=== PATIENT | male | born 1930 | race Caucasian/White ===

== ENCOUNTER 2016-04-17 17:13 | Inpatient (IN) | payer MEDICARE, OTHER ==
[2016-04-17] MEDS ORDERED: NS 0.9% 1000 ML* 1,000 ML IV ONE ×2 (18:22→18:44)
--- NOTE | 2016-04-17 19:32 | RAD ---
Indication: Confusion. Single frontal view of the chest performed at 1839 hours was reviewed. Comparison is made with previous exam dated May 31, 2015. Cardiomegaly is noted. Right pleural effusion is noted. Pacemaker leads are in place. IMPRESSION: PERSISTENT RIGHT PLEURAL EFFUSION WITHOUT SIGNIFICANT CHANGE SINCE PREVIOUS EXAM OF MAY 31, 2015.
[2016-04-17 19:53] LABS: Hematocrit 34 % (42-52); Hemoglobin 11.1 g/dl (14.0-18.0); Mean Corpuscular HGB Conc 32 g/dl (31-36); Mean Corpuscular Hemoglobin 30 pg (27-31); Mean Corpuscular Volume 92 fL (80-94); Mean Platelet Volume 9 um3 (7.4-10.4); Red Blood Count 3.75 10^6/ul (4.0-5.4); Red Cell Distribution Width 14 % (10.5-15); White Blood Count 11.2 10^3/ul (3.5-10.8)
[2016-04-17 20:12] LABS: Albumin 3.5 g/dL (3.2-5.2); BUN/Creatinine Ratio 16.8 (8-20); Calcium 9.6 mg/dL (8.6-10.3); EGFR African American 52.6 (>60); EGFR Non-African American 40.9 (>60); Globulin 3.8 g/dL (2-4); Potassium 4.4 mmol/L (3.5-5.0); Total Bilirubin 0.5 mg/dL (0.2-1.0); Total Protein 7.3 g/dL (6.4-8.9)
[2016-04-17 20:20] LABS: Troponin I 0.06 ng/mL (<0.04)
[2016-04-17 20:36] LABS: Digoxin 0.2 ng/ml (0.8-2.0)
[2016-04-17] MEDS ORDERED: Azithromycin TAB* 250 MG PO ONE (21:27)
[2016-04-17 22:48] LABS: Urine Bacteria Absent (Absent); Urine Bilirubin Negative (Negative); Urine Glucose 3+(>=500 mg/dL) (Negative); Urine Nitrite Negative (Negative)
[2016-04-18 00:05] LABS: TSH (Thyroid Stimulating Horm) 1.42 mcIU/mL (0.34-5.60)
--- NOTE | 2016-04-18 01:13 | ED ---
chet Harrison Timothy, scribed for Fahad Lai on 04/17/16 at 2257 . Progress - Progress Note Progress Note: Gabe De La Torre is an 85 yo male presenting to [facility] with cough and elevated glucose. Course/Dx - Course Course Of Treatment: Gabe De La Torre is an 85 yo male with cough and elevated glucose. After elevated repeated troponin and discussion with Dr. White, he will be admitted. - Diagnoses Provider Diagnoses: Bronchitis - Provider Notifications Discussed Care Of Patient With: 0055 - Dr. White (hospitalist) - discussed Pt condition and elevated toponin, he agrees to admit Pt. The documentation as recorded by the chet gutierres Timothy accurately reflects the service I personally performed and the decisions made by , Fahad Lai.
[2016-04-18] MEDS ORDERED: Dextrose 50% Syringe 50 ML* 25 GM/50 ML SYRINGE IV PUSH PRN ×2 (01:31→15:57)
[2016-04-18] MEDS ORDERED: Benzonatate CAP* 100 MG PO PRN (01:31)
[2016-04-18] MEDS ORDERED: Ondansetron INJ* 2 MG/ML VIAL IV PRN (01:31)
[2016-04-18] MEDS ORDERED: Insulin GLARGINE(*) 1 UNITS UNIT SUBCUT SCH ×3 (02:00→21:00)
[2016-04-18 02:23] LABS: Magnesium 2.2 mg/dL (1.9-2.7)
[2016-04-18] MEDS: Acetaminophen TAB* 325 MG PO PRN (02:41)
[2016-04-18] MEDS ORDERED: traMADol TAB* 50 MG PO PRN (05:11)
[2016-04-18] MEDS ORDERED: Polyethylene Glycol 3350* 17 GM PACKET PO PRN (05:11)
[2016-04-18] MEDS: Insulin LISPRO* 1 UNITS UNIT SUBCUT SCH ×4 (05:39→22:52)
[2016-04-18 06:56] LABS: HDL Cholesterol 29.4 mg/dL
[2016-04-18 07:17] LABS: Troponin I 0.11 ng/mL (<0.04)
[2016-04-18] MEDS ORDERED: amLODIPine TAB* 5 MG PO SCH (09:00)
[2016-04-18] MEDS ORDERED: Thiamine TAB* 100 MG TAB PO SCH (09:00)
[2016-04-18] MEDS ORDERED: Digoxin TAB* 0.125 MG PO SCH (09:00)
[2016-04-18] MEDS ORDERED: Docusate CAP* 100 MG PO SCH (09:00)
[2016-04-18] MEDS ORDERED: Ferrous Sulfate TAB* 325 MG PO SCH (09:00)
[2016-04-18] MEDS ORDERED: Atorvastatin* 40 MG TAB PO SCH (09:00)
[2016-04-18] MEDS ORDERED: Apixaban* 2.5 MG TAB PO SCH (09:00)
[2016-04-18] MEDS ORDERED: Atenolol TAB* 50 MG PO SCH (09:00)
--- NOTE | 2016-04-18 09:29 | HP ---
HISTORY AND PHYSICAL: DATE OF ADMISSION: 04/18/16 CHIEF COMPLAINT: Cough. HISTORY OF PRESENT ILLNESS: The patient is an 85-year-old gentleman who says for one week he has been having a cough that he cannot get rid of, and he coughs all day long. It's mostly nonproductive; once in a while he brings up a little sputum. He gets short of breath with it, but that's not necessarily new. He has a couple of times this week developed chest pain on the left side; it' s a sharp pain, and 5/10 in severity. It lasts only a few minutes and goes away on its own. He has no associated symptoms with it such as shortness of breath, palpitations, diaphoresis, nausea, or vomiting. He says he notes his sugars have been up to 400 to 500 lately, but he takes his medications and it goes down rapidly. In the ED, because his sugars were elevated, the ED doctor thought it was prudent to get a troponin; and it, indeed, was elevated at 0.06. A subsequent troponin came back at 0.36. The patient is being admitted for elevated troponin to make sure he did not have an acute coronary event. PAST MEDICAL HISTORY: Significant for coronary artery disease, type 2 diabetes , hypertension, obstructive sleep apnea, syncope, status post permanent pacemaker placement in June 2012, porcine aortic valve replacement in 2006, atrial fibrillation on Eliquis. ALLERGIES: REGLAN, METOPROLOL, ASPIRIN, LACTOSE, AND TROGLITAZONE, AND HAS A PROBLEM WITH FULL-DOSE ASPIRIN. FAMILY HISTORY: Father from a gangrenous foot. Mother had breast cancer. SOCIAL HISTORY: Quit tobacco over 50 years ago. No alcohol or recreational drug use. His son, William De La Torre, is his healthcare proxy. CURRENT MEDICATIONS: 1. Oxycodone 2.5 mg every 4 hours as needed. 2. Amlodipine 10 mg daily. 3. Vitamin B12 500 mg daily. 4. Tramadol 50 mg as instructed. 5. Thiamine [500?] mg daily. 6. Januvia 25 mg daily. 7. Zocor 40 mg daily. 8. Senna two tablets at bedtime. 9. Polyethylene glycol 17 grams daily. 10. Nitroglycerin 0.4 mg as needed for chest pain. 11. Multivitamin one tablet daily. 12. Irbesartan 75 mg daily. 13. Lispro insulin sliding scale. 14. Glargine insulin 20 units in the morning, 30 units in the evening. 15. Glucosamine chondroitin one capsule twice daily. 16. Gabapentin 600 mg daily. 17. Furosemide 40 mg daily. 18. Ferrous sulfate 325 mg daily. 19. Famotidine 40 mg daily. 20. Docusate 100 mg twice daily. 21. Digoxin 0.125 mg as directed. 22. Citracal calcium two tablets daily. 23. Cholecalciferol 1000 units twice daily. 24. Z-Tadeo 250 mg daily. 25. Atenolol 50 mg daily. 26. Aspirin 81 mg daily. 27. Eliquis 2.5 mg twice daily. 28. Acetaminophen 650 mg every 4 hours as needed. REVIEW OF SYSTEMS: A 14-point review of systems is completed with the patient. All pertinent positives and negatives are in the history of present illness, otherwise is negative. PHYSICAL EXAMINATION GENERAL: Pleasant gentleman sitting up in bed, in no acute distress. VITAL SIGNS: Temperature 98.2 degrees, heart rate 84 beats per minute, respiratory rate 24 breaths per minute, pulse ox 95%, and blood pressure 130/65. HEENT: Normocephalic, atraumatic. Pupils are equal, round, and reactive to light. Moist mucous membranes. NECK: Supple. No JVD, bruits, palpable thyroid, or lymphadenopathy. CHEST: Bilateral rhonchi. CARDIOVASCULAR: S1, S2 appreciated. A 3/6 systolic murmur at the right sternal border. ABDOMEN: Positive bowel sounds in all 4 quadrants. Soft, nontender, nondistended. EXTREMITIES: No cyanosis, clubbing. He's got some bilateral edema. NEUROLOGIC: He is alert and oriented x3. Moves all extremities. SKIN: No rashes or abnormalities. LABORATORY DATA: Sodium 135, potassium 4.4, chloride 98, CO2 32, BUN 27, creatinine 1.61, glucose 285. Troponin 0.06; repeat troponin 0.36. White count 11.2, hemoglobin 11.1, hematocrit 34, platelets 262. Digoxin level is only 0.2. Chest x-ray was interpreted by Radiology as persistent right pleural effusions without significant change since exam May 31, 2015. EKG shows normal sinus rhythm at 82 beats per minute, left axis deviation, right bundle-branch block, left anterior hemiblock, flipped T's V2 through V6, I in AVL. ASSESSMENT AND PLAN: 1. Elevated troponin. The patient had no complaints of this, but it was gotten because of concern of his elevated sugar. His 0.36, I doubt he is having acute coronary event. I'll admit the patient. I'll get a transthoracic echocardiogram. I will cycle his troponins. If there are no wall motion abnormalities. I think he will be safely discharged later today with cough medicine given to the patient. 2. Cough. I will give him Tessalon Perles and monitor. 3. Diabetes mellitus. Continue current regimen. Hold oral hypoglycemics and place on a single sliding scale with his Lantus. 4. Hyperlipidemia. Continue statin. Check lipid profile. 5. Atrial fibrillation. Continue Eliquis. Heart rate is adequately controlled. 6. Hypertension. Borderline controlled. Continue current regimen and adjust medications accordingly. 7. Fluids, electrolytes, and nutrition. Consistent carb diet. 8. Deep venous thrombosis prophylaxis. He is on Eliquis. 9. The patient is a FULL CODE. TIME SPENT: Over 85 minutes were spent on this H and P, more than 45 minutes of which were spent in direct [id number] contact with the patient, evaluation , physical exam, counseling, and coordination of care. CC: Dr. Ramsey* [id number]/[facility] #: [id number] ROBIN
[2016-04-18] MEDS: Gabapentin CAP(*) 300 MG PO SCH (09:36)
[2016-04-18] MEDS: Cholecalciferol TAB* 1000 UNITS PO SCH ×2 (09:38→22:11)
[2016-04-18] MEDS: Aspirin EC Low Dose* 81 MG TAB.EC PO SCH (09:38)
[2016-04-18] MEDS: Famotidine TAB* 20 MG PO SCH (09:39)
[2016-04-18] MEDS: Cyanocobalamin TAB* 500 MCG PO SCH (09:39)
[2016-04-18] MEDS: Multivitamins/Minerals TAB PO SCH (09:39)
[2016-04-18] MEDS: Losartan TAB* 25 MG PO SCH (09:40)
[2016-04-18] MEDS: Furosemide TAB* 40 MG PO SCH (09:40)
[2016-04-18] MEDS: [UNRECOGNIZED DRUG - OTHER] PO SCH (10:03)
[2016-04-18] MEDS ORDERED: Albuterol HFA INHALER* 8 gm MDI INH PRN (12:08)
[2016-04-18] MEDS ORDERED: Albuterol 2.5 MG/3 ML NEB.SOL* (0.083%) INH PRN (12:08)
--- NOTE | 2016-04-18 12:43 | ECHO ---
Patient: KATIA TERRY [facility] Rec#: [id number] : 1930 Date: 04/18/2016 Age: 85y Height: 180.34 cm / 71.0 in Weight: 106.59 kg / 234.9 lbs Sex: M BSA: 2.26 Room#: 440 Admit Date#: 04/18/2016 Type: Inpatient Referring: Yassine White MD Reading: Nishi Mccullough MD Bottom Brusher: Jill Molina JAMESON CC: Triston Ramsey MD Transthoracic Echocardiogram Indication: Chest Pain/ACS BP: 128/54 HR: 90 Rhythm: NSR Findings History: S/P porcine AVR #25 Medtronic Mosaic 2007,CAD,DM,HTN,a-fib,s/p pacer,PACO,former smoker. Technical Comments: The study is technically limited due to the patient's smoking history. Completed at 1000. Left Ventricle: The left ventricular chamber size is normal. Moderate concentric left ventricular hypertrophy is observed. There is a focal wall motion abnormality present.Base of the posterior/inferior wall severely hypokinetic to akinetic. Left ventricular systolic function is at the lower limits of normal. The estimated ejection fraction is 45-50%. Ventricular septal wall motion has a post-operative appearance. Abnormal left ventricular diastolic function is observed. Left Atrium: The left atrium is slightly dilated. Right Ventricle: The right ventricular cavity size is normal. The right ventricular global systolic function is low normal. A pacemaker wire is visualized in the right ventricle. Right Atrium: The right atrium is slightly dilated. A pacemaker wire is visualized in the right atrium. Aortic Valve: There is no evidence of aortic regurgitation. The highest aortic valve velocity was obtained with the standard probe from the A5C view. A porcine bio-prosthetic aortic valve is present. The prosthetic aortic valve leaflets are normal. The bio-prosthetic aortic valve appears to be functioning normally. Mean gradient at the highest level of normal and valve area calculates at the lower range of normal, possible early prosthetic stenosis. DI 0.64. Mitral Valve: The mitral valve leaflets are mildly thickened. There is no evidence of mitral regurgitation. There is no evidence of mitral stenosis. Tricuspid Valve: The tricuspid valve leaflets are normal. There is trace to mild tricuspid regurgitation. There is evidence that pulmonary hypertension may be underestimated. There is no tricuspid stenosis. Pulmonic Valve: The pulmonic valve appears normal. There is no evidence of pulmonic regurgitation. Pericardium: A pericardial fat pad is visualized. Aorta: There is no dilatation of the ascending aorta. There is no dilatation of the aortic arch. There is no dilation of the aortic root. Pulmonary Artery: The main pulmonary artery appears normal. Venous: The venous system is not well visualized. Conclusions Moderate concentric left ventricular hypertrophy is observed. The estimated ejection fraction is 45-50%. Ventricular septal wall motion has a post-operative appearance. Base of the posterior/inferior wall severely hypokinetic to akinetic. The right ventricular global systolic function is low normal. A porcine bio-prosthetic aortic valve is present with good function. Mean gradient at the highest level of normal and valve area calculates at the lower range of normal, possible early prosthetic stenosis. The mitral valve leaflets are mildly thickened with good function. There is trace to mild tricuspid regurgitation. Compared with LON (transesophogeal echo) of 05/25/15, septal dyskinesis and posterior wall hypokinesis newly described, ER previously 55-60%, no gradients across the prosthetic aortic valve to compare, at that time leaflets thin with normal function, trace/mild MR no longer noted. Measurements Name Value Normal Range RVIDd (AP) 2D 2.9 cm (0.9 - 2.6) RVDdMajor (2D) 3.2 cm (2.2 - 4.4) RAd ISD 4CH 5 cm (3.4 - 4.9) RA (A4C)W 3 cm (2.9 - 4.6) IVSd (2D) 1.6 cm (0.6 - 1) LVPWd (2D) 1.6 cm (0.6 - 1) LVIDd (2D) 4.7 cm (3.6 - 5.4) LVIDs (2D) 3.3 cm - LV FS (2D) 29 % (25 - 45) Aortic Annulus 2 cm (1.4 - 2.6) Ao root diameter (2D) 2.6 cm (2.1 - 3.5) Ascending Ao 2.4 cm (2.1 - 3.4) Aortic arch 2.3 cm (1.8 - 3.4) Descending Ao 0.5 cm - LA dimension (AP) 2D 3.9 cm (2.3 - 3.8) LAd ISD 4CH 5.3 cm (2.9 - 5.3) LA ISD 4CH W 4.3 cm (2.5 - 4.5) Name Value Normal Range LA ESV SP 4CH (A/L) 31 ml - LA ESV SP 2CH (A/L) 38 ml - LA ESV BP (A/L) 34 ml - LA ESV BP (A/L) index 15.24 ml/m2 - LA ESV SP 4CH (MOD) 29 ml - LA ESV SP 2CH (MOD) 35 ml - Name Value Normal Range MV E-wave Vmax 0.8 m/sec - MV deceleration time 242 msec - MV A-wave Vmax 1.2 m/sec - MV E:A ratio 0.7 ratio - LV septal e' Vmax 0.05 m/sec - LV lateral e' Vmax 0.09 m/sec - LV E:e' septal ratio 15 ratio - LV E:e' lateral ratio 8.89 ratio - Name Value Normal Range AV Vmax 2.8 m/sec - AV VTI 55.3 cm - AV peak gradient 31.87 mmHg - AV mean gradient 15.77 mmHg - LVOT diameter 1.8 cm - LVOT Vmax 1.8 m/sec - LVOT VTI 36.9 cm - LVOT peak gradient 16.64 mmHg - LVOT mean gradient 7.63 mmHg - GERBER (continuity Vmax) 1.6 cm2 - GERBER (continuity VTI) 1.6 cm2 - Name Value Normal Range TR Vmax 2.2 m/sec - TR peak gradient 20 mmHg - RAP 8 mmHg - RVSP 28 mmHg - Name Value Normal Range PV Vmax 1.1 m/sec - PV peak gradient 4.38 mmHg -
--- NOTE | 2016-04-18 14:02 | RAD ---
Indication: Dyspnea. Chest pain. Cough. Recent travel. Assess for pulmonary embolism. Comparison: April 17, 2016 chest radiograph. Technique: Following administration of 9.950 mCi xenon-133 by inhalation anterior and posterior ventilation images were obtained. Following the administration of 6.600 mCi of Tc-99m macroaggregated albumin, perfusion images were obtained in multiple projections. Report: The ventilation pattern is uniform with no evidence of air trapping. Photopenia defect at the anterior LEFT upper lobe reflecting attenuation from overlying cardiac pacemaker. The bilateral lung perfusion pattern is otherwise within normal limits. IMPRESSION: No evidence for pulmonary embolism.
--- NOTE | 2016-04-18 14:49 | RAD ---
HISTORY: Recent extended period of immobility. TECHNIQUE: Multiple transverse and longitudinal ultrasound images were obtained of the veins of the bilateral lower extremities using grayscale, color Doppler, and spectral Doppler imaging with and without compression and with augmentation. FINDINGS: VEINS: The common femoral vein, deep femoral vein, femoral vein and popliteal vein are compressible throughout their course, with normal flow on color Doppler imaging and normal response to augmentation on spectral Doppler imaging. SOFT TISSUES: Grossly normal. No large popliteal fossa cyst was identified. IMPRESSION: No sonographic evidence of deep vein thrombosis.
[2016-04-18] MEDS ORDERED: Heparin VIAL(*) 5000 UNITS/ML VIAL (FIVE THOUSAND) IV SCH (16:00)
[2016-04-18 16:48] LABS: Hematocrit 33 % (42-52); Hemoglobin 10.8 g/dl (14.0-18.0); Mean Corpuscular HGB Conc 33 g/dl (31-36); Mean Corpuscular Hemoglobin 30 pg (27-31); Mean Corpuscular Volume 91 fL (80-94); Mean Platelet Volume 9 um3 (7.4-10.4); Red Blood Count 3.57 10^6/ul (4.0-5.4); Red Cell Distribution Width 14 % (10.5-15); White Blood Count 11.6 10^3/ul (3.5-10.8)
[2016-04-18] MEDS ORDERED: Rivaroxaban TAB(*) 15 MG PO SCH (17:00)
[2016-04-18] MEDS: Heparin DRIP 25,000 UNITS(*) 25,000 UNITS/500 ML BAG IV SCH (17:06)
--- NOTE | 2016-04-18 17:07 | PN ---
Hospitalist Progress Note HOSPITALIST ADDENDUM Patient seen and examined at bedside. He feels a little better today, but major complaint is still cough. Denies dyspnea or chest pain, but has audible wheezing from a distance. CVS: normal S1 and S2, RRR. Chest: BS+ bilaterally with bilateral wheezes and rhonchi. Recent trip to [place] - drove to [place] and [place] last week, flew back this weekend. Labs and imaging reviewed. W/u for PE/DVT negative. D/w Cardiology - echo shows new wall motion abnormalities on his inferior wall, corresponding to the area of his prior stent. Due to concern for ACS will d/c Eliquis and start Heparin drip (without bolus as we need to start it EMMA), and Dr. Mccullough will discuss case with Dr. Chapa. For his bronchitis, will start doxycyline, steroids and bronchodilators. Continue to monitor on Telemetry.
[2016-04-18] MEDS: methylPREDNISolone SOD 40 MG* 1 ML VIAL IV SCH (17:11)
[2016-04-18] MEDS: DOXYcycline IV* 100 MG in NS 0.9% 250 ML* 250 ML IVPB SCH (17:12)
[2016-04-18 17:41] LABS: Hematocrit 32 % (42-52); Hemoglobin 10.4 g/dl (14.0-18.0); Mean Corpuscular HGB Conc 32 g/dl (31-36); Mean Corpuscular Hemoglobin 30 pg (27-31); Mean Corpuscular Volume 91 fL (80-94); Mean Platelet Volume 9 um3 (7.4-10.4); Red Blood Count 3.53 10^6/ul (4.0-5.4); Red Cell Distribution Width 14 % (10.5-15); White Blood Count 11.3 10^3/ul (3.5-10.8)
--- NOTE | 2016-04-18 20:20 | CONS ---
CONSULTATION REPORT: DATE OF CONSULT: 04/18/16 REASON FOR CONSULT: Abnormal ECG and elevated troponin. HISTORY OF PRESENT ILLNESS: Mr. De La Torre is an 85-year-old gentleman well known to me with a history of coronary artery disease, bioprosthetic aortic valve replacement, paroxysmal atrial fibrillation, as well as diabetes, hypertension, and dyslipidemia. The patient was in stable health and decided to go visit a family member in [place]. He and a friend drove to [place] and then to [place]. En route, he developed a dry cough that just would not quit. He had some vomiting with this. In [place], he went to a hospital and was admitted for a couple of days. He says he was totally dehydrated, but he is uncertain of the details of any workup done. He was discharged, flew home, but the cough persisted, more vomiting with coughing and he presented to our hospital. Workup included a chest x-ray showing a chronic pleural effusion, but no acute changes. EKG showed some new precordial changes. His troponins were mildly elevated and his white count was elevated. The patient has been treated with antibiotics and inhalers for presumed lower respiratory tract illness without significant improvement. He continues to have a persistent cough. He denies chest pain, pressure, heaviness, orthopnea, or PND. He says his legs were a little bit swollen with the trip, but not painful and they were swollen equally. He denies medication changes prior to the trip. PAST MEDICAL HISTORY: The patient has a past medical history of coronary artery disease, cardiac catheterization in 2010 showed moderate disease in the LAD and the ostium of the first diagonal. The right coronary artery had a 50% in-stent restenosis proximally and an 80% to 85% occlusion in the distal right coronary artery, status post VeriFLEX bare-metal stent. He has aortic stenosis , status post aortic valve replacement, 2006 (#25 Medtronic Mosaic porcine valve ). He has paroxysmal atrial fibrillation, on chronic Eliquis; diabetes; hypertension; dyslipidemia; peripheral vascular disease; reflux; peripheral neuropathy; rhinitis; right bundle branch block and left anterior fascicular block; chronic prostate cancer; colonic polyps; Crane's esophagus; obstructive sleep apnea; degenerative arthritis including spinal stenosis; sick sinus syndrome with pacemaker; chronic pleural effusion; intermittent chronic headaches; sepsis, April of 2015, strep, related to steroid injection, negative for bacterial endocarditis. PAST SURGICAL HISTORY: Includes aortic valve replacement, 2006; pacemaker implantation, 2013; cholecystectomy; prostatectomy; shoulder surgery; cataract surgery. OUTPATIENT MEDICATIONS: Included: 1. Atorvastatin 40 mg a day. 2. Zetia 10 mg a day. 3. Potassium 8 mEq a day. 4. Atenolol 25 mg a day. 5. Lasix 20 mg 3 days a week. 6. Aspirin 81 mg a day. 7. Lantus insulin. 8. Glucosamine. 9. Humalog insulin. 10. MultiVites. 11. Nitroglycerin p.r.n. 12. Glipizide 5 mg t.i.d. 13. Xarelto. 14. Famotidine. 15. Prevacid. 16. Januvia 100 mg a day. 17. Tylenol p.r.n. 18. Carafate 1 g a.c. and q.h.s. 19. Oxycodone p.r.n. 20. Neurontin 900 mg t.i.d. ALLERGIES: Include lactose intolerance, metoprolol intolerance, and Reglan intolerance. FAMILY HISTORY: Significant in that his father at age 77 with gangrene. His mother of breast cancer with a history of lung cancer as well. SOCIAL HISTORY: The patient is recently , active working michele. Distant smoker, quit over 60 years ago. No history of alcohol use or abuse. 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 REVIEW OF SYSTEMS: See history of present illness. The cough is nonproductive. He denies awareness of fevers, chills, or sweats. He admits to intermittent vomiting, but always associated with heavy intractable coughing. He denies recent diarrhea or constipation. Mild swelling of the lower extremities while traveling, but symmetrical. PHYSICAL EXAM: The patient is 5 feet 11 inches, weighs 225 pounds with a BMI of 31.4. Blood pressure 131/53, pulse is 82 and regular, oxygen saturation on room air is 96%, temperature 98.3 and no fever since admission here. General Appearance: Tall, broad-shouldered, elderly gentleman lying flat and was comfortable at rest, but as soon as I had him talking to me, he had significant coughing. Psychologically, awake, alert, and oriented to person, place, and time. Neurologically, he is hard of hearing. The cranial nerves are otherwise intact. Speech is articulate. Comprehension is good. He follows commands well. I did not watch him ambulate, but no gross sensory or motor deficits in the bed. Skin: His usual ana cristina complexion. No evidence of cyanosis. Pacemaker site and midline sternotomy scar unremarkable, old and well healed. HEENT: Pupils are equal and round. Mucous membranes somewhat dry. Neck without appreciable increase in JVP. Breath sounds had diffuse inspiratory and expiratory wheezing anteriorly and posteriorly. Coronary: S1, S2. Regular. Soft systolic murmur heard in the right upper sternal border, suboptimal exam due to wheezing and coughing. Abdomen: Nondistended. No epigastric discomfort. No hepatosplenomegaly or masses. Lower extremities were warm and free of edema. DIAGNOSTIC STUDIES/LAB DATA: White count 11.6, hemoglobin 10.8, hematocrit 33, platelets 282, increased monos. PTT 30.9. Troponin #1 0.06, troponin #2 0.36, troponin #3 0.05, troponin #4 0.11, troponin #5 0.05. Sodium 135, potassium 4.4 , chloride 98, bicarb 32, BUN 27, creatinine 1.61, glucose 235. ALT of 14. TSH 1.42. Total cholesterol 122, triglycerides 84, LDL cholesterol 76, HDL cholesterol 29. Urinalysis: 2+ protein, casts and glucose noted. No evidence of acute ischemia. Digoxin level 0.2. Studies: Chest x-ray shows chronic pleural effusion, no acute changes. Echocardiogram from today shows hypokinesis at the base of the posterior and inferior wall with an ejection fraction of 45% to 50% and some paradoxical septal wall motion consistent with his prior surgery. His bioprosthetic valve showed borderline stenosis with mean gradient and aortic valve area at the limits of normal (mean gradient 16 mmHg, peak velocity 2.8 m/sec, and calculated aortic valve area by VTI 1.6 sq. cm). PA pressure estimated at 28 mmHg. Compared with transesophageal echo, his wall motion abnormalities were new, but when compared with his transthoracic echo, 06/26/13, the septal and inferior wall hypokinesis was noted. His ejection fraction at that time was 50 % to 55%. His mean gradient across the aortic valve was 18.2 mmHg with a calculated valve area of 1 sq. cm. He had V/Q scan that was interpreted as low probability and venous Doppler to the lower extremities negative for DVT. EKG, 04/17/16 #1: ED, sinus rhythm, 92 beats a minute, right bundle branch block, left anterior fascicular block, inverted T-waves V1 through V6. ECG #2 shows sinus rhythm, 93 beats a minute with a right bundle branch block, left anterior fascicular block, and inverted T-waves V1 through V4, and when this is compared with an EKG of 05/16/15, sinus rhythm replaces A pacing. The bundle and fascicular blocks are old, but the inverted T-waves in the precordial leads are new and the rate is fast, has increased. SUMMARY: Mr. De La Torre is an 85-year-old gentleman with approximately 1-week history of low respiratory symptoms with dry cough that is persistent leading to vomiting and now with his second admission for this. His exam is consistent with some form of bronchitis with diffuse inspiratory and expiratory wheezing and persistent coughing. The patient presents with new EKG changes across the precordial leads and echo showing wall motion abnormalities in the distribution of the right coronary artery where he has had his most recent stents and are in fact probably old changes. He is not having typical anginal symptoms; however, he is a diabetic. He could have silent ischemia. His presenting problem is his respiratory and aggressive management of this should continue. He is a high-risk cath candidate with his elevated creatinine, age, and diabetes , discussion with Dr. Wilson and Dr. Chapa, interventional cardiologists, revealed that his last intervention in 2010 on the right side was technically difficult. We will therefore recommend on proceeding with a stress test with imaging, either Lexiscan Myoview or exercise Myoview, when the patient's respiratory status has improved and he can tolerate this as opposed to going straight to cath. This can be modified if his clinical situation changes. In the interim, we will try to optimize his medical management for coronary disease. I would resume a statin and Zetia. It is noted that his atenolol was held as an inpatient which I think is appropriate with the wheezing, but you could consider resuming this. His outpatient amlodipine was held as an inpatient and this can also confer antianginal effect. So, amlodipine could be resumed as his blood pressure tolerates, perhaps start at lower doses and titrate back up. We can continue his ARB for his ischemic cardiomyopathy and diabetic renal protection as long his creatinine stays stable. I encouraged holding Eliquis and converting to unfractionated heparin for now until we establish if we are going to continue on an invasive or medical strategy. Additional recommendations will be made pending the results of his stress test and clinical course. CC: Hospitalist Service; Dr. Triston Ramsey * [id number]/[facility] #: [id number] [facility]ENTER[facility]etal
[2016-04-18] MEDS ORDERED: Senna TAB PO SCH (21:00)
[2016-04-18] MEDS ORDERED: Insulin LISPRO* 1 UNITS UNIT SUBCUT ONE (22:35)
[2016-04-19] MEDS ORDERED: Insulin LISPRO* 1 UNITS UNIT SUBCUT ONE ×2 (02:00→18:46)
[2016-04-19] MEDS: DOXYcycline IV* 100 MG in NS 0.9% 250 ML* 250 ML IVPB SCH ×2 (05:33→16:33)
[2016-04-19 05:36] LABS: BUN/Creatinine Ratio 17.7 (8-20); Calcium 9.3 mg/dL (8.6-10.3); EGFR African American 61.3 (>60); EGFR Non-African American 47.7 (>60); Potassium 4.3 mmol/L (3.5-5.0)
[2016-04-19 05:45] LABS: Troponin I 0.05 ng/mL (<0.04)
[2016-04-19] MEDS: Insulin LISPRO* 1 UNITS UNIT SUBCUT SCH ×6 (09:29→23:35)
[2016-04-19] MEDS: Aspirin EC Low Dose* 81 MG TAB.EC PO SCH (09:31)
[2016-04-19] MEDS: Cholecalciferol TAB* 1000 UNITS PO SCH ×2 (09:31→23:46)
[2016-04-19] MEDS: Gabapentin CAP(*) 300 MG PO SCH (09:32)
[2016-04-19] MEDS: Famotidine TAB* 20 MG PO SCH (09:33)
[2016-04-19] MEDS: methylPREDNISolone SOD 40 MG* 1 ML VIAL IV SCH (09:34)
[2016-04-19] MEDS: Multivitamins/Minerals TAB PO SCH (09:34)
[2016-04-19] MEDS: Furosemide TAB* 40 MG PO SCH (09:34)
[2016-04-19] MEDS: Cyanocobalamin TAB* 500 MCG PO SCH (09:34)
[2016-04-19] MEDS: Losartan TAB* 25 MG PO SCH (09:34)
[2016-04-19] MEDS: [UNRECOGNIZED DRUG - OTHER] PO SCH (09:41)
[2016-04-19] MEDS: Acetaminophen TAB* 325 MG PO PRN (11:45)
[2016-04-19] MEDS: Heparin DRIP 25,000 UNITS(*) 25,000 UNITS/500 ML BAG IV SCH (11:46)
[2016-04-19] MEDS ORDERED: NS 0.9% 250 ML* 250 ML ONE (16:05)
--- NOTE | 2016-04-19 16:06 | PN ---
Subjective Date of Service: 04/19/16 Interval History: HOSPITALIST PROGRESS NOTE Patient seen and examined at bedside. He feels better today. Dyspnea and cough are less intense, he was able to sleep last night. Denies chest pain. Family History: Unchanged from Admission Social History: Unchanged from Admission Past Medical History: Unchanged from Admission Objective Active Medications: Acetaminophen (Tylenol Tab*) 650 mg PO Q4H PRN PRN Reason: FEVER/PAIN Last Admin: 04/19/16 11:45 Dose: 650 mg Albuterol (Ventolin 2.5 Mg/3 Ml Neb.Anjali*) 2.5 mg INH Q6H PRN PRN Reason: SOB/WHEEZING Albuterol (Ventolin Hfa Inhaler*) 2 puff INH Q6H PRN PRN Reason: SOB/WHEEZING Aspirin (Aspirin Ec Low Dose*) 81 mg PO DAILY [facility] Last Admin: 04/19/16 09:31 Dose: 81 mg Benzonatate (Tessalon Cap*) 200 mg PO TID PRN PRN Reason: COUGH Last Admin: 04/18/16 03:12 Dose: 200 mg Cholecalciferol (Vitamin D Tab*) 1,000 units PO BID [facility] Last Admin: 04/19/16 09:31 Dose: 1,000 units Cyanocobalamin (Vitamin B12 Tab*) 500 mcg PO DAILY [facility] Last Admin: 04/19/16 09:34 Dose: 500 mcg Dextrose (D50w Syringe 50 Ml*) 12.5 gm IV PUSH .FOR FS < 60 - SS PRN PRN Reason: FS < 60 Famotidine (Pepcid Tab*) 20 mg PO DAILY [facility] Last Admin: 04/19/16 09:33 Dose: 20 mg Furosemide (Lasix Tab*) 40 mg PO DAILY [facility] Last Admin: 04/19/16 09:34 Dose: 40 mg Gabapentin (Neurontin Cap(*)) 600 mg PO DAILY [facility] Last Admin: 04/19/16 09:32 Dose: 600 mg Heparin Sodium (Porcine) (Heparin Vial(*)) 0 units IV .PER PROTOCOL [facility] PRN Reason: Protocol Doxycycline Hyclate 100 mg/ (Sodium Chloride) 250 mls @ 250 mls/hr IVPB Q12H [facility] Last Admin: 04/19/16 05:33 Dose: 250 mls/hr Heparin Sodium/Dextrose (Heparin Drip 25,000 Units(*)) 25,000 units in 500 mls @ 0 mls/hr IV .NO INITIAL BOLUS [facility]; As Directed PRN Reason: Protocol Last Admin: 04/19/16 11:46 Dose: 27 mls/hr Insulin Glargine (Lantus(*)) 40 units SUBCUT 2100 [facility] Insulin Human Lispro (Humalog*) 0 units SUBCUT AC [facility] PRN Reason: Protocol Last Admin: 04/19/16 13:43 Dose: 6 units Insulin Human Lispro (Humalog*) 0 units SUBCUT ACHS [facility] PRN Reason: Protocol Last Admin: 04/19/16 13:44 Dose: 15 unit Losartan Potassium (Cozaar Tab*) 25 mg PO DAILY [facility] Last Admin: 04/19/16 09:34 Dose: 25 mg Multivitamins/Minerals (Theragran/Minerals Tab*) 1 tab PO DAILY [facility] Last Admin: 04/19/16 09:34 Dose: 1 tab (Citracal Calcium Gu ... 250-115-250 Mg- Mg-Unit 2 Tab) 2 tab PO DAILY [facility] Last Admin: 04/19/16 09:41 Dose: Not Given Ondansetron HCl (Zofran Inj*) 4 mg IV Q4H PRN PRN Reason: NAUSEA Prednisone (Deltasone Tab*) 40 mg PO DAILY [facility] Tramadol HCl (Ultram*) 50 mg PO BID PRN PRN Reason: PAIN Vital Signs 04/19/16 04/19/16 04/19/16 11:29 11:32 15:28 Temperature 98.5 F 97.6 F Pulse Rate 89 95 Respiratory 18 18 18 Rate Blood Pressure 148/73 140/62 (mmHg) O2 Sat by Pulse 94 94 Oximetry Oxygen Devices in Use Now: None Appearance: Pleasant elderly male lying in bed in [facility]. Eyes: No Scleral Icterus Ears/Nose/Mouth/Throat: Mucous Membranes Moist Neck: Trachea Midline Respiratory: Symmetrical Chest Expansion and Respiratory Effort, - - BS+ bilaterally with scattered bilateral wheezes. Cardiovascular: RRR - Normal S1 and S2 Abdominal: NL Sounds; No Tenderness; No Distention Neurological: Alert and Oriented x 3, NL Muscle Strength and Tone Lines/Tubes/Other Access: Clean, Dry and Intact Peripheral IV Nutrition: Taking PO's Result Diagrams: 04/18/16 17:31 04/19/16 04:57 Assess/Plan/Problems-Billing Assessment: Mr. De La Torre is an 85yo M with PMH of CAD, type 2 DM, HTN, PACO, s/p pacer, s/p AVR (biological), Afib, who presented to ED with c/o cough, found to have elevated troponins and bronchitis. - Patient Problems (1) Bronchitis Comment: - Patient likely developed a viral infection while in [place], that has now progressed to bronchitis. - Continue doxycycline, bronchodilators and steroids. - Improving. (2) Elevated troponin Comment: - Although the patient has no chest pain, he does havea h/o CAD, troponin elevation and EKG changes. - Patient had a recent trip to [place] and [place] and w/u for PE/DVT were negative. - Echocardiogram showed wall motion abnormalities in the RCA area (where he had his most recent stent). - Cardiology input appreciated - will continue heparin drip (and hold Eliquis) and plan for stress test tomorrow. - Continue Aspirin. (3) Type II diabetes mellitus Comment: - Uncontrolled now due to steroids. - Increase Lantus and continue Lispro SS. (4) Hypertension Comment: - Continue Losartan. (5) DVT prophylaxis Comment: - Heparin drip. (6) Full code status Status and Disposition: Inpatient.
[2016-04-19 16:21] LABS: Hematocrit 32 % (42-52); Hemoglobin 10.8 g/dl (14.0-18.0); Mean Corpuscular HGB Conc 34 g/dl (31-36); Mean Corpuscular Hemoglobin 31 pg (27-31); Mean Corpuscular Volume 91 fL (80-94); Mean Platelet Volume 9 um3 (7.4-10.4); Red Blood Count 3.51 10^6/ul (4.0-5.4); Red Cell Distribution Width 13 % (10.5-15); White Blood Count 12.3 10^3/ul (3.5-10.8)
[2016-04-19] MEDS ORDERED: Dextrose 50% Syringe 50 ML* 25 GM/50 ML SYRINGE IV PUSH PRN (18:46)
[2016-04-19] MEDS ORDERED: Insulin GLARGINE(*) 1 UNITS UNIT SUBCUT SCH (21:00)
[2016-04-20] MEDS: DOXYcycline IV* 100 MG in NS 0.9% 250 ML* 250 ML IVPB SCH ×2 (05:28→17:53)
[2016-04-20] MEDS: Insulin LISPRO* 1 UNITS UNIT SUBCUT SCH ×8 (08:00→20:55)
[2016-04-20] MEDS: Cholecalciferol TAB* 1000 UNITS PO SCH ×2 (08:55→20:52)
[2016-04-20] MEDS: Famotidine TAB* 20 MG PO SCH (08:55)
[2016-04-20] MEDS: Aspirin EC Low Dose* 81 MG TAB.EC PO SCH (08:55)
[2016-04-20] MEDS: Cyanocobalamin TAB* 500 MCG PO SCH (08:56)
[2016-04-20] MEDS: [UNRECOGNIZED DRUG - OTHER] PO SCH (08:56)
[2016-04-20] MEDS: Losartan TAB* 25 MG PO SCH (08:56)
[2016-04-20] MEDS: Gabapentin CAP(*) 300 MG PO SCH (08:56)
[2016-04-20] MEDS: Multivitamins/Minerals TAB PO SCH (08:57)
[2016-04-20] MEDS: Furosemide TAB* 40 MG PO SCH (08:57)
[2016-04-20] MEDS ORDERED: predniSONE TAB* 20 MG PO SCH (09:00)
[2016-04-20] MEDS ORDERED: Regadenoson* 0.4 MG/5 ML SYRINGE ONE (09:27)
[2016-04-20] MEDS ORDERED: Aminophylline IV* 25 MG/ML 10 ML VIAL ONE (09:27)
--- NOTE | 2016-04-20 11:57 | RAD ---
HISTORY: Chest pain, shortness of breath, history of CABG and angioplasty COMPARISONS: August 08, 2012 TECHNIQUE: A 1 day stress/rest myocardial perfusion study was performed, with pharmacologic stress. The stress portion was monitored by Dr. Cadet. Gated SPECT imaging was performed, without CT-based attenuation correction, secondary to patient physical limitation DOSE: Stress: Technetium 99m tetrofosmin, 26.38 millicuries, injected at 10:07 AM on April 20, 2016 Rest: Technetium 99m tetrofosmin, 10.57 millicuries, injected at 7:45 AM on April 20, 2016 Pharmacologic agent: Lexiscan FINDINGS: CARDIAC MONITORING: No EKG changes with stress EF: 47 % TID: 1.02 MOTION: There is septal hypokinesia PERFUSION: There is a defect of the lateral wall that is moderate in size with marginal reversibility suggestive of previous infarct with marginal ischemia. This has progressed from the previous examination OTHER: None IMPRESSION: 1. DECREASED EJECTION FRACTION WITH SEPTAL HYPOKINESIA. 2. 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 Based on imaging criteria from ACC/AHA 2002. Guideline Update for the Management of Patient's with Chronic Stable Angina, table 23. Noninvasive Risk Stratification.
[2016-04-20] MEDS: Heparin DRIP 25,000 UNITS(*) 25,000 UNITS/500 ML BAG IV SCH (13:16)
--- NOTE | 2016-04-20 14:44 | PN ---
Subjective Date of Service: 04/20/16 Interval History: f/u [place] no cp breathing imrpoving still with cough but improving Medications Active Medications: Acetaminophen (Tylenol Tab*) 650 mg PO Q4H PRN PRN Reason: FEVER/PAIN Last Admin: 04/19/16 11:45 Dose: 650 mg Albuterol (Ventolin 2.5 Mg/3 Ml Neb.Anjali*) 2.5 mg INH Q6H PRN PRN Reason: SOB/WHEEZING Albuterol (Ventolin Hfa Inhaler*) 2 puff INH Q6H PRN PRN Reason: SOB/WHEEZING Aspirin (Aspirin Ec Low Dose*) 81 mg PO DAILY [facility] Last Admin: 04/20/16 08:55 Dose: 81 mg Benzonatate (Tessalon Cap*) 200 mg PO TID PRN PRN Reason: COUGH Last Admin: 04/18/16 03:12 Dose: 200 mg Cholecalciferol (Vitamin D Tab*) 1,000 units PO BID [facility] Last Admin: 04/20/16 08:55 Dose: 1,000 units Cyanocobalamin (Vitamin B12 Tab*) 500 mcg PO DAILY [facility] Last Admin: 04/20/16 08:56 Dose: 500 mcg Dextrose (D50w Syringe 50 Ml*) 12.5 gm IV PUSH .FOR FS < 60 - SS PRN PRN Reason: FS < 60 Famotidine (Pepcid Tab*) 20 mg PO DAILY [facility] Last Admin: 04/20/16 08:55 Dose: 20 mg Furosemide (Lasix Tab*) 40 mg PO DAILY [facility] Last Admin: 04/20/16 08:57 Dose: 40 mg Gabapentin (Neurontin Cap(*)) 600 mg PO DAILY [facility] Last Admin: 04/20/16 08:56 Dose: 600 mg Heparin Sodium (Porcine) (Heparin Vial(*)) 0 units IV .PER PROTOCOL [facility] PRN Reason: Protocol Doxycycline Hyclate 100 mg/ (Sodium Chloride) 250 mls @ 250 mls/hr IVPB Q12H [facility] Last Admin: 04/20/16 05:28 Dose: 250 mls/hr Heparin Sodium/Dextrose (Heparin Drip 25,000 Units(*)) 25,000 units in 500 mls @ 0 mls/hr IV .NO INITIAL BOLUS GLENDA; As Directed PRN Reason: Protocol Last Admin: 04/20/16 13:16 Dose: 23 mls/hr Insulin Glargine (Lantus(*)) 40 units SUBCUT 2100 [facility] Last Admin: 04/19/16 23:37 Dose: 40 units Insulin Human Lispro (Humalog*) 0 units SUBCUT AC [facility] PRN Reason: Protocol Last Admin: 04/20/16 12:59 Dose: Not Given Insulin Human Lispro (Humalog*) 0 units SUBCUT ACHS [facility] PRN Reason: Protocol Last Admin: 04/20/16 13:11 Dose: 6 unit Losartan Potassium (Cozaar Tab*) 25 mg PO DAILY [facility] Last Admin: 04/20/16 08:56 Dose: 25 mg Multivitamins/Minerals (Theragran/Minerals Tab*) 1 tab PO DAILY [facility] Last Admin: 04/20/16 08:57 Dose: 1 tab (Citracal Calcium Gu ... 250-115-250 Mg- Mg-Unit 2 Tab) 2 tab PO DAILY [facility] Last Admin: 04/20/16 08:56 Dose: Not Given Ondansetron HCl (Zofran Inj*) 4 mg IV Q4H PRN PRN Reason: NAUSEA Prednisone (Deltasone Tab*) 40 mg PO DAILY [facility] Last Admin: 04/20/16 08:56 Dose: 40 mg Tramadol HCl (Ultram*) 50 mg PO BID PRN PRN Reason: PAIN Objective Vital Signs: Temp Pulse Resp BP Pulse Ox 97.7 F 74 18 131/60 96 04/20/16 03:53 04/20/16 11:38 04/20/16 11:38 04/20/16 11:38 04/20/16 11:38 Oxygen Devices in Use Now: None Appearance: nad, pleasant Ears/Nose/Mouth/Throat: Clear Oropharnyx Neck: NL Appearance and Movements; NL JVP Respiratory: Symmetrical Chest Expansion and Respiratory Effort, - - no wheezing Cardiovascular: NL Sounds; No Murmurs; No JVD, RRR Abdominal: NL Sounds; No Tenderness; No Distention Extremities: No Clubbing, Cyanosis Skin: No Rash or Ulcers Neurological: Alert and Oriented x 3 Laboratory Results: 04/19/16 16:03 04/19/16 04:57 APTT 53.6 seconds (26.0-36.3) H 04/20/16 11:45 Total Bilirubin 0.50 mg/dL (0.2-1.0) 04/17/16 19:43 AST 24 U/L (13-39) 04/17/16 19:43 ALT 14 U/L (7-52) 04/17/16 19:43 Alkaline Phosphatase 74 U/L (34-104) 04/17/16 19:43 B-Natriuretic Peptide 210 pg/mL (-100) H 04/18/16 16:31 Total Protein 7.3 g/dL (6.4-8.9) 04/17/16 19:43 Albumin 3.5 g/dL (3.2-5.2) 04/17/16 19:43 Globulin 3.8 g/dL (2-4) 04/17/16 19:43 Albumin/Globulin Ratio 0.9 (1-3) L 04/17/16 19:43 Triglycerides 84 mg/dL 04/18/16 06:28 Cholesterol 122 mg/dL 04/18/16 06:28 LDL Cholesterol 76 mg/dL 04/18/16 06:28 HDL Cholesterol 29.4 mg/dL 04/18/16 06:28 TSH 1.42 mcIU/mL (0.34-5.60) 04/17/16 19:43 04/18/16 04/18/16 04/18/16 02:55 06:28 11:03 Troponin I 0.05 H* 0.11 H* 0.05 H* 04/19/16 04:57 Troponin I 0.05 H* Assessment/Plan 85 year old man hx of bioprosthetic AVR, CAD s/p PCI, PAF, DM, HTN, CKD dyslipidemia, chronic R pleural effusion a/w respiratory tract infection and WI suspect type 2 with mild inferior/inferolateral ischemic defect on stress test and LVEF 45-50% on TTE. - D/w Dr. Chapa due to technical consideration of prior angiogram no plans for invasive management at this time - Would stop heparin gtt and restart home low dose eliquis - Would restart home statin - Would restart home beta-isra - Continue ARB - Continue diuretic Thank you for allowing me to participate in the cardiovascular care of this patient. Please do not hesitate to contact me if there are no questions or concern.
--- NOTE | 2016-04-20 15:02 | PN ---
Subjective Date of Service: 04/20/16 Interval History: HOSPITALIST PROGRESS NOTE Patient seen and examined at bedside. He feels better today with less dyspnea and cough. Denies chest pain. Family History: Unchanged from Admission Social History: Unchanged from Admission Past Medical History: Unchanged from Admission Objective Active Medications: Acetaminophen (Tylenol Tab*) 650 mg PO Q4H PRN PRN Reason: FEVER/PAIN Last Admin: 04/19/16 11:45 Dose: 650 mg Albuterol (Ventolin 2.5 Mg/3 Ml Neb.Anjali*) 2.5 mg INH Q6H PRN PRN Reason: SOB/WHEEZING Albuterol (Ventolin Hfa Inhaler*) 2 puff INH Q6H PRN PRN Reason: SOB/WHEEZING Aspirin (Aspirin Ec Low Dose*) 81 mg PO DAILY [facility] Last Admin: 04/20/16 08:55 Dose: 81 mg Benzonatate (Tessalon Cap*) 200 mg PO TID PRN PRN Reason: COUGH Last Admin: 04/18/16 03:12 Dose: 200 mg Cholecalciferol (Vitamin D Tab*) 1,000 units PO BID [facility] Last Admin: 04/20/16 08:55 Dose: 1,000 units Cyanocobalamin (Vitamin B12 Tab*) 500 mcg PO DAILY [facility] Last Admin: 04/20/16 08:56 Dose: 500 mcg Dextrose (D50w Syringe 50 Ml*) 12.5 gm IV PUSH .FOR FS < 60 - SS PRN PRN Reason: FS < 60 Famotidine (Pepcid Tab*) 20 mg PO DAILY [facility] Last Admin: 04/20/16 08:55 Dose: 20 mg Furosemide (Lasix Tab*) 40 mg PO DAILY [facility] Last Admin: 04/20/16 08:57 Dose: 40 mg Gabapentin (Neurontin Cap(*)) 600 mg PO DAILY [facility] Last Admin: 04/20/16 08:56 Dose: 600 mg Heparin Sodium (Porcine) (Heparin Vial(*)) 0 units IV .PER PROTOCOL [facility] PRN Reason: Protocol Doxycycline Hyclate 100 mg/ (Sodium Chloride) 250 mls @ 250 mls/hr IVPB Q12H [facility] Last Admin: 04/20/16 05:28 Dose: 250 mls/hr Heparin Sodium/Dextrose (Heparin Drip 25,000 Units(*)) 25,000 units in 500 mls @ 0 mls/hr IV .NO INITIAL BOLUS GL[facility]; As Directed PRN Reason: Protocol Last Admin: 04/20/16 13:16 Dose: 23 mls/hr Insulin Glargine (Lantus(*)) 40 units SUBCUT 2100 [facility] Last Admin: 04/19/16 23:37 Dose: 40 units Insulin Human Lispro (Humalog*) 0 units SUBCUT AC [facility] PRN Reason: Protocol Last Admin: 04/20/16 12:59 Dose: Not Given Insulin Human Lispro (Humalog*) 0 units SUBCUT ACHS [facility] PRN Reason: Protocol Last Admin: 04/20/16 13:11 Dose: 6 unit Losartan Potassium (Cozaar Tab*) 25 mg PO DAILY [facility] Last Admin: 04/20/16 08:56 Dose: 25 mg Multivitamins/Minerals (Theragran/Minerals Tab*) 1 tab PO DAILY [facility] Last Admin: 04/20/16 08:57 Dose: 1 tab (Citracal Calcium Gu ... 250-115-250 Mg- Mg-Unit 2 Tab) 2 tab PO DAILY [facility] Last Admin: 04/20/16 08:56 Dose: Not Given Ondansetron HCl (Zofran Inj*) 4 mg IV Q4H PRN PRN Reason: NAUSEA Prednisone (Deltasone Tab*) 40 mg PO DAILY [facility] Last Admin: 04/20/16 08:56 Dose: 40 mg Tramadol HCl (Ultram*) 50 mg PO BID PRN PRN Reason: PAIN Vital Signs 04/20/16 11:38 Temperature Pulse Rate 74 Respiratory 18 Rate Blood Pressure 131/60 (mmHg) O2 Sat by Pulse 96 Oximetry Oxygen Devices in Use Now: None Appearance: Pleasant elderly male sitting up in bed in [facility]. Eyes: No Scleral Icterus Ears/Nose/Mouth/Throat: Mucous Membranes Moist Neck: Trachea Midline Respiratory: Symmetrical Chest Expansion and Respiratory Effort, - - BS+ bilaterally with scattered rhonchi. Cardiovascular: RRR - Normal S1 and S2 Abdominal: NL Sounds; No Tenderness; No Distention Neurological: Alert and Oriented x 3, NL Muscle Strength and Tone Lines/Tubes/Other Access: Clean, Dry and Intact Peripheral IV Nutrition: Taking PO's Result Diagrams: 04/19/16 16:03 04/19/16 04:57 Assess/Plan/Problems-Billing Assessment: Mr. De La Torre is an 85yo M with PMH of CAD, type 2 DM, HTN, PACO, s/p pacer, s/p AVR (biological), Afib, who presented to ED with c/o cough, found to have elevated troponins and bronchitis. - Patient Problems (1) Bronchitis Comment: - Patient likely developed a viral infection while in [place], that has now progressed to bronchitis. - Continue doxycycline, bronchodilators and steroids. - Improving. (2) Elevated troponin Comment: - Although the patient has no chest pain, he does havea h/o CAD, troponin elevation and EKG changes. - Patient had a recent trip to [place] and [place] and w/u for PE/DVT were negative. - Echocardiogram showed wall motion abnormalities in the RCA area (where he had his most recent stent). - Continue Aspirin. - Stress test showed lateral wall marginal ischemia. - Cardiology input appreciated - no plans for invasive management at this time. Continue Aspirin, simvastatin, losartan. He had diarrhea with Metoprolol, so he' s not taking it as outpatient. - D/c heparin drip and resume Eliquis. (3) Type II diabetes mellitus Comment: - Uncontrolled now due to steroids. - Increase Lantus and continue Lispro SS. (4) Hypertension Comment: - Continue Losartan. (5) DVT prophylaxis Comment: - Eliquis. (6) Full code status Status and Disposition: Inpatient. Anticipate d/c in AM.
[2016-04-20] MEDS: Apixaban* 2.5 MG TAB PO SCH ×2 (16:21→20:52)
[2016-04-20] MEDS ORDERED: Insulin GLARGINE(*) 1 UNITS UNIT SUBCUT SCH (21:00)
[2016-04-21] MEDS: DOXYcycline IV* 100 MG in NS 0.9% 250 ML* 250 ML IVPB SCH (05:38)
[2016-04-21] MEDS ORDERED: predniSONE TAB* 10 MG PO SCH (09:00)
[2016-04-21] MEDS ORDERED: Atorvastatin* 20 MG TAB PO SCH (09:00)
[2016-04-21] MEDS: Insulin LISPRO* 1 UNITS UNIT SUBCUT SCH ×2 (09:19→09:20)
[2016-04-21] MEDS: Aspirin EC Low Dose* 81 MG TAB.EC PO SCH (09:20)
[2016-04-21] MEDS: Losartan TAB* 25 MG PO SCH (09:20)
[2016-04-21 09:21] VITALS: BP 118/67
[2016-04-21] MEDS: Gabapentin CAP(*) 300 MG PO SCH (09:21)
[2016-04-21] MEDS: Apixaban* 2.5 MG TAB PO SCH (09:21)
[2016-04-21] MEDS: Cyanocobalamin TAB* 500 MCG PO SCH (09:22)
[2016-04-21] MEDS: Famotidine TAB* 20 MG PO SCH (09:22)
[2016-04-21] MEDS: Furosemide TAB* 40 MG PO SCH (09:22)
[2016-04-21] MEDS: Multivitamins/Minerals TAB PO SCH (09:22)
[2016-04-21] MEDS: Cholecalciferol TAB* 1000 UNITS PO SCH (09:22)
[2016-04-21] MEDS: [UNRECOGNIZED DRUG - OTHER] PO SCH (09:24)
[2016-04-21] MEDS ORDERED: Calcium/Vitamin D TAB 250/125* TAB PO SCH (09:35)
--- NOTE | 2016-04-22 02:46 | DS ---
CC: Dr. Ramsey; Dr. Mccullough DISCHARGE SUMMARY: DATE OF ADMISSION: 04/18/16 DATE OF DISCHARGE: 04/21/16 PRIMARY CARE PROVIDER: Dr. Ramsey. PAINT POURER: Dr. Mccullough. DISCHARGE DIAGNOSES: 1. Bronchitis. 2. Non-ST elevation myocardial infarction. 3. Mild leukocytosis. SECONDARY DIAGNOSES: 1. Coronary artery disease. 2. Type 2 diabetes. 3. Hypertension. 4. Obstructive sleep apnea. 5. Status post permanent pacemaker in June 2012. 6. Status post biological aortic valve replacement in 2006. 7. Atrial fibrillation, on Eliquis. 8. Chronic kidney disease, stage 3. MEDICATION LIST: 1. Tramadol 50 mg p.o. b.i.d. 2. Citracal 2 tablets p.o. daily. 3. Simvastatin 40 mg p.o. daily. 4. Vitamin B12 500 mg p.o. daily. 5. Januvia 25 mg p.o. daily. 6. Irbesartan 75 mg p.o. daily. 7. Famotidine 40 mg p.o. daily. 8. Gabapentin 600 mg p.o. daily. 9. Furosemide 40 mg p.o. daily. 10. Cholecalciferol 1000 units p.o. b.i.d. 11. Multivitamin 1 tablet p.o. daily. 12. Nitroglycerin 0.4 mg sublingual q.5 minutes p.r.n. chest pain, maximum 3 doses. 13. Eliquis 2.5 mg p.o. b.i.d. Medication change: Lantus was increased from 30 to 35 units subcutaneously daily. New medications: 1. Prednisone taper as follows 30 mg p.o. daily for 2 days, 20 mg for 2 days, 10 mg for 2 days, 5 m g for 2 days, then stop. 2. Omeprazole 20 mg p.o. daily. 3. Doxycycline 100 mg p.o. b.i.d. for 4 more days. 4. Benzonatate 200 mg p.o. t.i.d. as needed for cough. 5. Aspirin 81 mg p.o. daily. 6. Albuterol HFA 2 puffs inhaled q.6 hours p.r.n. shortness of breath. HOSPITAL COURSE: Mr. De La Torre is an 85-year-old male that presented to the emergency room on with complaints of cough. The patient had a recent trip to [place] when he drove down to [facility] and [place] to [place] and there, he developed upper respiratory infection. He states that he was admitted in [place] for less than 24 hours, discharged home but his cough persisted. He flew back from [place] to [place] over the weekend, but as his symptoms persisted, he came to the emergen cy room for further evaluation. For more details about his presentation, I refer you to his history and physical. In the emergency room, his EKG showed new changes with T-wave inversion in the anterolateral leads a nd a troponin of 0.36. He was admitted for further evaluation. With his history of recent trip, there was concern for possible DVT or PE. Lower extremity Doppler was negative for DVT and a v/Q scan showed no evidence of pulmonary embolism. A transthoracic echocardiogram showed ejection fraction of 45% to 50% with a ventricular septal wall motion that has a postoperative appearance. Base of the posterior/inferior wall is severely hypoki netic to akinetic. On his prior echo from April 2015, his ejection fraction was 55% to 60% and post erior wall hypokinesis was newly described. The patient was seen in consultation by Cardiology (Dr. Mccullough). Her impression was that the patie nt is an 85-year-old gentleman with approximately 1 week's history of low respiratory symptoms with dry cough that is persistent leading to vomiting and now this is his second admission for this. His exam is consistent with some form of bronchitis with diffuse inspiratory and expiratory wheezing an d persistent coughing. He presented with new EKG changes across the precordial leads and echo showi ng wall motion abnormalities in the distribution of the right coronary artery where he has had his m ost recent stents. He did not have typical anginal symptoms; however, he is a diabetic and could freedman ve silent ischemia. He is a high-risk cath candidate with his elevated creatinine, age, diabetes, a nd discussion with Interventional Cardiology reviewed that his last intervention in 2010 on the righ t side was technically difficult. The recommendation was for a Lexiscan Myoview stress test when hi s respiratory status was improved. His beta isra had been held as inpatient due to his significa nt wheezing and rhonchi, but I believe as outpatient, this could be resumed. The patient had diarrh ea with metoprolol, but maybe atenolol could be tried, again when he follows up with his primary car e provider. Initially, she recommended holding the Eliquis and started on heparin drip. Stress test was performed and he was at intermediate-risk stress test with decreased ejection fracti on with septal hypokinesia, fixed defect with marginal reversibility of the lateral wall suggestive of previous infarct with marginal ischemia. The patient was seen in followup by Cardiology (Dr. Cadet) and after discussing with Interventional Cardiology due to technical consideration of prior angiogram, there are no plans for invasive manag ement at this time. He recommended resuming low-dose Eliquis, statins, continue ARB, continue diure tic, and restart beta isra. As described above, this was held due to his wheezing and rhonchi a nd I believe, it can probably be resumed next week when he sees Dr. Ramsey. His amlodipine had also been held, but his blood pressure has been on the lower side. So, at this point, he was continued o n his irbesartan and furosemide. As his respiratory status continues to improve, atenolol will be r esumed but it is not clear if he will have enough blood pressure room to resume amlodipine. The patient had improvement of his symptoms and he was felt to be stable for discharge. PHYSICAL EXAMINATION: Vital Signs: Temperature 97.5, heart rate is 89, respiratory rate is 16, oxy gen saturation 97% on room air, blood pressure is 118/67. General: The patient is a pleasant elder ly male, sitting up in bed, in no acute distress. CVS: Normal S1 and S2. Regular rate and rhythm. Chest: Breath sounds present bilaterally with scattered rhonchi. Abdomen is soft, nontender, non distended. Bowel sounds are present. Extremities: No edema. Neuro: He is alert, awake, and orie nted x3. Able to move all 4 extremities. DIET: Heart healthy, consistent carb diet. ACTIVITY: As tolerated. DISPOSITION: To home. STATUS WHILE IN THE HOSPITAL: Inpatient. Please keep in mind this is a summarized version of this patient's hospital stay. If you need any mo re information, please feel free to call me at [phone] or please obtain the full medical record s. TIME SPENT: Approximately 50 minutes was spent to complete this discharge. [id number]/CPS #: [id number]
--- NOTE | 2016-05-14 11:02 | ED ---
Flaquito Harrison Adam, scribed for Lexi Hein MD on 04/17/16 at 1930 . HPI Diabetic - HPI Summary HPI Summary: Pt is an 85 year old diabetic male presenting with hyperglycemia. His sugar was over 500 earlier today and then 431 after taking insulin. The pt feels lightheaded/dizzy and his son states that he has seemed disoriented. He denies having any problems emptying his bladder and he was able to walk into the ED. The pt has been sick over the past week, starting with a stomach bug that set on after a road trip to [place] 5 days ago. He then traveled to [place] where he was admitted to a hospital overnight for dehydration. No abx were given. The pt flew home 2 days ago still feeling ill but he began to feel normal again yesterday. However today the dizziness and disorientation set on. He has also had a cough for the past week which is still present. He denies any vomiting or diarrhea in the last 4-5 days. The pt lives alone but someone checks on him every day. PMHx also includes HTN, aortic valve replacement, 3 stents, and A Fib (on Xarelto). Negative Hx of CA and CVA. - History Of Current Complaint Chief Complaint: EDDiabeticProb Time Seen by Provider: 04/17/16 18:18 Hx Obtained From: Patient Onset/Duration: Gradual Onset, Lasting Days, Still Present Timing: Constant Severity Initially: Moderate Severity Currently: Moderate Character: Confused - Disoriented (per pt's son) Aggravating: Recent Illness Alleviating: Nothing Associated Signs & Symptoms: Cough Related History: Other - Diabetes - Allergies/Home Medications Allergies/Adverse Reactions: Allergies Allergy/AdvReac Type Severity Reaction Status Date / Time Metoclopramide Allergy Unknown Unknown Verified 04/17/16 17:18 Reaction Details Troglitazone [From Rezulin] Allergy Unknown Verified 04/17/16 17:18 Reaction Details Lactose Intolerance AdvReac Intermediate Unknown Verified 04/17/16 17:18 Reaction Details Metoprolol AdvReac Intermediate Diarrhea Verified 04/17/16 17:18 PMH/Surg Hx/FS Hx/Imm Hx Endocrine/Hematology History: Reports: Hx Diabetes Denies: Hx Anticoagulant Therapy, Hx Thyroid Disease Cardiovascular History: Reports: Hx Angina, 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, Hx Coronary Artery Disease, Hx Hypercholesterolemia, Hx Hypertension, Hx Pacemaker/ICD, Hx Syncope, Hx Valvular Heart Disease - Aoritc Valve replacement, Other Cardiovascular Problems/Disorders Respiratory History: Reports: Hx Pleural Effusion - Right Lobe Denies: Hx Asthma, Hx Chronic Obstructive Pulmonary Disease (COPD) GI History: Reports: Hx Gastroesophageal Reflux Disease, Hx Hiatal Hernia, Hx Ulcer History: Denies: Hx Renal Disease Musculoskeletal History: Reports: Hx Arthritis, Hx Back Problems - spinal stenosis Sensory History: Reports: Hx Cataracts, Hx Contacts or Glasses - Reading glasses , Hx Vision Problem - cataract Opthamlomology History: Reports: Hx Cataracts, Hx Contacts or Glasses - Reading glasses, Hx Vision Problem - cataract Neurological History: Reports: Other Neuro Impairments/Disorders - numb/ tingling bilat feet(chronic), Denies: Hx Dementia, Hx Seizures Psychiatric History: Denies: Hx Substance Abuse - Cancer History Cancer Type, Location and Year: colon CA 1996, Prostate 2001 Hx Chemotherapy: No Hx Radiation Therapy: No - Surgical History Surgery Procedure, Year, and Place: L shoulder. gallbladder removed. L wrist. Aortic valve replacement. pacemaker. 3 stents. cataracts Hx Anesthesia Reactions: No - Immunization History Date of Tetanus Vaccine: Unk Date of Influenza Vaccine: Fall 2014 Infectious Disease History: No Infectious Disease History: Denies: Hx Hepatitis, Hx Human Immunodeficiency Virus (HIV), Traveled Outside the [place] in Last 30 Days - Family History Known Family History: Positive: Other - Negative: CAD - Social History Occupation: Retired Lives: Alone Alcohol Use: None Hx Substance Use: No Substance Use Type: Reports: None Hx Tobacco Use: Yes Smoking Status (MU): Former Smoker Have You Smoked in the Last Year: No Review of Systems Positive: Cough Neurological: Other - Dizziness/lightheadedness, disoriented All Other Systems Reviewed And Are Negative: Yes Physical Exam Triage Information Reviewed: Yes Vital Signs On Initial Exam: Initial Vitals Temp Pulse Resp BP Pulse Ox 98.8 F 80 20 118/51 98 04/17/16 17:18 04/17/16 17:18 04/17/16 17:18 04/17/16 17:18 04/17/16 17:18 Vital Signs Reviewed: Yes Appearance: Positive: Well-Appearing, No Pain Distress Skin: Positive: Warm, Skin Color Reflects Adequate Perfusion, Dry Eyes: Positive: EOMI, LIV ENT: Positive: Pharynx normal, TMs normal Neck: Positive: Supple, Nontender Respiratory/Lung Sounds: Positive: Clear to Auscultation, Breath Sounds Present. Negative: Rales, Rhonchi, Wheezes Cardiovascular: Positive: RRR. Negative: Murmur, Rub Abdomen Description: Positive: Nontender, Soft. Negative: Distended, Guarding Bowel Sounds: Positive: Present Musculoskeletal: Positive: Strength/ROM Intact. Negative: Edema Left, Edema Right Neurological: Positive: Sensory/Motor Intact, Alert, Oriented to Person Place, Time, CN Intact II-III Psychiatric: Positive: Affect/Mood Appropriate Diagnostics - Vital Signs Vital Signs Temp Pulse Resp BP Pulse Ox 04/17/16 17:18 98.8 F 80 20 118/51 98 - Laboratory Lab Results: Lab Results 04/17/16 04/17/16 04/17/16 Range/Units 19:43 19:43 19:43 WBC 11.2 H (3.5-10.8) 10^3/ul RBC 3.75 L (4.0-5.4) 10^6/ul Hgb 11.1 L (14.0-18.0) g/dl Hct 34 L (42-52) % MCV 92 (80-94) fL MCH 30 (27-31) pg MCHC 32 (31-36) g/dl RDW 14 (10.5-15) % Plt Count 262 (150-450) 10^3/ul MPV 9 (7.4-10.4) um3 Neut % (Auto) 75.5 (38-83) % Lymph % (Auto) 11.4 L (25-47) % [place] % (Auto) 11.2 H (1-9) % Eos % (Auto) 1.4 (0-6) % Baso % (Auto) 0.5 (0-2) % Absolute Neuts (auto) 8.5 H (1.5-7.7) 10^3/ul Absolute Lymphs (auto) 1.3 (1.0-4.8) 10^3/ul Absolute Monos (auto) 1.3 H (0-0.8) 10^3/ul Absolute Eos (auto) 0.2 (0-0.6) 10^3/ul Absolute Basos (auto) 0.1 (0-0.2) 10^3/ul Absolute Nucleated RBC 0 10^3/ul Nucleated RBC % 0 Sodium 135 (133-145) mmol/L Potassium 4.4 (3.5-5.0) mmol/L Chloride 98 L (101-111) mmol/L Carbon Dioxide 32 (22-32) mmol/L Anion Gap 5 (2-11) mmol/L BUN 27 H (6-24) mg/dL Creatinine 1.61 H (0.67-1.17) mg/dL Est GFR ( Amer) 52.6 (>60) Est GFR (Non-Af Amer) 40.9 (>60) BUN/Creatinine Ratio 16.8 (8-20) Glucose 235 H (70-100) mg/dL Lactic Acid 1.7 (0.5-2.0) mmol/L Calcium 9.6 (8.6-10.3) mg/dL Magnesium 2.2 (1.9-2.7) mg/dL Total Bilirubin 0.50 (0.2-1.0) mg/dL AST 24 (13-39) U/L ALT 14 (7-52) U/L Alkaline Phosphatase 74 (34-104) U/L Troponin I 0.06 H* (<0.04) ng/mL Total Protein 7.3 (6.4-8.9) g/dL Albumin 3.5 (3.2-5.2) g/dL Globulin 3.8 (2-4) g/dL Albumin/Globulin Ratio 0.9 L (1-3) TSH 1.42 (0.34-5.60) mcIU/mL Urine Color Urine Appearance Urine pH (5-9) Ur Specific [place] (1.010-1.030) Urine Protein (Negative) Urine Ketones (Negative) Urine Blood (Negative) Urine Nitrate (Negative) Urine Bilirubin (Negative) Urine Urobilinogen (Negative) Ur Leukocyte Esterase (Negative) Urine WBC (Auto) (Absent) Urine RBC (Auto) (Absent) Ur Squamous Epith Cells (Absent) Urine Bacteria (Absent) Hyaline Casts (Absent) Urine Glucose (Negative) Urine Ascorbic Acid (Negative) Digoxin 0.2 L (0.8-2.0) ng/ml 04/17/16 04/17/16 Range/Units 22:11 23:48 WBC (3.5-10.8) 10^3/ul RBC (4.0-5.4) 10^6/ul Hgb (14.0-18.0) g/dl Hct (42-52) % MCV (80-94) fL MCH (27-31) pg MCHC (31-36) g/dl RDW (10.5-15) % Plt Count (150-450) 10^3/ul MPV (7.4-10.4) um3 Neut % (Auto) (38-83) % Lymph % (Auto) (25-47) % [place] % (Auto) (1-9) % Eos % (Auto) (0-6) % Baso % (Auto) (0-2) % Absolute Neuts (auto) (1.5-7.7) 10^3/ul Absolute Lymphs (auto) (1.0-4.8) 10^3/ul Absolute Monos (auto) (0-0.8) 10^3/ul Absolute Eos (auto) (0-0.6) 10^3/ul Absolute Basos (auto) (0-0.2) 10^3/ul Absolute Nucleated RBC 10^3/ul Nucleated RBC % Sodium (133-145) mmol/L Potassium (3.5-5.0) mmol/L Chloride (101-111) mmol/L Carbon Dioxide (22-32) mmol/L Anion Gap (2-11) mmol/L BUN (6-24) mg/dL Creatinine (0.67-1.17) mg/dL Est GFR ( Amer) (>60) Est GFR (Non-Af Amer) (>60) BUN/Creatinine Ratio (8-20) Glucose (70-100) mg/dL Lactic Acid (0.5-2.0) mmol/L Calcium (8.6-10.3) mg/dL Magnesium (1.9-2.7) mg/dL Total Bilirubin (0.2-1.0) mg/dL AST (13-39) U/L ALT (7-52) U/L Alkaline Phosphatase (34-104) U/L Troponin I 0.36 H* (<0.04) ng/mL Total Protein (6.4-8.9) g/dL Albumin (3.2-5.2) g/dL Globulin (2-4) g/dL Albumin/Globulin Ratio (1-3) TSH (0.34-5.60) mcIU/mL Urine Color Yellow Urine Appearance Clear Urine pH 6.0 (5-9) Ur Specific [place] 1.018 (1.010-1.030) Urine Protein 2+(100 mg/dl) H (Negative) Urine Ketones Negative (Negative) Urine Blood Negative (Negative) Urine Nitrate Negative (Negative) Urine Bilirubin Negative (Negative) Urine Urobilinogen Negative (Negative) Ur Leukocyte Esterase Negative (Negative) Urine WBC (Auto) Trace(0-5/hpf) (Absent) Urine RBC (Auto) 1+(3-5/hpf) H (Absent) Ur Squamous Epith Cells Present H (Absent) Urine Bacteria Absent (Absent) Hyaline Casts Present H (Absent) Urine Glucose 3+(>=500 mg/dl) H (Negative) Urine Ascorbic Acid * H (Negative) Digoxin (0.8-2.0) ng/ml Result Diagrams: 04/19/16 16:03 04/19/16 04:57 Lab Statement: Any lab studies that have been ordered have been reviewed, and results considered in the medical decision making process. - Radiology CXR Radiology Interpretation Completed By: Radiologist - IMPRESSION: PERSISTENT RIGHT PLEURAL EFFUSION WITHOUT SIGNIFICANT CHANGE SINCE PREVIOUS EXAM OF MAY 31, 2015. - EKG 21:25 Cardiac Rate: NL - 82 BPM EKG Rhythm: Sinus Rhythm EKG Interpretation: RBBB EKG Comparison: No Significant Change - From EKG on 05/28/2015. - Additional Comments Diagnostic Additional Comments: Troponin I - 0.06 Digoxin - 0.2 Glucose - 235 (@ 19:43) Diabetic Course/Dx - Course Course Of Treatment: Repeat troponin will be obtained at 22:45. If negative, the patient will be discharged home. The patient agrees with the plan. - Diagnoses Provider Diagnoses: Bronchitis Discharge - Discharge Plan Condition: Stable Disposition: HOME The documentation as recorded by the Flaquito gutierres Adam accurately reflects the service I personally performed and the decisions made by me, Lexi Hein MD.
== END 2016-04-21 12:00 | disposition home or self-care (01) | DRG 202 ==
LOC: ED 17:13 → MEDTELE 04-18 02:02
PROVIDERS: ADMIT Internal Medicine; ATTEND Internal Medicine
DX: J40 Bronchitis, not specified as acute or chronic (principal); I21.4 Non-ST elevation (NSTEMI) myocardial infarction; E11.22 Type 2 diabetes mellitus with diabetic chronic kidney disease; I49.5 Sick sinus syndrome; G62.9 Polyneuropathy, unspecified; J90 Pleural effusion, not elsewhere classified; I13.10 Hypertensive heart and chronic kidney disease without heart failure, with stage 1 through stage 4 chronic kidney disease, or unspecified chronic kidney disease; I48.0 Paroxysmal atrial fibrillation; I45.2 Bifascicular block; I25.10 Atherosclerotic heart disease of native coronary artery without angina pectoris; N18.3 Chronic kidney disease, stage 3 (moderate); G47.33 Obstructive sleep apnea (adult) (pediatric); E78.5 Hyperlipidemia, unspecified; Z79.01 Long term (current) use of anticoagulants; Z95.0 Presence of cardiac pacemaker; Z95.3 Presence of xenogenic heart valve; Z88.6 Allergy status to analgesic agent; Z88.8 Allergy status to other drugs, medicaments and biological substances; Z80.3 Family history of malignant neoplasm of breast; Z87.891 Personal history of nicotine dependence; Z79.1 Long term (current) use of non-steroidal anti-inflammatories (NSAID); Z79.82 Long term (current) use of aspirin; Z79.4 Long term (current) use of insulin; Z79.891 Long term (current) use of opiate analgesic; Z79.899 Other long term (current) drug therapy; I73.9 Peripheral vascular disease, unspecified; K21.9 Gastro-esophageal reflux disease without esophagitis; C61 Malignant neoplasm of prostate; K22.70 Barrett's esophagus without dysplasia; M48.00 Spinal stenosis, site unspecified; Z80.1 Family history of malignant neoplasm of trachea, bronchus and lung
CPT/HCPCS: 36415; 71010; 78452; 78582; 80048; 80053; 80061; 80162; 81003; 81015; 82947; 83605; 83735; 83880; 84443; 84484; 84520; 85025; 85730; 93005; 93017; 93306; 93970; 94760; A9270-GY; A9502; A9540; A9558; J0280; J2785; J2920; J7512

== ENCOUNTER 2016-09-17 07:44 | Observation (INO) | payer MEDICARE, OTHER ==
[2016-09-17] MEDS ORDERED: Aspirin Low Dose CHEW TAB* 81 MG PO ONE (08:05)
[2016-09-17] MEDS ORDERED: Nitroglycerin TAB 0.4 MG* 0.4 MG TAB SL PRN (08:05)
[2016-09-17] MEDS ORDERED: Nitroglycerin TAB 0.4 MG* 0.4 MG TAB ONE (08:11)
--- NOTE | 2016-09-17 08:37 | RAD ---
INDICATION: Chest pain COMPARISON: Chest x-ray dated April 17, 2016 TECHNIQUE: Single AP portable view of the chest was obtained. FINDINGS: Image quality is compromised due to the relative inferiority of a portable chest x-ray. Stable iatrogenic findings include a left upper chest cardiac pacemaker with 2 leads overlying the heart and sternotomy wires. The superiormost in my wire is fractured. The heart is mildly enlarged similar to the previous chest x-ray. There is linear density at the mid-level lateral aspect of the right lung. Overall the right lung is hypoplastic, stable compared to the previous chest x-ray. There is blunting of the right costophrenic angle. The left lung is well aerated. Visualized bones are normal for the patient's age. IMPRESSION: Hypoplastic right lung volume with evidence of at least a small pleural effusion unchanged from the previous chest x-ray.
[2016-09-17 08:38] LABS: Hematocrit 37 % (42-52); Mean Corpuscular HGB Conc 32 g/dl (31-36); Mean Corpuscular Hemoglobin 30 pg (27-31); Mean Corpuscular Volume 92 fL (80-94); Mean Platelet Volume 9 um3 (7.4-10.4); Red Blood Count 4.03 10^6/ul (4.0-5.4); Red Cell Distribution Width 15 % (10.5-15); White Blood Count 7.5 10^3/ul (3.5-10.8)
[2016-09-17] MEDS ORDERED: Nitroglycerin 0.4 MG/HR PATCH* (10 MG) TRANSDERM ONE (08:52)
[2016-09-17 08:58] LABS: Albumin 3.7 g/dL (3.2-5.2); BUN/Creatinine Ratio 23.5 (8-20); Calcium 9.4 mg/dL (8.6-10.3); EGFR African American 57.4 (>60); EGFR Non-African American 44.6 (>60); Globulin 3.1 g/dL (2-4); Potassium 4.4 mmol/L (3.5-5.0); Total Bilirubin 0.4 mg/dL (0.2-1.0); Total Protein 6.8 g/dL (6.4-8.9)
[2016-09-17 09:37] LABS: Troponin I 0.04 ng/mL (<0.04)
[2016-09-17] MEDS ORDERED: Acetaminophen TAB* 325 MG PO ONE (10:52)
[2016-09-17] MEDS ORDERED: Dextrose 50% Syringe 50 ML* 25 GM/50 ML SYRINGE IV PUSH PRN (11:39)
[2016-09-17] MEDS ORDERED: Insulin GLARGINE(*) 1 UNITS UNIT SUBCUT ONE (11:39)
[2016-09-17] MEDS ORDERED: Famotidine TAB* 20 MG PO SCH ×2 (12:00)
[2016-09-17] MEDS ORDERED: Omeprazole CAP* 20 MG PO SCH (12:00)
[2016-09-17] MEDS ORDERED: Atenolol TAB* 25 MG PO SCH (12:00)
[2016-09-17] MEDS ORDERED: Ondansetron INJ* 2 MG/ML VIAL IV PRN (12:00)
[2016-09-17] MEDS ORDERED: Acetaminophen TAB* 325 MG PO PRN (12:00)
[2016-09-17] MEDS ORDERED: Atorvastatin* 40 MG TAB PO SCH (12:00)
[2016-09-17] MEDS ORDERED: Apixaban* 2.5 MG TAB PO SCH (12:00)
[2016-09-17] MEDS ORDERED: Furosemide TAB* 40 MG PO SCH (14:00)
[2016-09-17] MEDS ORDERED: Gabapentin CAP(*) 300 MG PO SCH (14:00)
[2016-09-17] MEDS ORDERED: glipiZIDE TAB* 5 MG PO SCH (14:00)
--- NOTE | 2016-09-17 16:23 | HP ---
CC: Dr. Ramsey; Dr. Nishi Mccullough. * ADMISSION HISTORY AND PHYSICAL: DATE OF ADMISSION: 09/17/16 PRIMARY CARE PROVIDER: Dr. Ramsey. PRIMARY REFINING ENGINEER: Nishi Mccullough MD ADMITTING PROVIDER: NEYDA Sher SUPERVISING PHYSICIAN: Helder Pabon MD * (DICTATED BY NEYDA SHER) CHIEF COMPLAINT: Chest and shoulder pain. HISTORY OF PRESENT ILLNESS: This is a very pleasant 86-year-old gentleman with known history of coronary artery disease as well as type 2 diabetes; hypertension; obstructive sleep apnea; pacemaker in place; aortic stenosis, status post aortic valve; atrial fibrillation and stage 3 chronic kidney disease who presented to the emergency department with complaints of chest and shoulder pain. Shoulder pain started about 2 days ago. He does have an old left rotator cuff injury that he states was repaired, but there was some complications with surgery. He denies any acute injuries that would explain a new strain or sprain. He has been having some difficulty sleeping because of the pain, which is also in his left shoulder blade. This morning, he awoke with chest pain; however, he had some difficulty describing the qualities associated with that chest pain, but does note improvement since reaching the hospital, but he is unable to state whether there was a specific medication that provided him relief. He has some chronic shortness of breath associated with activity, but states that there has been nothing new since his onset of chest pain or shoulder pain. He denies any nausea or vomiting. No recent cough or abdominal pain. No other acute illness. The patient last was admitted March of this year with complaints of chest pain and a cough. He had a moderately elevated troponin at that time and new EKG changes. Dr. Mccullough consulted with Interventional Cardiology, who reported that his last catheterization was a technically difficult one and proceeded with nuclear stress test imaging rather than straight to cardiac catheterization. His nuclear stress test demonstrated a fixed defect with a small amount of marginal reversibility and medical management was chosen at that time. He also had an echocardiogram completed with an EF of 45% to 50% and showed posterior and inferior wall hypokinesis, which was unchanged from prior. The patient last had cardiac catheterization resulting in bare-metal stent placement in 2010. HOME MEDICATIONS: 1. Eliquis 2.5 mg p.o. b.i.d. 2. Aspirin 81 mg p.o. daily. 3. Atenolol 25 mg p.o. daily. 4. Lipitor 40 mg p.o. daily. 5. Pepcid 40 mg p.o. daily. 6. Topical fluorouracil 5% cream, apply twice daily. 7. Furosemide 20 mg p.o. t.i.d. 8. Gabapentin 600 mg p.o. t.i.d. 9. Lantus with 40 units in the morning, 52 units at night. 10. Humalog on a sliding scale, takes 12 to 25 units at mealtime. 11. Prevacid 30 mg p.o. daily. 12. Glipizide 5 mg p.o. t.i.d. PAST MEDICAL HISTORY: 1. Coronary artery disease with bare-metal stent placement in 2010. 2. Type 2 diabetes - insulin dependent. 3. Hypertension. 4. Obstructive sleep apnea, noncompliant with CPAP. 5. Pacemaker in place. 6. Aortic stenosis, status post aortic valve replacement in 2006. 7. Atrial fibrillation, anticoagulated on Eliquis. 8. Stage 3 chronic kidney disease. PAST SURGICAL HISTORY: 1. Aortic valve replacement in 2006. 2. Rotator cuff repair. 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 He has a remote history of smoking, but nothing since and no regular alcohol consumption. REVIEW OF SYSTEMS: As noted above in HPI. All other systems reviewed and considered negative. DIAGNOSTIC STUDIES/LAB DATA: CBC shows a white blood cell count 7500, hemoglobin of 12 g/dL and a platelet count of 203,000. Comprehensive metabolic panel shows a sodium of 137 mmol/L, potassium 4.4, BUN of 35 which is near his baseline and a creatinine of 1.49, again near baseline. Random glucose of 258 mg /dL. Transaminases and total bilirubin within normal limits. Lactic acid normal at 1.9. Troponin slightly elevated at 0.04. IMAGIN. EKG is an atrial paced rhythm and compared to prior EKG, which was sinus and it represented ST depressions in V2 through V5, those have since resolved. 2. Chest x-ray shows some hypoinflation of the right lung with perhaps some mild effusion which is unchanged from prior, no acute process. 3. Review of nuclear stress test from March 2016, shows a fixed defect with marginal reversibility of the lateral wall and septal hypokinesia with an EF of 47%. 4. Review of echocardiogram from March of 2016 shows an ejection fraction of 45 to 50% with hypokinesis of the inferior and posterior wall, unchanged from prior with a bioprosthetic aortic valve in place that appears to be functioning well and moderate LVH. PHYSICAL EXAMINATION GENERAL: This is a very pleasant elderly gentleman, accompanied by a family member, who is in on acute distress sitting up on a hospital stretcher. VITAL SIGNS: Initial vitals, temperature 96.6 degrees Fahrenheit, pulse 78 beats per minute, respiratory rate 18 per minute, oxygen saturation 99% on room air, blood pressure 162/79 mmHg. HEENT: Head is normocephalic, atraumatic. Mucous membranes are pink and moist. CARDIOVASCULAR: Heart has a regular rate and rhythm. There is a distinctive murmur present, approximately 3/6 in intensity. RESPIRATORY: Equal breath sounds bilaterally, a few crackles appreciated at right lung base. ABDOMEN: Abdomen is soft and nontender to palpation. EXTREMITIES: Trace lower extremity edema at the level of ankles bilaterally. SKIN: Limited exam shows no concerning rashes or lesions. PSYCH: The patient is alert and appropriately oriented with an appropriate affect for the situation. ASSESSMENT AND PLAN: This is a very pleasant 86-year-old gentleman with history of coronary artery disease, status post bare-metal stent in 2010 as well as insulin- dependent diabetes; hypertension; obstructive sleep apnea; pacer in place; aortic stenosis, status post aortic valve replacement; atrial fibrillation, on Eliquis as well as stage 3 chronic kidney disease who presents with complaints of left shoulder and chest pain. 1. Chest pain - patient has clear cardiac history with mild elevation in troponin. No changes to EKG. He is chest pain free at the time of evaluation. He received aspirin and nitroglycerin in the emergency department. Based on prior cardiac consultation which favored medical approach, we will plan to obtain serial troponins and continuous telemetry monitoring. If troponins remain stable or return to normal levels, we will not plan to repeat stress testing at this time. 2. Left shoulder pain - this seems to be musculoskeletal in origin and he does have some tenderness to palpation in his left scapular area and some mildly decreased range of motion of the left shoulder which is chronic for him. Passive range of motion is intact and without associated pain. 3. Insulin-dependent diabetes - unsure how well controlled this is. We will plan to continue his home regimen of oral medications as well as insulin. 4. Hypertension - patient is moderately hypertensive in the emergency department. He did not take any of his morning antihypertensive medications, which will be provided now. 5. Obstructive sleep apnea - he is not compliant with CPAP. 6. Pacemaker in place - this appears to be a dual chamber. 7. Aortic stenosis - status post aortic valve replacement, which appeared to be functioning well based on echo from 6 months ago. 8. Atrial fibrillation - patient is appropriately rate controlled and anticoagulated on Eliquis. 9. Stage 3 chronic kidney disease - no acute exacerbation and avoid nephrotoxic agents. 10. Code status - patient is full code. 11. Healthcare proxy is patient's son, William De La Torre. 12. DVT prophylaxis - he is chronically anticoagulated with Eliquis. 13. Disposition: The patient is being admitted to observation status with anticipated discharge either later today or tomorrow morning. NEYDA SHER [id number]/CPS #: [id number] ROBIN
[2016-09-17] MEDS ORDERED: Insulin LISPRO* 1 UNITS UNIT SUBCUT SCH (16:30)
[2016-09-17 20:38] VITALS: BP 133/69
[2016-09-18] MEDS ORDERED: Aspirin EC Low Dose* 81 MG TAB.EC PO SCH (09:00)
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
--- NOTE | 2016-09-18 14:44 | DS ---
CC: Triston Ramsey MD; Nishi Mccullough MD * DISCHARGE SUMMARY: DATE OF ADMISSION: 09/17/16 DATE OF DISCHARGE: 09/17/16 PRIMARY CARE PROVIDER: Triston Ramsey MD PRIMARY BUCKET CHUCKER: Nishi Mccullough MD DISCHARGING PROVIDER: NEYDA Sher SUPERVISING PHYSICIAN: Helder Pabon MD * (DICTATED BY NEYDA SHER) PRIMARY DISCHARGE DIAGNOSIS: Chest pain - without evidence of acute coronary syndrome. SECONDARY DISCHARGE DIAGNOSES: 1. History of coronary artery disease, status post PCI with bare metal stent placement in 2010. 2. Insulin-dependent diabetes. 3. Hypertension. 4. Obstructive sleep apnea. 5. Pacemaker in place. 6. Aortic stenosis, status post aortic valve replacement. 7. Atrial fibrillation, anticoagulated on Eliquis. 8. Stage 3 chronic kidney disease. DISCHARGE MEDICATIONS: 1. Eliquis 2.5 mg p.o. b.i.d. 2. Aspirin 81 mg p.o. daily. 3. Atenolol 25 mg p.o. daily. 4. Atorvastatin 40 mg p.o. daily. 5. Famotidine 40 mg p.o. daily. 6. Fluorouracil 5% cream, applied twice daily. 7. Lasix 20 mg p.o. 3 times daily. 8. Neurontin 600 mg p.o. t.i.d. 9. Lantus 40 units in the morning and 52 units at night. 10. Humalog on sliding scale with meals of 12 to 24 units. 11. Lansoprazole 30 mg p.o. daily. 12. Glipizide 5 mg p.o. t.i.d. Medication changes: None. HOSPITAL IMAGIN. Chest x-ray shows somewhat under inflated right lung field with small right effusion. 2. Initial EKG shows atrial paced rhythm with prior ST depressions, resolved. 3. Repeat EKG demonstrates sinus rhythm with no acute ischemic changes. HOSPITAL COURSE: This is a pleasant 86-year-old gentleman with known coronary artery disease, status post PCI and bare-metal stent placement in 2010 as well as insulin-dependent diabetes; hypertension; obstructive sleep apnea; aortic stenosis, status post aortic valve replacement; atrial fibrillation; chronic kidney disease, and a pacemaker in place, who presented to the emergency department with complaints of chest and left shoulder pain. The patient's shoulder pain had started approximately 2 days prior and then he experienced chest pain this morning. The patient was unable to give great description into the quality of his chest pain. His initial EKG was unremarkable, but his initial troponin was 0.04. Hospitalist group was subsequently asked to admit and the patient was placed under observation status for serial troponins and continued telemetry monitoring. The patient had presented with a cough and chest pain in March of this year and had more significantly elevated troponins at that time, peaking at 0.36. The patient underwent cardiac consultation with his primary plasterer foreman, Dr. Mccullough who conferred with clock and watch hands dipper, who reported his last cardiac catheterization was quite technically difficult and a nuclear stress test was performed at that time, which showed a known prior fixed defect with marginal amount of reversibility and medical management was pursued at that time. The patient remained chest pain free during his period of observation. Serial troponins were obtained. His second troponin climbed to 0.17, but then on 3rd and 4th evaluations, returned to 0.04. EKG was repeated. Changes included that he returned to sinus rhythm rather than atrial paced, but no ST segment changes to suggest ischemia and again he remains chest pain free. The patient is on maximal medical therapy and otherwise asymptomatic. Given his recent nuclear imaging and flat troponins, there is no indication to repeat cardiac imaging at this time, but suggested followup with his plasterer foreman and primary care provider. DISPOSITION AND FOLLOWUP PLAN: The patient is being discharged home where he will resume all home medications without change. Recommend followup with his primary care provider as well as Dr. Nishi Mccullough, primary plasterer foreman. NEYDA SHER [id number]/[facility] #: [id number] ROBIN
== END 2016-09-17 20:35 | disposition home or self-care (01) ==
LOC: ED 07:44 → MEDTELE 11:19
PROVIDERS: ADMIT Hospitalist; ATTEND Hospitalist
DX: R07.9 Chest pain, unspecified (principal); I25.10 Atherosclerotic heart disease of native coronary artery without angina pectoris; I10 Essential (primary) hypertension; E11.9 Type 2 diabetes mellitus without complications; I48.91 Unspecified atrial fibrillation; Z79.01 Long term (current) use of anticoagulants; I12.9 Hypertensive chronic kidney disease with stage 1 through stage 4 chronic kidney disease, or unspecified chronic kidney disease; N18.3 Chronic kidney disease, stage 3 (moderate); G47.33 Obstructive sleep apnea (adult) (pediatric); M25.512 Pain in left shoulder; Z95.0 Presence of cardiac pacemaker; Z79.4 Long term (current) use of insulin; Z79.84 Long term (current) use of oral hypoglycemic drugs; Z79.899 Other long term (current) drug therapy; Z88.8 Allergy status to other drugs, medicaments and biological substances; Z88.5 Allergy status to narcotic agent
CPT/HCPCS: 36415; 71010; 80053; 83605; 84484; 85025; 93005; 99283; A9270-GY; G0378

== ENCOUNTER 2016-10-10 13:08 | Observation (INO) | payer MEDICARE, OTHER ==
[2016-10-10] MEDS ORDERED: NS 0.9% 1000 ML* 2,000 ML IV ONE (13:37)
[2016-10-10 13:58] LABS: Hematocrit 32 % (42-52); Hemoglobin 10.6 g/dl (14.0-18.0); Mean Corpuscular HGB Conc 33 g/dl (31-36); Mean Corpuscular Hemoglobin 30 pg (27-31); Mean Corpuscular Volume 91 fL (80-94); Mean Platelet Volume 9 um3 (7.4-10.4); Red Blood Count 3.51 10^6/ul (4.0-5.4); Red Cell Distribution Width 15 % (10.5-15); White Blood Count 7.8 10^3/ul (3.5-10.8)
--- NOTE | 2016-10-10 14:11 | RAD ---
HISTORY: Syncope, CHF COMPARISONS: September 17, 2016 VIEWS: 2: Frontal and lateral views of the chest. FINDINGS: CARDIOMEDIASTINAL SILHOUETTE: The aorta is tortuous. The cardiomediastinal silhouette is otherwise unremarkable. RIVERA: The rivera are normal. PLEURA: There is a small right pleural effusion versus chronic pleural thickening LUNG PARENCHYMA: There is prominence of the central pulmonary vasculature ABDOMEN: The upper abdomen is clear. There is no subphrenic gas. BONES AND SOFT TISSUES: The patient is status post median sternotomy. OTHER: A left-sided pacemaker is noted IMPRESSION: PULMONARY VASCULAR CONGESTION. SMALL RIGHT PLEURAL EFFUSION VERSUS CHRONIC PLEURAL THICKENING
[2016-10-10 14:17] LABS: Albumin 3.5 g/dL (3.2-5.2); BUN/Creatinine Ratio 21.3 (8-20); EGFR Non-African American 37.3 (>60); Potassium 4.1 mmol/L (3.5-5.0); Total Bilirubin 0.3 mg/dL (0.2-1.0); Total Protein 6.5 g/dL (6.4-8.9)
[2016-10-10 14:24] LABS: Troponin I 0.05 ng/mL (<0.04)
--- NOTE | 2016-10-10 14:31 | RAD ---
Indication: Syncope, blood thinner. CT of the brain was performed without IV contrast. Ventricular structures are midline. No midline shift is noted. Central and cortical atrophy is noted. There is no evidence of intracranial mass or hemorrhage. No other high or low density lesions are identified. Mastoid air cells and paranasal sinuses are otherwise clear. IMPRESSION: Age-appropriate atrophy. No intracranial mass or hemorrhage is noted.
[2016-10-10 14:45] LABS: TSH (Thyroid Stimulating Horm) 1.94 mcIU/mL (0.34-5.60)
--- NOTE | 2016-10-10 15:59 | ED ---
Sharon Harrison SooYoung, scribed for Noe Villar MD on 10/10/16 at 1326 . Syncope/Near Syncope - HPI Summary HPI Summary: An 86 y/o M [place] presents to ED after witnessed syncopal episode onset LINING CASER. Pt states he was walking across the lawn, and simply passed out. LOC lasted approx 3-4 minutes. Associated sx: weakness, mild ASHTON, mild pedal edema, mild malaise. Denies melena, incontinence. Denies any trauma from fall. States feeling OK throughout the day and prior to episode. PMHx: pacemaker, DM. Bovine valve replacement. Denies ME. Takes a blood thinner. - History Of Current Complaint Chief Complaint: EDSyncope Hx Obtained From: Patient, Family/Head Athletic Trainer, EMS Onset/Duration: Sudden Onset, Lasting Minutes, Resolved Timing: Frequency Of Episodes - 1x Context: Witnessed Activity At Onset: At Rest - walking Associated Head Trauma: No Alleviating Factor(s): Spontaneous Resolution Associated Signs And Symptoms: Headache - mild, Weakness - mild - Allergies/Home Medications Allergies/Adverse Reactions: Allergies Allergy/AdvReac Type Severity Reaction Status Date / Time Metoclopramide Allergy Unknown Unknown Verified 09/17/16 08:13 Reaction Details Troglitazone [From Rezulin] Allergy Unknown Verified 09/17/16 08:13 Reaction Details Lactose Intolerance AdvReac Intermediate Unknown Verified 09/17/16 08:13 Reaction Details Metoprolol AdvReac Intermediate Diarrhea Verified 09/17/16 08:13 Morphine AdvReac Hallucinati Verified 09/17/16 12:37 ons Home Medications: Home Medications Albuterol HFA INHALER* [Ventolin HFA Inhaler*] 1 puff INH Q6H PRN 10/10/16 [ History Confirmed 10/10/16] Yveczsauzxw-Ekrrrozgnif-Whr C- [Glucosamine Chondroitin C] 1 tab PO DAILY [History Confirmed 10/10/16] Hydrocortisone (Rectal) [Proctocort] 1 % [place] DAILY PRN 10/10/16 [History Confirmed 10/10/16] Lansoprazole CAP (NF) [Prevacid CAP (NF)] 30 mg PO QAM 10/10/16 [History Confirmed 10/10/16] Multivitamins/Minerals TAB* [Theragran/minerals TAB*] 1 tab PO DAILY 10/10/16 [ History Confirmed 10/10/16] Nitroglycerin TAB 0.4 MG* 0.4 mg SL Q5M PRN 10/10/16 [History Confirmed 10/10/16 ] Triamcinolone 0.1% CREAM(NF) [Kenalog Cream 0.1%(NF)] 1 applic TOPICAL DAILY PRN 10/10/16 [History Confirmed 10/10/16] PMH/Surg Hx/FS Hx/Imm Hx Previously Healthy: No Endocrine/Hematology History: Reports: Hx Diabetes Denies: Hx Anticoagulant Therapy, Hx Thyroid Disease Cardiovascular History: Reports: Hx Angina, 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, Hx Coronary Artery Disease, Hx Hypercholesterolemia, Hx Hypertension, Hx Pacemaker/ICD, Hx Syncope, Hx Valvular Heart Disease - Aoritc Valve replacement, Other Cardiovascular Problems/Disorders Respiratory History: Reports: Hx Pleural Effusion - Right Lobe Denies: Hx Asthma, Hx Chronic Obstructive Pulmonary Disease (COPD) GI History: Reports: Hx Gastroesophageal Reflux Disease, Hx Hiatal Hernia, Hx Ulcer History: Denies: Hx Renal Disease Musculoskeletal History: Reports: Hx Arthritis, Hx Back Problems - spinal stenosis, Other Musculoskeletal History - discitis Sensory History: Reports: Hx Cataracts, Hx Contacts or Glasses - Reading glasses , Hx Vision Problem - cataract Denies: Hx Hearing Aid Opthamlomology History: Reports: Hx Cataracts, Hx Contacts or Glasses - Reading glasses, Hx Vision Problem - cataract Neurological History: Reports: Other Neuro Impairments/Disorders - numb/ tingling bilat feet(chronic), Denies: Hx Dementia, Hx Seizures Psychiatric History: Denies: Hx Substance Abuse - Cancer History Cancer Type, Location and Year: colon CA 1996, Prostate 2001 Hx Chemotherapy: No Hx Radiation Therapy: No - Surgical History Surgery Procedure, Year, and Place: L shoulder. gallbladder removed. L wrist. Aortic valve replacement. pacemaker. 3 stents. cataracts Hx Anesthesia Reactions: No - Immunization History Date of Tetanus Vaccine: Unk Date of Influenza Vaccine: Fall 2014 Infectious Disease History: Denies: Hx Hepatitis, Hx Human Immunodeficiency Virus (HIV) - Family History Known Family History: Positive: Other - Negative: CAD Negative: Cardiac Disease - Social History Occupation: Employed Full-time Lives: With Family Alcohol Use: None Hx Substance Use: No Substance Use Type: Reports: None Hx Tobacco Use: Yes Smoking Status (MU): Former Smoker Have You Smoked in the Last Year: No Review of Systems Positive: Fatigue - mild malaise Negative: Other - neg: melena Negative: incontinence Positive: Headache - mild, Weakness - mild All Other Systems Reviewed And Are Negative: Yes Physical Exam - Summary Physical Exam Summary: The patient is well-nourished in no acute distress and in no acute pain. The skin is warm and dry and skin color reflects adequate perfusion. HEENT: The head is normocephalic and atraumatic. The pupils are equal and reactive. The conjunctivae are clear and without drainage. Nares are patent and without drainage. Mouth reveals moist mucous membranes and the throat is without erythema and exudate. The external ears are intact. The ear canals are patent and without drainage. The tympanic membranes are intact. Neck is supple with full range of motion and non-tender. There are no carotid bruits. There is no neck vein distension. Respiratory: Chest is non-tender. Lungs are clear to auscultation and breath sounds are symmetrical and equal. Cardiovascular: Hear is regular rate and rhythm. There is no murmur or rub auscultated. There is no peripheral edema and pulses are symmetrical and equal. Abdomen: The abdomen is soft and non-tender. There are normal bowel sounds heard in all four quadrants and there is no organomegaly palpated. No CVA tenderness. Musculoskeletal: There is no back pain noted. Extremities are non-tender with full range of motion. There is good capillary refill, 2 seconds. There is mild peripheral edema, RLE worse than LLE, mild calf tenderness elicited. Neurological: Patient is alert and oriented to person, place and time. The patient has symmetrical motor strength in all four extremities. Cranial nerves are grossly intact. Deep tendon reflexes are symmetrical and equal in all four extremities. Psychiatric: The patient has an appropriate affect and does not exhibit any anxiety or depression. Triage Information Reviewed: Yes Vital Signs On Initial Exam: Initial Vitals BP 119/54 10/10/16 13:16 Vital Signs Reviewed: Yes Diagnostics - Vital Signs Vital Signs Temp Pulse Resp BP Pulse Ox 10/10/16 15:37 74 116/55 10/10/16 15:33 68 116/55 99 10/10/16 15:32 64 149/122 100 10/10/16 15:30 67 142/67 100 10/10/16 15:00 62 121/62 96 10/10/16 14:30 63 128/64 98 10/10/16 14:06 68 94 10/10/16 14:04 112/41 10/10/16 13:50 64 97 10/10/16 13:44 97 10/10/16 13:30 62 131/58 98 10/10/16 13:20 98.1 F 60 16 119/54 97 10/10/16 13:17 65 97 10/10/16 13:16 119/54 - Laboratory Lab Results: Lab Results 10/10/16 10/10/16 10/10/16 Range/Units 13:50 13:50 13:50 WBC 7.8 (3.5-10.8) 10^3/ul RBC 3.51 L (4.0-5.4) 10^6/ul Hgb 10.6 L (14.0-18.0) g/dl Hct 32 L (42-52) % MCV 91 (80-94) fL MCH 30 (27-31) pg MCHC 33 (31-36) g/dl RDW 15 (10.5-15) % Plt Count 198 (150-450) 10^3/ul MPV 9 (7.4-10.4) um3 Neut % (Auto) 70.7 (38-83) % Lymph % (Auto) 13.8 L (25-47) % [place] % (Auto) 9.8 H (1-9) % Eos % (Auto) 5.1 (0-6) % Baso % (Auto) 0.6 (0-2) % Absolute Neuts (auto) 5.5 (1.5-7.7) 10^3/ul Absolute Lymphs (auto) 1.1 (1.0-4.8) 10^3/ul Absolute Monos (auto) 0.8 (0-0.8) 10^3/ul Absolute Eos (auto) 0.4 (0-0.6) 10^3/ul Absolute Basos (auto) 0 (0-0.2) 10^3/ul Absolute Nucleated RBC 0 10^3/ul Nucleated RBC % 0 INR (Anticoag Therapy) 0.98 (0.89-1.11) Sodium 137 (133-145) mmol/L Potassium 4.1 (3.5-5.0) mmol/L Chloride 103 (101-111) mmol/L Carbon Dioxide 29 (22-32) mmol/L Anion Gap 5 (2-11) mmol/L BUN 37 H (6-24) mg/dL Creatinine 1.74 H (0.67-1.17) mg/dL Est GFR ( Amer) 48.0 (>60) Est GFR (Non-Af Amer) 37.3 (>60) BUN/Creatinine Ratio 21.3 H (8-20) Glucose 207 H (70-100) mg/dL Lactic Acid (0.5-2.0) mmol/L Calcium 9.0 (8.6-10.3) mg/dL Magnesium 2.0 (1.9-2.7) mg/dL Total Bilirubin 0.30 (0.2-1.0) mg/dL AST 18 (13-39) U/L ALT 13 (7-52) U/L Alkaline Phosphatase 80 (34-104) U/L Troponin I 0.05 H* (<0.04) ng/mL B-Natriuretic Peptide ( - 100) pg/mL Total Protein 6.5 (6.4-8.9) g/dL Albumin 3.5 (3.2-5.2) g/dL Globulin 3.0 (2-4) g/dL Albumin/Globulin Ratio 1.2 (1-3) TSH 1.94 (0.34-5.60) mcIU/mL 10/10/16 10/10/16 Range/Units 13:50 13:50 WBC (3.5-10.8) 10^3/ul RBC (4.0-5.4) 10^6/ul Hgb (14.0-18.0) g/dl Hct (42-52) % MCV (80-94) fL MCH (27-31) pg MCHC (31-36) g/dl RDW (10.5-15) % Plt Count (150-450) 10^3/ul MPV (7.4-10.4) um3 Neut % (Auto) (38-83) % Lymph % (Auto) (25-47) % [place] % (Auto) (1-9) % Eos % (Auto) (0-6) % Baso % (Auto) (0-2) % Absolute Neuts (auto) (1.5-7.7) 10^3/ul Absolute Lymphs (auto) (1.0-4.8) 10^3/ul Absolute Monos (auto) (0-0.8) 10^3/ul Absolute Eos (auto) (0-0.6) 10^3/ul Absolute Basos (auto) (0-0.2) 10^3/ul Absolute Nucleated RBC 10^3/ul Nucleated RBC % INR (Anticoag Therapy) (0.89-1.11) Sodium (133-145) mmol/L Potassium (3.5-5.0) mmol/L Chloride (101-111) mmol/L Carbon Dioxide (22-32) mmol/L Anion Gap (2-11) mmol/L BUN (6-24) mg/dL Creatinine (0.67-1.17) mg/dL Est GFR ( Amer) (>60) Est GFR (Non-Af Amer) (>60) BUN/Creatinine Ratio (8-20) Glucose (70-100) mg/dL Lactic Acid 1.5 (0.5-2.0) mmol/L Calcium (8.6-10.3) mg/dL Magnesium (1.9-2.7) mg/dL Total Bilirubin (0.2-1.0) mg/dL AST (13-39) U/L ALT (7-52) U/L Alkaline Phosphatase (34-104) U/L Troponin I (<0.04) ng/mL B-Natriuretic Peptide 222 H ( - 100) pg/mL Total Protein (6.4-8.9) g/dL Albumin (3.2-5.2) g/dL Globulin (2-4) g/dL Albumin/Globulin Ratio (1-3) TSH (0.34-5.60) mcIU/mL Result Diagrams: 10/10/16 13:50 10/10/16 13:50 Lab Statement: Any lab studies that have been ordered have been reviewed, and results considered in the medical decision making process. - Radiology CXR Xray Interpretation: Positive (See Comments) - IMPRESSION: PULMONARY VASCULAR CONGESTION. SMALL RIGHT PLEURAL EFFUSION VERSUS CHRONIC PLEURAL THICKENING Radiology Interpretation Completed By: Radiologist - CT BRAIN CT CT Interpretation: No Acute Changes - IMPRESSION: Age-appropriate atrophy. No intracranial mass or hemorrhage is noted. [address] Interpretation Completed By: Radiologist - EKG 1343 Cardiac Rate: Other Rate - Paced Re-Evaluation - Re-Evaluation 1 Re-Evaluation Time: 15:05 Change: Improved Comment: Discussing results with pt. Pt voiced understanding. Course/Dx Course Of Treatment: Pt is a 86 y/o M [place] presenting after witnessed syncopal episode onset LINING CASER. Pt states he was walking across the lawn, and simply passed out. LOC lasted approx 3-4 minutes. Associated sx: weakness, mild ASHTON, mild pedal edema, mild malaise. Denies melena, incontinence. Denies any trauma from fall. States feeling OK throughout the day and prior to episode. PMHx/PSHx includes pacemaker, DM, bovine valve replacement. Denies ME. Takes a blood thinner. Pt given fluids in ED. Blood work and lab results are without significant abnormality, except trop is 0.05, BNP is 222. CXR shows "PULMONARY VASCULAR CONGESTION. SMALL RIGHT PLEURAL EFFUSION VERSUS CHRONIC PLEURAL THICKENING." Brain CT shows no acute findings. Dr. Swenson, hospitalist, accepts pt for admission, requests pacemaker interrogation. At 1549, spoke to [employer] who will interrogate pacemaker. - Diagnoses Differential Diagnosis/HQI/PQRI: Positive: Coronary Artery Disease, Dysrhythmia , GI Bleed, Hypovolemia, Metabolic Reaction, Other - dehydration Provider Diagnoses: Syncope and collapse - Physician Notifications Discussed Care of Patient With: Nishi Mccullough - cardio Time Discussed With Above Provider: 14:48 Instructed by Provider To: Other - Recommends admission Discharge - Discharge Plan Condition: Stable Disposition: ADMITTED TO [facility] Referrals: Triston Ramsey MD [Primary Care Provider] - Consult Consult: 2163: Consult with Dr. Swenson, hospitalist Will admit, but get pacemaker interrogated. The documentation as recorded by the Sharon gutierres SooYoung accurately reflects the service I personally performed and the decisions made by me, Noe Villar MD.
[2016-10-10] MEDS ORDERED: Acetaminophen TAB* 325 MG PO PRN (16:16)
[2016-10-10] MEDS ORDERED: Ondansetron INJ* 2 MG/ML VIAL IV PRN (16:16)
[2016-10-10] MEDS ORDERED: Dextrose 50% Syringe 50 ML* 25 GM/50 ML SYRINGE IV PUSH PRN (16:18)
[2016-10-10] MEDS ORDERED: Albuterol HFA INHALER* 8 gm MDI INH PRN (16:18)
[2016-10-10] MEDS ORDERED: Furosemide TAB* 40 MG PO SCH (17:00)
[2016-10-10] MEDS: Insulin GLARGINE(*) 1 UNITS UNIT SUBCUT SCH (18:57)
[2016-10-10] MEDS: Insulin LISPRO* 1 UNITS UNIT SUBCUT SCH (19:27)
[2016-10-10] MEDS: Apixaban* 2.5 MG TAB PO SCH (21:29)
[2016-10-10] MEDS: Gabapentin CAP(*) 300 MG PO SCH (21:29)
--- NOTE | 2016-10-11 00:13 | HP ---
CC: Dr. Ramsey * HISTORY AND PHYSICAL: DATE OF ADMISSION: 10/10/16 PRIMARY CARE PROVIDER: Dr. Ramsey. ATTENDING PHYSICIAN WHILE IN THE HOSPITAL: Dr. Audra Swenson * (report being dictated by Khanh Hogan NP). CHIEF COMPLAINT: Syncope. HISTORY OF PRESENT ILLNESS: Mr. De La Torre is an 86-year-old male patient, with history of CAD, diabetes, CKD, hypertension, PACO, aortic stenosis, AFib, hyperlipidemia, and history of prostate cancer. He comes in to the ER today stating that he was walking across the lawn after getting out of his truck and the next thing he knew, he was in the back of an ambulance. He denied having any chest pain prior to or after the event. No recent change in medication. He says he had no palpitations, he denied feeling lightheaded, and denied having a headache. He says the last thing he remembers was he went down. He has had an episode of syncope 2 to 3 years ago. He denied having any recent fevers, chills, nausea, vomiting. Again, no changes in the medication. He thinks he was down for maybe 5 to 10 minutes; he is not really sure. His coworker that was with him called the EMS. He was brought into the hospital. He was evaluated in the ED because of the syncopal episode and the hospitalist service was asked to evaluate for admission. PAST MEDICAL HISTORY: Significant for: 1. CAD. 2. Diabetes. 3. CKD. 4. Hypertension. 5. PACO, noncompliant with CPAP. 6. Aortic stenosis. 7. AFib. 8. Hyperlipidemia. 9. Prostate cancer. PAST SURGICAL HISTORY: He has had: 1. Heart catheterization with bare-metal stent. 2. Pacemaker placement. 3. 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 4. Rotator cuff repair. 5. Laparoscopic cholecystectomy. MEDICATIONS: His home medications according to the list that we were able to obtain include: 1. Insulin sliding scale subcu b.i.d. 2. Lantus 52 units in the afternoon and 44 units in the morning. 3. Triamcinolone cream 1 application topically daily as needed. 4. Multivitamin 1 tablet daily. 5. Albuterol 1 puff inhaled every 6 hours as needed. 6. Nitro 0.4 mg sublingual q.5 minutes x3 p.r.n. chest pain. 7. Prevacid 30 mg p.o. daily. 8. Proctocort 1% AR daily as needed. 9. Glucosamine and chondroitin 1 tablet p.o. daily. 10. Glipizide 5 mg p.o. t.i.d. with meals. 11. Neurontin 600 mg p.o. t.i.d. 12. Lasix 20 mg Saturday, Saturday, Saturday. 13. Fluorouracil 5% topically b.i.d. 14. Famotidine 40 mg p.o. daily. 15. Atorvastatin 40 mg daily. 16. Atenolol 25 mg daily. 17. Aspirin 81 mg daily. 18. Apixaban 2.5 mg p.o. b.i.d. ALLERGIES TO MEDICATIONS: Include REGLAN, LOPRESSOR, MORPHINE, and TROGLITAZONE. FAMILY HISTORY: Mother had a history of lung cancer. The father's history was reviewed, but it was noncontributory. SOCIAL HISTORY: He is a former smoker. His surrogate decision maker is his son. He does not drink alcohol. REVIEW OF SYSTEMS: There is no documented fever. He denied having any significant weight change. No double vision. No ear discharge. He denied having any rhinorrhea. No sore throat. No thyroid enlargement. Denied having any chest pain. No orthopnea, no nocturnal dyspnea. There was no abdominal pain. No nausea, no vomiting. No dysuria, no frequency. There was no seizure , there was definitely syncope. Review of 14 systems completed, all others negative. PHYSICAL EXAMINATION GENERAL: At this time, Mr. De La Torre is a 86-year-old male patient, who appears to be well nourished, well developed. He does not appear to be in any acute distress. VITAL SIGNS: Blood pressure 131/54 with a pulse of 67, respirations 18, O2 sat 97%, temperature 98.1. HEENT: Head: Atraumatic, normocephalic. Eyes: EOMs are intact. Sclerae anicteric and not pale. Throat: Oral mucosa appears to be moist. No oropharyngeal erythema. NECK: Supple. LUNGS: Clear to auscultation. No wheezes, rales, or rhonchi. HEART: Sounds S1, S2. Regular rate and rhythm. No murmurs, rubs, or gallops. ABDOMEN: Soft, flat, nontender. Bowel sounds present. EXTREMITIES: Pulses 2+ throughout. Able to move all 4 extremities with 5/5 strength. NEUROLOGIC: The patient is awake, alert, and oriented x3. Tongue midline. [place] equal. No gross focal deficits. SKIN: Intact. DIAGNOSTIC STUDIES/LAB DATA: Today revealed WBC 7.8, RBC of 3.51, hemoglobin 10.6, hematocrit 32, platelet count 198. INR 0.98. Sodium 137, potassium 4.1, chloride of 103, bicarb of 29, BUN 37, creatinine 1.74, glucose 207, lactate 1.5 , calcium 9.2. Total bili was 0.3. Mag 2.0. AST 18, ALT 13, alk phos 80. Troponin 0.05. BNP at 222. TSH 1.94. He did have a chest x-rays obtained today which revealed pulmonary vascular congestions, right pleural effusion versus chronic pleural thickening. Brain CT obtained today showed age-appropriate atrophy. No intracranial mass or hemorrhage is noted. He had an EKG obtained today, which showed an atrial paced rhythm, rate at 60. Old medical records reviewed. ASSESSMENT AND PLAN: Mr. De La Torre is a 86-year-old male patient, coming into the ER today with complaints of syncopal episode. He will be admitted under observation status for: 1. Syncope. Etiology is unclear, but at this point, I will go ahead and get an echo, serial troponins, telemetry, orthostatic blood pressures, and we will also interrogate his pacemaker. If we find any abnormal findings in the pacemaker, we will get Cardiology input. 2. Coronary artery disease. Continue his meds. He is not having any chest pain. We will cycle his trops. His trop was 0.05 that is right near his baseline. 3. Diabetes. Continue with sliding scale. 4. Chronic kidney disease. His creatinine is at baseline. 5. Hypertension. Continue meds as prescribed. 6. Obstructive sleep apnea. He is not compliant with CPAP. He will follow with his primary. 7. Aortic stenosis. Again, follow with his primary holistic pulser. 8. Atrial fibrillation. He appears to be in sinus rhythm. Currently, continue with apixaban and meds as prescribed, his atenolol. 9. Hyperlipidemia. Continue statin therapy. 10. History of prostate cancer. He can follow outpatient with Urology. 11. DVT prophylaxis. He is on Apixaban. 12. Code status. Full code. 13. Fluids, electrolytes, and nutrition. He can have a consistent carb diet. TIME SPENT: On the admission was approximately 60 minutes, greater than half the time was spent [id number] with the patient, obtaining my history and physical, the other half time was spent going over the plan of care with the patient and implementing the plan of care. I did discuss the plan of care with my attending, Dr. Swenson; she is in agreement. KHANH HOGAN, JONI [id number]/CPS #: [id number] ROBIN
[2016-10-11 04:50] LABS: Urine Bacteria Absent (Absent); Urine Bilirubin Negative (Negative); Urine Glucose 2+(150 mg/dL) (Negative); Urine Nitrite Negative (Negative)
[2016-10-11 05:21] LABS: Hematocrit 33 % (42-52); Hemoglobin 10.9 g/dl (14.0-18.0); Mean Corpuscular HGB Conc 33 g/dl (31-36); Mean Corpuscular Hemoglobin 29 pg (27-31); Mean Corpuscular Volume 90 fL (80-94); Mean Platelet Volume 9 um3 (7.4-10.4); Red Cell Distribution Width 15 % (10.5-15)
[2016-10-11 05:37] LABS: BUN/Creatinine Ratio 23.1 (8-20); Calcium 9.2 mg/dL (8.6-10.3); EGFR African American 52.8 (>60); EGFR Non-African American 41.1 (>60); Potassium 4.1 mmol/L (3.5-5.0)
[2016-10-11] MEDS: Insulin LISPRO* 1 UNITS UNIT SUBCUT SCH ×3 (08:18→16:55)
[2016-10-11] MEDS: Gabapentin CAP(*) 300 MG PO SCH ×2 (08:18→12:57)
[2016-10-11] MEDS ORDERED: NS 0.9% 1000 ML* 1,000 ML IV SCH (08:45)
[2016-10-11] MEDS ORDERED: Insulin GLARGINE(*) 1 UNITS UNIT SUBCUT SCH (09:00)
[2016-10-11] MEDS ORDERED: Omeprazole CAP* 20 MG PO SCH (09:00)
[2016-10-11] MEDS ORDERED: Aspirin EC Low Dose* 81 MG TAB.EC PO SCH (09:00)
[2016-10-11] MEDS ORDERED: Atorvastatin* 40 MG TAB PO SCH (09:00)
[2016-10-11] MEDS ORDERED: Famotidine TAB* 20 MG PO SCH (09:00)
[2016-10-11] MEDS ORDERED: Atenolol TAB* 25 MG PO SCH (09:00)
[2016-10-11] MEDS: Apixaban* 2.5 MG TAB PO SCH (09:52)
--- NOTE | 2016-10-11 16:42 | ECHO ---
Patient: KATIA TERRY [facility] Rec#: [id number] : 1930 Date: 10/11/2016 Age: 86y Height: 180.34 cm / 71.0 in Weight: 109.32 kg / 240.9 lbs Sex: M BSA: 2.28 Room#: [facility] Admit Date#: 10/10/2016 Type: Inpatient Referring: Khanh Hogan NP Reading: Dominic Monk MD Paint Dipper: Louise Mantilla RDCS Transthoracic Echocardiogram Indication: Syncope BP: 130/59 HR: 64 Rhythm: Paced Findings History: AVR #25 [employer]onic Mosaic bovine aortic valve, pacer/ICD, CAD, HLD, HTN, and DM. Technical Comments: The study quality is fair. The study is technically limited due to patient body habitus. Completed at 1010. Left Ventricle: The left ventricular chamber size is normal. Mild concentric left ventricular hypertrophy is observed. Global left ventricular wall motion and contractility are within normal limits. Left ventricular systolic function is at the lower limits of normal. The estimated ejection fraction is 50-55%. There is no consistent Doppler evidence of clinically significant diastolic dysfunction. Left Atrium: The left atrium is mildly dilated. Right Ventricle: The right ventricle is mildly dilated. The right ventricular global systolic function is low normal. A pacemaker wire is visualized in the right ventricle. Right Atrium: The right atrium is moderately dilated. A pacemaker wire is visualized in the right atrium. Aortic Valve: There is a trace of aortic regurgitation. A bovine bio-prosthetic aortic valve is present. Appears functioning normally with possible early borderline prosthetic stenosis. Mitral Valve: There is mitral annular calcification. The mitral valve leaflets are moderately thickened. There is mild mitral regurgitation. There is no evidence of mitral stenosis. Tricuspid Valve: The tricuspid valve leaflets are normal. There is mild tricuspid regurgitation. The right ventricular systolic pressure is estimated at 35 mmHg. There is evidence of borderline pulmonary hypertension. There is no tricuspid stenosis. Pulmonic Valve: The pulmonic valve appears normal. There is a trace pulmonic regurgitation. There is no pulmonic stenosis. Pericardium: There is no significant pericardial effusion. A pericardial fat pad is visualized. Aorta: There is no dilatation of the ascending aorta. There is no dilatation of the aortic arch. There is no dilation of the aortic root. Pulmonary Artery: The main pulmonary artery appears normal. Venous: The inferior vena cava is dilated. There is a greater than 50% respiratory change in the inferior vena cava dimension. Summary: There are changes noted when compared to the previous study done on 04/18/2016, MR is new. LV EF is better now from 45-50% then. Conclusions The left ventricular chamber size is normal. Mild concentric left ventricular hypertrophy is observed. The estimated ejection fraction is 50-55%. The left atrium is mildly dilated. The right ventricle is mildly dilated. A pacemaker wire is visualized in the right ventricle. There is a trace of aortic regurgitation. A bovine bio-prosthetic aortic valve is present. Appears functioning normally with possible early borderline prosthetic stenosis. There is mild mitral regurgitation. There is mild tricuspid regurgitation. There is a trace pulmonic regurgitation. There are changes noted when compared to the previous study done on 04/18/2016, MR is new. LV EF is better now from 45-50% then. Measurements Name Value Normal Range RVIDd (AP) 2D 2.6 cm (0.9 - 2.6) RVDdMajor (2D) 4.9 cm (2.2 - 4.4) RAd ISD 4CH 4.6 cm (3.4 - 4.9) RA (A4C)W 5.6 cm (2.9 - 4.6) IVSd (2D) 1.1 cm (0.6 - 1) LVPWd (2D) 1.1 cm (0.6 - 1) LVIDd (2D) 4.3 cm (3.6 - 5.4) LVIDs (2D) 3.3 cm - LV FS (2D) 23 % (25 - 45) Aortic Annulus 2 cm (1.4 - 2.6) Ao root diameter (2D) 2.6 cm (2.1 - 3.5) Ascending Ao 2.4 cm (2.1 - 3.4) Aortic arch 3.1 cm (1.8 - 3.4) LA dimension (AP) 2D 4.7 cm (2.3 - 3.8) LAd ISD 4CH 5.9 cm (2.9 - 5.3) LA ISD 4CH W 4.3 cm (2.5 - 4.5) Name Value Normal Range LA ESV SP 4CH (A/L) 70 ml - LA ESV SP 2CH (A/L) 82 ml - LA ESV BP (A/L) 77 ml - LA ESV BP (A/L) index 30.84 ml/m2 - LA ESV SP 4CH (MOD) 66 ml - LA ESV SP 2CH (MOD) 78 ml - Name Value Normal Range MV E-wave Vmax 0.8 m/sec - MV deceleration time 260.4 msec - MV A-wave Vmax 0.98 m/sec - MV E:A ratio 0.82 ratio - LV septal e' Vmax 0.04 m/sec - LV lateral e' Vmax 0.1 m/sec - LV E:e' septal ratio 20 ratio - LV E:e' lateral ratio 8 ratio - Name Value Normal Range AV Vmax 2.75 m/sec - AV VTI 48.6 cm - AV peak gradient 30.21 mmHg - AV mean gradient 16.35 mmHg - LVOT diameter 2 cm - LVOT Vmax 0.81 m/sec - LVOT VTI 17.78 cm - LVOT peak gradient 2.68 mmHg - LVOT mean gradient 1.4 mmHg - DOI (VTI) 0.37 ratio - GERBER (continuity Vmax) 0.92 cm2 - GERBER (continuity VTI) 1.15 cm2 - MIRIAM Vmax 0.57 m/sec - Name Value Normal Range TR Vmax 2.25 m/sec - TR peak gradient 20 mmHg - RAP 15 mmHg - RVSP 35 mmHg - IVC diameter 2.11 cm - Name Value Normal Range PV Vmax 0.89 m/sec - PV peak gradient 3.18 mmHg -
[2016-10-11] MEDS: Insulin GLARGINE(*) 1 UNITS UNIT SUBCUT SCH (16:55)
[2016-10-11 16:57] VITALS: BP 137/60
--- NOTE | 2016-10-12 03:18 | DS ---
CC: Dr. Ramsey; Dr. Mccullough * DISCHARGE SUMMARY: DATE OF ADMISSION: 10/10/16 DATE OF DISCHARGE: 10/11/16 PRIMARY CARE PROVIDER: Dr. Ramsey. DISCHARGE DIAGNOSIS: Syncope due to most likely orthostatic hypotension. SECONDARY DIAGNOSES: 1. Coronary artery disease. 2. Diabetes. 3. 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 4. Hypertension. 5. History of obstructive sleep apnea. 6. History of status post aortic valve replacement with bioprosthetic valve. 7. Atrial fibrillation. 8. Hyperlipidemia. 9. Prostate cancer. 10. History of pacemaker placement. MEDICATIONS: At discharge are unchanged from admission and include: 1. Albuterol inhaler on a p.r.n. basis. 2. Eliquis 2.5 mg b.i.d. 3. Aspirin 81 mg daily. 4. Atenolol 25 mg daily. 5. Lipitor 40 mg daily. 6. Pepcid 40 mg daily. 7. Fluorouracil topical 5% b.i.d. to affected skin. 8. Lasix 20 mg Mondays, Wednesdays, and Fridays. 9. Gabapentin 600 mg 3 times a day. 10. Glucosamine 1 tablet daily. 11. Hydrocortisone rectal cream on a p.r.n. basis. 12. Insulin Lantus 44 units daily and 52 units at night. 13. Insulin aspart sliding scale. 14. Prevacid 30 mg daily. 15. Multivitamin 1 tablet daily. 16. Nitroglycerin sublingually on a p.r.n. basis. 17. Glipizide 5 mg 3 times a day. LABORATORY DATA AND STUDIES PERFORMED DURING HOSPITAL STAY: Included: On 10/11, white blood cell count 6.0, hemoglobin of 10.9, hematocrit of 33, and platelets of 200,000. Sodium 139, potassium 4.1, chloride 103, carbon dioxide 29, BUN 37, creatinine 1.6. Troponin at 0.04 throughout patient's hospital stay. At admission, it was 0.05. Urinalysis was grossly unremarkable, +[address] glucose. Brain CT obtained on admission, impression: "age appropriate atrophy, no intracranial mass or hemorrhage noted." Transthoracic echocardiogram obtained on 10/11/16 showed left ventricular chamber size normal, mild concentric LVH, EF of 60% to 65%. Pacemaker wire visualized in the right ventricle. Trace aortic regurgitation. A bovine bioprosthetic aortic valve was present, appears functioning normally with possible early borderline prosthetic stenosis. Mild mitral valve regurgitation and mild tricuspid regurgitation. The mitral valve regurgitation is new comparing from March 2016 study. The EF improved from prior. The patient's pacemaker was interrogated and showed no atrial fibrillation and no ventricular tachycardia. The patient's systolic pressures when obtained at admission showed blood pressure of 149/79 sitting and 116/55 standing. That was at admission. At discharge, the patient was no longer orthostatic. HOSPITALIZATION COURSE: Gabe De La Torre is an 86-year-old male with a history of multiple chronic medical conditions as mentioned above who presented to the hospital after an episode of syncope. For further details of patient's presentation, please see history and physical dictated on admission by Khanh Hogan. Shortly, the patient was admitted on telemetry monitored bed and he had 1 episode of 3 beats of V-tach. He was asymptomatic. Further evaluation on telemetry monitored bed noted no other arrhythmias. The patient also had orthostatic hypotension at admission and he was noticed to be working the other day outdoors and not drinking enough water. He received intravenous hydration overnight and his blood pressures did not show any orthostatic hypotension by discharge. His pacemaker was interrogated and showed no abnormalities and no arrhythmias. Also, his transthoracic echocardiogram was basically unremarkable and consistent with prior. His EF in fact was better than before. The patient is going to be discharged home with recommendation to follow up with his primary care provider in approximately 4 to 7 days. PHYSICAL EXAMINATION: At the time of discharge, is unchanged from admission. [id number]/[facility] #: [id number] MTDHetal
== END 2016-10-11 18:30 | disposition home or self-care (01) ==
LOC: ED 13:08 → MEDTELE 15:27
PROVIDERS: ADMIT Hospitalist; ATTEND Internal Medicine
DX: R55 Syncope and collapse (principal); I25.10 Atherosclerotic heart disease of native coronary artery without angina pectoris; I12.9 Hypertensive chronic kidney disease with stage 1 through stage 4 chronic kidney disease, or unspecified chronic kidney disease; N18.3 Chronic kidney disease, stage 3 (moderate); E11.22 Type 2 diabetes mellitus with diabetic chronic kidney disease; G47.33 Obstructive sleep apnea (adult) (pediatric); Z95.2 Presence of prosthetic heart valve; Z79.01 Long term (current) use of anticoagulants; E78.5 Hyperlipidemia, unspecified; Z85.46 Personal history of malignant neoplasm of prostate; Z95.0 Presence of cardiac pacemaker; Z79.82 Long term (current) use of aspirin; Z79.4 Long term (current) use of insulin
CPT/HCPCS: 36415; 70450; 71020; 80048; 80053; 81003; 81015; 83605; 83735; 83880; 84443; 84484; 85025; 85610; 93005; 93306; 99284; A9270-GY; G0378

== ENCOUNTER 2016-12-18 08:22 | Emergency (ER) | payer MEDICARE, OTHER ==
[2016-12-18] MEDS ORDERED: NS 0.9% 1000 ML* 1,000 ML IV ONE (08:56)
[2016-12-18] MEDS ORDERED: Ondansetron INJ* 2 MG/ML VIAL IV ONE (08:56)
[2016-12-18 09:18] LABS: Hematocrit 34 % (42-52); Hemoglobin 11.5 g/dl (14.0-18.0); Mean Corpuscular HGB Conc 34 g/dl (31-36); Mean Corpuscular Hemoglobin 31 pg (27-31); Mean Corpuscular Volume 91 fL (80-94); Mean Platelet Volume 9 um3 (7.4-10.4); Red Blood Count 3.78 10^6/ul (4.0-5.4); Red Cell Distribution Width 15 % (10.5-15); White Blood Count 7.5 10^3/ul (3.5-10.8)
[2016-12-18 09:33] LABS: ALT 13 U/L (7-52); AST 20 U/L (13-39); Albumin 3.9 g/dL (3.2-5.2); Alkaline Phosphatase 72 U/L (34-104); Amylase 29 U/L (29-103); Anion Gap 8 mmol/L (2-11); Blood Urea Nitrogen 23 mg/dL (6-24); C Reactive Protein 4.03 mg/L (< 5.00); CO2 Carbon Dioxide 29 mmol/L (22-32); Calcium 9.6 mg/dL (8.6-10.3); Chloride 98 mmol/L (101-111); EGFR African American 59.7 (>60); EGFR Non-African American 46.4 (>60); Globulin 3.3 g/dL (2-4); Glucose 292 mg/dL (70-100); Lipase < 10 U/L (11.0-82.0); Sodium 135 mmol/L (133-145); Total Protein 7.2 g/dL (6.4-8.9)
--- NOTE | 2016-12-18 09:46 | RAD ---
Indication: Nausea and vomiting. Flat plate of the abdomen demonstrates no free air. No dilated loops of bowel are noted. The psoas margins are intact. IMPRESSION: No free air or obstruction is noted.
[2016-12-18 11:42] VITALS: BP 180/93
[2016-12-18 12:03] LABS: Urine Bacteria Absent (Absent); Urine Bilirubin Negative (Negative); Urine Glucose 3+(>=500 mg/dL) (Negative); Urine Nitrite Negative (Negative)
--- NOTE | 2016-12-18 12:05 | ED ---
Calvin Harrison Benjamin, scribed for Toñito Vasquez MD on 12/18/16 at 0910 . Abdominal Pain/Male - HPI Summary HPI Summary: 86yo male c/o N/V/D since Saturday night. Pt also has some diffuse abdominal discomfort from N/V/D. Pt says he has been having dry heaves all throughout the day. Yesterday night and this morning, pt also had brown loose stool diarrhea. Pt denies any sick contact, recent travel, or recent abx use. Per , there was also some blood in his vomit once a few days ago. Denies fever or chills. - History of Current Complaint Chief Complaint: EDAbdPain Stated Complaint: VOMITING/DIARRHEA Time Seen by Provider: 12/18/16 08:29 Hx Obtained From: Patient, Family/Creative Producer - Onset/Duration: Gradual Onset, Lasting Days, Still Present Timing: Intermittent Severity Initially: Mild Severity Currently: Mild Pain Intensity: 2 Pain Scale Used: 0-10 Numeric Location: Diffuse - diffuse discomfort Radiates: No Aggravating Factor(s): Nothing Alleviating Factor(s): Nothing Associated Signs And Symptoms: Positive: Nausea, Vomiting, Diarrhea - Allergies/Home Medications Allergies/Adverse Reactions: Allergies Allergy/AdvReac Type Severity Reaction Status Date / Time Metoclopramide Allergy Unknown Unknown Verified 12/18/16 08:33 Reaction Details Troglitazone [From Rezulin] Allergy Unknown Verified 12/18/16 08:33 Reaction Details Lactose Intolerance AdvReac Intermediate Unknown Verified 12/18/16 08:33 Reaction Details Metoprolol AdvReac Intermediate Diarrhea Verified 12/18/16 08:33 Morphine AdvReac Hallucinati Verified 12/18/16 08:33 ons PMH/Surg Hx/FS Hx/Imm Hx Endocrine/Hematology History: Reports: Hx Diabetes Denies: Hx Anticoagulant Therapy, Hx Thyroid Disease Cardiovascular History: Reports: Hx Angina, 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, Hx Coronary Artery Disease, Hx Hypercholesterolemia, Hx Hypertension, Hx Pacemaker/ICD, Hx Syncope, Hx Valvular Heart Disease - Aoritc Valve replacement, Other Cardiovascular Problems/Disorders Respiratory History: Reports: Hx Pleural Effusion - Right Lobe Denies: Hx Asthma, Hx Chronic Obstructive Pulmonary Disease (COPD) GI History: Reports: Hx Gastroesophageal Reflux Disease, Hx Hiatal Hernia, Hx Ulcer History: Denies: Hx Renal Disease Musculoskeletal History: Reports: Hx Arthritis, Hx Back Problems - spinal stenosis, Other Musculoskeletal History - discitis Sensory History: Reports: Hx Cataracts, Hx Contacts or Glasses, Hx Vision Problem - cataract, Hx Hearing Problem Denies: Hx Hearing Aid Opthamlomology History: Reports: Hx Cataracts, Hx Contacts or Glasses, Hx Vision Problem - cataract Neurological History: Reports: Other Neuro Impairments/Disorders - numb/ tingling bilat feet(chronic), Denies: Hx Dementia, Hx Seizures Psychiatric History: Denies: Hx Substance Abuse - Cancer History Cancer Type, Location and Year: colon CA 1996, Prostate 2001 Hx Chemotherapy: No Hx Radiation Therapy: No - Surgical History Surgery Procedure, Year, and Place: L shoulder. gallbladder removed. L wrist. Aortic valve replacement. pacemaker. 3 stents. cataracts Hx Anesthesia Reactions: No - Immunization History Date of Tetanus Vaccine: Unk Date of Influenza Vaccine: Fall 2014 Infectious Disease History: No Infectious Disease History: Denies: Hx Hepatitis, Hx Human Immunodeficiency Virus (HIV), Traveled Outside the in Last 30 Days - Family History Known Family History: Positive: Other - Negative: CAD Negative: Cardiac Disease - Social History Lives: Alone Alcohol Use: None Hx Substance Use: No Substance Use Type: Reports: None Hx Tobacco Use: Yes Smoking Status (MU): Former Smoker Have You Smoked in the Last Year: No Review of Systems Constitutional: Negative Negative: Fever, Chills Eyes: Negative ENT: Negative Cardiovascular: Negative Respiratory: Negative Positive: Vomiting, Diarrhea, Nausea. Negative: Abdominal Pain - discomfort Genitourinary: Negative Positive: no symptoms reported Musculoskeletal: Negative Skin: Negative Neurological: Negative Psychological: Normal All Other Systems Reviewed And Are Negative: Yes Physical Exam - Summary Physical Exam Summary: VITAL SIGNS: Reviewed. GENERAL: Patient is a well-developed and nourished male who is lying comfortable in the stretcher. Patient is not in any acute respiratory distress. HEAD AND FACE: No signs of trauma. No ecchymosis, hematomas or skull depressions. No sinus tenderness. EYES: PERRLA, EOMI x 2, No injected conjunctiva, no nystagmus. EARS: Hearing grossly intact. Ear canals and tympanic membranes are within normal limits. MOUTH: Oropharynx within normal limits. NECK: Supple, trachea is midline, no adenopathy, no JVD, no carotid bruit, no c- spine tenderness, neck with full ROM. CHEST: Symmetric, no tenderness at palpation LUNGS: Clear to auscultation bilaterally. No wheezing or crackles. CVS: Regular rate and rhythm, S1 and S2 present, no murmurs or gallops appreciated. ABDOMEN: Soft, non-tender. No signs of distention. No rebound no guarding, and no masses palpated. decreased bowel sounds. EXTREMITIES: FROM in all major joints, no edema, no cyanosis or clubbing. NEURO: Alert and oriented x 3. No acute neurological deficits. Speech is normal and follows commands. SKIN: Dry and warm Triage Information Reviewed: Yes Vital Signs On Initial Exam: Initial Vitals Temp Pulse Resp BP Pulse Ox 97.5 F 90 20 122/62 93 12/18/16 08:25 12/18/16 08:25 12/18/16 08:25 12/18/16 08:25 12/18/16 08:25 Vital Signs Reviewed: Yes Diagnostics - Vital Signs Vital Signs Temp Pulse Resp BP Pulse Ox 12/18/16 08:25 97.5 F 90 20 122/62 93 - Laboratory Lab Results: Lab Results 12/18/16 12/18/16 Range/Units 08:42 08:42 WBC 7.5 (3.5-10.8) 10^3/ul RBC 3.78 L (4.0-5.4) 10^6/ul Hgb 11.5 L (14.0-18.0) g/dl Hct 34 L (42-52) % MCV 91 (80-94) fL MCH 31 (27-31) pg MCHC 34 (31-36) g/dl RDW 15 (10.5-15) % Plt Count 199 (150-450) 10^3/ul MPV 9 (7.4-10.4) um3 Neut % (Auto) 80.2 (38-83) % Lymph % (Auto) 9.7 L (25-47) % [place] % (Auto) 8.6 (1-9) % Eos % (Auto) 1.0 (0-6) % Baso % (Auto) 0.5 (0-2) % Absolute Neuts (auto) 6.0 (1.5-7.7) 10^3/ul Absolute Lymphs (auto) 0.7 L (1.0-4.8) 10^3/ul Absolute Monos (auto) 0.6 (0-0.8) 10^3/ul Absolute Eos (auto) 0.1 (0-0.6) 10^3/ul Absolute Basos (auto) 0 (0-0.2) 10^3/ul Absolute Nucleated RBC 0 10^3/ul Nucleated RBC % 0 Sodium 135 (133-145) mmol/L Potassium 4.0 (3.5-5.0) mmol/L Chloride 98 L (101-111) mmol/L Carbon Dioxide 29 (22-32) mmol/L Anion Gap 8 (2-11) mmol/L BUN 23 (6-24) mg/dL Creatinine 1.44 H (0.67-1.17) mg/dL Est GFR ( Amer) 59.7 (>60) Est GFR (Non-Af Amer) 46.4 (>60) BUN/Creatinine Ratio 16.0 (8-20) Glucose 292 H (70-100) mg/dL Calcium 9.6 (8.6-10.3) mg/dL Total Bilirubin 0.90 (0.2-1.0) mg/dL AST 20 (13-39) U/L ALT 13 (7-52) U/L Alkaline Phosphatase 72 (34-104) U/L C-Reactive Protein 4.03 (< 5.00) mg/L Total Protein 7.2 (6.4-8.9) g/dL Albumin 3.9 (3.2-5.2) g/dL Globulin 3.3 (2-4) g/dL Albumin/Globulin Ratio 1.2 (1-3) Amylase 29 (29-103) U/L Lipase < 10 L (11.0-82.0) U/L Result Diagrams: 12/18/16 08:42 12/18/16 08:42 Lab Statement: Any lab studies that have been ordered have been reviewed, and results considered in the medical decision making process. - Radiology Abdominal XR Xray Interpretation: No Acute Changes - IMPRESSION: No free air or obstruction is noted. Radiology Interpretation Completed By: Radiologist - ED physician has reviewed this radiology report and agrees. - EKG 0916. Cardiac Rate: NL - 83bpm EKG Rhythm: Sinus Rhythm EKG Interpretation: RBBB EKG Comparison: No Significant Change - similar EKG compared to 10/10/16 Re-Evaluation - Re-Evaluation First Eval Re-Evaluation Time: 11:53 Comment: Reviewed pt's labs and imaging results. Pt will be discharged with zofran. Abdominal Pain Fem Course/Dx - Course Assessment/Plan: In the ED course an IV access was obtained. 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 Patient was started with IV fluids. Labs without any significant abnormality except for for slight chronic anemia, CRF, Glucose 292. UA is contaminated. Will send for AA culture. EKG shows a NSR at w/o ST elevations. Abdominal X-ray impression: No free air or obstruction is noted. PMH: CAD, DM, HTN, CKD, HTN, PACO on CPAP, , A fib, Hyperlipidemia and Prostate CA. After hydration patient feels better, No nausea or vomiting,. At this time patient is asymptomatic. I do not think he will benefit of a A+P CT since he is better and not produced any diarrhea sample. I discussed all the findings and test results with the patient. Patient was instructed to return to the emergency room immediately if any of the symptoms return or worsens. Plan of care was discussed with the patient and understands and agrees. All questions were answered at patient satisfaction. There were no further complaints or concerns. Lung exam before discharge: CTA B/L. Good air exchange. No wheezing or crackles heard. CVS: S1 and S2 present. No murmurs appreciated. Patient is alert and oriented x 3. Patient is hemodynamically stable. Patient will be discharged home with follow up PCP in the next 2-3 days - Diagnoses Differential Diagnosis/HQI/PQRI: Bowel Obstruction, Constipation, Pancreatitis, Urinary Tract Infection Provider Diagnoses: Nausea and vomiting, Diarrhea Discharge - Discharge Plan Condition: Stable Disposition: HOME Prescriptions: Ondansetron ODT TAB* [Zofran 4 MG Odt TAB*] 4 mg PO Q6H PRN #10 tab.odt PRN Reason: Vomiting Patient Education Materials: Acute Nausea and Vomiting (ED), Acute Diarrhea (ED ) Referrals: Triston Ramsey MD [Primary Care Provider] - The documentation as recorded by the Calvin gutierres Benjamin accurately reflects the service I personally performed and the decisions made by me, Toñito Vasquez MD.
== END 2016-12-18 12:50 | disposition home or self-care (01) ==
LOC: ED 08:22
DX: R11.2 Nausea with vomiting, unspecified (principal); R19.7 Diarrhea, unspecified; I25.10 Atherosclerotic heart disease of native coronary artery without angina pectoris; E11.22 Type 2 diabetes mellitus with diabetic chronic kidney disease; I12.9 Hypertensive chronic kidney disease with stage 1 through stage 4 chronic kidney disease, or unspecified chronic kidney disease; N18.9 Chronic kidney disease, unspecified; G47.33 Obstructive sleep apnea (adult) (pediatric); I48.91 Unspecified atrial fibrillation; E78.5 Hyperlipidemia, unspecified; Z85.46 Personal history of malignant neoplasm of prostate
CPT/HCPCS: 36415; 74020; 80053; 81003; 81015; 82150; 83690; 85025; 86140; 93005; 96360; 96374; 99282; J2405

== ENCOUNTER 2017-01-31 07:46 | Inpatient (IN) | payer MEDICARE, OTHER ==
[2017-01-31 08:30] LABS: Hematocrit 32 % (42-52); Hemoglobin 10.7 g/dl (14.0-18.0); Mean Corpuscular HGB Conc 33 g/dl (31-36); Mean Corpuscular Hemoglobin 30 pg (27-31); Mean Corpuscular Volume 91 fL (80-94); Mean Platelet Volume 9 um3 (7.4-10.4); Red Blood Count 3.56 10^6/ul (4.0-5.4); Red Cell Distribution Width 15 % (10.5-15); White Blood Count 6.6 10^3/ul (3.5-10.8)
[2017-01-31 08:36] LABS: PCO2 Arterial 43 mmHg (35-45)
[2017-01-31 08:42] LABS: Albumin 3.9 g/dL (3.2-5.2); BUN/Creatinine Ratio 21.1 (8-20); C Reactive Protein 6.91 mg/L (< 5.00); Calcium 9.4 mg/dL (8.6-10.3); EGFR African American 52.5 (>60); EGFR Non-African American 40.8 (>60); Globulin 3.2 g/dL (2-4); Potassium 4.5 mmol/L (3.5-5.0); Total Bilirubin 0.4 mg/dL (0.2-1.0); Total Protein 7.1 g/dL (6.4-8.9)
[2017-01-31 08:47] LABS: Troponin I 0.22 ng/mL (<0.04)
--- NOTE | 2017-01-31 09:03 | RAD ---
INDICATION: Dyspnea. History of tobacco use. CHF. Cardiac valve replacement. COMPARISON: October 10, 2016 chest radiograph and May 23, 2015 CT abdomen. April 07, 2013 CT chest. TECHNIQUE: Dual energy PA and routine lateral views of the chest were obtained. REPORT: Elevated LEFT lung volume. Small RIGHT pleural effusion and potential chronic pleural pleural thickening similar to the prior exam. Relative RIGHT hemithorax volume loss and linear atelectasis at the RIGHT mid to lower lung zone without gross change. Diffuse mild prominence of interstitial markings and mild upper lung zone rarefaction. Clear LEFT pleural space. Negative for pneumothorax. Median sternotomy wires. RIGHT atrial and RIGHT ventricular level pacemaker leads. Mild cardiomegaly. Unremarkable central pulmonary vasculature. IMPRESSION: 1. Stigmata of chronic obstructive pulmonary disease. 2. Small RIGHT pleural effusion and potential chronic pleural pleural thickening similar to the prior exam. Relative RIGHT hemithorax volume loss and linear atelectasis at the RIGHT mid to lower lung zone without gross change. No new pulmonary consolidation evident to suggest pneumonia. 3. No compelling evidence for CHF.
[2017-01-31] MEDS ORDERED: Furosemide IV* 10 MG/ML VIAL (40 MG) IV SLOW PU ONE (11:27)
[2017-01-31] MEDS ORDERED: Ondansetron INJ* 2 MG/ML VIAL IV PRN (11:27)
[2017-01-31] MEDS ORDERED: Dextrose 50% Syringe 50 ML* 25 GM/50 ML SYRINGE IV PUSH PRN (11:27)
[2017-01-31] MEDS ORDERED: Acetaminophen TAB* 325 MG PO PRN (11:27)
[2017-01-31] MEDS ORDERED: Albuterol HFA INHALER* 8 gm MDI INH PRN (11:33)
[2017-01-31 12:37] LABS: Urine Bacteria Absent (Absent); Urine Bilirubin Negative (Negative); Urine Glucose 1+(50 mg/dL) (Negative); Urine Nitrite Negative (Negative)
--- NOTE | 2017-01-31 12:52 | HP ---
HISTORY AND PHYSICAL:* ADDENDUM: Mr. De La Torre is an 86-year-old male with a history of coronary artery disease, who presents complaining of shortness of breath and was noted to be mildly hypoxemic. He has troponin of 0.2 and brain natriuretic peptide of over 700. He likely is in CHF. He is going to be placed on overnight observation. For further details of the patient's presentation and plan, please history and physical dictated by Khanh Hogan, with which I agree. [id number]/[facility] #: [id number] MTDD
[2017-01-31] MEDS: Insulin LISPRO* 1 UNITS UNIT SUBCUT SCH ×2 (13:42→17:10)
[2017-01-31] MEDS: Gabapentin CAP(*) 300 MG PO SCH ×2 (13:43→20:35)
--- NOTE | 2017-01-31 13:43 | HP ---
ATTENDING PHYSICIAN ADDENDUM NOW INCLUDED ON THIS REPOR CC: Dr. Ramsey; Dr. Mccullough * HISTORY AND PHYSICAL: DATE OF ADMISSION: 01/31/17 PRIMARY CARE PROVIDER: Dr. Ramsey. ATTENDING PHYSICIAN WHILE IN THE HOSPITAL: Dr. Katlyn Morrow * (report dictated by Khanh Hogan NP). CONSULTING ROUNDER HAND: Dr. Mccullough. CHIEF COMPLAINT: Shortness of breath. HISTORY OF PRESENT ILLNESS: Mr. De La Torre is an 86-year-old male patient. He has a history of CAD, diabetes, history of CKD, hypertension, PACO, aortic stenosis, AFib, hyperlipidemia, and history of prostate cancer. He comes in to the ED today stating that yesterday he developed some shortness of breath. He was not feeling well all day. He woke up this morning about 4:30 in the morning and started having more shortness of breath. He was concerned because he was not getting any better. He says that he has noticed that last month he has had a 15-pound weight gain. His legs have been more swollen. He says in the last few weeks, he has been taking Lasix once a week and according to the patient, it was recently increased. It is unclear if he has been actually following the increased dosage instruction. He at one time was on it 3 times a week. He says that he is really short of breath if he does anything. He says again he has addition to this the diet. In the morning, he does typically likes to eat breakfast sausage every morning. He admitted having some nocturnal dyspnea. He denies having any chest pain yesterday or chest tightness. He says that his chest hurt this morning when he was trying to get a deep breath. He denied having any abdominal pain, nausea, or vomiting. There was no recent URI symptoms. No fevers or chills. No vomiting. He had no diarrhea. He came into the ED today. There was concern because he had elevated troponin of 0.22. His BNP was up. There was concern because of the shortness of breath and we were asked to evaluate for admission. PAST MEDICAL HISTORY: Significant for: 1. CAD. 2. Diabetes. 3. CKD. 4. Hypertension. 5. PACO. 6. Aortic stenosis. 7. AFib. 8. Hyperlipidemia. 9. Prostate cancer. PAST SURGICAL HISTORY: The patient has had a: 1. Heart catheterization. 2. Pacemaker placement. 3. 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 4. Rotator cuff repair. 5. Laparoscopic cholecystectomy. MEDICATIONS: Home meds: 1. Neurontin 600 mg p.o. t.i.d. 2. Lasix 20 mg. In the computer, it says 3 times weekly. He says he has been taking it once a week. 3. Bactroban 1 application topically daily as needed. 4. Lisinopril 12 to 25 units subcu b.i.d. sliding scale. 5. Lantus 50 units at bedtime, 40 units in the morning. 6. He is on Prevacid 30 mg daily. 7. Glipizide 5 mg p.o. t.i.d. with meals. 8. Multivitamin 1 tablet daily. 9. Glucosamine chondroitin 1 capsule p.o. b.i.d. 10. Lipitor 40 mg p.o. daily. 11. Atenolol 25 mg daily. 12. Aspirin 81 mg daily. 13. Apixaban 2.5 mg p.o. b.i.d. 14. Ventolin 1 puff inhaled every 6 hours. ALLERGIES TO MEDICATIONS: Include REGLAN, TROGLITAZONE, LACTOSE INTOLERANCE, METOPROLOL, and MORPHINE. FAMILY HISTORY: Mother had a history of lung cancer. Father's history was reviewed and noncontributory. SOCIAL HISTORY: The patient is a former smoker. He is a michele. His surrogate decision maker is his son. He denies alcohol use. REVIEW OF SYSTEMS: There was a weight change of about 15 pounds. Denies having any double vision. No ear discharge. No rhinorrhea. No sore throat. No thyroid enlargement. There was chest pain earlier this morning, as a pressure that is now resolved. He denies having any orthopnea, but did admit to having nocturnal dyspnea. No abdominal pain. No nausea. No vomiting. No dysuria. No frequency. There was no loss of consciousness. No pruritus and no skin ulcerations. Review of 14 systems completed, all others are negative. PHYSICAL EXAMINATION GENERAL: At this time, Mr. De La Torre is an 86-year-old male patient. He is sitting in the ED stretcher. He does not appear to be in any acute distress. VITAL SIGNS: Blood pressure 150/73, pulse 60, respirations 16, O2 sat 100%, temperature 97.4. HEENT: Head atraumatic. Eyes: EOMs are intact. Sclerae are anicteric and not pale. Throat: Oral mucosa appears to be moist. No oropharyngeal erythema. NECK: Supple. LUNGS: Diminished at the bases. No wheezes, rales, or rhonchi. HEART: Sounds S1, S2. Regular rate and rhythm. No murmurs, rubs, or gallops. ABDOMEN: Soft, flat, nontender. Bowel sounds present. EXTREMITIES: Pulses 2+ throughout. He has +3 pitting edema bilaterally to the lower extremities. He has 5/5 strength. NEUROLOGIC: He is awake, alert, oriented x3. No gross focal deficits. SKIN: Intact. He does have a skin abrasion noted to the left anterior lower extremity, just above the ankle. In addition to this, he has a diabetic ulcer noted to the left heel. Otherwise, skin intact. DIAGNOSTIC STUDIES/LAB DATA: WBC of 6.6, RBC of 2.56, hemoglobin 10.7, hematocrit 32, platelet count 240. His PTT was 35.0. Blood gas: pH 7.4, pCO2 of 43, bicarb of 26. His sodium was 137, potassium 4.5, chloride of 102, bicarb 29, BUN 34, creatinine 1.61, glucose of 206, lactic 1.6, calcium 9.4. Total bili 0.4, AST 21, ALT 15, alk phos 83. CK 129. Troponin 0.22. CRP is 6.91 and his BNP was 719. Albumin was 3.9. Serology was negative for flu. He did have chest x-ray obtained today, impression: Stigmata of COPD, small right pleural effusion and potential chronic pleural thickening similar to prior exam, relative right hemithorax, volume loss, pulmonary atelectasis at the right mid to lower lung zone without gross change. No new pulmonary consolidation evidence to suggest pneumonia. No compelling evidence for CHF. The patient did have an EKG today as well, which revealed an atrial paced rhythm with a rate of 60 and a right bundle-branch block. EKG appears to be similar. There are now paced beats with today's EKG. Old medical records were reviewed. ASSESSMENT AND PLAN: Mr. De La Torre is an 86-year-old male patient, coming into the ED today with complaints of shortness of breath, weight gain. On evaluation today it was noted that his troponin was elevated. His BNP was elevated. We were asked to evaluate for admission. He will be admitted under observation status for: 1. Congestive heart failure exacerbation. Again, I suspect the patient has congestive heart failure here, most likely is diastolic. I do have an echo from September of this year which shows an EF at 50% to 55%. My plan would be to repeat the echo given the fact that his troponins have bumped, that could just be demand ischemia from the heart failure. He is not having any worsening chest pain. I am going to give him 40 of IV Lasix at this point. I will go ahead and check daily weights, repeat the echo, cycle the troponins. I ordered a Cardiology consult and will continue to follow him closely. We will place him on telemetry. 2. Coronary artery disease. When he had an episode of chest pain, so I think it is warranted to cycle his trops and get the repeat echo. I think this is probably all being driven by the heart failure. We will continue the aspirin, beta-isra, statin therapy for now and we will cycle the troponins. 3. Diabetes with lispro sliding scale and Lantus. 4. Chronic kidney disease. We will follow his creatinine carefully particularly in the setting of diuresing him. Appears to be at baseline. 5. Hypertension. We will continue meds as prescribed. 6. Obstructive sleep apnea. He does not wear CPAP at night. He does wear O2 at night. I did order oxygen. 7. Aortic stenosis. He can follow up with his primary and his aboriginal liaison officer. We also are getting an echo. 8. History of atrial fibrillation. Appears to be in sinus rhythm. Continue with his Eliquis. 9. Hyperlipidemia. Continue statin therapy. 10. Prostate cancer. Follow up with primary. 11. DVT prophylaxis. We will continue the Eliquis. 12. Code status. He is a full code. 13. Fluids, electrolytes, and nutrition: He can have heart-healthy diet. TIME SPENT: Time spent on the admission was 60 minutes, greater than half the time was spent face to face with the patient obtaining my history and physical, the other half time spent going over the plan of care with the patient, implementing plan of care. I did discuss the plan of care with my attending, Dr. Morrow, she is in agreement. KHANH HOGAN NP ADDENDUM: Mr. De La Torre is an 86-year-old male with a history of coronary artery disease, who presents complaining of shortness of breath and was noted to be mildly hypoxemic. He has troponin of 0.2 and brain natriuretic peptide of over 700. He likely is in CHF. He is going to be placed on overnight observation. For further details of the patient's presentation and plan, please history and physical dictated by Khanh Hogan, with which I agree. KATLYN MORROW MD [id number]/CPS #: [id number] #: [id number] ROBIN
--- NOTE | 2017-01-31 16:34 | ECHO ---
Patient: KATIA TERRY [facility] Rec#: [id number] : 1930 Date: 01/31/2017 Age: 86y Height: 180.3 cm / 71.0 in Weight: 113.4 kg / 249.9 lbs Sex: M BSA: 2.32 Room#: [facility] Admit Date#: 01/31/2017 Type: Inpatient Referring: Khanh Hogan NP Reading: Hiram Wilson MD Grease Monkey: Sera Thompson RN RDCS CC: Triston Ramsey MD CC: Nishi Mccullough MD Transthoracic Echocardiogram Indication: CHF BP: 150/73 HR: 68 Rhythm: Paced Findings History: CAD, HTN, HLD, DM, pacer/ICD, AVR #25 Medtronic Mosaic bovine aortic valve. Technical Comments: The study quality is fair. The study is technically limited due to patient body habitus. Completed at 1600. Left Ventricle: The left ventricular chamber size is normal. Mild to moderate concentric left ventricular hypertrophy is observed. Global left ventricular wall motion and contractility are within normal limits. Left ventricular systolic function is at the lower limits of normal. The estimated ejection fraction is 50-55%. The assessment of diastolic function is non-diagnostic. Left Atrium: The left atrium is mildly dilated. Right Ventricle: The right ventricular cavity size is normal. The right ventricular global systolic function is low normal. A pacemaker wire is visualized in the right ventricle. Right Atrium: The right atrial cavity size is normal. A pacemaker wire is visualized in the right atrium. Aortic Valve: There is aortic annular calcification. There is no evidence of aortic regurgitation. A bovine bio-prosthetic aortic valve is present. The reported mean gradient for a #25 Medtronic Mosiac bovine aortic valve is 10.08 =/- 5.1. suggesting there may be mild stenosis. Mitral Valve: There is mitral annular calcification. The mitral valve leaflets are mildly thickened. There is mild mitral regurgitation. There is no evidence of mitral stenosis. Tricuspid Valve: The tricuspid valve leaflets are normal. There is trace to mild tricuspid regurgitation. The right ventricular systolic pressure is estimated at 37 mmHg. There is evidence of mild pulmonary hypertension. There is no tricuspid stenosis. Pulmonic Valve: The pulmonic valve structure is not well visualized. There is no evidence of pulmonic regurgitation. There is no pulmonic stenosis. Pericardium: There is no significant pericardial effusion. A pericardial fat pad is visualized. Aorta: There is no dilatation of the ascending aorta. There is no dilatation of the aortic arch. There is no dilation of the aortic root. Pulmonary Artery: The main pulmonary artery is not well visualized. Venous: The inferior vena cava appears normal in size. There is a greater than 50% respiratory change in the inferior vena cava dimension. Conclusions Mild to moderate concentric left ventricular hypertrophy is observed. Left ventricular systolic function is at the lower limits of normal. The estimated ejection fraction is 50-55%. The left atrium is mildly dilated. A pacemaker wire is visualized in the right ventricle. A pacemaker wire is visualized in the right atrium. There is mitral annular calcification. There is mild mitral regurgitation. A bovine bio-prosthetic aortic valve is present. The reported mean gradient for a #25 Medtronic Mosiac bovine aortic valve is 10.08 =/- 5.1. suggesting there may be mild stenosis. There is trace to mild tricuspid regurgitation. There is evidence of mild pulmonary hypertension. Compared to report of study from 10/11/2016 there are no significant changes. Measurements Name Value Normal Range RVDdMajor (2D) 3.4 cm (2.2 - 4.4) RAd ISD 4CH 4.5 cm (3.4 - 4.9) RA (A4C)W 4.2 cm (2.9 - 4.6) IVSd (2D) 1.4 cm (0.6 - 1) LVPWd (2D) 1.2 cm (0.6 - 1) LVIDd (2D) 4.9 cm (3.6 - 5.4) LVIDs (2D) 3.5 cm - LV FS (2D) 28 % (25 - 45) Aortic Annulus 2 cm (1.4 - 2.6) Ao root diameter (2D) 2.6 cm (2.1 - 3.5) Ascending Ao 2.2 cm (2.1 - 3.4) Aortic arch 2.5 cm (1.8 - 3.4) LA dimension (AP) 2D 4.2 cm (2.3 - 3.8) LAd ISD 4CH 5.9 cm (2.9 - 5.3) LA ISD 4CH W 4.5 cm (2.5 - 4.5) Name Value Normal Range LA ESV SP 4CH (A/L) 59 ml - LA ESV SP 2CH (A/L) 78 ml - LA ESV BP (A/L) 68 ml - LA ESV BP (A/L) index 29.3 ml/m2 - LA ESV SP 4CH (MOD) 55 ml - LA ESV SP 2CH (MOD) 74 ml - Name Value Normal Range MV E-wave Vmax 1.1 m/sec - MV deceleration time 323 msec - MV A-wave Vmax 0.67 m/sec - MV E:A ratio 1.6 ratio - LV septal e' Vmax 0.04 m/sec - LV lateral e' Vmax 0.08 m/sec - LV E:e' septal ratio 27.5 ratio - LV E:e' lateral ratio 13.8 ratio - Name Value Normal Range AV Vmax 2.9 m/sec - AV VTI 60.7 cm - AV peak gradient 32.5 mmHg - AV mean gradient 17.2 mmHg - LVOT diameter 2.1 cm - LVOT Vmax 0.77 m/sec - LVOT VTI 17.9 cm - LVOT peak gradient 2.4 mmHg - LVOT mean gradient 1.5 mmHg - DOI (VTI) 0.29 ratio - DOI (Vmax) 0.27 ratio - SV LVOT 62 ml - CO LVOT 4.2 l/min - Cardiac index 1.8 l/min/m2 - GERBER (continuity Vmax) 0.9 cm2 - GERBER (continuity VTI) 1 cm2 - MIRIAM Vmax 0.59 m/sec - Name Value Normal Range TR Vmax 2.9 m/sec - TR peak gradient 34 mmHg - RAP 3 mmHg - RVSP 37 mmHg - IVC diameter 1.7 cm - Name Value Normal Range PV Vmax 0.79 m/sec -
[2017-01-31] MEDS ORDERED: Insulin GLARGINE(*) 1 UNITS UNIT SUBCUT SCH (18:00)
[2017-01-31] MEDS: Apixaban* 2.5 MG TAB PO SCH (20:35)
--- NOTE | 2017-02-01 02:45 | CONS ---
CC: Hospitalist Service; Dr. Triston Ramsey * CONSULTATION REPORT: DATE OF CONSULT: 01/31/17 REASON FOR CONSULTATION: Congestive heart failure. CHIEF COMPLAINT: Shortness of breath and leg swelling. HISTORY OF PRESENT ILLNESS: Mr. De La Torre is an 86-year-old gentleman whom I follow for his cardiology history of coronary artery disease, aortic valve replacement, and he has a pacemaker. The patient states that he had been doing pretty well until about a month ago when he started to note that his legs are becoming swollen. I had reviewed a note from Dr. Ramsey in late December that stated he had advised him to increase his diuretics, but the patient does not think he had plan to increase those, but he also thinks that he was taking his pills as he was directed. I saw also in reviewing Dr. Ramsey' note of January 15, the patient had been started on an antibiotic, Keflex, for foot ulcer with some skin breakdown at the same time. The patient states his legs have just been getting more swollen and when he was admitted, he literally could not catch his breath. He denied actual chest pain and states he was given Lasix in the emergency department. He is feeling much, much better. He says his leg swelling has improved and his breathing is much improved. It should be noted that the patient's diuretic dose was decreased last September because of a syncopal episode, but he did well in terms of leg swelling until just a month ago. He does not have a scale at home and weights were stable until relatively recently. He also had no recurrent syncopal events. PAST MEDICAL HISTORY: The patient has a past medical history of: 1. Coronary artery disease, status post stent for the right coronary artery in 2004. Most recent catheterization in 2010: Moderate LAD disease and the ostium of the first diagonal, 50% in-stent restenosis of the proximal RCA stent , 80% to 85% occlusion in the distal right coronary artery for which he underwent a second bare- metal stent to the distal right coronary artery. 2. Aortic valve stenosis, status post aortic valve replacement, Tissue #25 Medtronic Mosaic Ultra Porcine in 2006. 3. Insulin-dependent diabetes, type 2. 4. Hypertension. 5. Dyslipidemia. 6. Peripheral vascular disease. 7. Peripheral neuropathy. 8. Reflux. 9. Right bundle-branch block. 10. Rhinitis. 11. Sick sinus syndrome with pacer. 12. History of prostate cancer. 13. Malignant polyps. 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 15. Sleep apnea. 16. Spinal stenosis. 17. Pleural effusions. 18. Headaches. 19. Sepsis in 2016, post steroid injection. PAST SURGICAL HISTORY: Includes: 1. Aortic valve replacement. 2. Pacemaker implantation. 3. Cholecystectomy. 4. Prostatectomy. 5. Shoulder surgery. 6. Cataract surgery. 7. Gallbladder surgery. MEDICATIONS: Based on Dr. Ramsey' note of late December, his outpatient medications at that time included: 1. Eliquis 2.5 mg b.i.d. 2. Aspirin 81 mg a day. 3. Atenolol 25 mg a day. 4. Lipitor 40 mg a day. 5. Keflex 500 mg 4 times a day for his course. 6. Lasix 20 mg 3 days a week. 7. Neurontin 600 mg t.i.d. 6. Glargine (Lantus insulin) as directed. 7. Glipizide 5 mg 3 times a day with meals. 8. Glucosamine/chondroitin b.i.d. 9. Hydrocortisone rectal cream. 10. Lispro insulin b.i.d. as directed. 11. MultiVites daily. 12. Bactroban ointment. 13. Sublingual nitroglycerin p.r.n. 14. Prevacid 30 mg a day. 15. Kenalog cream p.r.n. 16. Ventolin inhaler p.r.n. Current inpatient medications include: 1. Tylenol p.r.n. 2. Ventolin 1 puff q.6 hours p.r.n. 3. Eliquis 2.5 mg b.i.d. 4. Aspirin 81 mg a day. 5. Tenormin 25 mg a day. 6. Lipitor 40 mg a day. 7. Neurontin 600 mg t.i.d. 8. Lantus, glargine insulin. 9. Lispro insulin. 10. MultiVites with mineral. 11. Omeprazole 20 mg a day. 12. Zofran p.r.n. He received 40 mg of Lasix IV in the ED. ALLERGIES: Include ASPIRIN, GI CONTRAST DYE, REGLAN, TROGLITAZONE, LACTOSE INTOLERANCE, METOPROLOL, MORPHINE. FAMILY HISTORY: Significant in his mother had a history of lung cancer. SOCIAL HISTORY: The patient is . He is a michele. He smoked in the distant past. No alcohol intake. No recreational drug use. REVIEW OF SYSTEMS: A 15-point review of systems included progressive increase of leg swelling for several weeks. More recent shortness of breath with pressure in the chest this morning and orthopnea. He denies increased salt intake that he is aware of even when the swelling started. He does not think that those are related to Thanksgiving meals for instance. He denies awareness of racing or palpitations of the heart. In the past, he has had gastrointestinal problems, but denies recent abdominal pain, constipation, or diarrhea. No hematuria or dysuria. All other 15- point review of systems was unremarkable. PHYSICAL EXAM: The patient is 5 feet 11 inches, weighs 141 pounds with a BMI of 23. On arrival to the emergency department, the patient's blood pressure was 137/58, pulse was 67, sinus rhythm, oxygen saturation 94% on room air, and temperature 97.4. At the time I saw him post-diuresis at approximately 1:40 in the afternoon, the patient's blood pressure was 133/63, pulse was 65, respiratory rate was 18, oxygen saturation 99% on room air, and temperature 97.7. He is a stocky, tall, elderly michele, , lying in bed, getting an echo at the time I saw him, and appeared comfortable, lying at about 20 degrees. Psychologically, pleasant and cooperative. Neurologically, awake, alert, oriented to person, place, and time. He is very hard of hearing. Cranial nerves are otherwise intact. I did not watch him ambulate, but he follows commands well with no gross sensory and motor deficits, examined in bed. Skin: Alistair complexion, warm, dry. No appreciable cyanosis. HEENT: Pupils are equal and round. Mucous membranes moist. Neck: Without appreciable increased JVP. Pacer site unremarkable. Breath sounds unremarkably clear post- diuresis. No wheezing, rales, or rhonchi heard and good effort. Coronary: S1 , S2, regular with 2-3/6 systolic murmur heard in the right upper sternal border with a high-pitch quality, does radiate across the precordium. Abdomen: Active bowel sounds. Nontender. Somewhat firm as usual and no appreciable hepatomegaly. Lower Extremity: Shows mild edema bilaterally and according to the patient, this is much improved post diuresis. DIAGNOSTIC STUDIES/LAB DATA: The patient's chest x-ray on arrival to the emergency department this morning showed a right pleural effusion and pleural thickening, stable and a right hemithorax. Negative for pneumonia. Evidence of chronic obstructive pulmonary disease. Negative for congestive heart failure. A 12-lead ECG in the emergency department shows atrial pacing at a rate of 60 beats a minute, first-degree AV block, [place] QRS with a right bundle -branch blocks and some inverted T waves in leads V3 to V6 with a left axis deviation of -45. When this EKG is compared with the most recent EKG in our office of 10/12/16, the inverted T waves V3 to V6 are new and when compared with the most recent ECG in [facility] of 12/18/16, the ST changes were not significant, the T waves were biphasic in the leads at that time. Echocardiogram performed today while I was there but interpreted later by Dr. Wilson showed an ejection fraction of 50% to 55%, unable to confirm diastolic function, a low normal RV systolic function, bioprosthetic aortic valve with mild stenosis (mean gradient is 17.3 mmHg, greater than expected for the type and size of the valve). Calculated aortic valve area by VTI 1 cm squared. There was mild tricuspid insufficiency, mild mitral insufficiency, and mild elevation in PA pressure. It was not felt to be significantly changed compared with his echo of 10/11/16. Most recent pacemaker interrogation at the office was 11/02/16 confirming it was a Medtronic Adapta dual-chamber pacer programmed in dual chamber mode with a low rate of 60 beats per minute. Atrially paced at 11% of the time and ventricularly paced at less than 0.1% of the time and at that time, he had had no recent AFib or high ventricular rate. LABS: White count 6.6, hemoglobin 10.7, hematocrit 32 (chronic anemia in 2016, 2017) with PTT of 35. ABG: pH 7.40, pCO2 43, pO2 68, and oxygen saturation 95.4. Sodium 137, potassium 4.5, chloride 102, bicarb 29, BUN 34, creatinine 1.6 , glucose 206. ALT of 15, AST 20. CPK 129. Troponin #1 0.22. C-reactive protein 6.91. Troponin #2 0.17. Urinalysis: 1+ protein, 1+ blood, 1+ glucose, negative for white blood cells, negative for nitrites. Influenza A and B were negative. ASSESSMENT AND PLAN: In summary, Mr. De La Torre is an 86-year-old gentleman with a history of coronary artery disease and stenting to the right coronary artery twice with disease in the LAD and small diagonal branches as well. He also has a prosthetic aortic valve, which shows some signs of aging and he has diabetes, hypertension, dyslipidemia, renal insufficiency, admitted with several weeks of increasing lower extremity edema, evidence of a recent infection requiring antibiotic and more acute shortness of breath and evidence of low pO2 on his ABG. It does like there is some degree of congestive heart failure as he responded well to the diuretics clinically. There could be another pulmonary process as well. Additional factors that could contribute to diastolic failure would include renal insufficiency and his stenotic valve. Ischemia could certainly be playing a predominant role here. His most recent stress test was at [facility] in March 2016 at that time showing an ejection fraction of 47% with a fixed and reversible ischemia in the base or in the lateral wall. Mr. De La Torre is at risk for atrial fibrillation, which could certainly contribute to lower extremity edema or congestive heart failure and we could look at his pacer for this again. I think it is highly unlikely that if he went into atrial fibrillation that he would go out spontaneously. There was a pulmonary consultation as an outpatient by Dr. Gandhi in July 2014, pleural effusion seen on CT scan. He had a thoracentesis in 2007, negative for malignancy. He was scheduled for a 6-minute walk and pulmonary function study, but I do not believe were done, but I may have incomplete records. Dr. Weiss consulted on the patient for a possible VATS and it is my understanding that the patient has elected not to undergo this. From a cardiac standpoint, options would include going directly to cath if an vice president of software development is comfortable that this could be demand ischemia of small vessels, but I think more appropriately would be once the patient is stabilized to undergo an ambulatory and/or chemical stress test or combination to see if there is any change in areas of infarct and/or ischemia. I do feel that the patient would benefit from determining what his ideal weight is at home, he does not have a scale at home today, and I think he is going to continue to be fragile overall and once we determine his goal weight, we could adjust his diuretics as needed for weight gain or do aggressive diuresis and I did discuss this with him personally. For the aortic valve, although it may be getting stenotic at this point, I do not appreciate that it is severe enough to warrant intervention based on the echo findings, but we can follow this clinically and carefully. Thank you for allowing me to assist in this very pleasant, but complex gentleman. [id number]/[facility] #: [id number] ROBIN
[2017-02-01 07:15] LABS: Hematocrit 35 % (42-52); Mean Corpuscular HGB Conc 32 g/dl (31-36); Mean Corpuscular Hemoglobin 30 pg (27-31); Mean Corpuscular Volume 95 fL (80-94); Mean Platelet Volume 9 um3 (7.4-10.4); Red Blood Count 3.64 10^6/ul (4.0-5.4); Red Cell Distribution Width 15 % (10.5-15)
[2017-02-01 07:38] LABS: BUN/Creatinine Ratio 20.5 (8-20); Calcium 9.2 mg/dL (8.6-10.3); EGFR African American 54.4 (>60); EGFR Non-African American 42.3 (>60); Potassium 4.2 mmol/L (3.5-5.0)
[2017-02-01] MEDS ORDERED: Insulin GLARGINE(*) 1 UNITS UNIT SUBCUT SCH (09:00)
--- NOTE | 2017-02-01 09:19 | ED ---
Naveen Harrison Angela, scribed for Toñito Vasquez MD on 01/31/17 at 0802 . Shortness of Breath - HPI Summary HPI Summary: This pt is an 86 y/o male presenting to [facility] c/o SOB that began yesterday. Pt reports having a hard time breathing, which is worse with exertion. He states having dizzy spells recently and swelling of the feet and legs. He denies cough , fever, chest pain. PMHx includes CHF, DM, CAD, HTN, right lobe pleural effusion. - History of Current Complaint Chief Complaint: EDShortnessOfBreath Time Seen by Provider: 01/31/17 07:54 Hx Obtained From: Patient Onset/Duration: Lasting Days - 1, Still Present Timing: Constant Dyspnea At: Exertion - worse with exertion Associated Signs & Symptoms: Edema - in bilateral feet and legs - Allergy/Home Medications Allergies/Adverse Reactions: Allergies Allergy/AdvReac Type Severity Reaction Status Date / Time Metoclopramide Allergy Unknown Unknown Verified 01/31/17 08:31 Reaction Details Troglitazone [From Rezulin] Allergy Unknown Verified 01/31/17 08:31 Reaction Details Lactose Intolerance AdvReac Intermediate Unknown Verified 01/31/17 08:31 Reaction Details Metoprolol AdvReac Intermediate Diarrhea Verified 01/31/17 08:31 Morphine AdvReac Hallucinati Verified 01/31/17 08:31 ons Home Medications: Home Medications Cephalexin CAP* [Keflex CAP*] 500 mg PO QID 01/31/17 [History Confirmed 01/31/17 ] Gabapentin CAP(*) [Neurontin 300 CAP(*)] 600 mg PO TID 01/31/17 [History Confirmed 01/31/17] Mupirocin 2% OINT* [Bactroban 2 % Oint*] 1 applic TOPICAL DAILY PRN 01/31/17 [ History Confirmed 01/31/17] PMH/Surg Hx/FS Hx/Imm Hx Endocrine/Hematology History: Reports: Hx Diabetes Denies: Hx Anticoagulant Therapy, Hx Thyroid Disease Cardiovascular History: Reports: Hx Angina, 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, Hx Congestive Heart Failure, Hx Coronary Artery Disease, Hx Hypercholesterolemia, Hx Hypertension, Hx Pacemaker/ICD, Hx Syncope, Hx Valvular Heart Disease - Aoritc Valve replacement, Other Cardiovascular Problems /Disorders Respiratory History: Reports: Hx Pleural Effusion - Right Lobe Denies: Hx Asthma, Hx Chronic Obstructive Pulmonary Disease (COPD) GI History: Reports: Hx Gastroesophageal Reflux Disease, Hx Hiatal Hernia, Hx Ulcer History: Denies: Hx Renal Disease Musculoskeletal History: Reports: Hx Arthritis, Hx Back Problems - spinal stenosis, Other Musculoskeletal History - discitis Sensory History: Reports: Hx Cataracts, Hx Contacts or Glasses, Hx Vision Problem - cataract, Hx Hearing Problem Denies: Hx Hearing Aid Opthamlomology History: Reports: Hx Cataracts, Hx Contacts or Glasses, Hx Vision Problem - cataract Neurological History: Reports: Other Neuro Impairments/Disorders - numb/ tingling bilat feet(chronic), Denies: Hx Dementia, Hx Seizures Psychiatric History: Denies: Hx Substance Abuse - Cancer History Cancer Type, Location and Year: colon CA 1996, Prostate 2001 Hx Chemotherapy: No Hx Radiation Therapy: No - Surgical History Surgery Procedure, Year, and Place: L shoulder. gallbladder removed. L wrist. Aortic valve replacement. pacemaker. 3 stents. cataracts Hx Anesthesia Reactions: No - Immunization History Date of Tetanus Vaccine: Unk Date of Influenza Vaccine: Fall 2014 Infectious Disease History: No Infectious Disease History: Denies: Hx Hepatitis, Hx Human Immunodeficiency Virus (HIV), Traveled Outside the [place] in Last 30 Days - Family History Known Family History: Positive: Other - Negative: CAD Negative: Cardiac Disease - Social History Alcohol Use: None Hx Substance Use: No Substance Use Type: Reports: None Hx Tobacco Use: Yes Smoking Status (MU): Former Smoker Have You Smoked in the Last Year: No Review of Systems Negative: Fever, Chills Negative: Chest Pain Positive: Shortness Of Breath. Negative: Cough Positive: Edema - in bilateral LE Neurological: Other - dizziness All Other Systems Reviewed And Are Negative: Yes Physical Exam - Summary Physical Exam Summary: VITAL SIGNS: Reviewed. GENERAL: Patient is an elderly male who is lying comfortable in the stretcher. Patient is not in any acute respiratory distress and is able to speak in full sentences. HEAD AND FACE: No signs of trauma. No ecchymosis, hematomas or skull depressions. No sinus tenderness. EYES: PERRLA, EOMI x 2, No injected conjunctiva, no nystagmus. EARS: Hearing grossly intact. Ear canals and tympanic membranes are within normal limits. MOUTH: Oropharynx within normal limits. NECK: Supple, trachea is midline, no adenopathy, no JVD, no carotid bruit, no c- spine tenderness, neck with full ROM. CHEST: Symmetric, no tenderness at palpation LUNGS: Crackles in both lungs, especially on the right. CVS: Regular rate and rhythm, S1 and S2 present, no murmurs or gallops appreciated. ABDOMEN: Soft, non-tender. No signs of distention. No rebound no guarding, and no masses palpated. Bowel sounds are normal. EXTREMITIES: FROM in all major joints, no cyanosis or clubbing. Bilaterally lower extremity edema 2+. NEURO: Alert and oriented x 3. No acute neurological deficits. Speech is normal and follows commands. SKIN: Dry and warm Triage Information Reviewed: Yes Vital Signs On Initial Exam: Initial Vitals Temp Pulse Resp BP Pulse Ox 97.4 F 67 22 137/58 94 01/31/17 07:47 01/31/17 07:47 01/31/17 07:47 01/31/17 07:47 01/31/17 07:47 Vital Signs Reviewed: Yes Diagnostics - Vital Signs Vital Signs Temp Pulse Resp BP Pulse Ox 01/31/17 07:47 97.4 F 67 22 137/58 94 - Laboratory Lab Results: Lab Results 01/31/17 01/31/17 01/31/17 Range/Units 08:15 08:15 08:15 WBC (3.5-10.8) 10^3/ul RBC (4.0-5.4) 10^6/ul Hgb (14.0-18.0) g/dl Hct (42-52) % MCV (80-94) fL MCH (27-31) pg MCHC (31-36) g/dl RDW (10.5-15) % Plt Count (150-450) 10^3/ul MPV (7.4-10.4) um3 Neut % (Auto) (38-83) % Lymph % (Auto) (25-47) % [place] % (Auto) (1-9) % Eos % (Auto) (0-6) % Baso % (Auto) (0-2) % Absolute Neuts (auto) (1.5-7.7) 10^3/ul Absolute Lymphs (auto) (1.0-4.8) 10^3/ul Absolute Monos (auto) (0-0.8) 10^3/ul Absolute Eos (auto) (0-0.6) 10^3/ul Absolute Basos (auto) (0-0.2) 10^3/ul Absolute Nucleated RBC 10^3/ul Nucleated RBC % APTT 35.0 (26.0-36.3) seconds ABG pH (7.35-7.45) ABG pCO2 (35-45) mmHg ABG pO2 (80-100) mmHg ABG HCO3 (19-31) mmol/L ABG O2 Saturation (95-98) % ABG Base Excess (-2.0-2.0) Sodium 137 (133-145) mmol/L Potassium 4.5 (3.5-5.0) mmol/L Chloride 102 (101-111) mmol/L Carbon Dioxide 29 (22-32) mmol/L Anion Gap 6 (2-11) mmol/L BUN 34 H (6-24) mg/dL Creatinine 1.61 H (0.67-1.17) mg/dL Est GFR ( Amer) 52.5 (>60) Est GFR (Non-Af Amer) 40.8 (>60) BUN/Creatinine Ratio 21.1 H (8-20) Glucose 206 H (70-100) mg/dL Lactic Acid (0.5-2.0) mmol/L Calcium 9.4 (8.6-10.3) mg/dL Total Bilirubin 0.40 (0.2-1.0) mg/dL AST 20 (13-39) U/L ALT 15 (7-52) U/L Alkaline Phosphatase 83 (34-104) U/L Total Creatine Kinase 129 (10-223) U/L Troponin I 0.22 H* (<0.04) ng/mL C-Reactive Protein 6.91 H (< 5.00) mg/L B-Natriuretic Peptide 719 H ( - 100) pg/mL Total Protein 7.1 (6.4-8.9) g/dL Albumin 3.9 (3.2-5.2) g/dL Globulin 3.2 (2-4) g/dL Albumin/Globulin Ratio 1.2 (1-3) Influenza A (Rapid) (Negative) Influenza B (Rapid) (Negative) 01/31/17 01/31/17 01/31/17 Range/Units 08:15 08:15 08:25 WBC 6.6 (3.5-10.8) 10^3/ul RBC 3.56 L (4.0-5.4) 10^6/ul Hgb 10.7 L (14.0-18.0) g/dl Hct 32 L (42-52) % MCV 91 (80-94) fL MCH 30 (27-31) pg MCHC 33 (31-36) g/dl RDW 15 (10.5-15) % Plt Count 240 (150-450) 10^3/ul MPV 9 (7.4-10.4) um3 Neut % (Auto) 70.2 (38-83) % Lymph % (Auto) 13.6 L (25-47) % [place] % (Auto) 10.3 H (1-9) % Eos % (Auto) 5.2 (0-6) % Baso % (Auto) 0.7 (0-2) % Absolute Neuts (auto) 4.6 (1.5-7.7) 10^3/ul Absolute Lymphs (auto) 0.9 L (1.0-4.8) 10^3/ul Absolute Monos (auto) 0.7 (0-0.8) 10^3/ul Absolute Eos (auto) 0.3 (0-0.6) 10^3/ul Absolute Basos (auto) 0 (0-0.2) 10^3/ul Absolute Nucleated RBC 0 10^3/ul Nucleated RBC % 0 APTT (26.0-36.3) seconds ABG pH 7.40 (7.35-7.45) ABG pCO2 43 (35-45) mmHg ABG pO2 68 L (80-100) mmHg ABG HCO3 26.0 (19-31) mmol/L ABG O2 Saturation 95.4 (95-98) % ABG Base Excess 1.5 (-2.0-2.0) Sodium (133-145) mmol/L Potassium (3.5-5.0) mmol/L Chloride (101-111) mmol/L Carbon Dioxide (22-32) mmol/L Anion Gap (2-11) mmol/L BUN (6-24) mg/dL Creatinine (0.67-1.17) mg/dL Est GFR ( Amer) (>60) Est GFR (Non-Af Amer) (>60) BUN/Creatinine Ratio (8-20) Glucose (70-100) mg/dL Lactic Acid 1.6 (0.5-2.0) mmol/L Calcium (8.6-10.3) mg/dL Total Bilirubin (0.2-1.0) mg/dL AST (13-39) U/L ALT (7-52) U/L Alkaline Phosphatase (34-104) U/L Total Creatine Kinase (10-223) U/L Troponin I (<0.04) ng/mL C-Reactive Protein (< 5.00) mg/L B-Natriuretic Peptide ( - 100) pg/mL Total Protein (6.4-8.9) g/dL Albumin (3.2-5.2) g/dL Globulin (2-4) g/dL Albumin/Globulin Ratio (1-3) Influenza A (Rapid) (Negative) Influenza B (Rapid) (Negative) 01/31/17 Range/Units 08:35 WBC (3.5-10.8) 10^3/ul RBC (4.0-5.4) 10^6/ul Hgb (14.0-18.0) g/dl Hct (42-52) % MCV (80-94) fL MCH (27-31) pg MCHC (31-36) g/dl RDW (10.5-15) % Plt Count (150-450) 10^3/ul MPV (7.4-10.4) um3 Neut % (Auto) (38-83) % Lymph % (Auto) (25-47) % [place] % (Auto) (1-9) % Eos % (Auto) (0-6) % Baso % (Auto) (0-2) % Absolute Neuts (auto) (1.5-7.7) 10^3/ul Absolute Lymphs (auto) (1.0-4.8) 10^3/ul Absolute Monos (auto) (0-0.8) 10^3/ul Absolute Eos (auto) (0-0.6) 10^3/ul Absolute Basos (auto) (0-0.2) 10^3/ul Absolute Nucleated RBC 10^3/ul Nucleated RBC % APTT (26.0-36.3) seconds ABG pH (7.35-7.45) ABG pCO2 (35-45) mmHg ABG pO2 (80-100) mmHg ABG HCO3 (19-31) mmol/L ABG O2 Saturation (95-98) % ABG Base Excess (-2.0-2.0) Sodium (133-145) mmol/L Potassium (3.5-5.0) mmol/L Chloride (101-111) mmol/L Carbon Dioxide (22-32) mmol/L Anion Gap (2-11) mmol/L BUN (6-24) mg/dL Creatinine (0.67-1.17) mg/dL Est GFR ( Amer) (>60) Est GFR (Non-Af Amer) (>60) BUN/Creatinine Ratio (8-20) Glucose (70-100) mg/dL Lactic Acid (0.5-2.0) mmol/L Calcium (8.6-10.3) mg/dL Total Bilirubin (0.2-1.0) mg/dL AST (13-39) U/L ALT (7-52) U/L Alkaline Phosphatase (34-104) U/L Total Creatine Kinase (10-223) U/L Troponin I (<0.04) ng/mL C-Reactive Protein (< 5.00) mg/L B-Natriuretic Peptide ( - 100) pg/mL Total Protein (6.4-8.9) g/dL Albumin (3.2-5.2) g/dL Globulin (2-4) g/dL Albumin/Globulin Ratio (1-3) Influenza A (Rapid) Negative (Negative) Influenza B (Rapid) Negative (Negative) Result Diagrams: 01/31/17 08:15 01/31/17 08:15 Lab Statement: Any lab studies that have been ordered have been reviewed, and results considered in the medical decision making process. - Radiology Chest XR Xray Interpretation: Positive (See Comments) - IMPRESSION: 1. Stigmata of chronic obstructive pulmonary disease. 2. Small RIGHT pleural effusion and potential chronic pleural thickening similar to the prior exam. Relative RIGHT hemithorax volume loss and linear atelectasisat the RIGHT mid to lower lung zone without gross change. No new pulmonary consolidation evident to suggest pneumonia. 3. No compelling evidence for CHF. ED physician has reviewed this radiology report and agrees. Radiology Interpretation Completed By: Radiologist - EKG 0819 Cardiac Rate: NL EKG Interpretation: Atrial-paced rhythm. LVH. Inverted T-wave in V5 and V6. EKG Comparison: Other - Changed from 12/18/16. Course/Dx - Course Assessment/Plan: This pt is an 86 y/o male presenting to [facility] c/o SOB that began yesterday. Pt reports having a hard time breathing, which is worse with exertion. He states having dizzy spells recently and swelling of the feet and legs. He denies cough, fever, chest pain. PMHx includes CHF, DM, CAD, HTN, right lobe pleural effusion. Test results shows slight chronic slight anemia, ABG shows slight hypoxia of pO2 of 68, slight renal insufficiency, glucose of 206, troponin of 0.22, BNP of 719. Urinalysis is negative for a UTI. Influenza A and B are negative. Chest XR shows 1. Stigmata of chronic obstructive pulmonary disease. 2. Small RIGHT pleural effusion and potential chronic pleural thickening similar to the prior exam. Relative RIGHT hemithorax volume loss and linear atelectasis at the RIGHT mid to lower lung zone without gross change. No new pulmonary consolidation evident to suggest pneumonia. 3. No compelling evidence for CHF. In the ED course the pt was given Lasix for CHF exacerbation. Because of an increased troponin, the pt should be admitted to rule out acute coronary syndrome. Therefore, I discussed the case with Dr. Morrow who accepted the pt for admission. Pt is hemodynamically stable, alert and oriented x3. - Diagnoses Differential Diagnosis/HQI/PQRI: Positive: Asthma, Bronchitis, CHF, Chest Wall Pain, Pneumonia, Pulmonary Edema Provider Diagnoses: CHF exacerbation, increased troponin, r/o ACS - Physician Notifications Discussed Care of Patient With: Katlyn Morrow Time Discussed With Above Provider: 10:31 Instructed by Provider To: Other - I discussed the pt's case with Dr. Morrow, who has agreed to admit the pt. Discharge - Discharge Plan Condition: Stable Disposition: ADMITTED TO [facility] The documentation as recorded by the Naveen gutierres Angela accurately reflects the service I personally performed and the decisions made by me, Toñito Vasquez MD.
[2017-02-01] MEDS: Insulin LISPRO* 1 UNITS UNIT SUBCUT SCH ×3 (09:28→17:04)
[2017-02-01] MEDS: Atorvastatin* 40 MG TAB PO SCH (09:33)
[2017-02-01] MEDS: Atenolol TAB* 25 MG PO SCH (09:33)
[2017-02-01] MEDS: Apixaban* 2.5 MG TAB PO SCH ×2 (09:33→20:19)
[2017-02-01] MEDS: Multivitamins/Minerals TAB PO SCH (09:34)
[2017-02-01] MEDS: Aspirin EC Low Dose* 81 MG TAB.EC PO SCH (09:34)
[2017-02-01] MEDS: Gabapentin CAP(*) 300 MG PO SCH ×3 (09:34→20:20)
[2017-02-01] MEDS: Omeprazole CAP* 20 MG PO SCH (09:34)
[2017-02-01] MEDS ORDERED: Furosemide IV* 10 MG/ML VIAL (40 MG) IV SLOW PU ONE (10:32)
--- NOTE | 2017-02-01 13:31 | PN ---
Subjective Date of Service: 02/01/17 Interval History: HOSPITALIST PROGRESS NOTE Patient seen and examined at bedside. He feels better today. Dyspnea is less intense, but still present. Denies chest pain. Family History: Unchanged from Admission Social History: Unchanged from Admission Past Medical History: Unchanged from Admission Objective Active Medications: Acetaminophen (Tylenol Tab*) 650 mg PO Q4H PRN PRN Reason: FEVER/PAIN Albuterol (Ventolin Hfa Inhaler*) 1 puff INH Q6H PRN PRN Reason: SHORTNESS OF BREATH Apixaban (Eliquis) 2.5 mg PO BID [facility] Last Admin: 02/01/17 09:33 Dose: 2.5 mg Aspirin (Aspirin Ec Low Dose*) 81 mg PO DAILY [facility] Last Admin: 02/01/17 09:34 Dose: 81 mg Atenolol (Tenormin Tab*) 25 mg PO DAILY [facility] Last Admin: 02/01/17 09:33 Dose: 25 mg Atorvastatin Calcium (Lipitor*) 40 mg PO DAILY [facility] Last Admin: 02/01/17 09:33 Dose: 40 mg Dextrose (D50w Syringe 50 Ml*) 12.5 gm IV PUSH .FOR FS < 60 - SS PRN PRN Reason: FS < 60 Gabapentin (Neurontin Cap(*)) 600 mg PO TID [facility] Last Admin: 02/01/17 13:25 Dose: 600 mg Insulin Glargine (Lantus(*)) 30 units SUBCUT BID [facility] Insulin Human Lispro (Humalog*) 0 units SUBCUT AC [facility] PRN Reason: Protocol Last Admin: 02/01/17 12:37 Dose: 3 unit Multivitamins/Minerals (Theragran/Minerals Tab*) 1 tab PO DAILY [facility] Last Admin: 02/01/17 09:34 Dose: 1 tab Omeprazole (Prilosec Cap*) 20 mg PO 0730 [facility] PRN Reason: Protocol Last Admin: 02/01/17 09:34 Dose: 20 mg Ondansetron HCl (Zofran Inj*) 4 mg IV Q6H PRN PRN Reason: NAUSEA Vital Signs - 8 hr 02/01/17 02/01/17 11:09 13:25 Temperature 97.9 F Pulse Rate 63 Respiratory 19 16 Rate Blood Pressure 142/61 (mmHg) O2 Sat by Pulse 98 Oximetry Oxygen Devices in Use Now: Nasal Cannula - 2 liters Appearance: Pleasant elderly male sitting up in bed in NAD. Eyes: No Scleral Icterus Ears/Nose/Mouth/Throat: Mucous Membranes Moist Neck: Trachea Midline Respiratory: Symmetrical Chest Expansion and Respiratory Effort, - - BS+ bilaterally with bibasilar crackles Cardiovascular: RRR - Normal S1 and S2, +SM Abdominal: NL Sounds; No Tenderness; No Distention Extremities: - - Bilateral LE moderate pitting edema Neurological: Alert and Oriented x 3, NL Muscle Strength and Tone Result Diagrams: 02/01/17 06:35 02/01/17 06:35 Assess/Plan/Problems-Billing Assessment: Mr. De La Torre is an 86yo M with PMH of CAD, type 2 DM, CKD stage 3, HTN, PACO, , Afib, HLD, who presented to ED with c/o dyspnea, found to have CHF exacerbation. - Patient Problems (1) Acute hypoxemic respiratory failure Comment: - Secondary to CHF exacerbation. - Continue supplemental O2 as needed. (2) Diastolic CHF Comment: - This exacerbation is likely secondary to dietary indiscretion as patient is having sausage for breakfast almost daily. - Not aware of his dry weight. - Continue diuresis with Furosemide, monitor I/Os and DW. - Echo showed EF 50-55%, bovine AV with mild stenosis. - Dietary education. - Troponin elevation likely secondary to CHF. - Cardiology input appreciated. (3) Type II diabetes mellitus Comment: - Continue Lantus and Lispro SS. (4) Atrial fibrillation Comment: - Continue Atenolol and Apixaban. (5) DVT prophylaxis Comment: - Apixaban. (6) Full code status Status and Disposition: Change to inpatient.
[2017-02-01] MEDS: Insulin GLARGINE(*) 1 UNITS UNIT SUBCUT SCH (20:20)
[2017-02-02 06:59] LABS: BUN/Creatinine Ratio 19.6 (8-20); Calcium 9.3 mg/dL (8.6-10.3); EGFR African American 53.6 (>60); EGFR Non-African American 41.7 (>60)
[2017-02-02] MEDS: Insulin GLARGINE(*) 1 UNITS UNIT SUBCUT SCH (08:44)
[2017-02-02] MEDS: Insulin LISPRO* 1 UNITS UNIT SUBCUT SCH ×2 (08:44→12:16)
[2017-02-02] MEDS: Omeprazole CAP* 20 MG PO SCH (08:45)
[2017-02-02] MEDS: Aspirin EC Low Dose* 81 MG TAB.EC PO SCH (08:45)
[2017-02-02] MEDS: Gabapentin CAP(*) 300 MG PO SCH (08:45)
[2017-02-02] MEDS: Multivitamins/Minerals TAB PO SCH (08:45)
[2017-02-02] MEDS: Atenolol TAB* 25 MG PO SCH (08:45)
[2017-02-02] MEDS: Apixaban* 2.5 MG TAB PO SCH (08:45)
[2017-02-02] MEDS: Atorvastatin* 40 MG TAB PO SCH (08:45)
[2017-02-02] MEDS ORDERED: Furosemide IV* 10 MG/ML VIAL (40 MG) IV ONE (09:43)
[2017-02-02] MEDS ORDERED: Furosemide IV* 10 MG/ML 2 ML VIAL (20 MG) IV ONE (10:01)
[2017-02-02] MEDS ORDERED: Collagenase 250 MG/GM OINT* 30 GM TOPICAL SCH (10:30)
[2017-02-02] MEDS ORDERED: Furosemide IV* 10 MG/ML 2 ML VIAL (20 MG) ONE (10:40)
[2017-02-02 12:29] VITALS: BP 123/57
--- NOTE | 2017-02-03 00:53 | DS ---
CC: Dr. Ramsey; Dr. Mccullough * DISCHARGE SUMMARY: DATE OF ADMISSION: 01/31/17 DATE OF DISCHARGE: PRIMARY CARE PROVIDER: Dr. Ramsey. DISCHARGE DIAGNOSIS: Acute diastolic congestive heart failure, likely due to dietary indiscretion. SECONDARY DIAGNOSES: 1. History of coronary artery disease. 2. History of diabetes, insulin dependent. 3. History of chronic kidney disease stage 3 due to diabetes. 4. Hypertension. 5. Obstructive sleep apnea. 6. Status post aortic valve replacement with bovine valve. 7. History of atrial fibrillation. 8. Hyperlipidemia. 9. Prostate cancer. 10. Status post pacemaker placement. MEDICATIONS AT DISCHARGE: Are basically unchanged from the admission medication list: 1. Please note the patient had cut down his Lasix to 20 mg weekly instead of 3 times a week due to feeling "dehydrated." 2. Also includes albuterol inhaler 1 puff every 6 hours p.r.n. 3. Eliquis 2.5 mg b.i.d. 4. Aspirin 81 mg daily. 5. Atenolol 25 mg daily. 6. Lipitor 40 mg daily. 7. Furosemide 20 mg Mondays, Wednesdays and Fridays. 8. Neurontin 600 mg 3 times a day. 9. Glipizide 5 mg 3 times a day. 10. Glucosamine with chondroitin 1 tablet b.i.d. 11. Insulin glargine 40 units daily in the morning and 50 at night. 12. Insulin lispro sliding scale. 13. Prevacid 30 mg daily. 14. Multivitamin 1 tablet daily. 15. Bactroban 2% apply to affected skin areas on a p.r.n. basis. LABORATORY DATA AND STUDIES PERFORMED DURING THE HOSPITAL STAY: Included: On , white blood cell count of 6.0, hemoglobin was 11.0, hematocrit of 35, and platelets of 202. Sodium was 139, potassium of 4.0, chloride 100, carbon dioxide 33, BUN 31, creatinine 1.58. The patient's troponins during his hospital peaked at 0.22 at admission. Flu test was negative at admission. Transthoracic echocardiogram obtained on 01/31/17 showed EF of 50% to 55% with moderate concentric LVH, with mitral annular calcification, bioprosthetic aortic was in place suggestive of mild stenosis. There was trace mild tricuspid regurgitation and evidence of mild pulmonary hypertension. Comparing with the study from September of 2016, there were no significant changes. HOSPITALIZATION COURSE: Gabe De La Torre is an 86-year-old male, who presented to the hospital complaining of shortness of breath and weight gain. The patient states that he has had been knowing his dose of Lasix from 20 mg 3 times a week down to 1 time 20 mg weekly due to feeling "dehydrated." He also admitted to dietary indiscretion. He eats a sausage everyday. The patient was admitted to the hospital and diuresed with intravenous Lasix. It was a gentle diuresis. Due to that, the patient has chronic kidney disease. His creatinine remained stable throughout his hospital stay and at his baseline. His weight improved from 250 to 242 pounds by the time of discharge. He complains of chronic dyspnea on exertion, but the symptoms that he presented with resolved by the time of discharge. He is going to be discharged home with increased dose of Lasix to 3 times a week as previously taken. The patient was asked to check his weight on a daily basis and if his weight is higher to than 3 pounds from his baseline weight, which is today 242 pounds, the patient is to call his physician for further recommendations and likely increase of Lasix. We had also discussion with the patient, patient's in regards to dietary compliance with low-salt diet and no added salt diet. PHYSICAL EXAM AT THE TIME OF DISCHARGE: Vital Signs: Blood pressure of 126/61 , heart rate of 68 and regular, respiratory rate 20, oxygen saturation 94% on room air, and temperature of 98.5. General: The patient is a very pleasant 86- year-old male, who is in no acute distress. Alert, awake, and oriented x3. HEENT: Head atraumatic, normocephalic. Eyes: Pupils are equal, reactive to light and accommodation. Oropharynx clear. Mucosa moist. Neck: Supple. No JVD. No bruits bilaterally. Cardiovascular: Regular rate and rhythm with 2/6 systolic ejection murmur on auscultation of the left upper sternal border. Respiratory: Clear to auscultation bilaterally. Abdomen: Soft, nontender. Bowel sounds are present in all 4 quadrants. Extremities: There is trace bilateral ankle edema. Pulses are poorly palpable bilaterally, but the patient has good capillary refill. There is no clubbing or cyanosis. On evaluation of skin, the patient has a shallow ulcer of the left medial heel of 4 x 3 cm with the base covered with slough. On neuro evaluation, cranial nerves II through XII grossly intact. Motor strength is 5/5 bilaterally. At discharge, the patient is recommended to follow up with Wound Care nurse's recommendation who saw the patient in the hospital to cover his left heel wound with Santyl and change gauze dressings daily. The patient is also to follow up with his policy and planning manager. The patient is also recommended to follow up with his primary care provider in approximately 4 to 7 days. The patient is recommended to weigh himself daily as above mentioned. Please note that this is a short summary of the patient's hospital stay. Please refer to further medical records for details. TIME SPENT: Approximately 40 minutes were spent on the patient's discharge. [id number]/ELDER #: [id number] ROBIN
== END 2017-02-02 13:08 | disposition home or self-care (01) | DRG 291 ==
LOC: ED 07:46 → MEDTELE 11:05 → OBSVTOIN 02-01 10:35
PROVIDERS: ADMIT Internal Medicine; ATTEND Internal Medicine
DX: I13.0 Hypertensive heart and chronic kidney disease with heart failure and stage 1 through stage 4 chronic kidney disease, or unspecified chronic kidney disease (principal); I50.33 Acute on chronic diastolic (congestive) heart failure; J96.01 Acute respiratory failure with hypoxia; E11.22 Type 2 diabetes mellitus with diabetic chronic kidney disease; E11.42 Type 2 diabetes mellitus with diabetic polyneuropathy; E11.51 Type 2 diabetes mellitus with diabetic peripheral angiopathy without gangrene; I27.20 Pulmonary hypertension, unspecified; I48.91 Unspecified atrial fibrillation; I25.10 Atherosclerotic heart disease of native coronary artery without angina pectoris; E78.5 Hyperlipidemia, unspecified; N18.3 Chronic kidney disease, stage 3 (moderate); K21.0 Gastro-esophageal reflux disease with esophagitis; K22.70 Barrett's esophagus without dysplasia; I45.10 Unspecified right bundle-branch block; J44.9 Chronic obstructive pulmonary disease, unspecified; I08.1 Rheumatic disorders of both mitral and tricuspid valves; M19.90 Unspecified osteoarthritis, unspecified site; M48.00 Spinal stenosis, site unspecified; H91.90 Unspecified hearing loss, unspecified ear; G47.33 Obstructive sleep apnea (adult) (pediatric); R20.2 Paresthesia of skin; Z85.038 Personal history of other malignant neoplasm of large intestine; Z85.46 Personal history of malignant neoplasm of prostate; Z90.49 Acquired absence of other specified parts of digestive tract; Z98.42 Cataract extraction status, left eye; Z98.41 Cataract extraction status, right eye; Z82.49 Family history of ischemic heart disease and other diseases of the circulatory system; Z87.891 Personal history of nicotine dependence; Z80.1 Family history of malignant neoplasm of trachea, bronchus and lung; Z95.2 Presence of prosthetic heart valve; Z88.5 Allergy status to narcotic agent; Z88.8 Allergy status to other drugs, medicaments and biological substances; Z95.0 Presence of cardiac pacemaker; Z79.01 Long term (current) use of anticoagulants; Z79.02 Long term (current) use of antithrombotics/antiplatelets; Z79.4 Long term (current) use of insulin; Z95.5 Presence of coronary angioplasty implant and graft
CPT/HCPCS: 36415; 36600; 71020; 80048; 80053; 81003; 81015; 82550; 82803; 83605; 83880; 84484; 85025; 85610; 85730; 86140; 87502; 93005; 93306; A9270-GY; G0378; J1940

== ENCOUNTER 2017-03-30 02:16 | Emergency (ER) | payer MEDICARE, OTHER ==
[2017-03-30 03:32] LABS: ABS Basophils 0 10^3/ul (0-0.2); ABS Eosinophils 0.5 10^3/ul (0-0.6); ABS Lymphocytes 0.8 10^3/ul (1.0-4.8); ABS Monocytes 0.7 10^3/ul (0-0.8); ABS Neutrophils 5.1 10^3/ul (1.5-7.7); ABS Nucleated RBC 0 10^3/ul; Eosinophil % 7.4 % (0-6); Hematocrit 39 % (42-52); Hemoglobin 12.8 g/dl (14.0-18.0); Lymphocyte % 11.2 % (25-47); Mean Corpuscular HGB Conc 33 g/dl (31-36); Mean Corpuscular Hemoglobin 30 pg (27-31); Mean Corpuscular Volume 91 fL (80-94); Mean Platelet Volume 10 um3 (7.4-10.4); Nucleated Red Blood Cells % 0.1; Platelet Count 216 10^3/ul (150-450); Red Blood Count 4.24 10^6/ul (4.0-5.4); Red Cell Distribution Width 15 % (10.5-15); White Blood Count 7.1 10^3/ul (3.5-10.8)
[2017-03-30 03:42] LABS: EGFR Non-African American 48.3 (>60)
[2017-03-30 03:44] LABS: INR 0.98 (0.77-1.02)
[2017-03-30] MEDS ORDERED: NS 0.9% 1000 ML* 1,000 ML IV ONE (04:52)
[2017-03-30] MEDS ORDERED: Ondansetron INJ* 2 MG/ML VIAL IV ONE (07:27)
[2017-03-30] MEDS ORDERED: Iodixanol* (CONTRAST) 320 MG/ML 100 ML SDV IV ONE (08:33)
--- NOTE | 2017-03-30 09:05 | RAD ---
INDICATION: Hypoxia and weakness COMPARISON: Similar examination May 15, 2007 TECHNIQUE: Axial source images were acquired following the administration of 91 mL Visipaque [address] angiographic technique. Coronal and sagittal reconstructed images were constructed and reviewed. FINDINGS: There there are no filling defects in the pulmonary arteries to indicate acute pulmonary embolic disease. There is a small right base pleural effusion. There is pleural-based linear density in the deep ended portion of the right lung involving the right lower lobe and right middle lobe. The left lung is adequately aerated. There is no large pericardial effusion. Defibrillator leads are seen overlying the heart. There is calcification and/or endovascular stents at the coronary arteries as well as coarse atherosclerotic calcification at the arch of the aorta and aortic ring. There is no mediastinal, hilar, or axillary lymphadenopathy. Multilevel degenerative changes of the thoracic spine includes loss of intervertebral disc height. Sternotomy wires are noted. There is gas in the common bile duct and in the left lobe biliary radicals. There is no gas seen in the visualized portal venous system. The patient is status post cholecystectomy. IMPRESSION: 1. No CT of evidence of pulmonary embolism. 2. There is a small right-sided pleural effusion with deep tendon linear density that could represent atelectasis or potentially pneumonia. 3. There is intrabiliary gas in the common bile duct and left lobe biliary radicals. Please correlate to recent instrumentation. 4. Additional chronic, degenerative and postsurgical changes described in the body the report.
[2017-03-30 10:16] VITALS: BP 117/61
--- NOTE | 2017-03-30 13:54 | RAD ---
INDICATION: Shortness of breath and cough COMPARISON: Chest x-ray dated January 31, 2017 TECHNIQUE: PA and lateral views of the chest were obtained. FINDINGS: Stable postoperative findings include sternotomy wires and a 2-lead left upper chest cardiac pacemaker. The heart and mediastinum are normal in size and contour. Similar the prior chest x-ray, the right lung is hypoplastic. There are stable pleural-based linear densities overlying the right lung. There is the appearance of thickening of the lateral right pleura. Density slightly obscures the right lung base as well as the right hemidiaphragm. The left lung is well aerated. Visualized bones are normal for the patient's age. There is no radiographic evidence of free air beneath the diaphragm IMPRESSION: CHRONIC FINDINGS DESCRIBED ABOVE UNCHANGED SINCE THE JANUARY 31, 2017 CHEST X-RAY.
--- NOTE | 2017-03-30 14:55 | RAD ---
CLINICAL HISTORY: Nausea and weakness COMPARISON: Same day CTA chest that was negative for pulmonary embolism but demonstrated pleural effusion with right lower lobe air space opacity. TECHNIQUE: Noncontrast CT examination of the abdomen from the lung bases through the pelvic inlet. FINDINGS: VISUALIZED LUNG BASES: As was depicted on the same day CTA of the chest, there is a small right pleural effusion with right lower lobe airspace opacity. ABDOMEN: Evaluation of the solid organs and vasculature is limited without intravenous contrast. There is gas in the biliary radicles in the left lobe of the liver and common bile duct. Surgical clips are seen in the gallbladder fossa. The gallbladder is surgically absent. Calcified granulomas are noted in the spleen. The pancreas and adrenal glands are grossly normal in appearance. The kidneys are normal in appearance without focal mass, calcification or signs of hydronephrosis. Evaluation of the gastrointestinal tract is limited in the absence of oral contrast. The visualized portions of the small and large bowel are not distended. There is no gross retroperitoneal or mesenteric lymphadenopathy in the visualized portions of the upper abdomen. The the coarsely calcified. aorta and visualized portions of the iliac arteries are normal in course and diameter. Multilevel degenerative changes of the lower thoracic and lumbar spine include loss of intervertebral disc height, vacuum disc phenomenon and marginal osteophyte formation. IMPRESSION: 1. Again seen is a small right-sided pleural effusion with air space opacity in the right lower lobe. Atelectasis versus pneumonia are considered. 2. There is gas in the common bile duct and the biliary radicals the left lobe of the liver. Please correspond to prior instrumentation of the biliary system. 3. Additional chronic, degenerative and iatrogenic findings as described in the body of the report.
--- NOTE | 2017-04-03 20:12 | ED ---
Ovidio Harrison Tecjoon, scribed for John Massey MD on 03/30/17 at 0316 . Complex/Multi-Sys Presentation - HPI Summary HPI Summary: This patient is a 86 year old male BIBA to [facility] with a chief complaint of nausea and weakness since a couple days ago. The pain is rated 0/10 in severity currently. Symptoms aggravated by nothing. Symptoms alleviated by nothing. Patient additionally reports SOB, abd pain, productive cough, swelling in legs. Patient denies chest pain. - History Of Current Complaint Chief Complaint: EDGeneral Hx Obtained From: Patient Onset/Duration: Lasting Days, Still Present Timing: Constant Severity Currently: None Location: Pain At: - abd Aggravating Factor(s): nothing Alleviating Factor(s): nothing Associated Signs And Symptoms: Positive: Other - SOB, abd pain, productive cough , swelling in legs. Negative: Chest Pain - Allergies/Home Medications Allergies/Adverse Reactions: Allergies Allergy/AdvReac Type Severity Reaction Status Date / Time metoclopramide Allergy Unknown Verified 04/02/17 18:16 Reaction Details troglitazone Allergy Unknown Verified 04/02/17 18:20 Reaction Details metoprolol AdvReac Intermediate Diarrhea Verified 04/02/17 18:19 lactose AdvReac Unknown Verified 04/02/17 18:18 Reaction Details morphine AdvReac Hallucinati Verified 04/02/17 18:18 ons PMH/Surg Hx/FS Hx/Imm Hx Previously Healthy: No Endocrine/Hematology History: Reports: Hx Diabetes Denies: Hx Anticoagulant Therapy, Hx Thyroid Disease Cardiovascular History: Reports: Hx Angina, 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, Hx Congestive Heart Failure, Hx Coronary Artery Disease, Hx Hypercholesterolemia, Hx Hypertension, Hx Pacemaker/ICD, Hx Syncope, Hx Valvular Heart Disease - Aoritc Valve replacement, Other Cardiovascular Problems /Disorders Respiratory History: Reports: Hx Pleural Effusion - Right Lobe Denies: Hx Asthma, Hx Chronic Obstructive Pulmonary Disease (COPD) GI History: Reports: Hx Gastroesophageal Reflux Disease, Hx Hiatal Hernia, Hx Ulcer History: Denies: Hx Renal Disease Musculoskeletal History: Reports: Hx Arthritis, Hx Back Problems - spinal stenosis, Other Musculoskeletal History - discitis Sensory History: Reports: Hx Cataracts, Hx Contacts or Glasses, Hx Vision Problem - cataract, Hx Hearing Problem Denies: Hx Hearing Aid Opthamlomology History: Reports: Hx Cataracts, Hx Contacts or Glasses, Hx Vision Problem - cataract Neurological History: Reports: Other Neuro Impairments/Disorders - numb/ tingling bilat feet(chronic), Denies: Hx Dementia, Hx Seizures Psychiatric History: Denies: Hx Substance Abuse - Cancer History Cancer Type, Location and Year: colon CA 1996, Prostate 2001 Hx Chemotherapy: No Hx Radiation Therapy: No - Surgical History Surgery Procedure, Year, and Place: L shoulder. gallbladder removed. L wrist. Aortic valve replacement. pacemaker. 3 stents. cataracts Hx Anesthesia Reactions: No - Immunization History Date of Tetanus Vaccine: Unk Date of Influenza Vaccine: Fall 2014 Infectious Disease History: No Infectious Disease History: Denies: Hx Hepatitis, Hx Human Immunodeficiency Virus (HIV), Traveled Outside the [place] in Last 30 Days - Family History Known Family History: Positive: Other - Negative: CAD Negative: Cardiac Disease - Social History Lives: Alone Alcohol Use: None Hx Substance Use: No Substance Use Type: Reports: None Hx Tobacco Use: Yes Smoking Status (MU): Former Smoker Have You Smoked in the Last Year: No Review of Systems Negative: Chest Pain Positive: Shortness Of Breath, Cough Positive: Abdominal Pain, Nausea Positive: Edema - in legs Positive: Weakness All Other Systems Reviewed And Are Negative: Yes Physical Exam - Summary Physical Exam Summary: Appearance: Well-appearing, Well-nourished Skin: Warm Eyes: Normal ENT: Normal, Moist mucous membranes Neck: Supple, nontender Respiratory: Diminished lung sounds bilaterally. Rhonchi bilaterally Cardiovascular: Normal S1, S2. No murmurs. Normal distal pulses in tibial and radial bilaterally. Abdomen: Mild epigastric tenderness, no rebounding or guarding. Normal bowel sounds Musculoskeletal: Normal, Strength/ROM Intact Neurological: Normal, A&Ox3 Psychiatric: Normal Triage Information Reviewed: Yes Vital Signs On Initial Exam: Initial Vitals Temp Pulse Resp BP Pulse Ox 97.8 F 94 16 103/62 98 03/30/17 02:37 03/30/17 02:37 03/30/17 02:37 03/30/17 02:37 03/30/17 02:37 Vital Signs Reviewed: Yes Diagnostics - Vital Signs Vital Signs Temp Pulse Resp BP Pulse Ox 03/30/17 02:37 97.8 F 94 16 103/62 98 - Laboratory Lab Results: Lab Results 03/30/17 03/30/17 03/30/17 Range/Units 02:30 02:30 02:30 WBC 7.1 (3.5-10.8) 10^3/ul RBC 4.24 (4.0-5.4) 10^6/ul Hgb 12.8 L (14.0-18.0) g/dl Hct 39 L (42-52) % MCV 91 (80-94) fL MCH 30 (27-31) pg MCHC 33 (31-36) g/dl RDW 15 (10.5-15) % Plt Count 216 (150-450) 10^3/ul MPV 10 (7.4-10.4) um3 Neut % (Auto) 71.9 (38-83) % Lymph % (Auto) 11.2 L (25-47) % [place] % (Auto) 9.2 H (1-9) % Eos % (Auto) 7.4 H (0-6) % Baso % (Auto) 0.3 (0-2) % Absolute Neuts (auto) 5.1 (1.5-7.7) 10^3/ul Absolute Lymphs (auto) 0.8 L (1.0-4.8) 10^3/ul Absolute Monos (auto) 0.7 (0-0.8) 10^3/ul Absolute Eos (auto) 0.5 (0-0.6) 10^3/ul Absolute Basos (auto) 0 (0-0.2) 10^3/ul Absolute Nucleated RBC 0 10^3/ul Nucleated RBC % 0.1 INR (Anticoag Therapy) 0.98 (0.77-1.02) APTT 32.5 (26.0-36.3) seconds Sodium (133-145) mmol/L Potassium (3.5-5.0) mmol/L Chloride (101-111) mmol/L Carbon Dioxide (22-32) mmol/L Anion Gap (2-11) mmol/L BUN (6-24) mg/dL Creatinine (0.67-1.17) mg/dL Est GFR ( Amer) (>60) Est GFR (Non-Af Amer) (>60) BUN/Creatinine Ratio (8-20) Glucose (70-100) mg/dL Lactic Acid (0.5-2.0) mmol/L Calcium (8.6-10.3) mg/dL Total Bilirubin (0.2-1.0) mg/dL AST (13-39) U/L ALT (7-52) U/L Alkaline Phosphatase (34-104) U/L Troponin I (<0.04) ng/mL B-Natriuretic Peptide 240 H ( - 100) pg/mL Total Protein (6.4-8.9) g/dL Albumin (3.2-5.2) g/dL Globulin (2-4) g/dL Albumin/Globulin Ratio (1-3) Lipase (11.0-82.0) U/L Influenza A (Rapid) (Negative) Influenza B (Rapid) (Negative) 03/30/17 03/30/17 03/30/17 Range/Units 02:30 02:30 03:36 WBC (3.5-10.8) 10^3/ul RBC (4.0-5.4) 10^6/ul Hgb (14.0-18.0) g/dl Hct (42-52) % MCV (80-94) fL MCH (27-31) pg MCHC (31-36) g/dl RDW (10.5-15) % Plt Count (150-450) 10^3/ul MPV (7.4-10.4) um3 Neut % (Auto) (38-83) % Lymph % (Auto) (25-47) % [place] % (Auto) (1-9) % Eos % (Auto) (0-6) % Baso % (Auto) (0-2) % Absolute Neuts (auto) (1.5-7.7) 10^3/ul Absolute Lymphs (auto) (1.0-4.8) 10^3/ul Absolute Monos (auto) (0-0.8) 10^3/ul Absolute Eos (auto) (0-0.6) 10^3/ul Absolute Basos (auto) (0-0.2) 10^3/ul Absolute Nucleated RBC 10^3/ul Nucleated RBC % INR (Anticoag Therapy) (0.77-1.02) APTT (26.0-36.3) seconds Sodium 135 (133-145) mmol/L Potassium 4.0 (3.5-5.0) mmol/L Chloride 98 L (101-111) mmol/L Carbon Dioxide 27 (22-32) mmol/L Anion Gap 10 (2-11) mmol/L BUN 22 (6-24) mg/dL Creatinine 1.39 H (0.67-1.17) mg/dL Est GFR ( Amer) 62.2 (>60) Est GFR (Non-Af Amer) 48.3 (>60) BUN/Creatinine Ratio 15.8 (8-20) Glucose 245 H (70-100) mg/dL Lactic Acid 2.7 H* (0.5-2.0) mmol/L Calcium 9.5 (8.6-10.3) mg/dL Total Bilirubin 0.70 (0.2-1.0) mg/dL AST 19 (13-39) U/L ALT 11 (7-52) U/L Alkaline Phosphatase 84 (34-104) U/L Troponin I 0.06 H* (<0.04) ng/mL B-Natriuretic Peptide ( - 100) pg/mL Total Protein 7.5 (6.4-8.9) g/dL Albumin 3.7 (3.2-5.2) g/dL Globulin 3.8 (2-4) g/dL Albumin/Globulin Ratio 1.0 (1-3) Lipase < 10 L (11.0-82.0) U/L Influenza A (Rapid) Negative (Negative) Influenza B (Rapid) Negative (Negative) 03/30/17 03/30/17 03/30/17 Range/Units 06:24 06:24 09:10 WBC (3.5-10.8) 10^3/ul RBC (4.0-5.4) 10^6/ul Hgb (14.0-18.0) g/dl Hct (42-52) % MCV (80-94) fL MCH (27-31) pg MCHC (31-36) g/dl RDW (10.5-15) % Plt Count (150-450) 10^3/ul MPV (7.4-10.4) um3 Neut % (Auto) (38-83) % Lymph % (Auto) (25-47) % [place] % (Auto) (1-9) % Eos % (Auto) (0-6) % Baso % (Auto) (0-2) % Absolute Neuts (auto) (1.5-7.7) 10^3/ul Absolute Lymphs (auto) (1.0-4.8) 10^3/ul Absolute Monos (auto) (0-0.8) 10^3/ul Absolute Eos (auto) (0-0.6) 10^3/ul Absolute Basos (auto) (0-0.2) 10^3/ul Absolute Nucleated RBC 10^3/ul Nucleated RBC % INR (Anticoag Therapy) (0.77-1.02) APTT (26.0-36.3) seconds Sodium (133-145) mmol/L Potassium (3.5-5.0) mmol/L Chloride (101-111) mmol/L Carbon Dioxide (22-32) mmol/L Anion Gap (2-11) mmol/L BUN (6-24) mg/dL Creatinine (0.67-1.17) mg/dL Est GFR ( Amer) (>60) Est GFR (Non-Af Amer) (>60) BUN/Creatinine Ratio (8-20) Glucose (70-100) mg/dL Lactic Acid 1.6 (0.5-2.0) mmol/L Calcium (8.6-10.3) mg/dL Total Bilirubin (0.2-1.0) mg/dL AST (13-39) U/L ALT (7-52) U/L Alkaline Phosphatase (34-104) U/L Troponin I 0.06 H* 0.06 H* (<0.04) ng/mL B-Natriuretic Peptide ( - 100) pg/mL Total Protein (6.4-8.9) g/dL Albumin (3.2-5.2) g/dL Globulin (2-4) g/dL Albumin/Globulin Ratio (1-3) Lipase (11.0-82.0) U/L Influenza A (Rapid) (Negative) Influenza B (Rapid) (Negative) Result Diagrams: 03/30/17 02:30 03/30/17 02:30 Lab Statement: Any lab studies that have been ordered have been reviewed, and results considered in the medical decision making process. - CT CT Abd CT Interpretation: Positive (See Comments) - CT Abd reveals, per radiologist, IMPRESSION: Right lower lobe airspace opacity and right pleural fluid likely related to aspiration, or pneumonia with a component of atelectasis. Cholecystectomy with pneumobilia. ED physician has reviewed this radiology report. CT Interpretation Completed By: Radiologist - EKG 0313 Cardiac Rate: NL EKG Rhythm: Sinus Rhythm - 90 BPM EKG Interpretation: NSR (90 BPM), RBBB and LAFB, Abnormal T-waves in lateral leads. Re-Evaluation - Re-Evaluation First Eval Re-Evaluation Time: 04:49 Change: Improved Comment: Discussed imaging results with patient. Patient is currently in no respiratory distress. Complex Multi-Symp Course/Dx Assessment/Plan: Although patient had initial complaint of nausea and vomiting , no acute findings on imaging. Pt tolerating po normally here in ed after period of observation, I discussed patient care with Dr. Sadler prior to discharge. Pt instreuctedt o fu closely with PMD, agrees to and understands dc instructinos. - Diagnoses Provider Diagnoses: Nausea & vomiting - Physician Notifications Discussed Care Of Patient With: David Sadler Time Discussed With Above Provider: 08:45 Discharge - Discharge Plan Condition: Improved Disposition: HOME Prescriptions: Ondansetron ODT TAB* [Zofran 4 MG Odt TAB*] 4 mg PO Q6H PRN #10 tab.odt PRN Reason: Nausea Patient Education Materials: Acute Nausea and Vomiting (ED) Referrals: Triston Ramsey MD [Primary Care Provider] - Additional Instructions: PLEASE RETURN IMMEDIATELY TO THE ER IF YOU HAVE ANY WORSENING OR CONCERNING SYMPTOMS OR IF YOU ARE NOT FEELING BETTER PLEASE MAKE AN APPOINTMENT TO BE SEEN BY YOUR PRIMARY CARE DOCTOR WITHIN 1 WEEK The documentation as recorded by the Ovidio gutierres Tecjoon accurately reflects the service I personally performed and the decisions made by me, John Massey MD.
== END 2017-03-30 10:15 | disposition home or self-care (01) ==
LOC: ED 02:16
DX: R11.2 Nausea with vomiting, unspecified (principal); R06.02 Shortness of breath; R10.9 Unspecified abdominal pain; R05 Cough; Z87.891 Personal history of nicotine dependence; Z95.0 Presence of cardiac pacemaker; Z87.19 Personal history of other diseases of the digestive system
CPT/HCPCS: 36415; 71046; 71275; 74150; 80053; 83605; 83690; 83880; 84484; 85025; 85610; 85730; 87502; 93005; 96361; 96374; 99283; J2405; Q9967

== ENCOUNTER 2017-04-02 14:07 | Inpatient (IN) | payer MEDICARE, OTHER ==
[2017-04-02 16:02] LABS: ABS Basophils 0 10^3/ul (0-0.2); ABS Eosinophils 0 10^3/ul (0-0.6); ABS Lymphocytes 0.5 10^3/ul (1.0-4.8); ABS Monocytes 0.7 10^3/ul (0-0.8); ABS Neutrophils 10.8 10^3/ul (1.5-7.7); ABS Nucleated RBC 0 10^3/ul; Eosinophil % 0.1 % (0-6); Hematocrit 33 % (42-52); Hemoglobin 10.9 g/dl (14.0-18.0); Lymphocyte % 4.2 % (25-47); Mean Corpuscular HGB Conc 33 g/dl (31-36); Mean Corpuscular Hemoglobin 30 pg (27-31); Mean Corpuscular Volume 92 fL (80-94); Mean Platelet Volume 9 um3 (7.4-10.4); Nucleated Red Blood Cells % 0; Platelet Count 192 10^3/ul (150-450); Red Blood Count 3.64 10^6/ul (4.0-5.4); Red Cell Distribution Width 15 % (10.5-15)
[2017-04-02 16:19] LABS: EGFR Non-African American 26.8 (>60)
--- NOTE | 2017-04-02 16:20 | RAD ---
HISTORY: Shortness of breath COMPARISONS: March 30, 2017 VIEWS: 2: Frontal and lateral views of the chest. FINDINGS: CARDIOMEDIASTINAL SILHOUETTE: The cardiomediastinal silhouette is stable. RIVERA: The rivera are normal. PLEURA: There is stable small right pleural effusion versus chronic pleural thickening. LUNG PARENCHYMA: There is stable linear pleural parenchymal scarring of the right lung. ABDOMEN: The upper abdomen is clear. There is no subphrenic gas. BONES AND SOFT TISSUES: The patient is status post median sternotomy. OTHER: A left-sided pacemaker is noted IMPRESSION: 1. STABLE PLEUROPARENCHYMAL SCARRING OF THE RIGHT LUNG. 2. STABLE RIGHT PLEURAL EFFUSION VERSUS CHRONIC PLEURAL THICKENING.
[2017-04-02] MEDS ORDERED: NS 0.9% 1000 ML* 1,000 ML IV ONE (16:43)
[2017-04-02] MEDS ORDERED: Insulin REGULAR(*) 1 UNITS UNIT IV PUSH ONE (16:44)
[2017-04-02] MEDS ORDERED: Levofloxacin 750 MG IVPREMIX(* 750 MG/150 ML BAG IVPB ONE (17:43)
[2017-04-02] MEDS ORDERED: Mupirocin 2% OINT* TUBE TOPICAL PRN (18:11)
[2017-04-02] MEDS ORDERED: Vancomycin(*) 1,000 MG in NS 0.9% 250 ML* 250 ML IVPB ONE (18:14)
[2017-04-02] MEDS ORDERED: Vancomycin per Pharmacy* NOTE FOLLOW UP PRN (18:24)
[2017-04-02] MEDS ORDERED: Vancomycin(*) 0 MG in NS 0.9% 250 ML* 250 ML IVPB SCH (19:00)
[2017-04-02] MEDS ORDERED: Piperacillin/Tazobac ADVAN(*) 3.375 GM in NS 0.9% 100 ML* 100 ML IVPB ONE (19:00)
--- NOTE | 2017-04-02 19:46 | HP ---
CC: Dr. Ramsey; Dr. Mccullough * HISTORY AND PHYSICAL: DATE OF ADMISSION: 04/02/17 TIME OF ADMISSION: 5:45 p.m. CHIEF COMPLAINT: Shortness of breath and cough. HISTORY OF PRESENT ILLNESS: This is an 86-year-old male with history of coronary artery disease, CKD and diabetes who presents with 1 week of shortness of breath and productive cough. He denies fevers or sick contacts. He came to the emergency room several days ago and they did a flu swab, which was negative and a chest x-ray was negative for pneumonia, so he was discharged to home. Since that time he has continued to have shortness of breath. While he can walk through his house normally without dyspnea, over the past several days he has been able to just walk less steps and becomes dyspneic. He denies orthopnea or weight gain. His weight yesterday was 232 pounds, his discharge weight in January 2017 was 242 pounds. He denies any chest pain. PAST MEDICAL HISTORY: Diastolic heart failure, coronary artery disease, status post CABG, insulin-dependent diabetes, CKD 3, hypertension, PACO, prosthetic aortic valve, atrial fibrillation and hyperlipidemia. MEDICATIONS: Home medications as per his January 2017 discharge summary: 1. Lasix 20 mg once a week. 2. Albuterol inhaler q.6 p.r.n. 3. Eliquis 2.5 b.i.d. 4. Aspirin 81 mg daily. 5. Atenolol 25 mg daily. 6. Lipitor 40 mg daily. 7. Neurontin 600 mg t.i.d. 8. Glipizide 5 mg t.i.d. 9. Glucosamine and chondroitin b.i.d. 10. Lantus 40 units in the morning and 50 units at night. 11. Lispro sliding scale. 12. Prevacid. 13. Multivitamin. SOCIAL HISTORY: He lives alone. He is here with his friend, Kerrie. His power of city attorney is his son. He is a former smoker. He does not drink or use illicit drugs. REVIEW OF SYSTEMS: Negative for fevers, chills, chest pain and positive for nausea, vomiting last weekend which has since resolved, shortness of breath and cough. PHYSICAL EXAMINATION GENERAL: Alert elderly man in no distress. He becomes dyspneic on speaking, but is able to speak in full sentences. VITAL SIGNS: Temperature 98.9, heart rate 88, pulse ox 87% on 3 L, respiratory rate 20, blood pressure 137/56. HEENT: Pupils equal round and reactive to light. Conjunctival injection is noted. Moist mucosa. No pharyngeal exudates or erythema. NECK: No JVP. No cervical adenopathy. LUNGS: Diffusely rhonchorous with pronounced expiratory wheezing diffusely. CHEST: Regular rate and rhythm. PMI nondisplaced. No murmurs. ABDOMEN: Soft, nontender and nondistended. EXTREMITIES: Trace lower extremity bilaterally. Seborrheic keratoses noted on all extremities. DIAGNOSTIC STUDIES/LAB DATA: Sodium 135, potassium 5.0, chloride 100, bicarb 27, BUN 52, creatinine 2.32, glucose 501, troponin 0.07, lactate 2.4. White blood cell 12 with 90% neutrophils, hemoglobin 10.9, platelets 192,000. Chest x-ray shows stable pleural parenchymal scarring of the right lung and stable right pleural effusion versus chronic pleural thickening. EKG shows normal sinus rhythm with left axis deviation. QRS is prolonged at 140, normal TX and QTc. He has T-wave inversions anteriorly across the precordium with ST depressions in V3 and V4. ASSESSMENT AND PLAN: This is an 86-year-old man with history of coronary artery disease, diabetes, and obstructive sleep apnea who presents today with ongoing shortness of breath for the past week. 1. Sepsis. He meets sepsis criteria and his most likely source is his lungs. While he does not have a clear infiltrate on his chest x-ray, clinically he very clearly has pneumonia. He has been admitted to the hospital in the past 90 days when starting him on healthcare associated pneumonia antibiotics and we will check blood cultures and sputum cultures. He is receiving IV fluid in the emergency department, I believe this is appropriate given his sepsis and he does appear volume deplete, so I will continue IV fluid resuscitation. 2. Elevated troponin. He does have a troponin of 0.07 with some ischemic changes on his EKG. While he has always had these anterior T-wave inversions across the precordium, he does have some ST depressions anteriorly. He has had no chest pain throughout these infectious symptoms over the past few days, so I suspect this is most likely type 2 demand ischemia; however, I will trend his troponins and repeat an EKG in the morning. 3. Acute renal failure. His creatinine today is 2.32 from a baseline of approximately 1.5. His creatinine was 1.39 just 3 days ago. I suspect this is most likely to be volume depletion. His friend is here with him and agrees that he has not been eating or drinking at all over the past couple of days. He should have volume resuscitation and close I's and O's monitored along with daily weights. If his renal function does not improve tomorrow, we will get a renal ultrasound and a PVR. 4. Chronic diastolic heart failure. As mentioned above, I suspect he is actually volume deplete. Hold his diuresis and start IV fluids now. 5. Coronary artery disease, status post CABG. Continue aspirin, statin and beta isra. 6. Atrial fibrillation. Continue Eliquis. 7. DVT prophylaxis. Therapeutic anticoagulation for atrial fibrillation. 8. Diet: Unrestricted. 9. Activity ad don. [id number]/[facility] #: [id number] MTDD
[2017-04-02] MEDS ORDERED: Vancomycin(*) 1,500 MG in NS 0.9% 250 ML* 250 ML IVPB ONE (20:00)
[2017-04-02] MEDS ORDERED: Insulin LISPRO* 1 UNITS UNIT SUBCUT SCH (21:00)
[2017-04-02] MEDS ORDERED: Insulin LISPRO* 1 UNITS UNIT SUBCUT ONE (21:51)
[2017-04-02] MEDS ORDERED: Dextrose 50% Syringe 50 ML* 25 GM/50 ML SYRINGE IV PUSH PRN (21:51)
[2017-04-02] MEDS: Apixaban* 2.5 MG TAB PO SCH (22:09)
[2017-04-02] MEDS: NS 0.9% 1000 ML* 1,000 ML IV SCH (22:09)
[2017-04-02] MEDS: Gabapentin CAP(*) 300 MG PO SCH (22:09)
[2017-04-02 23:15] LABS: Urine Appearance Clear; Urine Blood 1+ (Negative); Urine Color Yellow; Urine Ketones Negative (Negative); Urine Protein 2+(100 mg/dL) (Negative); Urine Specific Gravity 1.022 (1.010-1.030); Urine Urobilinogen Negative (Negative)
[2017-04-02] MEDS: Albuterol/Ipratropium NEB.SOL* Albuterol 2.5 MG/Ipratropium 0.5 MG 3 ML INH SCH ×3 (23:30→23:32)
[2017-04-03] MEDS ORDERED: Dextrose 50% Syringe 50 ML* 25 GM/50 ML SYRINGE IV PUSH PRN (00:39)
[2017-04-03] MEDS ORDERED: Insulin LISPRO* 1 UNITS UNIT SUBCUT ONE (00:39)
[2017-04-03] MEDS: Piperacillin/Tazobactam 13.5 GM IV 24 hour continuous infusion IVPB SCH ×2 (03:27)
[2017-04-03] MEDS: Albuterol/Ipratropium NEB.SOL* Albuterol 2.5 MG/Ipratropium 0.5 MG 3 ML INH SCH ×2 (03:35→08:13)
[2017-04-03 06:22] LABS: ABS Basophils 0 10^3/ul (0-0.2); ABS Eosinophils 0 10^3/ul (0-0.6); ABS Lymphocytes 0.4 10^3/ul (1.0-4.8); ABS Monocytes 0.8 10^3/ul (0-0.8); ABS Neutrophils 9.2 10^3/ul (1.5-7.7); ABS Nucleated RBC 0 10^3/ul; Eosinophil % 0 % (0-6); Hematocrit 29 % (42-52); Lymphocyte % 4.2 % (25-47); Mean Corpuscular HGB Conc 35 g/dl (31-36); Mean Corpuscular Hemoglobin 31 pg (27-31); Mean Corpuscular Volume 91 fL (80-94); Mean Platelet Volume 9 um3 (7.4-10.4); Nucleated Red Blood Cells % 0; Platelet Count 171 10^3/ul (150-450); Red Blood Count 3.19 10^6/ul (4.0-5.4); Red Cell Distribution Width 15 % (10.5-15); White Blood Count 10.4 10^3/ul (3.5-10.8)
[2017-04-03 06:38] LABS: EGFR Non-African American 31.9 (>60)
[2017-04-03] MEDS: NS 0.9% 1000 ML* 1,000 ML IV SCH (08:01)
[2017-04-03] MEDS: Aspirin EC Low Dose* 81 MG TAB.EC PO SCH (08:03)
[2017-04-03] MEDS: Atenolol TAB* 25 MG PO SCH (08:03)
[2017-04-03] MEDS: Collagenase 250 MG/GM OINT* 30 GM SCH (08:03)
[2017-04-03] MEDS: Apixaban* 2.5 MG TAB PO SCH ×2 (08:03→20:36)
[2017-04-03] MEDS: Insulin GLARGINE(*) 1 UNITS UNIT SUBCUT SCH ×2 (08:03→17:42)
[2017-04-03] MEDS: Multivitamins/Minerals TAB PO SCH (08:03)
[2017-04-03] MEDS: Gabapentin CAP(*) 300 MG PO SCH ×3 (08:03→20:36)
[2017-04-03] MEDS: Atorvastatin* 40 MG TAB PO SCH (08:03)
[2017-04-03] MEDS: Insulin LISPRO* 1 UNITS UNIT SUBCUT SCH ×4 (08:56→20:53)
[2017-04-03] MEDS ORDERED: Albuterol/Ipratropium NEB.SOL* Albuterol 2.5 MG/Ipratropium 0.5 MG 3 ML INH PRN (09:03)
[2017-04-03] MEDS: Vancomycin(*) 1,000 MG in NS 0.9% 250 ML* 250 ML IVPB SCH ×2 (10:10→22:37)
--- NOTE | 2017-04-03 12:48 | PN ---
Subjective Date of Service: 04/03/17 Interval History: Patient seen and examined. No acute overnight events. Patient is complaining of loose cough and wheeze. States ankle edema improved. Still not able to lay flat without getting SOB, raising HOB and using additional pillow. Denies fever or chills, no n/v, tolerating PO. Objective Active Medications: Acetaminophen (Tylenol Tab*) 650 mg PO Q4H PRN PRN Reason: FEVER/PAIN Albuterol/Ipratropium (Duoneb (Albuterol 2.5 Mg/Ipratropium 0.5 Mg)) 1 neb INH [id number] AWAKE PRN PRN Reason: WHEEZING Apixaban (Eliquis) 2.5 mg PO BID [facility] Last Admin: 04/03/17 08:03 Dose: 2.5 mg Aspirin (Aspirin Ec Low Dose*) 81 mg PO DAILY [facility] Last Admin: 04/03/17 08:03 Dose: 81 mg Atenolol (Tenormin Tab*) 25 mg PO DAILY [facility] Last Admin: 04/03/17 08:03 Dose: 25 mg Atorvastatin Calcium (Lipitor*) 40 mg PO DAILY [facility] Last Admin: 04/03/17 08:03 Dose: 40 mg Collagenase (Santyl 250 Mg/Gm Oint*) 1 applic .SEE ORDER DAILY [facility] Last Admin: 04/03/17 08:03 Dose: 1 applic Dextrose (D50w Syringe 50 Ml*) 12.5 gm IV PUSH .FOR FS < 60 - SS PRN PRN Reason: FS < 60 Gabapentin (Neurontin Cap(*)) 300 mg PO TID [facility] Last Admin: 04/03/17 08:03 Dose: 300 mg Sodium Chloride (Ns 0.9% 1000 Ml*) 1,000 mls @ 125 mls/hr IV PER RATE [facility] Last Admin: 04/03/17 08:01 Dose: 125 mls/hr Piperacillin Sod/Tazobactam (Sod 13.5 gm/ Sodium Chloride) 500 mls @ 20.833 mls /hr IVPB Q24H [facility] Last Admin: 04/03/17 03:27 Dose: 20.833 mls/hr Vancomycin HCl 1,000 mg/ (Sodium Chloride) 250 mls @ 166.667 mls/hr IVPB Q12H [facility] Last Admin: 04/03/17 10:10 Dose: 166.667 mls/hr Insulin Glargine (Lantus(*)) 40 units SUBCUT QAM [facility] Last Admin: 04/03/17 08:03 Dose: 40 units Insulin Glargine (Lantus(*)) 50 units SUBCUT QPM [facility] Insulin Human Lispro (Humalog*) 0 units SUBCUT ACHS [facility] PRN Reason: Protocol Last Admin: 04/03/17 12:11 Dose: 12 units Multivitamins/Minerals (Theragran/Minerals Tab*) 1 tab PO DAILY [facility] Last Admin: 04/03/17 08:03 Dose: 1 tab Mupirocin (Bactroban 2 % Oint*) 1 applic TOPICAL DAILY PRN PRN Reason: WOUND CARE Pharmacy Consult (Vancomycin Per Pharmacy*) 1 note FOLLOW UP . PRN PRN Reason: PER PROTOCOL Pharmacy Profile Note (Vancomycin Trough Check) 1 note FOLLOW UP 1000 ONE Stop: 04/04/17 10:01 Vital Signs - 8 hr 04/03/17 04/03/17 04/03/17 07:44 07:48 08:03 Temperature 98.5 F Pulse Rate 71 Respiratory 22 20 22 Rate Blood Pressure 138/69 (mmHg) O2 Sat by Pulse 100 Oximetry 04/03/17 10:05 Temperature Pulse Rate Respiratory 20 Rate Blood Pressure (mmHg) O2 Sat by Pulse Oximetry Oxygen Devices in Use Now: None Appearance: Alert, NAD Eyes: No Scleral Icterus, PERRLA Ears/Nose/Mouth/Throat: NL Teeth, Lips, Gums, Clear Oropharnyx Neck: Trachea Midline Respiratory: Symmetrical Chest Expansion and Respiratory Effort, - - diminished bases, bilateral exp wheeze, crackles Right base Cardiovascular: NL Sounds; No Murmurs; No JVD, RRR, - - trace bipedal edema Abdominal: NL Sounds; No Tenderness; No Distention Extremities: - - discolored lower extremities, mild mottling, +2 distal pulses Neurological: Alert and Oriented x 3, NL Muscle Strength and Tone Nutrition: Taking PO's Result Diagrams: 04/03/17 05:55 04/03/17 05:55 Assess/Plan/Problems-Billing Assessment: This is an 86 year old many with frequent hospitalizations and hx of diastolic HF, CKD, IDDM and atrial fibrillation that presents with SOB, cough and PNA. - Patient Problems (1) Hospital-acquired pneumonia Code(s): J18.9 - PNEUMONIA, UNSPECIFIED ORGANISM SNOMED Code(s): 272338788 Comment: - Recent hospitalizations since January - Continue vanco and zosyn per [facility] protocol - Pulmonary toilet - Monitor WBCs and trend temps, currently afebrile - Recommend DC fluids now, patient getting overloaded (2) Acute hypoxemic respiratory failure Code(s): J96.01 - ACUTE RESPIRATORY FAILURE WITH HYPOXIA SNOMED Code(s): 557940521 Comment: - Secondary chronic HF and PNA - Continue supplemental O2 as needed, sats stable (3) Acute kidney failure Comment: - Likely acute on chronic 2/2 infection/dehydration - Creatinine trending down - Continue to monitor daily labs - OK for lasix today (4) Atrial fibrillation Code(s): I48.91 - UNSPECIFIED ATRIAL FIBRILLATION SNOMED Code(s): 79107675 Comment: - Stable, continue Atenolol and Apixaban. (5) Diastolic CHF Code(s): I50.30 - UNSPECIFIED DIASTOLIC (CONGESTIVE) HEART FAILURE SNOMED Code (s): 754724474 Comment: - Does not appear to be in acute exacerbation, however, he is likely to get volume overloaded in the setting of PNA, DC fluids - Will give one dose lasix IV now (patient takes three times per week at home) and re-evaluate fluid status in AM - Daily weights, low sodium diet (6) Elevated troponin Code(s): R74.8 - ABNORMAL LEVELS OF OTHER SERUM ENZYMES SNOMED Code(s): 794519679 Comment: - Likely demand ischemia 2/2 PNA - No chest pain - Continue Aspirin (7) Hypertension Code(s): I10 - ESSENTIAL (PRIMARY) HYPERTENSION SNOMED Code(s): 10479760 Comment: - Continue atenolol (8) Type II diabetes mellitus Comment: - Sugars high, likely 2/2 infection - Continue Lantus and Lispro SS - Continue gabapentin for neuropathy (9) DVT prophylaxis Code(s): FDN6544 - SNOMED Code(s): 054323995 Comment: - On Apixaban Status and Disposition: Remain inpatient for continued antibiotic treatment. Counseling and/or Coordination of Care Minutes: Coordinated with patient and staff.
[2017-04-03] MEDS ORDERED: Furosemide IV* 10 MG/ML 2 ML VIAL (20 MG) IV ONE (12:50)
--- NOTE | 2017-04-03 18:14 | ED ---
Naveen Harrison Angela, scribed for Toñito Vasquez MD on 04/02/17 at 1516 . Shortness of Breath - HPI Summary HPI Summary: This pt is a 86 y/o male presenting to [facility] via EMS c/o SOB and generalized weakness. Girlfriend reports a neighbor checked on him and pt was still sleeping. Girlfriend states the pt was disoriented when she went to his house to check on him. Pt also c/o productive cough. He states that over the past several days pt has not been able to ambulate around his house without getting SOB. EMS reports pt's blood sugar was high. - History of Current Complaint Chief Complaint: EDShortnessOfBreath Hx Obtained From: Patient Onset/Duration: Lasting Hours, Still Present Timing: Constant Current Severity: Moderate Dyspnea At: Exertion - minimal Aggrevating Factors: Nothing Alleviating Factors: Nothing Associated Signs & Symptoms: Cough (Productive) - Allergy/Home Medications Allergies/Adverse Reactions: Allergies Allergy/AdvReac Type Severity Reaction Status Date / Time metoclopramide Allergy Unknown Verified 04/02/17 18:16 Reaction Details troglitazone Allergy Unknown Verified 04/02/17 18:20 Reaction Details metoprolol AdvReac Intermediate Diarrhea Verified 04/02/17 18:19 lactose AdvReac Unknown Verified 04/02/17 18:18 Reaction Details morphine AdvReac Hallucinati Verified 04/02/17 18:18 ons Home Medications: Home Medications Glucosam/David-Col.cplx/D3/C/Mn [Uscmpxxkzxx-Mpnfazkgtyb-J0 Cap] 1 cap PO BID 08/12 [History Confirmed 04/02/17] PMH/Surg Hx/FS Hx/Imm Hx Endocrine/Hematology History: Reports: Hx Diabetes Denies: Hx Anticoagulant Therapy, Hx Thyroid Disease Cardiovascular History: Reports: Hx Angina, 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, Hx Congestive Heart Failure, Hx Coronary Artery Disease, Hx Hypercholesterolemia, Hx Hypertension, Hx Pacemaker/ICD, Hx Syncope, Hx Valvular Heart Disease - Aoritc Valve replacement, Other Cardiovascular Problems /Disorders Respiratory History: Reports: Hx Pleural Effusion - Right Lobe Denies: Hx Asthma, Hx Chronic Obstructive Pulmonary Disease (COPD) GI History: Reports: Hx Gastroesophageal Reflux Disease, Hx Hiatal Hernia, Hx Ulcer History: Denies: Hx Renal Disease Musculoskeletal History: Reports: Hx Arthritis, Hx Back Problems - spinal stenosis, Other Musculoskeletal History - discitis Sensory History: Reports: Hx Cataracts, Hx Contacts or Glasses, Hx Vision Problem - cataract, Hx Hearing Problem Denies: Hx Hearing Aid Opthamlomology History: Reports: Hx Cataracts, Hx Contacts or Glasses, Hx Vision Problem - cataract Neurological History: Reports: Other Neuro Impairments/Disorders - numb/ tingling bilat feet(chronic), Denies: Hx Dementia, Hx Seizures Psychiatric History: Denies: Hx Substance Abuse - Cancer History Cancer Type, Location and Year: colon CA 1996, Prostate 2001 Hx Chemotherapy: No Hx Radiation Therapy: No - Surgical History Surgery Procedure, Year, and Place: L shoulder. gallbladder removed. L wrist. Aortic valve replacement. pacemaker. 3 stents. cataracts Hx Anesthesia Reactions: No - Immunization History Date of Tetanus Vaccine: Unk Date of Influenza Vaccine: Fall 2014 Infectious Disease History: No Infectious Disease History: Denies: Hx Hepatitis, Hx Human Immunodeficiency Virus (HIV), Traveled Outside the [place] in Last 30 Days - Family History Known Family History: Positive: Other - Negative: CAD Negative: Cardiac Disease - Social History Alcohol Use: None Hx Substance Use: No Substance Use Type: Reports: None Hx Tobacco Use: Yes Smoking Status (MU): Former Smoker Have You Smoked in the Last Year: No Review of Systems Negative: Fever, Chills Positive: Shortness Of Breath, Cough Positive: Weakness - generalized All Other Systems Reviewed And Are Negative: Yes Physical Exam - Summary Physical Exam Summary: VITAL SIGNS: Reviewed. GENERAL: Patient is a fragile and very somnolent male who is lying comfortable in the stretcher. Patient is not in any acute respiratory distress. HEAD AND FACE: No signs of trauma. No ecchymosis, hematomas or skull depressions. No sinus tenderness. EYES: PERRLA, EOMI x 2, No injected conjunctiva, no nystagmus. EARS: Hearing grossly intact. Ear canals and tympanic membranes are within normal limits. MOUTH: Oropharynx within normal limits. NECK: Supple, trachea is midline, no adenopathy, no JVD, no carotid bruit, no c- spine tenderness, neck with full ROM. CHEST: Symmetric, no tenderness at palpation LUNGS: Crackles in both bases of the lungs. CVS: Regular rate and rhythm, S1 and S2 present, no murmurs or gallops appreciated. ABDOMEN: Soft, non-tender. No signs of distention. No rebound no guarding, and no masses palpated. Bowel sounds are normal. EXTREMITIES: FROM in all major joints, no edema, no cyanosis or clubbing. NEURO: Alert and oriented x 3. No acute neurological deficits. Speech is normal and follows commands. SKIN: Dry and warm Triage Information Reviewed: Yes Vital Signs On Initial Exam: Initial Vitals Temp Pulse Resp BP Pulse Ox 98.9 F 88 20 137/56 87 04/02/17 14:14 04/02/17 14:14 04/02/17 14:14 04/02/17 14:14 04/02/17 14:14 Vital Signs Reviewed: Yes Diagnostics - Vital Signs Vital Signs Temp Pulse Resp BP Pulse Ox 04/02/17 14:14 98.9 F 88 20 137/56 87 - Laboratory Result Diagrams: 04/03/17 05:55 04/03/17 05:55 Lab Statement: Any lab studies that have been ordered have been reviewed, and results considered in the medical decision making process. - Radiology Chest XR Xray Interpretation: Positive (See Comments) - IMPRESSION: 1. Stable pleuroparenchymal scarring of the right lung. 2 Stable right pleural effusion versus chronic pleural thickening. Dr. Vasquez has reviewed this radiology report. Radiology Interpretation Completed By: Radiologist - EKG 15:24 Cardiac Rate: NL EKG Rhythm: Sinus Rhythm - at 75 bpm EKG Interpretation: Right bundle branch block. EKG Comparison: No Significant Change - unchanged from prior EKG on 03/30/17. Course/Dx - Course Assessment/Plan: This pt is a 86 y/o male presenting to [facility] via EMS c/o SOB and generalized weakness. Girlfriend reports a neighbored checked on him and pt was still sleeping. Girlfriend states the pt was disoriented. Pt also c/o productive cough. He states that over the past several days pt has not been able to ambulate around his house without getting SOB. EMS reports pt's blood sugar was high. Test results show a WBC of 12, slight anemia, acute renal failure, hyperglycemia with glucose of 501, troponin is 0.07, BNP of 699. Chest XR: 1. Stable pleuroparenchymal scarring of the right lung. 2 Stable right pleural effusion versus chronic pleural thickening. The pt has a lot of crackles in the clinical exam, therefore I will also treat the pt as clinical pneumonia. The pt was given IV fluids and insulin for the hyperglycemia. At this point I discussed the case with Dr. West, hospitalist, who has agreed to admit the pt. Pt is hemodynamically stable. - Diagnoses Provider Diagnoses: Hyperglycemia, Elevated troponin, rule out ACS, Chronic anemia, Acute renal failure, CHF (congestive heart failure) - Physician Notifications Discussed Care of Patient With: Althea West Time Discussed With Above Provider: 17:04 Instructed by Provider To: Other - I discussed pt care with Dr. West, hospitalist, who has agreed to admit the pt. Discharge - Discharge Plan Condition: Stable Disposition: ADMITTED TO [facility] The documentation as recorded by the Naveen gutierres Angela accurately reflects the service I personally performed and the decisions made by me, Toñito Vasquez MD.
[2017-04-04] MEDS: Piperacillin/Tazobactam 13.5 GM IV 24 hour continuous infusion IVPB SCH ×2 (03:36)
[2017-04-04] MEDS: Insulin LISPRO* 1 UNITS UNIT SUBCUT SCH ×4 (07:51→22:07)
[2017-04-04] MEDS: Atenolol TAB* 25 MG PO SCH (09:01)
[2017-04-04] MEDS: Atorvastatin* 40 MG TAB PO SCH (09:01)
[2017-04-04] MEDS: Aspirin EC Low Dose* 81 MG TAB.EC PO SCH (09:01)
[2017-04-04] MEDS: Multivitamins/Minerals TAB PO SCH (09:01)
[2017-04-04] MEDS: Gabapentin CAP(*) 300 MG PO SCH ×3 (09:01→22:05)
[2017-04-04] MEDS: Collagenase 250 MG/GM OINT* 30 GM SCH ×2 (09:02→17:10)
[2017-04-04] MEDS: Insulin GLARGINE(*) 1 UNITS UNIT SUBCUT SCH ×2 (09:02→17:49)
[2017-04-04] MEDS: Apixaban* 2.5 MG TAB PO SCH ×2 (09:22→22:06)
[2017-04-04 09:55] LABS: ABS Basophils 0 10^3/ul (0-0.2); ABS Eosinophils 0.1 10^3/ul (0-0.6); ABS Lymphocytes 0.9 10^3/ul (1.0-4.8); ABS Monocytes 1.1 10^3/ul (0-0.8); ABS Neutrophils 12.3 10^3/ul (1.5-7.7); ABS Nucleated RBC 0 10^3/ul; Hematocrit 33 % (42-52); Hemoglobin 10.7 g/dl (14.0-18.0); Lymphocyte % 6.2 % (25-47); Mean Corpuscular HGB Conc 33 g/dl (31-36); Mean Corpuscular Hemoglobin 30 pg (27-31); Mean Corpuscular Volume 91 fL (80-94); Mean Platelet Volume 9 um3 (7.4-10.4); Nucleated Red Blood Cells % 0.1; Platelet Count 224 10^3/ul (150-450); Red Blood Count 3.62 10^6/ul (4.0-5.4); Red Cell Distribution Width 15 % (10.5-15); White Blood Count 14.5 10^3/ul (3.5-10.8)
[2017-04-04] MEDS ORDERED: Vancomycin Trough Check NOTE FOLLOW UP ONE (10:00)
[2017-04-04 10:13] LABS: Vancomycin Trough 15.4 mcg/mL
[2017-04-04 10:30] LABS: EGFR Non-African American 39.1 (>60)
[2017-04-04] MEDS: Vancomycin(*) 1,000 MG in NS 0.9% 250 ML* 250 ML IVPB SCH ×2 (11:16→22:58)
[2017-04-04] MEDS ORDERED: Docusate CAP* 100 MG PO PRN (14:34)
--- NOTE | 2017-04-04 16:47 | PN ---
Subjective Date of Service: 04/04/17 Interval History: pt tested negtive for pna. 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 last significant contact Saturday 03/25? has had [place], muscle aches. wheezing, coughing does not feel improved. 6/10 chest tightness. achy 3/10 below ppm. white count up to 14 Objective Active Medications: Acetaminophen (Tylenol Tab*) 650 mg PO Q4H PRN PRN Reason: FEVER/PAIN Albuterol/Ipratropium (Duoneb (Albuterol 2.5 Mg/Ipratropium 0.5 Mg)) 1 neb INH [id number] AWAKE PRN PRN Reason: WHEEZING Apixaban (Eliquis) 2.5 mg PO BID [facility] Last Admin: 04/04/17 09:22 Dose: 2.5 mg Aspirin (Aspirin Ec Low Dose*) 81 mg PO DAILY [facility] Last Admin: 04/04/17 09:01 Dose: 81 mg Atenolol (Tenormin Tab*) 25 mg PO DAILY [facility] Last Admin: 04/04/17 09:01 Dose: 25 mg Atorvastatin Calcium (Lipitor*) 40 mg PO DAILY [facility] Last Admin: 04/04/17 09:01 Dose: 40 mg Collagenase (Santyl 250 Mg/Gm Oint*) 1 applic .SEE ORDER DAILY [facility] Last Admin: 04/04/17 09:02 Dose: 1 applic Dextrose (D50w Syringe 50 Ml*) 12.5 gm IV PUSH .FOR FS < 60 - SS PRN PRN Reason: FS < 60 Docusate Sodium (Colace Cap*) 100 mg PO DAILY PRN PRN Reason: CONSTIPATION Gabapentin (Neurontin Cap(*)) 300 mg PO TID [facility] Last Admin: 04/04/17 12:55 Dose: 300 mg Piperacillin Sod/Tazobactam (Sod 13.5 gm/ Sodium Chloride) 500 mls @ 20.833 mls /hr IVPB Q24H [facility] Stop: 04/05/17 02:29 Last Admin: 04/04/17 03:36 Dose: 20.833 mls/hr Vancomycin HCl 1,000 mg/ (Sodium Chloride) 250 mls @ 166.667 mls/hr IVPB Q12H [facility] Last Admin: 04/04/17 11:16 Dose: 166.667 mls/hr Piperacillin Sod/Tazobactam (Sod 3.375 gm/ Sodium Chloride) 100 mls @ 25 mls/ hr IVPB Q8H [facility] Insulin Glargine (Lantus(*)) 40 units SUBCUT QAM [facility] Last Admin: 04/04/17 09:02 Dose: 40 units Insulin Glargine (Lantus(*)) 50 units SUBCUT QPM [facility] Last Admin: 04/03/17 17:42 Dose: 50 units Insulin Human Lispro (Humalog*) 0 units SUBCUT ACHS [facility] PRN Reason: Protocol Last Admin: 04/04/17 12:56 Dose: 6 units Multivitamins/Minerals (Theragran/Minerals Tab*) 1 tab PO DAILY [facility] Last Admin: 04/04/17 09:01 Dose: 1 tab Mupirocin (Bactroban 2 % Oint*) 1 applic TOPICAL DAILY PRN PRN Reason: WOUND CARE Pharmacy Consult (Vancomycin Per Pharmacy*) 1 note FOLLOW UP . PRN PRN Reason: PER PROTOCOL Vital Signs - 8 hr 04/04/17 04/04/17 04/04/17 09:01 11:00 11:17 Temperature 97.5 F Pulse Rate 73 Respiratory 28 25 22 Rate Blood Pressure 133/60 (mmHg) O2 Sat by Pulse 98 Oximetry 04/04/17 04/04/17 04/04/17 12:55 14:00 14:57 Temperature 98.8 F 98.8 F Pulse Rate 73 59 Respiratory 22 22 Rate Blood Pressure 148/76 (mmHg) O2 Sat by Pulse 95 95 Oximetry 04/04/17 04/04/17 15:36 16:34 Temperature 97.3 F Pulse Rate 66 Respiratory 16 20 Rate Blood Pressure 155/72 (mmHg) O2 Sat by Pulse 98 Oximetry Oxygen Devices in Use Now: None Appearance: NAD Eyes: No Scleral Icterus, PERRLA Ears/Nose/Mouth/Throat: NL Teeth, Lips, Gums Neck: NL Appearance and Movements; NL JVP Respiratory: Symmetrical Chest Expansion and Respiratory Effort, - - very distant lung sounds. no rales. coughing Abdominal: NL Sounds; No Tenderness; No Distention, No Hepatosplenomegaly Extremities: No Edema Skin: No Rash or Ulcers Neurological: Alert and Oriented x 3, NL Muscle Strength and Tone Nutrition: Taking PO's Result Diagrams: 04/04/17 09:27 02/08/18 09:27 Additional Lab and Data: Laboratory Results - last 24 hr 04/04/17 04/04/17 04/04/17 07:48 09:27 09:27 WBC 14.5 H RBC 3.62 L Hgb 10.7 L Hct 33 L MCV 91 MCH 30 MCHC 33 RDW 15 Plt Count 224 MPV 9 Neut % (Auto) 85.3 H Lymph % (Auto) 6.2 L [place] % (Auto) 7.4 Eos % (Auto) 1.0 Baso % (Auto) 0.1 Absolute Neuts (auto) 12.3 H Absolute Lymphs (auto) 0.9 L Absolute Monos (auto) 1.1 H Absolute Eos (auto) 0.1 Absolute Basos (auto) 0 Absolute Nucleated RBC 0 Nucleated RBC % 0.1 Sodium 139 Potassium 3.7 Chloride 102 Carbon Dioxide 30 Anion Gap 7 BUN 39 H Creatinine 1.67 H Est GFR ( Amer) 50.3 Est GFR (Non-Af Amer) 39.1 BUN/Creatinine Ratio 23.4 H Glucose 156 H POC Glucose (mg/dL) 100 Calcium 9.2 Vancomycin Trough 15.4 04/04/17 04/04/17 04/04/17 11:22 16:12 21:25 WBC RBC Hgb Hct MCV MCH MCHC RDW Plt Count MPV Neut % (Auto) Lymph % (Auto) [place] % (Auto) Eos % (Auto) Baso % (Auto) Absolute Neuts (auto) Absolute Lymphs (auto) Absolute Monos (auto) Absolute Eos (auto) Absolute Basos (auto) Absolute Nucleated RBC Nucleated RBC % Sodium Potassium Chloride Carbon Dioxide Anion Gap BUN Creatinine Est GFR ( Amer) Est GFR (Non-Af Amer) BUN/Creatinine Ratio Glucose POC Glucose (mg/dL) 233 H 230 H 173 H Calcium Vancomycin Trough Microbiology and Other Data: Microbiology 04/04/17 09:07 Gram Stain - Final Sputum Assess/Plan/Problems-Billing Assessment: 86 yo high utilizer [facility] of diastolic CHF, CKD, IDDM and atrial fibrillation that presents with SOB, cough, [place], muscle aches. Treating for HCAP covering for potential MRSA, PSDA. Cultures pending. - Patient Problems (1) Hospital-acquired pneumonia Current Visit: Yes Status: Acute Code(s): J18.9 - PNEUMONIA, UNSPECIFIED ORGANISM SNOMED Code(s): 639548963 Comment: - Recent hospitalizations since January, at risk for MRSA and PSDA. - possible false negative flu swab. has recent sick contact, ASHT[place], myalgias. - Continue vanco and zosyn, f/u cultures - Pulmonary toilet - Monitor WBCs and trend temps, currently afebrile. leukocytosis (2) Acute hypoxemic respiratory failure Current Visit: No Status: Acute Code(s): J96.01 - ACUTE RESPIRATORY FAILURE WITH HYPOXIA SNOMED Code(s): 912252158 Comment: - Secondary HCAP, chronic diastolic CHF. ?flu (though negative swab) - Continue supplemental O2 as needed (3) Diastolic CHF Current Visit: No Status: Acute Code(s): I50.30 - UNSPECIFIED DIASTOLIC ( CONGESTIVE) HEART FAILURE SNOMED Code(s): 135768958 Comment: - BNP 699 - no rales on exam today - restart home lasix in coming days(patient takes three times per week at home ) - Daily weights, low sodium diet (4) Elevated troponin Current Visit: No Status: Acute Code(s): R74.8 - ABNORMAL LEVELS OF OTHER SERUM ENZYMES SNOMED Code(s): 002220456 Comment: - Likely demand ischemia 2/2 PNA - chest tightness. - diffuse TWI. 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 (7) Hypertension Current Visit: No Status: Acute Priority: Medium Code(s): I10 - ESSENTIAL (PRIMARY) HYPERTENSION SNOMED Code(s): 54027765 Comment: - Continue atenolol Status and Disposition: Remain inpatient for continued antibiotic treatment.
[2017-04-04] MEDS: Acetaminophen TAB* 325 MG PO PRN (17:07)
[2017-04-05] MEDS: ZOSYN 3.375 GM Q8H per EXTENDED INFUSION IVPB SCH ×6 (07:35→22:25)
[2017-04-05] MEDS: Insulin LISPRO* 1 UNITS UNIT SUBCUT SCH ×4 (09:01→22:23)
[2017-04-05] MEDS: Multivitamins/Minerals TAB PO SCH (10:08)
[2017-04-05] MEDS: Gabapentin CAP(*) 300 MG PO SCH ×3 (10:08→21:55)
[2017-04-05] MEDS: Aspirin EC Low Dose* 81 MG TAB.EC PO SCH (10:09)
[2017-04-05] MEDS: Insulin GLARGINE(*) 1 UNITS UNIT SUBCUT SCH ×2 (10:09→17:32)
[2017-04-05] MEDS: Atenolol TAB* 25 MG PO SCH (10:09)
[2017-04-05] MEDS: Atorvastatin* 40 MG TAB PO SCH (10:09)
[2017-04-05] MEDS: Apixaban* 2.5 MG TAB PO SCH ×2 (10:09→21:55)
[2017-04-05] MEDS: Vancomycin(*) 1,000 MG in NS 0.9% 250 ML* 250 ML IVPB SCH ×2 (10:25→22:24)
[2017-04-05] MEDS: Collagenase 250 MG/GM OINT* 30 GM SCH (10:35)
[2017-04-05] MEDS: Acetaminophen TAB* 325 MG PO PRN (11:54)
--- NOTE | 2017-04-05 18:22 | PN ---
Subjective Date of Service: 04/05/17 Interval History: feeling better, still coughing, still somewhat sob with ambulation but close to baseline Family History: Unchanged from Admission Social History: Unchanged from Admission Past Medical History: Unchanged from Admission Objective Active Medications: Acetaminophen (Tylenol Tab*) 650 mg PO Q4H PRN PRN Reason: FEVER/PAIN Last Admin: 04/05/17 11:54 Dose: 650 mg Albuterol/Ipratropium (Duoneb (Albuterol 2.5 Mg/Ipratropium 0.5 Mg)) 1 neb INH [id number] AWAKE PRN PRN Reason: WHEEZING Apixaban (Eliquis) 2.5 mg PO BID [facility] Last Admin: 04/05/17 10:09 Dose: 2.5 mg Aspirin (Aspirin Ec Low Dose*) 81 mg PO DAILY [facility] Last Admin: 04/05/17 10:09 Dose: 81 mg Atenolol (Tenormin Tab*) 25 mg PO DAILY [facility] Last Admin: 04/05/17 10:09 Dose: 25 mg Atorvastatin Calcium (Lipitor*) 40 mg PO DAILY [facility] Last Admin: 04/05/17 10:09 Dose: 40 mg Collagenase (Santyl 250 Mg/Gm Oint*) 1 applic .SEE ORDER DAILY [facility] Last Admin: 04/05/17 10:35 Dose: 1 applic Dextrose (D50w Syringe 50 Ml*) 12.5 gm IV PUSH .FOR FS < 60 - SS PRN PRN Reason: FS < 60 Docusate Sodium (Colace Cap*) 100 mg PO DAILY PRN PRN Reason: CONSTIPATION Last Admin: 04/04/17 17:08 Dose: 100 mg Gabapentin (Neurontin Cap(*)) 300 mg PO TID [facility] Last Admin: 04/05/17 13:53 Dose: 300 mg Vancomycin HCl 1,000 mg/ (Sodium Chloride) 250 mls @ 166.667 mls/hr IVPB Q12H [facility] Last Admin: 04/05/17 10:25 Dose: 166.667 mls/hr Piperacillin Sod/Tazobactam (Sod 3.375 gm/ Sodium Chloride) 100 mls @ 25 mls/ hr IVPB Q8H [facility] Last Admin: 04/05/17 13:54 Dose: 25 mls/hr Insulin Glargine (Lantus(*)) 40 units SUBCUT QAM [facility] Last Admin: 04/05/17 10:09 Dose: 40 units Insulin Glargine (Lantus(*)) 50 units SUBCUT QPM [facility] Last Admin: 04/05/17 17:32 Dose: 50 units Insulin Human Lispro (Humalog*) 0 units SUBCUT ACHS [facility] PRN Reason: Protocol Last Admin: 04/05/17 17:31 Dose: 6 units Multivitamins/Minerals (Theragran/Minerals Tab*) 1 tab PO DAILY [facility] Last Admin: 04/05/17 10:08 Dose: 1 tab Mupirocin (Bactroban 2 % Oint*) 1 applic TOPICAL DAILY PRN PRN Reason: WOUND CARE Last Admin: 04/05/17 10:25 Dose: 1 applic Pharmacy Consult (Vancomycin Per Pharmacy*) 1 note FOLLOW UP . PRN PRN Reason: PER PROTOCOL Pharmacy Profile Note (Vancomycin Trough Check) 1 note FOLLOW UP 1000 ONE Stop: 04/07/17 10:01 Vital Signs - 8 hr 04/05/17 04/05/17 04/05/17 11:40 11:55 13:53 Temperature 98.7 F Pulse Rate 61 Respiratory 20 20 18 Rate Blood Pressure 150/57 (mmHg) O2 Sat by Pulse 98 Oximetry Oxygen Devices in Use Now: None Appearance: comfortable, able to speak in full sentences Eyes: No Scleral Icterus Ears/Nose/Mouth/Throat: NL Teeth, Lips, Gums Neck: NL Appearance and Movements; NL JVP Respiratory: - - no rhonchi, few crackles right base Cardiovascular: - - irregular rhythm Abdominal: NL Sounds; No Tenderness; No Distention Lymphatic: No Cervical Adenopathy Extremities: - - trace edema Skin: No Rash or Ulcers Neurological: Alert and Oriented x 3 Result Diagrams: 04/04/17 09:27 04/04/17 09:27 Additional Lab and Data: Laboratory Results - last 24 hr 04/04/17 04/04/17 04/04/17 07:48 09:27 09:27 WBC 14.5 H RBC 3.62 L Hgb 10.7 L Hct 33 L MCV 91 MCH 30 MCHC 33 RDW 15 Plt Count 224 MPV 9 Neut % (Auto) 85.3 H Lymph % (Auto) 6.2 L [place] % (Auto) 7.4 Eos % (Auto) 1.0 Baso % (Auto) 0.1 Absolute Neuts (auto) 12.3 H Absolute Lymphs (auto) 0.9 L Absolute Monos (auto) 1.1 H Absolute Eos (auto) 0.1 Absolute Basos (auto) 0 Absolute Nucleated RBC 0 Nucleated RBC % 0.1 Sodium 139 Potassium 3.7 Chloride 102 Carbon Dioxide 30 Anion Gap 7 BUN 39 H Creatinine 1.67 H Est GFR ( Amer) 50.3 Est GFR (Non-Af Amer) 39.1 BUN/Creatinine Ratio 23.4 H Glucose 156 H POC Glucose (mg/dL) 100 Calcium 9.2 Vancomycin Trough 15.4 04/04/17 04/04/17 04/04/17 11:22 16:12 21:25 WBC RBC Hgb Hct MCV MCH MCHC RDW Plt Count MPV Neut % (Auto) Lymph % (Auto) [place] % (Auto) Eos % (Auto) Baso % (Auto) Absolute Neuts (auto) Absolute Lymphs (auto) Absolute Monos (auto) Absolute Eos (auto) Absolute Basos (auto) Absolute Nucleated RBC Nucleated RBC % Sodium Potassium Chloride Carbon Dioxide Anion Gap BUN Creatinine Est GFR ( Amer) Est GFR (Non-Af Amer) BUN/Creatinine Ratio Glucose POC Glucose (mg/dL) 233 H 230 H 173 H Calcium Vancomycin Trough Microbiology and Other Data: Microbiology 04/04/17 09:07 Gram Stain - Final Sputum Assess/Plan/Problems-Billing Assessment: 86 yo high utilizer [facility] of diastolic CHF, CKD, IDDM and atrial fibrillation that presents with SOB, cough, [place], muscle aches. Treating for HCAP covering for potential MRSA, PSDA. Cultures pending. - Patient Problems (1) Hospital-acquired pneumonia Current Visit: Yes Status: Acute Code(s): J18.9 - PNEUMONIA, UNSPECIFIED ORGANISM SNOMED Code(s): 706029260 Comment: - Recent hospitalizations since January, at risk for MRSA and PSDA. - Continue vanco and zosyn cultures growing yeast, doubt this is pathogenic; can de-escalate tomorrow. (2) Acute hypoxemic respiratory failure Current Visit: No Status: Acute Code(s): J96.01 - ACUTE RESPIRATORY FAILURE WITH HYPOXIA SNOMED Code(s): 016892112 Comment: - Secondary HCAP, chronic diastolic CHF. - Continue supplemental O2 as needed (3) Acute kidney failure Current Visit: No Status: Acute Priority: Medium Comment: recheck tomorrow and resume lasix (4) Atrial fibrillation Current Visit: No Status: Acute Priority: Medium Code(s): I48.91 - UNSPECIFIED ATRIAL FIBRILLATION SNOMED Code(s): 37258083 Comment: continue atnolol and apixaban Status and Disposition: Remain inpatient for continued antibiotic treatment.
[2017-04-06] MEDS: ZOSYN 3.375 GM Q8H per EXTENDED INFUSION IVPB SCH ×2 (05:51)
[2017-04-06] MEDS: Insulin LISPRO* 1 UNITS UNIT SUBCUT SCH ×2 (08:54→12:39)
[2017-04-06] MEDS: Gabapentin CAP(*) 300 MG PO SCH ×2 (09:07→15:21)
[2017-04-06] MEDS: Apixaban* 2.5 MG TAB PO SCH (09:08)
[2017-04-06] MEDS: Atenolol TAB* 25 MG PO SCH (09:08)
[2017-04-06] MEDS: Atorvastatin* 40 MG TAB PO SCH (09:08)
[2017-04-06] MEDS: Multivitamins/Minerals TAB PO SCH (09:08)
[2017-04-06] MEDS: Aspirin EC Low Dose* 81 MG TAB.EC PO SCH (09:08)
[2017-04-06] MEDS: Insulin GLARGINE(*) 1 UNITS UNIT SUBCUT SCH (09:09)
[2017-04-06] MEDS ORDERED: Levofloxacin 250 MG IVPREMX(*) 250 MG/50 ML BAG IVPB SCH (12:00)
[2017-04-06] MEDS: Vancomycin(*) 1,000 MG in NS 0.9% 250 ML* 250 ML IVPB SCH (12:27)
[2017-04-06 13:30] VITALS: BP 146/66
[2017-04-06] MEDS: Collagenase 250 MG/GM OINT* 30 GM SCH (15:22)
[2017-04-07] MEDS ORDERED: Vancomycin Trough Check NOTE FOLLOW UP ONE (10:00)
--- NOTE | 2017-04-07 13:56 | DS ---
CC: Dr. Ramsey * DISCHARGE SUMMARY: DATE OF ADMISSION: 04/02/17 DATE OF DISCHARGE: 04/06/17 PRINCIPAL DISCHARGE DIAGNOSIS: Healthcare associated pneumonia. SECONDARY DISCHARGE DIAGNOSES: 1. Acute renal failure. 2. Elevated troponin. 3. Chronic diastolic heart failure. 4. Coronary artery disease. 5. Atrial fibrillation. 6. Chronic kidney disease. 7. Type 2 diabetes. MEDICATIONS AT DISCHARGE: 1. Lasix 20 mg Saturday, Saturday, and Saturday with an extra dose scheduled for 04/07/17. 2. Aspirin 81 mg daily. 3. Apixaban 2.5 mg b.i.d. 4. Atorvastatin 40 mg daily. 5. Atenolol 25 mg daily. 6. Lantus 40 units in the morning. 7. Glipizide 5 mg t.i.d. 8. Lispro sliding scale. 9. Lantus 50 units in the p.m. 10. Albuterol inhaler p.r.n. 11. Lansoprazole 30 mg in the morning. 12. Multivitamins daily. 13. Gabapentin 600 mg t.i.d. 14. Levaquin 250 mg daily for 5 more days. HOSPITAL COURSE BY PROBLEMS: 1. Healthcare associated pneumonia. When he presented to the emergency department, he had pneumonia clinically, however, had a negative chest x-ray. Given his symptoms, physical exam and sepsis criteria, he was begun on antibiotics for presumed healthcare associated pneumonia due to a recent hospital admission in January. He was treated with vancomycin and pip-tazo and was given volume resuscitation. His sepsis responded to IV fluids. He required no pressor support. Sputum cultures were obtained which grew yeast, this was not thought to be pathogenic. One day prior to discharge, he was switched to levofloxacin, which he tolerated well and will be just continued on for 5 more days for a total course of 10 days. 2. Elevated troponin. He had had no chest pain prior to admission and continued to be chest pain free during his hospitalization. He does have anterior T wave inversions across the precordium, which are old and I suspect that his troponin elevation was type 2 demand in relation to sepsis. 3. Acute renal failure. His admission creatinine was 2.3 from a baseline of 1.5. Prior to admission, he had had no appetite and had not been eating or drinking for several days. His most recent creatinine prior to discharge was 1.6. He responded well to IV fluid resuscitation. 4. Chronic diastolic heart failure. On admission he was thought to be volume deplete, so his Lasix was held and he was given fluid resuscitation as above; however, several days into his hospitalization, he appeared euvolemic to volume overloaded, so his p.o. Lasix was resumed. He is being discharged with the instruction to take 1 extra dose of Lasix on Saturday, April 07, and then resume his usual schedule of Saturday, Saturday, Saturday Lasix. 5. Coronary artery disease, status post CABG. He was continued on aspirin, statin, and beta isra. 6. Atrial fibrillation. He was continued on Eliquis. 7. Disposition. Mr. 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 He is instructed to continue 5 more days of levofloxacin, 1 extra dose of Lasix, and a scheduled followup appointment with his primary care physician within 1 week. [id number]/[facility] #: [id number] ROBIN
[2017-04-08] MEDS ORDERED: Furosemide TAB* 40 MG PO SCH (09:00)
== END 2017-04-06 17:15 | disposition home or self-care (01) | DRG 871 ==
LOC: ED 14:07 → MEDTELE 18:08
PROVIDERS: ADMIT Internal Medicine; ATTEND Internal Medicine
DX: A41.9 Sepsis, unspecified organism (principal); J96.01 Acute respiratory failure with hypoxia; N17.9 Acute kidney failure, unspecified; B37.89 Other sites of candidiasis; I13.0 Hypertensive heart and chronic kidney disease with heart failure and stage 1 through stage 4 chronic kidney disease, or unspecified chronic kidney disease; J18.9 Pneumonia, unspecified organism; I50.32 Chronic diastolic (congestive) heart failure; E11.22 Type 2 diabetes mellitus with diabetic chronic kidney disease; E11.40 Type 2 diabetes mellitus with diabetic neuropathy, unspecified; I24.8 Other forms of acute ischemic heart disease; E11.65 Type 2 diabetes mellitus with hyperglycemia; I48.91 Unspecified atrial fibrillation; N18.3 Chronic kidney disease, stage 3 (moderate); Z95.1 Presence of aortocoronary bypass graft; E78.00 Pure hypercholesterolemia, unspecified; I25.10 Atherosclerotic heart disease of native coronary artery without angina pectoris; G47.33 Obstructive sleep apnea (adult) (pediatric); D64.9 Anemia, unspecified; E86.0 Dehydration; Z79.4 Long term (current) use of insulin; Z79.82 Long term (current) use of aspirin; Z79.01 Long term (current) use of anticoagulants; Z88.5 Allergy status to narcotic agent; Z88.8 Allergy status to other drugs, medicaments and biological substances; Z95.2 Presence of prosthetic heart valve; Z95.0 Presence of cardiac pacemaker; Z98.42 Cataract extraction status, left eye; Z98.41 Cataract extraction status, right eye; Z85.038 Personal history of other malignant neoplasm of large intestine; Z85.46 Personal history of malignant neoplasm of prostate; Z95.5 Presence of coronary angioplasty implant and graft; Z90.49 Acquired absence of other specified parts of digestive tract; Z87.891 Personal history of nicotine dependence
CPT/HCPCS: 36415; 36600; 71046; 71275; 74150; 80048; 80053; 80202; 81003; 81015; 82550; 82553; 82803; 82947; 83605; 83690; 83880; 84484; 85025; 85610; 85730; 86140; 87040; 87070; 87077; 87205; 87502; 93005; 99284; A9270-GY; J1940; J1956; J2405; J2543; J3370; Q9967

== ENCOUNTER 2017-05-18 20:16 | Inpatient (IN) | payer MEDICARE, OTHER ==
[2017-05-18 21:30] LABS: INR 1.06 (0.77-1.02)
[2017-05-18 21:33] LABS: ABS Basophils 0 10^3/ul (0-0.2); ABS Eosinophils 0.2 10^3/ul (0-0.6); ABS Lymphocytes 0.8 10^3/ul (1.0-4.8); ABS Monocytes 0.9 10^3/ul (0-0.8); ABS Neutrophils 8.9 10^3/ul (1.5-7.7); ABS Nucleated RBC 0 10^3/ul; Eosinophil % 2.2 % (0-6); Hematocrit 30 % (42-52); Lymphocyte % 7.2 % (25-47); Mean Corpuscular HGB Conc 33 g/dl (31-36); Mean Corpuscular Hemoglobin 30 pg (27-31); Mean Corpuscular Volume 91 fL (80-94); Mean Platelet Volume 8.4 um3 (7.4-10.4); Nucleated Red Blood Cells % 0; Platelet Count 203 10^3/ul (150-450); Red Blood Count 3.34 10^6/ul (4.0-5.4); Red Cell Distribution Width 14 % (10.5-15); White Blood Count 10.9 10^3/ul (3.5-10.8)
[2017-05-18 21:46] LABS: EGFR Non-African American 34.5 (>60)
[2017-05-18] MEDS ORDERED: traMADol TAB* 50 MG PO ONE (22:44)
[2017-05-18] MEDS ORDERED: Ketorolac INJ* 30 MG/ML 1 ML VIAL IV PUSH ONE (22:45)
[2017-05-19] MEDS ORDERED: Docusate CAP* 100 MG PO PRN (01:23)
[2017-05-19] MEDS ORDERED: Morphine INJ* 2 MG/ML 1 ML CARPUJECT IV PRN (01:23)
[2017-05-19] MEDS ORDERED: Senna TAB PO PRN (01:23)
[2017-05-19] MEDS ORDERED: Al Hydrox/Mg Hydrox/Simet LIQ* 30 ML UDC PO PRN (01:23)
[2017-05-19] MEDS ORDERED: Ondansetron INJ* 2 MG/ML VIAL IV PRN (01:23)
[2017-05-19] MEDS ORDERED: Albuterol HFA INHALER* 8 gm MDI INH PRN (01:27)
[2017-05-19] MEDS ORDERED: Dextrose 50% Syringe 50 ML* 25 GM/50 ML SYRINGE IV PUSH PRN (01:29)
--- NOTE | 2017-05-19 05:23 | HP ---
CC: Triston Ramsey MD * HISTORY AND PHYSICAL: DATE OF ADMISSION: 05/19/17 TIME OF EVALUATION: 0100. PRIMARY CARE PHYSICIAN: Triston Ramsey MD CHIEF COMPLAINT: Syncope. HISTORY OF PRESENT ILLNESS: This is an 87-year-old male with a past medical history of diastolic heart failure, diabetes and CKD, who presents to the emergency room after having a syncopal episode. The patient states he was in his usual state of health when he was working this morning in his garage, working on the washer, he pulled on it and fell backwards into the pit in his garage, injured his left knee. He got up and was able to drive himself over to his friend Kerrie's house and she was planning to stay with him since she was concerned about his welfare. Around 5:30, he had a cup of tea and he passed out. The concern was that he did not come to until EMS was putting him into the ambulance. It is unclear how long duration, but the family thinks for about at least 20 minutes he was unresponsive for. The patient states he denies any lightheaded or dizzy. He had no prodromal symptoms prior to passing out. He was sitting down when this happened. He did also wake up and started vomiting. He denies any recent URI illness. No fever. No nausea, vomiting, or diarrhea prior to that. No abdominal pain. No changes in his weight. No urinary symptoms. He states he was here last month for pneumonia, but had been doing well. No recent changes to his medications. Otherwise, remaining review of systems is negative. He does have a chronic wound that his primary care physician is following for. In the emergency room, the patient had labs, imaging, was given Toradol and Ultram and was referred to the hospitalist service for further evaluation. He was found to have a tibial fracture. Dr. Fields was notified and there was a question of possibility of requiring surgery. PAST MEDICAL HISTORY: 1. Recent admission in March for community-acquired pneumonia. 2. History of diastolic heart failure. 3. Coronary artery disease. 4. History of coronary artery bypass graft. 5. Diabetes, on insulin. 6. CKD stage 3. 7. Hypertension. 8. Obstructive sleep apnea. 9. History of prostatic aortic valve. 10. Atrial fibrillation. 11. Hyperlipidemia. 12. Neuropathy. 13. GERD. MEDICATIONS: 1. Glipizide 5 mg p.o. t.i.d. with meals. 2. Zofran 4 mg q.6 hours as needed. 3. Mupirocin topically apply as needed. 4. Multivitamin daily. 5. Prevacid 30 mg in the morning. 6. Humalog sliding scale. 7. Lantus 15 units in the evening. 8. Lantus 40 units in the morning. 9. Glucosamine chondroitin 1 cap p.o. b.i.d. 10. Neurontin 600 mg p.o. t.i.d. 11. Lasix 20 mg Saturday, Saturday, and Saturday. 12. Collagenase as directed. 13. Atorvastatin 40 mg p.o. daily. 14. Atenolol 25 mg p.o. daily. 15. Aspirin 81 mg daily. 16. Eliquis 2.5 mg p.o. b.i.d. 17. Albuterol inhaler q.6 hours as needed. ALLERGIES: METOCLOPRAMIDE, TROGLITAZONE, METOPROLOL, LACTOSE, MORPHINE. FAMILY HISTORY: Mother at age 78 from breast cancer. Father from gangrenous foot at age 75. SOCIAL HISTORY: The patient lives alone. He is independent of his ADLs. He is still very active. His healthcare proxy is his son, William. He quit smoking 70 years ago, remote history. No alcohol use. He is a full code. REVIEW OF SYSTEMS: A 14-point review of systems as mentioned in the HPI, otherwise negative. PHYSICAL EXAMINATION GENERAL: No acute distress, resting comfortably with his son and daughter-in- law at the bedside. VITAL SIGNS: Temp 98, pulse rate 70, respiratory rate 14, oxygen saturation 95 % on room air, blood pressure 129/63. HEENT: Head: Normocephalic. Pupils equal and reactive. Conjunctivae injected. Oropharynx: Mucous membranes moist. NECK: Supple. No adenopathy. RESPIRATORY: Diminished breath sounds. No wheezes, rhonchi, or rales. CARDIAC: Regular rate and rhythm. Soft systolic murmur heard, most prominent at the right sternal base. ABDOMEN: Morbidly obese, soft, nontender, nondistended. EXTREMITIES: +1 pretibial edema. The patient's left lower extremity is warm. Good cap refill. He has superficial abrasions on both lower extremities. His right lower extremity is also edematous with good cap refill. NEUROLOGIC: Alert and oriented x3. No gross focal neurologic deficits. LABORATORY DATA: White count 10.9, hemoglobin 10, hematocrit 30, platelets 203. INR is 1.06. Sodium 135, potassium 4.9, chloride 99, bicarb 29, BUN 36, creatinine 1.86, glucose 264. Troponin 0.04, then repeat of 0.03. Toxicology is negative. RADIOGRAPHIC DATA: Head CT shows involutional changes with mild to moderate ventriculomegaly, no hemorrhage, no mass, no obvious infarct. Chest x-ray, wet read, no significant findings. EKG shows normal sinus rhythm, QTc of 511. He does have some acute ST changes, subtle and nonspecific ST changes. Lower extremity CT: Positive for acute fractures of the proximal tibia. There is fracture of the diametaphyseal region of the medial tibia extending superiorly to the medial tibial plateau, then crossing midline to involve the lateral tibial plateau. No dislocation, joint effusion noted, likely hemorrhagic. ASSESSMENT AND PLAN: This is an 87-year-old male with past medical history of congestive heart failure, diabetes, chronic kidney disease, presents to the emergency room after having a mechanical fall and then about few hours later having a syncopal episode. 1. Fall. Assessment: The patient suffers a left tibial fracture. Dr. Fields was called. There is question of possible surgery. Plan: We will keep him on bedrest for now. She recommended immobilizer and ice to the area and followup with her official recommendations. We will hold his Eliquis for now. 2. Syncope. Assessment: The patient had a syncopal episode while sitting with no prodromal symptoms. This is concerning, although he states he was in excruciating amount of pain, this may have triggered that. He could have had an arrhythmia, does not appear to be a vasovagal event. He did recently have an echo 3 months ago. Plan: We will admit him to telemetry. He has had 2 troponins already. We will check an echocardiogram and consider Cardiology evaluation and pacemaker interrogation. 3. Chronic medical problems. Diabetes. We will resume his Lantus and place him on a lispro sliding scale. 4. Atrial fibrillation. Continue his atenolol and baby aspirin. As mentioned , we will hold his Eliquis. It is unclear if the risk outweigh the benefits with being that he is 87, he had a mechanical fall and he also fell about a month ago, he tripped over a chair and his renal impairment as well. We will hold it for now for possibility of having surgery, but would recommend discussion with his primary and his access registrar. 5. Hyperlipidemia. Resume his Lipitor. 6. Gastroesophageal reflux disease. We will place him on omeprazole in place of his pantoprazole. 7. FEN: We will place the patient on a diabetic diet. 8. DVT prophylaxis: The patient scores high risk. We will start him on heparin in the morning and hold his Eliquis. 9. Code status: Full code. PATIENT TIME: Greater than 65 minutes was spent doing the history and physical , more than half time spent in direct patient contact. [id number]/[facility] #: [id number] ROBIN
[2017-05-19 06:13] LABS: ABS Basophils 0 10^3/ul (0-0.2); ABS Eosinophils 0.4 10^3/ul (0-0.6); ABS Lymphocytes 1.2 10^3/ul (1.0-4.8); ABS Neutrophils 4.9 10^3/ul (1.5-7.7); ABS Nucleated RBC 0 10^3/ul; Eosinophil % 5.4 % (0-6); Hematocrit 28 % (42-52); Hemoglobin 9.3 g/dl (14.0-18.0); Lymphocyte % 15.8 % (25-47); Mean Corpuscular HGB Conc 34 g/dl (31-36); Mean Corpuscular Hemoglobin 31 pg (27-31); Mean Corpuscular Volume 91 fL (80-94); Mean Platelet Volume 8.6 um3 (7.4-10.4); Nucleated Red Blood Cells % 0; Platelet Count 178 10^3/ul (150-450); Red Blood Count 3.04 10^6/ul (4.0-5.4); Red Cell Distribution Width 15 % (10.5-15); White Blood Count 7.5 10^3/ul (3.5-10.8)
[2017-05-19 06:44] LABS: EGFR Non-African American 35.1 (>60)
[2017-05-19] MEDS: Omeprazole CAP* 20 MG PO SCH (06:52)
[2017-05-19] MEDS: Heparin VIAL(*) 5000 UNITS/ML VIAL (FIVE THOUSAND) SUBCUT SCH ×3 (06:52→21:38)
[2017-05-19] MEDS: Insulin LISPRO* 1 UNITS UNIT SUBCUT SCH ×6 (09:46→22:05)
[2017-05-19] MEDS: Aspirin EC TAB* 81 MG TAB.EC PO SCH (09:47)
[2017-05-19] MEDS: Collagenase 250 MG/GM OINT* 30 GM TOPICAL SCH (09:48)
[2017-05-19] MEDS: Atenolol TAB* 25 MG PO SCH (09:48)
[2017-05-19] MEDS: Atorvastatin* 40 MG TAB PO SCH (09:48)
[2017-05-19] MEDS: Gabapentin CAP(*) 300 MG PO SCH ×3 (09:49→21:37)
[2017-05-19] MEDS: Insulin GLARGINE(*) 1 UNITS UNIT SUBCUT SCH ×2 (09:49→18:23)
[2017-05-19] MEDS ORDERED: NS 0.9% 1000 ML* 1,000 ML IV SCH (10:00)
--- NOTE | 2017-05-19 10:10 | PN ---
Progress Note - Progress Note Date of Service: 05/19/17 SOAP: HPI: Pt is an 87 year old male who fell yesterday afternoon while working in his garage. The pt states that he was moving a bottle washer when he stepped wrong into a depressed area of the garage floor and fell backwards. He states that the bottle washer fell onto his legs and caused scrapes. The pt states he was able to get up and walk back into the house after this event. He states he had pain in the legs bilaterally and that the pain worsened and he presented to the ED. He denies any numbness or tingling. A note about activity level of the pt. 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 His 2 years ago although he has in the past year met a lady who he wishes to travel with and spend the remainder of his life with. He would like to be able to continue to walk and move around with her. Allergies/Adverse Reactions: Allergies Allergy/AdvReac Type Severity Reaction Status Date / Time metoclopramide Allergy Unknown Verified 05/18/17 20:39 Reaction Details troglitazone Allergy Unknown Verified 05/18/17 20:39 Reaction Details metoprolol AdvReac Intermediate Diarrhea Verified 05/18/17 20:39 lactose AdvReac Unknown Verified 05/18/17 20:39 Reaction Details morphine AdvReac Hallucinati Verified 05/18/17 20:39 ons PMH: Endocrine/Hematology History: Reports: Hx Diabetes Denies: Hx Anticoagulant Therapy, Hx Thyroid Disease Cardiovascular History: Reports: Hx Angina, 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, Hx Congestive Heart Failure, Hx Coronary Artery Disease, Hx Hypercholesterolemia, Hx Hypertension, Hx Pacemaker/ICD, Hx Syncope, Hx Valvular Heart Disease - Aoritc Valve replacement, Other Cardiovascular Problems /Disorders Respiratory History: Reports: Hx Pleural Effusion - Right Lobe, Hx Sleep Apnea Denies: Hx Asthma, Hx Chronic Obstructive Pulmonary Disease (COPD) GI History: Reports: Hx Gastroesophageal Reflux Disease, Hx Hiatal Hernia, Hx Ulcer History: Denies: Hx Renal Disease Musculoskeletal History: Reports: Hx Arthritis, Hx Back Problems - spinal stenosis, Other Musculoskeletal History - discitis Sensory History: Reports: Hx Cataracts, Hx Contacts or Glasses, Hx Vision Problem - cataract, Hx Hearing Problem Denies: Hx Hearing Aid Opthamlomology History: Reports: Hx Cataracts, Hx Contacts or Glasses, Hx Vision Problem - cataract Neurological History: Reports: Other Neuro Impairments/Disorders - numb/ tingling bilat feet(chronic), Denies: Hx Dementia, Hx Seizures - Surgical History L shoulder surgery - unknown date gallbladder removed - 3 - 5 years ago. Aortic valve replacement. 2006 Implanted Cardiovert Defib 3 stents - unknown date Hx Anesthesia Reactions: No - Family History Known Family History: Negative: Cardiac Disease - Social History Lives alone, son lives down the street. Alcohol Use: None Hx Substance Use: No Substance Use Type: Reports: None Hx Tobacco Use: Yes Smoking Status (MU): Former Smoker, quit 70 years prior Have You Smoked in the Last Year: No Review of Systems Positive: Lower back pain Positive: Left knee pain and swelling Positive: Left knee and Right knee abrasions to legs All Other Systems Reviewed And Are Negative: Yes Physical Exam - Summary Physical Exam Summary: Vital Signs Temp 98 F 05/19/17 02:55 Pulse 67 05/19/17 02:55 Resp 18 05/19/17 09:49 BP 127/59 05/19/17 02:55 Pulse Ox 98 05/19/17 02:55 Intake & Output 05/18/17 05/19/17 05/19/17 18:59 06:59 18:59 Intake Total 0 Output Total 0 Balance 0 Weight 238 lb 3.2 oz Intake: Oral 0 Output: Urine 0 Other: # Bowel Movements 0 Appearance: Well-appearing, no distress, Well-nourished, sitting up at the side of the bed. Skin: abrasion to anterior left knee and right tibia, nontender. Left knee abrasion measures 105 mm long and 7mm wide. Right tibia abrasion measures 70mm long and 5 mm wide. They appear well healing. Musculoskeletal: Pts left knee is in a knee immobilizer. Left knee has a moderate effusion present. There is 1+ pitting edema present in bilateral lower extremities. He is able to dorsiflex and planter flex his feet bilaterally. He has sensation intact distally. DP pulse is 1+ bilaterally. Imaging: RLE XR Xray Interpretation: No Acute Changes - RLE XR reveals, per radiologist, IMPRESSION: No acute process. ED physician has reviewed this radiology report. Radiology Interpretation Completed By: Radiologist LLE XR Xray Interpretation: Positive (See Comments) - LLE XR reveals, per radiologist, IMPRESSION: Left tibia plateau fracture. ED physician has reviewed this radiology report. Radiology Interpretation Completed By: Radiologist CT LE CT Interpretation: Positive (See Comments) - CT LE reveals, per radiologist, IMPRESSION: Positive for acute fractures of the proximal tibia. Fracture of the diametaphyseal region of the medial tibia extending superiorly into the medial tibial plateau then crossing midline to involve the lateral tibial plateau. ED physician has reviewed this radiology report. CT Interpretation Completed By: Radiologist Assessment: [Left tibial plateau fracture. ] Plan: [-Spoke with hospitalists regarding the pt. Hospitalists will start to medically optimize pt for surgery. -I discussed the possibility of surgery with the pt today. He is an active 87 year old man who plans to continue to travel and spend time with his new lady friend. He is accepting of the possibility of surgery and would like to do whatever is necessary in order to maintain as much of his quality of life as possible. -Dr. Fields will see the patient today and further evaluate for the need for surgery. -Continue with knee immobilizer - Continue with current pain medication ]
[2017-05-19] MEDS: Acetaminophen TAB* 325 MG PO PRN (10:23)
--- NOTE | 2017-05-19 11:03 | RAD ---
Indication: LEFT knee pain post fall. Assess for tibial plateau fracture. Comparison: May 18, 2017 radiographs. Technique: Noncontrast CT LEFT knee. Multiplanar reformation. Report: Bone density appears decreased throughout. Moderately comminuted fracture of the tibial plateau involving both the medial and lateral joint compartments and intercondylar region. Only minimal displacement without significant articular surface discontinuity or incongruity. No additional fracture evident. Moderately large lipohemarthrosis. Tricompartmental osteoarthritis with severe medial joint space narrowing and associated varus angulation. Moderately severe predominant anterior soft tissue swelling/infiltrative hematoma. IMPRESSION: 1. Acute grossly nondisplaced comminuted tibial plateau fracture. 2. Kellgren and Keegan grade 4 osteoarthritis.
--- NOTE | 2017-05-19 11:11 | RAD ---
Indication: Fall. Altered mental status. Comparison: October 10, 2016 Technique: Noncontrast CT vertex of skull through foramen magnum. Report: Moderate prominence of the cerebral sulci and cerebellar fissures with proportional enlargement of the ventricles reflecting atrophy. Negative for blackwell matter white matter obscuration, intra or extra-axial hemorrhage, or mass effect. Chronic calcification at the RIGHT basal ganglia. No suspicious finding at the partially visualized orbits. Negative for suspicious calvarial or skull base lesions or fracture. Clear visualized paranasal sinuses and mastoid air spaces. IMPRESSION: 1. Moderate involutional change. 2. No acute intracranial process evident.
[2017-05-19] MEDS ORDERED: Insulin LISPRO* 1 UNITS UNIT SUBCUT SCH (11:30)
--- NOTE | 2017-05-19 11:30 | RAD ---
Indication: Pain following fall. Decreased range of motion. Post aortic valve replacement. Comparison: April 02, 2017 Technique: Sitting AP chest 2139 hours Report: Median sternotomy wires and RIGHT atrial and RIGHT ventricular level pacemaker leads. Interruption of the most cephalad median sternotomy wire is chronic. Unchanged mild to moderate RIGHT hemithorax volume loss and atelectasis. Small RIGHT pleural effusion not excluded. Negative for pneumothorax. Unchanged cardiomegaly. Unremarkable central pulmonary vasculature and mediastinal contours. No visualized thoracic fractures within limits of AP chest radiograph. IMPRESSION: 1. No traumatic injury evident. 2. Unchanged findings of mild to moderate RIGHT hemithorax volume loss, atelectasis, and potential small RIGHT pleural effusion. 3. Unchanged cardiomegaly without compelling evidence for pulmonary edema.
--- NOTE | 2017-05-19 11:43 | RAD ---
Indication: LEFT lower leg pain post fall. Comparison: CT of the same date. Technique: AP and crosstable lateral views LEFT lower leg. Report: Mildly comminuted grossly nondisplaced intra-articular fracture at the tibial plateau. No additional fracture evident. Associated joint effusion. Tricompartmental osteoarthritis at the knee. Diffuse soft tissue swelling. Peripheral vascular calcifications. IMPRESSION: Tibial plateau fracture. Associated knee joint effusion/hemarthrosis.
--- NOTE | 2017-05-19 11:46 | RAD ---
Indication: Altered mental status. Fall with bruising at the knees. Comparison: No relevant prior exams available on the [facility] for comparison. Technique: AP and crosstable lateral views RIGHT lower leg. Report: Negative for fracture or dislocation. Diffuse soft tissue swelling. Osteoarthritis at the knee with severe medial joint compartment joint space narrowing and flattening of the articular surfaces. Knee joint effusion. IMPRESSION: Soft tissue swelling without evidence for RIGHT lower leg fracture.
[2017-05-19 14:01] LABS: Urine Appearance Cloudy; Urine Blood Negative (Negative); Urine Color Yellow; Urine Ketones Negative (Negative); Urine Protein 2+(100 mg/dL) (Negative); Urine Specific Gravity 1.026 (1.010-1.030); Urine Urobilinogen Negative (Negative)
--- NOTE | 2017-05-19 16:19 | PN ---
Subjective Date of Service: 05/19/17 Interval History: Patient states that he is in significant pain in his leg at 7/10. Patient states that this is responsive to pain medication but that he had not received it recently. Patient denies CP, Dizziness, SOB, palpitations, or other pain. Patient states that he had another episode of syncope like this last summer when he was dehydrated and didn't remember any prodromal symptoms with that episode either. 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 Patient denies F/C, N/V, abdominal pain, diarrhea, dysuria, or other pain. Patient states that he hadn't urinated since the ED. Family History: Unchanged from Admission Social History: Unchanged from Admission Past Medical History: Unchanged from Admission Objective Active Medications: Acetaminophen (Tylenol Tab*) 650 mg PO Q4H PRN PRN Reason: FEVER/PAIN Last Admin: 05/19/17 10:23 Dose: 650 mg Al Hydrox/Mg Hydrox/Simethicone (Maalox Plus*) 30 ml PO Q6H PRN PRN Reason: INDIGESTION Albuterol (Ventolin Hfa Inhaler*) 1 puff INH Q6H PRN PRN Reason: SHORTNESS OF BREATH Aspirin (Aspirin Ec Low Dose*) 81 mg PO DAILY [facility] Last Admin: 05/19/17 09:47 Dose: 81 mg Atenolol (Tenormin Tab*) 25 mg PO DAILY [facility] Last Admin: 05/19/17 09:48 Dose: 25 mg Atorvastatin Calcium (Lipitor*) 40 mg PO DAILY [facility] Last Admin: 05/19/17 09:48 Dose: 40 mg Collagenase (Santyl 250 Mg/Gm Oint*) 1 applic TOPICAL DAILY [facility] Last Admin: 05/19/17 09:48 Dose: 1 applic Dextrose (D50w Syringe 50 Ml*) 12.5 gm IV PUSH .FOR FS < 60 - SS PRN PRN Reason: FS < 60 Docusate Sodium (Colace Cap*) 100 mg PO BID PRN PRN Reason: CONSTIPATION Gabapentin (Neurontin Cap(*)) 600 mg PO TID [facility] Last Admin: 05/19/17 14:07 Dose: 600 mg Heparin Sodium (Porcine) (Heparin Vial(*)) 5,000 units SUBCUT Q8HR [facility] Last Admin: 05/19/17 14:07 Dose: 5,000 units Sodium Chloride (Ns 0.9% 1000 Ml*) 1,000 mls @ 75 mls/hr IV PER RATE [facility] Stop: 05/19/17 23:19 Last Admin: 05/19/17 12:00 Dose: 75 mls/hr Insulin Glargine (Lantus(*)) 40 units SUBCUT QAM [facility] Last Admin: 05/19/17 09:49 Dose: 40 unit Insulin Glargine (Lantus(*)) 50 units SUBCUT QPM [facility] Insulin Human Lispro (Humalog*) 0 units SUBCUT AC [facility] PRN Reason: Protocol Last Admin: 05/19/17 14:08 Dose: 5 units Insulin Human Lispro (Humalog*) 0 units SUBCUT ACHS [facility] PRN Reason: Protocol Last Admin: 05/19/17 14:17 Dose: 12 units Omeprazole (Prilosec Cap*) 20 mg PO 0600 [facility] Last Admin: 05/19/17 06:52 Dose: 20 mg Ondansetron HCl (Zofran Inj*) 4 mg IV Q4H PRN PRN Reason: NAUSEA/VOMITING Oxycodone/Acetaminophen (Percocet 5/325 Tab*) 1 tab PO Q4H PRN PRN Reason: Pain Senna (Senokot Tab*) 1 tab PO BID PRN PRN Reason: CONSTIPATION Vital Signs - 8 hr 05/19/17 05/19/17 05/19/17 09:49 11:10 11:55 Temperature 100.1 F Pulse Rate 76 Respiratory 18 18 16 Rate Blood Pressure 128/57 (mmHg) O2 Sat by Pulse 94 Oximetry 05/19/17 14:07 Temperature Pulse Rate Respiratory 16 Rate Blood Pressure (mmHg) O2 Sat by Pulse Oximetry Oxygen Devices in Use Now: None Appearance: Patient is an 87yo male who appears stated age and is sitting in the bed in NAD. Eyes: No Scleral Icterus, PERRLA Ears/Nose/Mouth/Throat: NL Teeth, Lips, Gums, Clear Oropharnyx, Mucous Membranes Moist Neck: NL Appearance and Movements; NL JVP, Trachea Midline Respiratory: Symmetrical Chest Expansion and Respiratory Effort, Clear to Auscultation Cardiovascular: RRR, - - 2+ edema, Grade 3/6 Murmur heard best at RUSB. Pulses 2 + in B/L LE. Abdominal: NL Sounds; No Tenderness; No Distention, No Hepatosplenomegaly Lymphatic: No Cervical Adenopathy Extremities: No Edema, No Clubbing, Cyanosis, - - Left leg in immobilizer. Skin: No Nodules or Sclerosis, - - Abrasions on Right and left lower legs. Neurological: Alert and Oriented x 3, NL Sensation, NL Muscle Strength and Tone , - - CN II-XII intact Result Diagrams: 05/19/17 05:34 05/19/17 05:34 Assess/Plan/Problems-Billing Assessment: Patient is an 87yo male with a PMH for HFpEF, Aortic Stenosis S/P valve replacement with valve deterioration, CKD, DM II, [place] S/P Stents who had a mechanical fall and then an episode of syncope in the setting of pain who has a tibial plateau fracture needing surgical repair with ongoing workup for syncope. - Patient Problems (1) Syncope Current Visit: No Status: Acute Code(s): R55 - SYNCOPE AND COLLAPSE SNOMED Code(s): 258211505 Comment: No prodromal symptoms, nausea afterward. In setting of extreme pain and possible dehydration. Pacemaker interrogation shows no ventricular or atrial tachyarrhythmias. Echo pending. Non-specific stable ST changes on EKG. Troponin slightly elevated and trending down. Likely vasovagal in setting of pain. (2) Tibial plateau fracture, left Current Visit: Yes Status: Acute Code(s): S82.142A - DISPLACED BICONDYLAR FRACTURE OF LEFT TIBIA, INIT SNOMED Code(s): 509859796 Comment: Appreciate Ortho Consult. Mechanical fall with tibial plateau fracture. Leg in immobilizer. Completion of syncope workup pending. Should have cardiac consult for cardiac optimization preoperatively after completion of echo tomorrow. (3) Sick sinus syndrome Current Visit: Yes Status: Acute Code(s): I49.5 - SICK SINUS SYNDROME SNOMED Code(s): 40259909 Comment: S/P Pacemaker. (4) Atrial fibrillation Current Visit: No Status: Acute Priority: Medium Code(s): I48.91 - UNSPECIFIED ATRIAL FIBRILLATION SNOMED Code(s): 90025343 Comment: Continue Atenolol. Hold Apixiban before surgery. In NSR on telemetry. (5) Diastolic CHF Current Visit: No Status: Acute Code(s): I50.30 - UNSPECIFIED DIASTOLIC ( CONGESTIVE) HEART FAILURE SNOMED Code(s): 484651478 Comment: Swollen legs, NGUYỄN stable, no rales on exam, no pulmonary edema on CXR. Poor urine output, will give 1L fluid gently due to low urine output. Strict I+O, Daily Weights, Heart Healthy diet. (6) Type II diabetes mellitus Current Visit: No Status: Acute Comment: Sugars high Continue Lantus and Lispro SS and carb counting. Continue gabapentin for neuropathy (7) Full code status Current Visit: No Status: Acute Code(s): Z78.9 - OTHER SPECIFIED HEALTH STATUS SNOMED Code(s): 119784280 (8) DVT prophylaxis Current Visit: No Status: Acute Priority: Medium Code(s): RDW7283 - SNOMED Code(s): 576223703 Comment: Heparin subQ, Eliquis held in setting of possible surgery. Status and Disposition: Admitted inpatient pending possible orthopedic surgery.
--- NOTE | 2017-05-19 21:38 | CONS ---
ORTHOPEDIC CONSULT NOTE: DATE OF CONSULT: 05/19/17 CHIEF COMPLAINT: Left knee pain. HISTORY OF PRESENT ILLNESS: Mr. De La Torre is an 87-year-old gentleman with significant medical comorbidities who had a fall in his home on 05/19/17. The patient was in his garage pulling on a precipitate washer when he fell backwards and the precipitate washer landed on his knees. He was able to stand and drive himself to his partner eKrrie's house. He then went on to have a syncopal episode and was brought to [facility] by ambulance. By report, about 20 minutes, he was unresponsive to his family. He reports that he had no prodromal symptoms prior to passing out. He did have vomiting upon awakening. No recent known illness. The patient had imaging which was significant for a left tibial plateau fracture. He has significant past medical history including diastolic heart failure, coronary artery disease, history of bypass in the past, chronic kidney disease, insulin- dependent diabetic with poor blood glucose control. History of aortic valve replacement, atrial fibrillation, and several other illnesses. The patient is examined at the bedside with his friend, Kerrie. He reports that he would be interested in having surgical fixation if indeed he is cleared medically for surgery. 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 He wishes to travel. He currently has 6/10 pain in the left knee, made worse by any movement, immobilization decreases his pain. The patient's partner reports he has an healing left heel ulcer currently that she has been taking him to the cylinder valve repairer for, for weeks. PAST MEDICAL HISTORY: March 2017, community-acquired pneumonia hospitalization; diastolic heart failure; coronary artery disease; insulin dependent diabetes; stage 3 chronic kidney disease; hypertension; obstructive sleep apnea; aortic valve disorder; atrial fibrillation; hyperlipidemia; neuropathy; GERD; decubitus ulcer on the heel, left. PAST SURGICAL HISTORY: Coronary artery bypass surgery, aortic valve replacement surgery, pacemaker placement. HOME MEDICATIONS: 1. Glipizide 5 mg p.o. t.i.d. 2. Zofran 4 mg p.r.n. 3. Prevacid 30 mg p.o. q.a.m. 4. Humalog sliding scale. 5. Lantus 15 units in the evening, 40 units in the morning. 6. Neurontin 600 mg p.o. t.i.d. 7. Lasix 20 mg q. Saturday, Saturday, and Saturday. 8. Atorvastatin 40 mg p.o. daily. 9. Atenolol 25 mg p.o. daily. 10. Aspirin 81 mg p.o. daily. 11. Eliquis 2.5 mg p.o. b.i.d. 12. Albuterol q.6 hours p.r.n. ALLERGIES: METOCLOPRAMIDE, TROGLITAZONE, METOPROLOL, LACTOSE, and MORPHINE. FAMILY HISTORY: Maternal breast cancer. Paternal diabetes, gangrenous foot. SOCIAL HISTORY: The patient lives alone. He has healthcare proxy, his son William. No recent tobacco, alcohol, or recreational drug use. Normally very active, independent ambulator, independent of his activities of daily living. REVIEW OF SYSTEMS: Fourteen systems were reviewed with the patient. Positive for recent syncopal episode, recent vomiting, fall, left knee pain. Negative for fevers, chills, chest pain, shortness of breath, headache, dizziness. Otherwise, the patient reports review of systems is negative or not relevant. PHYSICAL EXAM: Vitals: Temperature 100.1, heart rate 76, blood pressure 128/ 57. General: The patient is an obese male, in no apparent distress, alert and oriented x3, pleasant mood and appropriate affect. Gait: The patient's gait is not assessed. HEENT: Atraumatic and normocephalic. Pupils are equal and reactive to light. Chest: Unlabored breathing. Bilateral upper extremities: Forward flexion of the shoulders to 90 degrees. No bony tenderness to palpation , 2+ palpable radial pulses. Right lower extremity: The patient has superficial wound along the anterior tibia, 1+ pretibial edema. Dorsiflexion, plantar flexion, 2+ palpable DP pulse. Left lower extremity, the patient has a moderate amount of swelling at the knee. He has 1+ pitting edema up to the knee. He has dorsiflexion, plantar flexion, 4+/5 strength. He reports full sensation to light touch is slightly decreased in his toes and foot, but he does have pressure sensation, 2+ palpable DP pulse. Superficial abrasion, almost directly midline at the knee. DIAGNOSTIC STUDIES/LAB DATA: White blood cells 7.5, hematocrit 28, platelets 178, no left shift. INR 1.06. Sodium 137, chloride 101, potassium 4.3, BUN and creatinine 37 and 1.83 on admission. Troponin 0.04, now 0.03 on second test. Most recent glucose 316. Urinalysis: Positive for some protein, epithelial cells, hyaline casts, and glucose. Radiographs: Multiple plain films and a CT scan show a left tibial plateau fracture. There is minimal displacement, although significant commination involving the metaphyseal-diaphyseal region, medial tibial plateau that extends near the lateral tibial plateau. This is an intraarticular fracture with some minimal displacement. Chest x-ray shows potential small right pleural effusion , unchanged cardiomegaly. Brain CT showed some moderate involutional change. No acute intracranial process. ASSESSMENT AND PLAN: Mr. De La Torre is an 87-year-old gentleman status post fall in his garage. He did sustain multiple abrasions on his lower extremities as well as a left minimally displaced comminuted tibial plateau fracture. Also concerning now is the fact that he had syncopal episode and vomiting after the injury. He is currently admitted to the hospitalist group and being worked up. He has a LON scheduled for further cardiac assessment. He currently has some uncontrolled blood glucose, which is his baseline. He is also on Eliquis. The patient and I discussed both operative and nonoperative treatment options. He is certainly not an ideal surgical candidate because of his chronic kidney disease, cardiac history and uncontrolled diabetes, which makes him at increased risk for surgery. We specifically discussed the risk of infection and wound healing made worse by his uncontrolled diabetes. The patient would like to remain active and is interested in proceeding with surgery. We discussed the maximal swelling will be 3 to 5 days after injury and his superficial abrasions also may delay surgery. We will wait to hear the hospitalist's recommendations. He may require interim external fixation before definitive open reduction and internal fixation. For now, the patient should have his heart healthy, diabetic diet. We will await medical optimization and hospitalist's recommendations on whether he is a surgical candidate. He should be on bedrest. He should have heel booties and significant skin care as he already has decubitus ulcer on the left heel. I will order heel booties. He should have frequent position changes. He should have a Wound Care consult. I have spoken to my partner, Dr. Evgeny Sánchez, who also helped me follow this patient and may be ultimately operating on him. Thank you for this orthopedic consultation. [id number]/[facility] #: [id number] ROBIN
[2017-05-20] MEDS: Heparin VIAL(*) 5000 UNITS/ML VIAL (FIVE THOUSAND) SUBCUT SCH ×3 (05:00→20:57)
[2017-05-20] MEDS: Omeprazole CAP* 20 MG PO SCH (05:01)
[2017-05-20 06:12] LABS: ABS Basophils 0 10^3/ul (0-0.2); ABS Eosinophils 0.6 10^3/ul (0-0.6); ABS Monocytes 0.8 10^3/ul (0-0.8); ABS Nucleated RBC 0 10^3/ul; Eosinophil % 8.8 % (0-6); Hematocrit 26 % (42-52); Hemoglobin 8.6 g/dl (14.0-18.0); Lymphocyte % 16.1 % (25-47); Mean Corpuscular HGB Conc 33 g/dl (31-36); Mean Corpuscular Hemoglobin 30 pg (27-31); Mean Corpuscular Volume 92 fL (80-94); Mean Platelet Volume 8.8 um3 (7.4-10.4); Nucleated Red Blood Cells % 0.1; Platelet Count 168 10^3/ul (150-450); Red Blood Count 2.88 10^6/ul (4.0-5.4); Red Cell Distribution Width 15 % (10.5-15); White Blood Count 6.4 10^3/ul (3.5-10.8)
[2017-05-20] MEDS ORDERED: Perflutren Lipid Microsphere* 3 ML VIAL ONE (07:55)
--- NOTE | 2017-05-20 08:41 | PN ---
Progress Note - Progress Note Date of Service: 05/20/17 SOAP: Subjective: 87 y/o male s/p fall 05/19 resulting in minimally displace, comminuted L tib plat fx. Patient aware of need for cardiac workup, would like surgery as feels his life would be "over" otherwise. pain controlled. VSS afebrile overnight. Objective: GEneral- well appearing, resting comfortably in bed, NAD AO MSK- L knee in immoblizer, superficial abrasions seen anterior knee, diffuse mild swelling, no ecchymosis appreciated, PT 2+ neg homans. SITLT Vital Signs Temp 99.3 F 05/20/17 07:31 Pulse 76 05/20/17 07:31 Resp 18 05/20/17 09:09 BP 116/92 05/20/17 07:31 Pulse Ox 96 05/20/17 07:31 Intake & Output 05/19/17 05/20/17 05/20/17 18:59 06:59 18:59 Intake Total 853 695 240 Output Total 125 Balance 728 695 240 Weight 109.406 kg Intake: IV Fluids 333 665 NS (0.9%) 333 665 Oral 520 30 240 Output: Urine 125 Other: # Voids 1 0 Assessment: Stable 87 y/o male s/p fall 05/19 resulting in minimally displace, comminuted L tib plat fx Plan: - Medical clearance prior to surgery due to CKD, uncontrolled DM, cardiac history --> cardiac consult, echo pending. Troponins trending downward, elevated in past. - Dr. Sánchez to follow this afternoon for skin check, discuss surgery options - Patient prefers surgical fixation - Patient on Elliquis- discuss optimal time for surgery. held x 24 hours currently. Continue to hold until surgical plan arranged. - CKD- appears relatively stable from prior measurements - DM- better controlled Acetaminophen (Tylenol Tab*) 650 mg PO Q4H PRN PRN Reason: FEVER/PAIN Last Admin: 05/19/17 10:23 Dose: 650 mg Al Hydrox/Mg Hydrox/Simethicone (Maalox Plus*) 30 ml PO Q6H PRN PRN Reason: INDIGESTION Albuterol (Ventolin Hfa Inhaler*) 1 puff INH Q6H PRN PRN Reason: SHORTNESS OF BREATH Aspirin (Aspirin Ec Low Dose*) 81 mg PO DAILY [facility] Last Admin: 05/20/17 09:09 Dose: 81 mg Atenolol (Tenormin Tab*) 25 mg PO DAILY [facility] Last Admin: 05/20/17 09:08 Dose: 25 mg Atorvastatin Calcium (Lipitor*) 40 mg PO DAILY [facility] Last Admin: 05/20/17 09:09 Dose: 40 mg Collagenase (Santyl 250 Mg/Gm Oint*) 1 applic TOPICAL DAILY [facility] Last Admin: 05/19/17 09:48 Dose: 1 applic Dextrose (D50w Syringe 50 Ml*) 12.5 gm IV PUSH .FOR FS < 60 - SS PRN PRN Reason: FS < 60 Docusate Sodium (Colace Cap*) 100 mg PO BID PRN PRN Reason: CONSTIPATION Gabapentin (Neurontin Cap(*)) 600 mg PO TID [facility] Last Admin: 05/20/17 09:08 Dose: 600 mg Heparin Sodium (Porcine) (Heparin Vial(*)) 5,000 units SUBCUT Q8HR [facility] Last Admin: 05/20/17 05:00 Dose: 5,000 units Insulin Glargine (Lantus(*)) 40 units SUBCUT QAM [facility] Last Admin: 05/20/17 09:07 Dose: 40 unit Insulin Glargine (Lantus(*)) 50 units SUBCUT QPM [facility] Last Admin: 05/19/17 18:23 Dose: 50 unit Insulin Human Lispro (Humalog*) 0 units SUBCUT AC [facility] PRN Reason: Protocol Last Admin: 05/20/17 09:07 Dose: 6 units Insulin Human Lispro (Humalog*) 0 units SUBCUT ACHS [facility] PRN Reason: Protocol Last Admin: 05/20/17 08:54 Dose: Not Given Omeprazole (Prilosec Cap*) 20 mg PO 0600 [facility] Last Admin: 05/20/17 05:01 Dose: 20 mg Ondansetron HCl (Zofran Inj*) 4 mg IV Q4H PRN PRN Reason: NAUSEA/VOMITING Oxycodone/Acetaminophen (Percocet 5/325 Tab*) 1 tab PO Q4H PRN PRN Reason: Pain Last Admin: 05/20/17 09:09 Dose: 1 tab Senna (Senokot Tab*) 1 tab PO BID PRN PRN Reason: CONSTIPATION <Wellings,Mandi - Last Filed: 05/20/17 10:12> - Progress Note SOAP: Subjective: Pain in left knee medially. Admits to some neuropathic-type pain bilateral feet chronically. s/p 05/18/17 injury Objective: LLE: - swelling left knee and proximal lower leg - not quite wrinkling medially - abrasion about the anterior knee and proximal lower leg - sensation Assessment: HD 3 left medial tibial plateau fracture, [place] 4, [place] 2 Plan: - Patient had discussed non-op and op treatment with my partner Dr. Fields. I briefly rediscussed. Patient wants surgery. - I described technical aspects of surgery and timeline of recovery - Tissue swelling and wound closure is an initial with this fracture. It is important that swelling is decreased for surgery, especially with the abrasion and diabetes mellitus. Swelling may decrease for another day (until 3 days post injury) - 3 pillows under left lower extremity at all times! - Ice on left knee at all times as tolerated! 20 minutes on versus off can make it more tolerable. - Continue NWB LLE. - Planned operation on 05/24/17. If swelling decreases, may be feasible . Procedure will be open reduction internal fixation left medial tibial plateau fracture. - Anticoagulation with heparin TID. - Appreciate medical clearance. - Pain control. <Evgeny Sánchez - Last Filed: 05/20/17 18:27>
--- NOTE | 2017-05-20 08:51 | PN ---
Subjective Date of Service: 05/20/17 Interval History: Mr. De La Torre states that he continues to have some pain in his left leg but denies other complaint. He specifically denies chest pain, SOB, nausea, or abdominal pain. Family History: Unchanged from Admission Social History: Unchanged from Admission Past Medical History: Unchanged from Admission Objective Active Medications: Acetaminophen (Tylenol Tab*) 650 mg PO Q4H PRN Al Hydrox/Mg Hydrox/Simethicone (Maalox Plus*) 30 ml PO Q6H PRN Albuterol (Ventolin Hfa Inhaler*) 1 puff INH Q6H PRN Aspirin (Aspirin Ec Low Dose*) 81 mg PO DAILY [facility] Atenolol (Tenormin Tab*) 25 mg PO DAILY [facility] Atorvastatin Calcium (Lipitor*) 40 mg PO DAILY [facility] Collagenase (Santyl 250 Mg/Gm Oint*) 1 applic TOPICAL DAILY [facility] Dextrose (D50w Syringe 50 Ml*) 12.5 gm IV PUSH .FOR FS < 60 - SS PRN Docusate Sodium (Colace Cap*) 100 mg PO BID PRN Gabapentin (Neurontin Cap(*)) 600 mg PO TID [facility] Heparin Sodium (Porcine) (Heparin Vial(*)) 5,000 units SUBCUT Q8HR [facility] Insulin Glargine (Lantus(*)) 40 units SUBCUT QAM [facility] Insulin Glargine (Lantus(*)) 50 units SUBCUT QPM [facility] Insulin Human Lispro (Humalog*) 0 units SUBCUT AC [facility] Insulin Human Lispro (Humalog*) 0 units SUBCUT ACHS [facility] Omeprazole (Prilosec Cap*) 20 mg PO 0600 [facility] Ondansetron HCl (Zofran Inj*) 4 mg IV Q4H PRN Oxycodone/Acetaminophen (Percocet 5/325 Tab*) 1 tab PO Q4H PRN Senna (Senokot Tab*) 1 tab PO BID PRN Vital Signs: Temp Pulse Resp BP Pulse Ox 99.3 F 76 16 116/92 96 05/20/17 07:31 05/20/17 07:31 05/20/17 07:31 05/20/17 07:31 05/20/17 07:31 Oxygen Devices in Use Now: None Appearance: Male lying in bed in NAD Eyes: No Scleral Icterus Ears/Nose/Mouth/Throat: Mucous Membranes Moist Neck: Trachea Midline Respiratory: Symmetrical Chest Expansion and Respiratory Effort, Clear to Auscultation Cardiovascular: NL Sounds; No Murmurs; No JVD, No Edema Abdominal: NL Sounds; No Tenderness; No Distention Lymphatic: No Cervical Adenopathy Extremities: - - left leg in immobilizer Skin: No Rash or Ulcers Neurological: Alert and Oriented x 3, NL Muscle Strength and Tone Result Diagrams: 05/20/17 05:42 05/20/17 05:42 Assess/Plan/Problems-Billing Assessment: Mr. De La Torre is an 87yo male with a PMH for HFpEF, Aortic Stenosis S/P valve replacement with valve deterioration, CKD, DM II, [place] S/P Stents who had a mechanical fall and then an episode of syncope in the setting of pain who has a tibial plateau fracture needing surgical repair with ongoing workup for syncope. - Patient Problems (1) Syncope Comment: - No prodromal symptoms, nausea afterward. Likely vasovagal in setting of pain and possible dehydration. - Pacemaker interrogation shows no ventricular or atrial tachyarrhythmias. Non- specific stable ST changes on EKG. Troponin slightly elevated and trending down. (2) Tibial plateau fracture, left Comment: - Mechanical fall with tibial plateau fracture. Leg in immobilizer. Completion of syncope workup pending. Cardiac consult appreciated, no further cardiac testing indicated, patient is optimized for surgery. - Appreciate Ortho Consult. (3) Sick sinus syndrome Comment: - S/P Pacemaker, interrogation report on chart. (4) Atrial fibrillation Comment: - In NSR on telemetry. - Continue Atenolol. Hold Apixiban in anticipation of surgery. (5) Diastolic CHF Comment: - Swollen legs, NGUYỄN stable, no rales on exam, no pulmonary edema on CXR. - Strict I+O, Daily Weights, Heart Healthy diet. (6) Type II diabetes mellitus Comment: Sugars high Continue Lantus and Lispro SS and carb counting. Continue gabapentin for neuropathy (7) Hypertension Comment: - Continue atenolol (8) DVT prophylaxis Comment: Heparin subQ, Eliquis held in setting of possible surgery. (9) Full code status Comment: Status and Disposition: Admitted inpatient pending possible orthopedic surgery.
[2017-05-20] MEDS: Insulin LISPRO* 1 UNITS UNIT SUBCUT SCH ×7 (08:54→20:56)
[2017-05-20] MEDS: Insulin GLARGINE(*) 1 UNITS UNIT SUBCUT SCH ×2 (09:07→18:21)
[2017-05-20] MEDS: Atenolol TAB* 25 MG PO SCH (09:08)
[2017-05-20] MEDS: Gabapentin CAP(*) 300 MG PO SCH ×3 (09:08→20:56)
[2017-05-20] MEDS: oxyCODONE/Acetamin 5/325 MG* TAB PO PRN (09:09)
[2017-05-20] MEDS: Aspirin EC TAB* 81 MG TAB.EC PO SCH (09:09)
[2017-05-20] MEDS: Atorvastatin* 40 MG TAB PO SCH (09:09)
--- NOTE | 2017-05-20 11:16 | ECHO ---
Patient: KATIA TERRY [facility] Rec#: [id number] : 1930 Date: 05/20/2017 Age: 87y Height: 180.34 cm / 71.0 in Weight: 105.23 kg / 231.9 lbs Sex: M BSA: 2.25 Room#: 442 Admit Date#: 05/19/2017 Type: Inpatient Referring: Ling Barnhart Reading: Kaveh Cadet DO Draw Hand: Jill Uriostegui,RDCS,RDMS CC: Triston Ramsey MD Transthoracic Echocardiogram Indication: Syncope BP: 127/54 HR: 73 Rhythm: NSR Findings History: AVR (Medtronic Mosaic bovine), CAD, CABG, CHFHTN, HLD, DM, AFIB, pacemaker/ICD Technical Comments: The study is technically limited due to poor acoustic windows. Left Ventricle: The left ventricular chamber size is normal. Mild to moderate concentric left ventricular hypertrophy is observed. There is normal left ventricular systolic function. The estimated ejection fraction is 55-60%. Ventricular septal wall motion has a post-operative appearance. Abnormal left ventricular diastolic function is observed. Left Atrium: The left atrium is mildly dilated. Right Ventricle: The right ventricular cavity size is normal. The right ventricular global systolic function is low normal. A pacemaker wire is visualized in the right ventricle. Right Atrium: The right atrium is mildly dilated. A pacemaker wire is visualized in the right atrium. Aortic Valve: There is no evidence of aortic regurgitation. The mean gradient of the aortic valve is 18 mmHg. Mean gradient 03/2011 was 15.4 mmHg and peak velocity 2.6 m/s at that time suggesting no significant change in aortic valve function. The highest aortic valve velocity was obtained with the standard probe from the A3C view. A bovine bio-prosthetic aortic valve is present. #25 medtronic mosiac by history that is not well visualized. Mitral Valve: There is mitral annular calcification. The mitral valve leaflets are mildly thickened. There is a trace of mitral regurgitation. There is no evidence of mitral stenosis. Tricuspid Valve: The tricuspid valve leaflets are not thickened. There is trace tricuspid regurgitation. No pulmonary hypertension is noted. Pulmonic Valve: The pulmonic valve structure is not well visualized. There is no evidence of pulmonic regurgitation. Pericardium: There is no significant pericardial effusion. Aorta: The aorta is not well visualized. There is no dilatation of the aortic arch. Pulmonary Artery: The main pulmonary artery is not well visualized. Venous: The inferior vena cava appears normal in size. There is a greater than 50% respiratory change in the inferior vena cava dimension. Contrast: Definity was used to optimize study. A total of 3 ml was used Conclusions The left ventricular chamber size is normal. Mild to moderate concentric left ventricular hypertrophy is observed. There is normal left ventricular systolic function. The estimated ejection fraction is 55-60%. The right ventricular cavity size is normal. The right ventricular global systolic function is low normal. A pacemaker wire is visualized in the right ventricle. Definity was used to optimize study. There is a poorly visualized aortic bioprosthesis with no significant regurgitation and stable velocity/gradient Compared to prior study from 01/2017, no clinically significant changes noted. Measurements Name Value Normal Range RVIDd (AP) 2D 2.2 cm (0.9 - 2.6) RAd ISD 4CH 5.1 cm (3.4 - 4.9) RA (A4C)W 4.8 cm (2.9 - 4.6) IVSd (2D) 1.4 cm (0.6 - 1) LVPWd (2D) 1.4 cm (0.6 - 1) LVIDd (2D) 4.2 cm (3.6 - 5.4) LVIDs (2D) 3.3 cm - LV FS (2D) 21 % (25 - 45) Aortic arch 3.3 cm (1.8 - 3.4) LA dimension (AP) 2D 4.2 cm (2.3 - 3.8) LAd ISD 4CH 6.4 cm (2.9 - 5.3) LA ISD 4CH W 5.2 cm (2.5 - 4.5) Name Value Normal Range LA ESV SP 4CH (A/L) 117.03 ml - LA ESV SP 2CH (A/L) 54.25 ml - LA ESV BP (A/L) 83.08 ml - LA ESV BP (A/L) index 37 ml/m2 - LA ESV SP 4CH (MOD) 102.95 ml - LA ESV SP 2CH (MOD) 50.13 ml - Name Value Normal Range MV E-wave Vmax 1.1 m/sec - MV deceleration time 242 msec - MV A-wave Vmax 0.9 m/sec - MV E:A ratio 1.2 ratio - LV lateral e' Vmax 0.08 m/sec - LV E:e' lateral ratio 14 ratio - Name Value Normal Range AV Vmax 2.8 m/sec - AV VTI 56 cm - AV peak gradient 31 mmHg - AV mean gradient 18 mmHg - LVOT diameter 2 cm - LVOT Vmax 0.7 m/sec - LVOT VTI 17 cm - LVOT peak gradient 2 mmHg - LVOT mean gradient 1.3 mmHg - DOI (VTI) 0.3 ratio - MIRIAM Vmax 0.8 m/sec - Name Value Normal Range MV Vmax 1.2 m/sec - MV VTI 33 cm - MV peak gradient 6 mmHg - MV mean gradient 2.6 mmHg - MV PHT 80 msec - MVA (PHT) 2.8 cm2 - MVA (continuity VTI) 1.5 cm2 - Name Value Normal Range TR Vmax 2.7 m/sec - TR peak gradient 29 mmHg - RAP 3 mmHg - RVSP 32 mmHg - IVC diameter 1.3 cm - Name Value Normal Range PV Vmax 0.7 m/sec - PV peak gradient 2 mmHg -
--- NOTE | 2017-05-20 11:40 | PROCNOTE ---
Cardiology Procedure Note 05/20/2017 Dual chamber medtronic pacemaker interogation (performed 05/19/2017) Underlying rhythm, NSR, -VS Battery life 12.5 years Set DDD 60-130 Atrial and ventricular sensing, pacing and impedences acceptable (please see paper chart for details) 88.9% -VS, 11% AP 0.3% mode switch, longest 2 hours on 04/02/2017 with elevated ventricular rates No arrhythmias that correlate with patients loss of consciousness episode Impression: Normal functioning pacemaker Paroxysmal rapid atrial fibrillation, last captured episode 04/02/2017
[2017-05-20] MEDS: Collagenase 250 MG/GM OINT* 30 GM TOPICAL SCH (11:45)
--- NOTE | 2017-05-20 12:19 | CONSULT ---
Subjective Date of Service: 05/20/17 Interval History: consult 05/20/2017 PMD: Dr. Ramsey Chemical Weigher: Dr. Mccullough Service: Hospitalist CC: Fall followed by syncope Reason for consult: Pre-operative cardiovascular risk stratification. HPI: Mr. De La Torre is an 87 year old man with the below medical issues admitted with a syncope episode after a fall. He has the below medical issues. 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 He was found with a broke tibia fracture that may need an operation. Pacemaker interogation showed normal function, no arrhythmias that would correlate with this LOC episode. Echocardiogram showed normal LV function and normal functioning aortic bioprothesis. He ruled out for ACS with troponin measurements. PAST MEDICAL HISTORY: 1. Recent admission in March for community-acquired pneumonia and rapid AFib on pacemaker interogation from 04/02 corresponds to this time frame 2. History of diastolic heart failure. 3. Coronary artery disease.Stent placed to RCA 01/17/05 4. History of coronary artery bypass graft. 5. Diabetes, on insulin. 6. CKD stage 3. 7. Hypertension. 8. Obstructive sleep apnea. 9. History of prostatic aortic valve.Aortic Stenosis - AVR Tissue 2006 10. Atrial fibrillation. 11. Hyperlipidemia. 12. Neuropathy. 13. GERD. Surgical Hx: Aortic Valve Replacement - (01/27/2007) #25 Mosaic tissue valve Cholecystectomy, Prostatectomy, shoulder surgery, cateract surgery, Gallbladder ALLERGIES: METOCLOPRAMIDE, TROGLITAZONE, METOPROLOL, LACTOSE, MORPHINE. FAMILY HISTORY: Mother at age 78 from breast cancer. Father from gangrenous foot at age 75. SOCIAL HISTORY: The patient lives alone. He is independent of his ADLs. He is still very active. His healthcare proxy is his son, William. He quit smoking 70 years ago, remote history. No alcohol use. He is a full code. Medications Active Medications: Acetaminophen (Tylenol Tab*) 650 mg PO Q4H PRN PRN Reason: FEVER/PAIN Last Admin: 05/19/17 10:23 Dose: 650 mg Al Hydrox/Mg Hydrox/Simethicone (Maalox Plus*) 30 ml PO Q6H PRN PRN Reason: INDIGESTION Albuterol (Ventolin Hfa Inhaler*) 1 puff INH Q6H PRN PRN Reason: SHORTNESS OF BREATH Aspirin (Aspirin Ec Low Dose*) 81 mg PO DAILY [facility] Last Admin: 05/20/17 09:09 Dose: 81 mg Atenolol (Tenormin Tab*) 25 mg PO DAILY [facility] Last Admin: 05/20/17 09:08 Dose: 25 mg Atorvastatin Calcium (Lipitor*) 40 mg PO DAILY [facility] Last Admin: 05/20/17 09:09 Dose: 40 mg Collagenase (Santyl 250 Mg/Gm Oint*) 1 applic TOPICAL DAILY [facility] Last Admin: 05/20/17 11:45 Dose: 1 applic Dextrose (D50w Syringe 50 Ml*) 12.5 gm IV PUSH .FOR FS < 60 - SS PRN PRN Reason: FS < 60 Docusate Sodium (Colace Cap*) 100 mg PO BID PRN PRN Reason: CONSTIPATION Gabapentin (Neurontin Cap(*)) 600 mg PO TID [facility] Last Admin: 05/20/17 09:08 Dose: 600 mg Heparin Sodium (Porcine) (Heparin Vial(*)) 5,000 units SUBCUT Q8HR [facility] Last Admin: 05/20/17 05:00 Dose: 5,000 units Insulin Glargine (Lantus(*)) 40 units SUBCUT QAM [facility] Last Admin: 05/20/17 09:07 Dose: 40 unit Insulin Glargine (Lantus(*)) 50 units SUBCUT QPM [facility] Last Admin: 05/19/17 18:23 Dose: 50 unit Insulin Human Lispro (Humalog*) 0 units SUBCUT AC [facility] PRN Reason: Protocol Last Admin: 05/20/17 09:07 Dose: 6 units Insulin Human Lispro (Humalog*) 0 units SUBCUT ACHS [facility] PRN Reason: Protocol Last Admin: 05/20/17 08:54 Dose: Not Given Omeprazole (Prilosec Cap*) 20 mg PO 0600 [facility] Last Admin: 05/20/17 05:01 Dose: 20 mg Ondansetron HCl (Zofran Inj*) 4 mg IV Q4H PRN PRN Reason: NAUSEA/VOMITING Oxycodone/Acetaminophen (Percocet 5/325 Tab*) 1 tab PO Q4H PRN PRN Reason: Pain Last Admin: 05/20/17 09:09 Dose: 1 tab Senna (Senokot Tab*) 1 tab PO BID PRN PRN Reason: CONSTIPATION Home Medications: Furosemide TAB* [Lasix TAB*] 20 mg PO MOWEFR 04/18/16 [History Confirmed ] Aspirin EC Low Dose* [Ecotrin EC Low Dose 81 MG*] 81 mg PO DAILY #30 tab.ec [Rx Confirmed 05/18/17] Apixaban* [Eliquis] 2.5 mg PO BID #60 tab 04/23/16 [Rx Confirmed 05/18/17] Atenolol TAB* [Tenormin TAB* 25 MG] 25 mg PO DAILY 09/17/16 [History Confirmed 05/18/17] Atorvastatin* [Lipitor 40 MG*] 40 mg PO DAILY 09/17/16 [History Confirmed ] Insulin GLARGINE(*) [Lantus(*)] 40 units SUBCUT QAM 09/17/16 [History Confirmed 05/18/17] Insulin GLARGINE(*) [Lantus(*)] 50 units SUBCUT QPM 09/17/16 [History Confirmed 05/18/17] Insulin LISPRO* [HumaLOG*] 12 - 25 units SUBCUT BID 09/17/16 [History Confirmed 05/18/17] glipiZIDE TAB* [Glucotrol TAB*] 5 mg PO TID WITH MEALS 09/17/16 [History Confirmed 05/18/17] Albuterol HFA INHALER* [Ventolin HFA Inhaler*] 1 puff INH Q6H PRN 10/10/16 [ History Confirmed 05/18/17] Lansoprazole CAP (NF) [Prevacid CAP (NF)] 30 mg PO QAM 10/10/16 [History Confirmed 05/18/17] Multivitamins/Minerals TAB* [Theragran/minerals TAB*] 1 tab PO DAILY 10/10/16 [ History Confirmed 05/18/17] Gabapentin CAP(*) [Neurontin 300 CAP(*)] 600 mg PO TID 01/31/17 [History Confirmed 05/18/17] Mupirocin 2% OINT* [Bactroban 2 % Oint*] 1 applic TOPICAL DAILY PRN 01/31/17 [ History Confirmed 05/18/17] Collagenase 250 MG/GM OINT* [Santyl 250 mg/gm Oint*] 1 applic .SEE ORDER DAILY # 1 oint 02/02/17 [Rx Confirmed 05/18/17] Ondansetron ODT TAB* [Zofran 4 MG Odt TAB*] 4 mg PO Q6H PRN #10 tab.odt [Rx Confirmed 05/18/17] Glucosam/David-Col.cplx/D3/C/Mn [Uquicpjrbog-Eawmeiebwkv-V7 Cap] 1 cap PO BID 08/12 [History Confirmed 05/18/17] Levofloxacin TAB* [Levaquin 250 Tab*] 250 mg PO DAILY #5 tab 04/06/17 [Rx Confirmed 05/18/17] Review of Systems - Measurements Intake and Output: Intake and Output Last 24 Hours 05/18/17 05/19/17 05/20/17 05/21/17 06:59 06:59 06:59 06:59 Intake Total 0 1548 240 Output Total 0 125 Balance 0 1423 240 Weight 238 lb 3.2 oz 241 lb 3.2 oz Intake: IV Fluids 998 NS (0.9%) 998 Oral 0 550 240 Output: Urine 0 125 Other: # Bowel Movements 0 # Voids 0 - Review of Systems Constitutional Symptoms: Negative: Fatigue, Fever, Unexplained Falls Dermatology: Negative: Rash, Skin Lesions HEENT: Negative: Change in Hearing, Vertigo Eyes: Negative: Change in Vision, Double Vision Thyroid: Negative: Constipation, Palpitations, Change in Skin/Hair, Change in Menstration Pulmonary: Negative: Sputum, Hemoptysis, Wheezing, Respiratory Distress, Shortness of Breath, Asthma, Exercise Intolerance Cardiology: Positive: Swelling of Ankles, Edema, Syncope Negative: Chest Pain, Shortness of Breath, Palpitations Gastroenterology: Negative: Abdominal Pain, Nausea, Vomiting, Anorexia, Indigestion Genital - Urinary: Negative: Dysuria, Hematuria, Nocturia Musculoskeletal: Negative: Sciatica, Kyphoscoliosis Endocrinology: Positive: Obesity, Diabetes Negative: Thyroid Problems, Adrenal Problems, Polydipsia, Polyuria Hematologic/Lymphatic: Positive: Use of Anticoagulant, Use of Antiplatelet Drugs Neurology: Negative: Change in Balancing, Change in Coordination, Change in Memory, Change in Speech, Change in Sphincter Function, Numbness\\Paresthesiae, Unexplained Weakness Psychiatry: Negative: Suicidal Ideation, Hypomania Allergic/Immunologic: Negative: Hx HIV, Immunocompromise, Swollen Glands Lymph Nodes Review of Systems Statement: All other review of systems negative, unless stated above. Objective Vital Signs: Temp Pulse Resp BP Pulse Ox 99.0 F 74 16 112/36 91 05/20/17 11:17 05/20/17 11:17 05/20/17 11:46 05/20/17 11:17 05/20/17 11:17 Oxygen Devices in Use Now: None Appearance: obese, nad, plesdant Neck: NL Appearance and Movements; NL JVP, Trachea Midline Respiratory: Symmetrical Chest Expansion and Respiratory Effort, Clear to Auscultation Cardiovascular: RRR - 2/6 systolic murmur base, pm site intact, scar intact Abdominal: NL Sounds; No Tenderness; No Distention Extremities: No Clubbing, Cyanosis, - - 1+ b/l edema Skin: No Rash or Ulcers Neurological: Alert and Oriented x 3 Laboratory Results: 05/20/17 05:42 05/20/17 05:42 INR (Anticoag Therapy) 1.06 (0.77-1.02) H 05/18/17 21:14 Total Bilirubin 0.40 mg/dL (0.2-1.0) 05/18/17 21:14 AST 25 U/L (13-39) 05/18/17 21:14 ALT 15 U/L (7-52) 05/18/17 21:14 Alkaline Phosphatase 98 U/L (34-104) 05/18/17 21:14 Total Protein 7.0 g/dL (6.4-8.9) 05/18/17 21:14 Albumin 3.6 g/dL (3.2-5.2) 05/18/17 21:14 Globulin 3.4 g/dL (2-4) 05/18/17 21:14 Albumin/Globulin Ratio 1.1 (1-3) 05/18/17 21:14 05/18/17 05/19/17 21:14 00:12 Troponin I 0.04 H* 0.03 Diagnostic Imaging: diac Testing: Echocardiogram - (01/31/2017) [facility]: Mild to moderate concentric LVH. LV systolic function is at lower limits of normal. The estimated ejection fraction is 50-55%. LA is mildly dilated. A pacemaker wire is visualized in the right ventricle. A pacemaker wire is visualized in the right atrium. There is mitral annular calcification. There is mild mitral regurgitation. A bovine-prosthetic aortic valve is present. The reported mean gradient for a # 25 Medtronic Mosaic bovine aortic valve is 10.08 =/- 5.1 suggesting there may be mild stenosis. Trace to mild tricuspid regurgitation. Evidence of mild pulmonary hypertension. Stress Test - (04/20/2016) "fixed defect with marginal reversibility of the lateral wall suggestive of previous infarct with marginal ischemia" Cardiac Catheterization - (05/17/2010) Moderate disease in LAD and ostium of first diagonal branch and 60% lesion in the ostium of a bifurcating fist diagonal branch's medial branch (very small caliber, not interventional), 50% in -stent restenosis in the proximal stent of RCA, significant 80-85% lesion seen in distal portion of the RCA. Intervention 3.0x16 mm long VeriFLEX nondrug eluting stent to the distal RCA Pci - (12/07/2010) Bri Pate Restenting to RCA Permanent Pacemaker - (04/25/2012) Dual chamber Medtronic ADDRL1 Percutaneous Coronary Intervention - (01/17/2005) EKG Data: EkG today shgows NSR, RBBB, LAFB, deep asymmetric ST depression precordial and avl, appears grossly unchanged from 04/03/2017 Assessment/Plan Mr. De La Torre is an 87 year old man with a PMHx as above being evaluated for preoperative cardiac risk stratification. He has no history of a recent type 1 SC, severe valve disease/LV dysfunction on echo today or malignant sustained arrhythmias on recent pacemaker evaluation or decompensated grossly HF currently. He has > 4 mets functional capacity recently without cardiac symptoms. EKG abnormal as above unchanged from 04/03/2017. His syncope episode was likely related to pain/vagal reponse form his leg fracture related to a mechanical fall. - Patient is not high risk for cardiovascular complications and can proceed without further cardiovascular evaluation warranted. He understands that despite no high risk features he is still at risk of cardiovascular complications related to surgery and anesthesia and accepts these risks in favor of the expected benefits the surgery would provide. He did state that if there were severe complications he would rather " on the table" than have a prolonged medical illness without adequate recovery. Would continue beta- isra olesya-operatively, would restart anti-platelet/anticoagulation post- operatively whenever bleeding risks is minimized Thank you for allowing me to participate in the cardiovascular care of this patient. Please do not hesitate to contact me with questions or concerns.
[2017-05-20] MEDS: Acetaminophen TAB* 325 MG PO PRN (17:17)
[2017-05-21] MEDS: Omeprazole CAP* 20 MG PO SCH (05:23)
[2017-05-21] MEDS: Heparin VIAL(*) 5000 UNITS/ML VIAL (FIVE THOUSAND) SUBCUT SCH ×3 (05:24→21:02)
--- NOTE | 2017-05-21 08:46 | PN ---
Subjective Date of Service: 05/21/17 Interval History: Mr. De La Torre reports that his pain is well controlled. He denies chest pain, SOB, nausea, or abdominal pain. Family History: Unchanged from Admission Social History: Unchanged from Admission Past Medical History: Unchanged from Admission Objective Active Medications: Acetaminophen (Tylenol Tab*) 650 mg PO Q4H PRN Al Hydrox/Mg Hydrox/Simethicone (Maalox Plus*) 30 ml PO Q6H PRN Albuterol (Ventolin Hfa Inhaler*) 1 puff INH Q6H PRN Aspirin (Aspirin Ec Low Dose*) 81 mg PO DAILY [facility] Atenolol (Tenormin Tab*) 25 mg PO DAILY [facility] Atorvastatin Calcium (Lipitor*) 40 mg PO DAILY [facility] Collagenase (Santyl 250 Mg/Gm Oint*) 1 applic TOPICAL DAILY [facility] Dextrose (D50w Syringe 50 Ml*) 12.5 gm IV PUSH .FOR FS < 60 - SS PRN Docusate Sodium (Colace Cap*) 100 mg PO BID PRN Gabapentin (Neurontin Cap(*)) 600 mg PO TID [facility] Heparin Sodium (Porcine) (Heparin Vial(*)) 5,000 units SUBCUT Q8HR [facility] Insulin Glargine (Lantus(*)) 40 units SUBCUT QAM [facility] Insulin Glargine (Lantus(*)) 50 units SUBCUT QPM [facility] Insulin Human Lispro (Humalog*) 0 units SUBCUT AC [facility] Insulin Human Lispro (Humalog*) 0 units SUBCUT ACHS [facility] Omeprazole (Prilosec Cap*) 20 mg PO 0600 [facility] Ondansetron HCl (Zofran Inj*) 4 mg IV Q4H PRN Oxycodone/Acetaminophen (Percocet 5/325 Tab*) 1 tab PO Q4H PRN Senna (Senokot Tab*) 1 tab PO BID PRN Vital Signs: Temp Pulse Resp BP Pulse Ox 98.6 F 81 20 132/59 94 05/21/17 03:44 05/21/17 03:44 05/21/17 03:44 05/21/17 03:44 05/21/17 03:44 Oxygen Devices in Use Now: None Appearance: Male lying in bed in NAD Eyes: No Scleral Icterus Ears/Nose/Mouth/Throat: Mucous Membranes Moist Neck: Trachea Midline Respiratory: Symmetrical Chest Expansion and Respiratory Effort, Clear to Auscultation Cardiovascular: - - Systolic murmur at sternal border Abdominal: NL Sounds; No Tenderness; No Distention Extremities: - - Left leg in immobilizer Skin: No Rash or Ulcers Neurological: Alert and Oriented x 3, NL Muscle Strength and Tone Nutrition: Taking PO's Result Diagrams: 05/20/17 05:42 05/20/17 05:42 Microbiology and Other Data: . Assess/Plan/Problems-Billing Assessment: Mr. De La Torre is an 87yo male with a PMH for HFpEF, aortic stenosis S/P valve replacement with valve deterioration, CKD, DM II, MD S/P stents who had a mechanical fall and then an episode of syncope in the setting of pain who has a tibial plateau fracture needing surgical repair. - Patient Problems (1) Syncope Comment: - No prodromal symptoms, nausea afterward. Likely vasovagal in setting of pain and possible dehydration. - Pacemaker interrogation shows no ventricular or atrial tachyarrhythmias. Non- specific stable ST changes on EKG. (2) Tibial plateau fracture, left Comment: - Mechanical fall with tibial plateau fracture. Leg in immobilizer. Completion of syncope workup pending. Cardiac consult appreciated, no further cardiac testing indicated, patient is optimized for surgery. - Appreciate Ortho Consult. Considering surgery 05/22 or 05/24. (3) Sick sinus syndrome Comment: - S/P Pacemaker, interrogation report on chart. (4) Atrial fibrillation Comment: - In NSR on telemetry. - Continue Atenolol. Hold Apixiban in anticipation of surgery. (5) Diastolic CHF Comment: - Swollen legs, NGUYỄN stable, no rales on exam, no pulmonary edema on CXR. - Strict I+O, daily weights, heart healthy diet. (6) Type II diabetes mellitus Comment: - BGs 90-190s. - Continue Lantus, Lispro SS and carb counting. (7) Hypertension Comment: - Continue atenolol (8) DVT prophylaxis Comment: Heparin subQ, Eliquis held in setting of possible surgery. (9) Full code status Comment: Status and Disposition: Admitted inpatient pending possible orthopedic surgery.
[2017-05-21] MEDS: Insulin LISPRO* 1 UNITS UNIT SUBCUT SCH ×7 (09:43→21:12)
[2017-05-21] MEDS: Aspirin EC TAB* 81 MG TAB.EC PO SCH (09:46)
[2017-05-21] MEDS: Gabapentin CAP(*) 300 MG PO SCH ×3 (09:47→21:01)
[2017-05-21] MEDS: Atorvastatin* 40 MG TAB PO SCH (09:47)
[2017-05-21] MEDS: Insulin GLARGINE(*) 1 UNITS UNIT SUBCUT SCH ×2 (09:47→18:30)
[2017-05-21] MEDS: Atenolol TAB* 25 MG PO SCH (09:47)
[2017-05-21] MEDS: Collagenase 250 MG/GM OINT* 30 GM TOPICAL SCH (09:52)
--- NOTE | 2017-05-21 15:34 | PN ---
Progress Note - Progress Note Date of Service: 05/21/17 SOAP: Subjective: []Patient seen at bedside. He is comfortable and feels well. Denies LLE pain, fever or chills. Objective: [] Vital Signs Temp 99.8 F 05/21/17 11:01 Pulse 85 05/21/17 11:01 Resp 18 05/21/17 14:10 BP 137/56 05/21/17 11:01 Pulse Ox 95 05/21/17 11:01 Intake & Output 05/20/17 05/21/17 05/21/17 18:59 06:59 18:59 Intake Total 1200 0 240 Output Total 300 0 Balance 900 0 240 Weight 244 lb 3.2 oz Intake: Oral 1200 0 240 Output: Urine 300 0 Other: Estimated Void Large # Bowel Movements 0 # Voids 1 Laboratory Last Values WBC 6.4 10^3/ul (3.5-10.8) 05/20/17 05:42 RBC 2.88 10^6/ul (4.0-5.4) L 05/20/17 05:42 Hgb 8.6 g/dl (14.0-18.0) L 05/20/17 05:42 Hct 26 % (42-52) L 05/20/17 05:42 MCV 92 fL (80-94) 05/20/17 05:42 MCH 30 pg (27-31) 05/20/17 05:42 MCHC 33 g/dl (31-36) 05/20/17 05:42 RDW 15 % (10.5-15) 05/20/17 05:42 Plt Count 168 10^3/ul (150-450) 05/20/17 05:42 MPV 8.8 um3 (7.4-10.4) 05/20/17 05:42 Neut % (Auto) 62.3 % (38-83) 05/20/17 05:42 Lymph % (Auto) 16.1 % (25-47) L 05/20/17 05:42 [place] % (Auto) 12.4 % (0-7) H 05/20/17 05:42 Eos % (Auto) 8.8 % (0-6) H 05/20/17 05:42 Baso % (Auto) 0.4 % (0-2) 05/20/17 05:42 Absolute Neuts (auto) 4.0 10^3/ul (1.5-7.7) 05/20/17 05:42 Absolute Lymphs (auto) 1.0 10^3/ul (1.0-4.8) 05/20/17 05:42 Absolute Monos (auto) 0.8 10^3/ul (0-0.8) 05/20/17 05:42 Absolute Eos (auto) 0.6 10^3/ul (0-0.6) 05/20/17 05:42 Absolute Basos (auto) 0 10^3/ul (0-0.2) 05/20/17 05:42 Absolute Nucleated RBC 0 10^3/ul 05/20/17 05:42 Nucleated RBC % 0.1 05/20/17 05:42 INR (Anticoag Therapy) 1.06 (0.77-1.02) H 05/18/17 21:14 Sodium 136 mmol/L (133-145) 05/20/17 05:42 Potassium 4.1 mmol/L (3.5-5.0) 05/20/17 05:42 Chloride 102 mmol/L (101-111) 05/20/17 05:42 Carbon Dioxide 27 mmol/L (22-32) 05/20/17 05:42 Anion Gap 7 mmol/L (2-11) 05/20/17 05:42 BUN 38 mg/dL (6-24) H 05/20/17 05:42 Creatinine 1.88 mg/dL (0.67-1.17) H 05/20/17 05:42 Est GFR ( Amer) 43.8 (>60) 05/20/17 05:42 Est GFR (Non-Af Amer) 34.0 (>60) 05/20/17 05:42 BUN/Creatinine Ratio 20.2 (8-20) H 05/20/17 05:42 Glucose 84 mg/dL (70-100) 05/20/17 05:42 POC Glucose (mg/dL) 189 mg/dL (70-100) H 05/21/17 11:47 Calcium 9.0 mg/dL (8.6-10.3) 05/20/17 05:42 Magnesium 2.1 mg/dL (1.9-2.7) 05/20/17 05:42 Total Bilirubin 0.40 mg/dL (0.2-1.0) 05/18/17 21:14 AST 25 U/L (13-39) 05/18/17 21:14 ALT 15 U/L (7-52) 05/18/17 21:14 Alkaline Phosphatase 98 U/L (34-104) 05/18/17 21:14 Troponin I 0.03 ng/mL (<0.04) 05/19/17 00:12 Total Protein 7.0 g/dL (6.4-8.9) 05/18/17 21:14 Albumin 3.6 g/dL (3.2-5.2) 05/18/17 21:14 Globulin 3.4 g/dL (2-4) 05/18/17 21:14 Albumin/Globulin Ratio 1.1 (1-3) 05/18/17 21:14 Urine Color Yellow 05/19/17 13:40 Urine Appearance Cloudy 05/19/17 13:40 Urine pH 5.0 (5-9) 05/19/17 13:40 Ur Specific [place] 1.026 (1.010-1.030) 05/19/17 13:40 Urine Protein 2+(100 mg/dl) (Negative) A 05/19/17 13:40 Urine Ketones Negative (Negative) 05/19/17 13:40 Urine Blood Negative (Negative) 05/19/17 13:40 Urine Nitrate Negative (Negative) 05/19/17 13:40 Urine Bilirubin Negative (Negative) 05/19/17 13:40 Urine Urobilinogen Negative (Negative) 05/19/17 13:40 Ur Leukocyte Esterase Negative (Negative) 05/19/17 13:40 Urine WBC (Auto) Trace(0-5/hpf) (Absent) 05/19/17 13:40 Urine RBC (Auto) Trace(0-2/hpf) (Absent) 05/19/17 13:40 Ur Squamous Epith Cells Present (Absent) A 05/19/17 13:40 Urine Bacteria Absent (Absent) 05/19/17 13:40 Hyaline Casts Present (Absent) A 05/19/17 13:40 Urine Glucose 1+(50 mg/dl) (Negative) A 05/19/17 13:40 Salicylates < 2.50 mg/dL (<30) 05/18/17 21:14 Urine Opiates Screen None detected (None Detect) 05/19/17 13:40 Acetaminophen < 15 mcg/mL 05/18/17 21:14 Ur Barbiturates Screen None detected (None Detect) 05/19/17 13:40 Ur Phencyclidine Scrn None detected (None Detect) 05/19/17 13:40 Ur Amphetamines Screen None detected (None Detect) 05/19/17 13:40 U Benzodiazepines Scrn None detected (None Detect) 05/19/17 13:40 Urine Cocaine Screen None detected (None Detect) 05/19/17 13:40 U Cannabinoids Screen None detected (None Detect) 05/19/17 13:40 Serum Alcohol < 10 mg/dL (<10) 05/18/17 21:14 General: Well appearing, NAD LLE: Left knee with immobilizer in place. No erythema evident. Calf supple and nontender without erythema, edema or palpable cords. DF/PF intact. Sensation intact distally. Assessment: [] Left medial tibial plateau fracture Plan: - 3 pillows under left lower extremity at all times - Ice on left knee at all times as tolerated- 20 minutes on versus off can make it more tolerable. - Continue NWB LLE. - Planned operation on 05/24/17. If swelling decreases, may be feasible . Procedure will be open reduction internal fixation left medial tibial plateau fracture. - Anticoagulation with heparin TID.
[2017-05-21] MEDS: Polyethylene Glycol 3350* 17 GM PACKET PO PRN (18:29)
[2017-05-21] MEDS: Acetaminophen TAB* 325 MG PO PRN (18:29)
[2017-05-21] MEDS: Senna TAB PO SCH (21:02)
[2017-05-22] MEDS: Omeprazole CAP* 20 MG PO SCH (06:17)
[2017-05-22] MEDS: Heparin VIAL(*) 5000 UNITS/ML VIAL (FIVE THOUSAND) SUBCUT SCH ×3 (06:20→21:47)
[2017-05-22 06:34] LABS: Hematocrit 26 % (42-52); Hemoglobin 8.6 g/dl (14.0-18.0)
[2017-05-22] MEDS: oxyCODONE/Acetamin 5/325 MG* TAB PO PRN ×2 (08:59→13:12)
[2017-05-22] MEDS: Insulin GLARGINE(*) 1 UNITS UNIT SUBCUT SCH (08:59)
[2017-05-22] MEDS: Insulin LISPRO* 1 UNITS UNIT SUBCUT SCH ×7 (08:59→21:47)
[2017-05-22] MEDS: Senna TAB PO SCH ×2 (09:00→21:47)
[2017-05-22] MEDS: Collagenase 250 MG/GM OINT* 30 GM TOPICAL SCH (09:00)
[2017-05-22] MEDS: Atorvastatin* 40 MG TAB PO SCH (09:00)
[2017-05-22] MEDS: Gabapentin CAP(*) 300 MG PO SCH ×3 (09:00→21:47)
[2017-05-22] MEDS: Aspirin EC TAB* 81 MG TAB.EC PO SCH (09:00)
[2017-05-22] MEDS: Atenolol TAB* 25 MG PO SCH (09:00)
[2017-05-22] MEDS ORDERED: Furosemide TAB* 40 MG PO SCH (12:00)
--- NOTE | 2017-05-22 14:14 | PN ---
Subjective Date of Service: 05/22/17 Interval History: Patient has stable pain in leg today. No numbness/tingling. No SOB, CP, N/V, abdominal pain, dizziness, F/C, dysuria, or other pain. Patient still on bedrest. No other complaints. Family History: Unchanged from Admission Social History: Unchanged from Admission Past Medical History: Unchanged from Admission Objective Active Medications: Acetaminophen (Tylenol Tab*) 650 mg PO Q4H PRN PRN Reason: FEVER/PAIN Last Admin: 05/21/17 18:29 Dose: 650 mg Al Hydrox/Mg Hydrox/Simethicone (Maalox Plus*) 30 ml PO Q6H PRN PRN Reason: INDIGESTION Albuterol (Ventolin Hfa Inhaler*) 1 puff INH Q6H PRN PRN Reason: SHORTNESS OF BREATH Aspirin (Aspirin Ec Low Dose*) 81 mg PO DAILY [facility] Last Admin: 05/22/17 09:00 Dose: 81 mg Atenolol (Tenormin Tab*) 25 mg PO DAILY [facility] Last Admin: 05/22/17 09:00 Dose: 25 mg Atorvastatin Calcium (Lipitor*) 40 mg PO DAILY [facility] Last Admin: 05/22/17 09:00 Dose: 40 mg Collagenase (Santyl 250 Mg/Gm Oint*) 1 applic TOPICAL DAILY [facility] Last Admin: 05/22/17 09:00 Dose: 1 applic Dextrose (D50w Syringe 50 Ml*) 12.5 gm IV PUSH .FOR FS < 60 - SS PRN PRN Reason: FS < 60 Docusate Sodium (Colace Cap*) 100 mg PO BID PRN PRN Reason: CONSTIPATION Furosemide (Lasix Tab*) 20 mg PO MoWeFr@0900 [facility] Last Admin: 05/22/17 13:12 Dose: 20 mg Gabapentin (Neurontin Cap(*)) 600 mg PO TID [facility] Last Admin: 05/22/17 13:12 Dose: 600 mg Heparin Sodium (Porcine) (Heparin Vial(*)) 5,000 units SUBCUT Q8HR [facility] Last Admin: 05/22/17 13:13 Dose: 5,000 units Insulin Glargine (Lantus(*)) 40 units SUBCUT QAM [facility] Last Admin: 05/22/17 08:59 Dose: 40 unit Insulin Glargine (Lantus(*)) 45 units SUBCUT QPM [facility] Insulin Human Lispro (Humalog*) 0 units SUBCUT AC [facility] PRN Reason: Protocol Last Admin: 05/22/17 13:12 Dose: 2 units Insulin Human Lispro (Humalog*) 0 units SUBCUT ACHS [facility] PRN Reason: Protocol Last Admin: 05/22/17 13:11 Dose: 3 units Omeprazole (Prilosec Cap*) 20 mg PO 0600 [facility] Last Admin: 05/22/17 06:17 Dose: 20 mg Ondansetron HCl (Zofran Inj*) 4 mg IV Q4H PRN PRN Reason: NAUSEA/VOMITING Oxycodone/Acetaminophen (Percocet 5/325 Tab*) 1 tab PO Q4H PRN PRN Reason: Pain Last Admin: 05/22/17 13:12 Dose: 1 tab Polyethylene Glycol/Electrolytes (Miralax*) 17 gm PO DAILY PRN PRN Reason: CONSTIPATION Last Admin: 05/21/17 18:29 Dose: 17 gm Senna (Senokot Tab*) 1 tab PO BID [facility] Last Admin: 05/22/17 09:00 Dose: 1 tab Vital Signs - 8 hr 05/22/17 05/22/17 05/22/17 07:37 08:00 08:59 Temperature 98.8 F Pulse Rate 77 Respiratory 16 18 18 Rate Blood Pressure 142/59 (mmHg) O2 Sat by Pulse 98 Oximetry 05/22/17 05/22/17 09:00 13:12 Temperature Pulse Rate Respiratory 18 18 Rate Blood Pressure (mmHg) O2 Sat by Pulse Oximetry Oxygen Devices in Use Now: None Appearance: Patient is an 87yo male who appears stated age and is sitting in the bed in [facility]. Eyes: No Scleral Icterus, PERRLA Ears/Nose/Mouth/Throat: NL Teeth, Lips, Gums, Clear Oropharnyx, Mucous Membranes Moist Neck: NL Appearance and Movements; NL JVP, Trachea Midline Respiratory: Symmetrical Chest Expansion and Respiratory Effort, Clear to Auscultation Cardiovascular: NL Sounds; No Murmurs; No JVD, RRR, - - 2+ edema in B/L LE. Stable from previous exam. Abdominal: NL Sounds; No Tenderness; No Distention, No Hepatosplenomegaly Lymphatic: No Cervical Adenopathy Extremities: No Clubbing, Cyanosis, - - Left leg immobilized. Positive distal pulses. No numbness or tingling. Skin: No Rash or Ulcers, No Nodules or Sclerosis Neurological: Alert and Oriented x 3, NL Sensation, NL Muscle Strength and Tone , - - CNII-XII intact. Result Diagrams: 05/22/17 06:14 05/22/17 06:14 Microbiology and Other Data: . Assess/Plan/Problems-Billing Assessment: Mr. De La Torre is an 87yo male with a PMH for HFpEF, aortic stenosis S/P valve replacement with valve deterioration, CKD, DM II, [place] S/P stents who had a mechanical fall and then an episode of syncope in the setting of pain who has a tibial plateau fracture needing surgical repair scheduled for 05/24. - Patient Problems (1) Syncope Current Visit: No Status: Acute Code(s): R55 - SYNCOPE AND COLLAPSE SNOMED Code(s): 618861186 Comment: No prodromal symptoms, nausea afterward. Likely vasovagal in setting of pain and possible dehydration. Pacemaker interrogation shows no ventricular or atrial tachyarrhythmias. Non- specific stable ST changes on EKG. (2) Tibial plateau fracture, left Current Visit: Yes Status: Acute Code(s): S82.142A - DISPLACED BICONDYLAR FRACTURE OF LEFT TIBIA, INIT SNOMED Code(s): 376219466 Comment: Mechanical fall with tibial plateau fracture. Leg in immobilizer. Syncope workup negative for cardiac causes. Cardiac consult appreciated, no further cardiac testing indicated, patient is optimized for surgery. Appreciate Ortho Consult. Surgery tentatively scheduled for 05/24. (3) Sick sinus syndrome Current Visit: Yes Status: Acute Code(s): I49.5 - SICK SINUS SYNDROME SNOMED Code(s): 37095315 Comment: S/P Pacemaker, interrogation report on chart. (4) Atrial fibrillation Current Visit: No Status: Acute Priority: Medium Code(s): I48.91 - UNSPECIFIED ATRIAL FIBRILLATION SNOMED Code(s): 54580556 Comment: In NSR on telemetry. Continue Atenolol. Hold Apixiban in anticipation of surgery. (5) Diastolic CHF Current Visit: No Status: Acute Code(s): I50.30 - UNSPECIFIED DIASTOLIC ( CONGESTIVE) HEART FAILURE SNOMED Code(s): 276979692 Comment: Swollen legs, NGUYỄN stable, no rales on exam, no pulmonary edema on CXR. Strict I+O, daily weights, heart healthy diet. Resume home lasix MWF. (6) Type II diabetes mellitus Current Visit: No Status: Acute Comment: BGs 87-200s. Continue Lispro SS and carb counting. Decrease PM lantus due to symptomatic hypoglycemia around 90. (7) Full code status Current Visit: No Status: Acute Code(s): Z78.9 - OTHER SPECIFIED HEALTH STATUS SNOMED Code(s): 233896426 Comment: (8) DVT prophylaxis Current Visit: No Status: Acute Priority: Medium Code(s): JPQ6423 - SNOMED Code(s): 158682061 Comment: Heparin subQ, Eliquis held in setting of possible surgery. Status and Disposition: Admitted inpatient pending possible orthopedic surgery.
[2017-05-22] MEDS ORDERED: Insulin GLARGINE(*) 1 UNITS UNIT SUBCUT SCH (18:00)
[2017-05-23] MEDS: Omeprazole CAP* 20 MG PO SCH (05:39)
[2017-05-23] MEDS: Heparin VIAL(*) 5000 UNITS/ML VIAL (FIVE THOUSAND) SUBCUT SCH ×2 (05:39→14:40)
[2017-05-23 05:46] LABS: ABS Basophils 0 10^3/ul (0-0.2); ABS Eosinophils 0.4 10^3/ul (0-0.6); ABS Lymphocytes 1.1 10^3/ul (1.0-4.8); ABS Monocytes 0.8 10^3/ul (0-0.8); ABS Nucleated RBC 0 10^3/ul; Eosinophil % 6.8 % (0-6); Hematocrit 26 % (42-52); Hemoglobin 8.6 g/dl (14.0-18.0); Lymphocyte % 17.2 % (25-47); Mean Corpuscular HGB Conc 33 g/dl (31-36); Mean Corpuscular Hemoglobin 31 pg (27-31); Mean Corpuscular Volume 92 fL (80-94); Mean Platelet Volume 8.7 um3 (7.4-10.4); Nucleated Red Blood Cells % 0; Platelet Count 203 10^3/ul (150-450); Red Blood Count 2.82 10^6/ul (4.0-5.4); Red Cell Distribution Width 15 % (10.5-15); White Blood Count 6.4 10^3/ul (3.5-10.8)
[2017-05-23 06:02] LABS: EGFR Non-African American 40.4 (>60)
[2017-05-23] MEDS: Insulin LISPRO* 1 UNITS UNIT SUBCUT SCH ×8 (07:11→21:40)
[2017-05-23] MEDS ORDERED: Buffered Lidocaine 0.9% SYRIN* 5 ML/SYR SYRINGE INTRADERM ONE (09:25)
[2017-05-23] MEDS: Gabapentin CAP(*) 300 MG PO SCH ×3 (10:22→21:57)
[2017-05-23] MEDS: Atorvastatin* 40 MG TAB PO SCH (10:22)
[2017-05-23] MEDS: oxyCODONE/Acetamin 5/325 MG* TAB PO PRN ×2 (10:23→16:37)
[2017-05-23] MEDS: Aspirin EC TAB* 81 MG TAB.EC PO SCH (10:23)
[2017-05-23] MEDS: Atenolol TAB* 25 MG PO SCH (10:23)
[2017-05-23] MEDS: Senna TAB PO SCH ×2 (10:23→21:57)
[2017-05-23] MEDS: Insulin GLARGINE(*) 1 UNITS UNIT SUBCUT SCH (10:25)
--- NOTE | 2017-05-23 11:59 | PN ---
Subjective Date of Service: 05/23/17 Interval History: Patient states his pain is improved and tolerable. Patient denies F/C, N/V, abdominal pain, diarrhea, constipation. Patient has been having difficulty urinating due to not being able to stand up or move his legs over the edge of the bed. Recommended that he sit to 90 degrees in bed when attempting to urinate. Patient impatient for his surgery. Family History: Unchanged from Admission Social History: Unchanged from Admission Past Medical History: Unchanged from Admission Objective Active Medications: Acetaminophen (Tylenol Tab*) 650 mg PO Q4H PRN PRN Reason: FEVER/PAIN Last Admin: 05/21/17 18:29 Dose: 650 mg Al Hydrox/Mg Hydrox/Simethicone (Maalox Plus*) 30 ml PO Q6H PRN PRN Reason: INDIGESTION Albuterol (Ventolin Hfa Inhaler*) 1 puff INH Q6H PRN PRN Reason: SHORTNESS OF BREATH Aspirin (Aspirin Ec Low Dose*) 81 mg PO DAILY [facility] Last Admin: 05/23/17 10:23 Dose: 81 mg Atenolol (Tenormin Tab*) 25 mg PO DAILY [facility] Last Admin: 05/23/17 10:23 Dose: 25 mg Atorvastatin Calcium (Lipitor*) 40 mg PO DAILY [facility] Last Admin: 05/23/17 10:22 Dose: 40 mg Collagenase (Santyl 250 Mg/Gm Oint*) 1 applic TOPICAL DAILY [facility] Last Admin: 05/22/17 09:00 Dose: 1 applic Dextrose (D50w Syringe 50 Ml*) 12.5 gm IV PUSH .FOR FS < 60 - SS PRN PRN Reason: FS < 60 Docusate Sodium (Colace Cap*) 100 mg PO BID PRN PRN Reason: CONSTIPATION Furosemide (Lasix Tab*) 20 mg PO MoWeFr@0900 [facility] Gabapentin (Neurontin Cap(*)) 600 mg PO TID [facility] Last Admin: 05/23/17 10:22 Dose: 600 mg Heparin Sodium (Porcine) (Heparin Vial(*)) 5,000 units SUBCUT Q8HR [facility] Stop: 05/24/17 00:00 Last Admin: 05/23/17 05:39 Dose: 5,000 units Lactated Ringer's (Lactated Ringers 1000 Ml Bag*) 1,000 mls @ 100 mls/hr IV PER RATE [facility] Insulin Glargine (Lantus(*)) 22 units SUBCUT ONCE@1800 [facility] Stop: 05/23/17 18:01 Insulin Glargine (Lantus(*)) 40 units SUBCUT QAM [facility] Insulin Human Lispro (Humalog*) 0 units SUBCUT AC [facility] PRN Reason: Protocol Last Admin: 05/23/17 10:54 Dose: 4 units Insulin Human Lispro (Humalog*) 0 units SUBCUT ACHS [facility] PRN Reason: Protocol Last Admin: 05/23/17 07:11 Dose: Not Given Omeprazole (Prilosec Cap*) 20 mg PO 0600 [facility] Last Admin: 05/23/17 05:39 Dose: 20 mg Ondansetron HCl (Zofran Inj*) 4 mg IV Q4H PRN PRN Reason: NAUSEA/VOMITING Oxycodone/Acetaminophen (Percocet 5/325 Tab*) 1 tab PO Q4H PRN PRN Reason: Pain Last Admin: 05/23/17 10:23 Dose: 1 tab Polyethylene Glycol/Electrolytes (Miralax*) 17 gm PO DAILY PRN PRN Reason: CONSTIPATION Last Admin: 05/21/17 18:29 Dose: 17 gm Senna (Senokot Tab*) 1 tab PO BID [facility] Last Admin: 05/23/17 10:23 Dose: 1 tab Vital Signs - 8 hr 05/23/17 05/23/17 05/23/17 04:34 07:18 10:22 Temperature 98.7 F 99.0 F Pulse Rate 74 74 Respiratory 16 18 16 Rate Blood Pressure 137/53 126/57 (mmHg) O2 Sat by Pulse 96 97 Oximetry 05/23/17 10:23 Temperature Pulse Rate Respiratory 16 Rate Blood Pressure (mmHg) O2 Sat by Pulse Oximetry Oxygen Devices in Use Now: None Appearance: Patient is an 87yo male who appears stated age and is sitting in the bed in [facility]. Eyes: No Scleral Icterus, PERRLA Ears/Nose/Mouth/Throat: NL Teeth, Lips, Gums, Clear Oropharnyx, Mucous Membranes Moist Neck: NL Appearance and Movements; NL JVP, Trachea Midline Respiratory: Symmetrical Chest Expansion and Respiratory Effort, Clear to Auscultation Cardiovascular: NL Sounds; No Murmurs; No JVD, RRR, - - 1+ edema in B/L LE. Improved from previous exam. Abdominal: NL Sounds; No Tenderness; No Distention, No Hepatosplenomegaly Lymphatic: No Cervical Adenopathy Extremities: No Clubbing, Cyanosis, - - Right knee in immobilizer. Good perfusion and sensation distally. Skin: No Nodules or Sclerosis, - - Abrasions on LLE. Neurological: Alert and Oriented x 3, NL Sensation, NL Muscle Strength and Tone , - - CN II-XII intact. Result Diagrams: 05/23/17 04:48 05/23/17 04:48 Microbiology and Other Data: . Assess/Plan/Problems-Billing Assessment: Mr. De La Torre is an 87yo male with a PMH for HFpEF, aortic stenosis S/P valve replacement with valve deterioration, CKD, DM II, [place] S/P stents who had a mechanical fall and then an episode of syncope in the setting of pain who has a tibial plateau fracture needing surgical repair scheduled for 05/24. - Patient Problems (1) Syncope Current Visit: No Status: Acute Code(s): R55 - SYNCOPE AND COLLAPSE SNOMED Code(s): 784304403 Comment: No prodromal symptoms, nausea afterward. Likely vasovagal in setting of pain and possible dehydration. Pacemaker interrogation shows no ventricular or atrial tachyarrhythmias. Non- specific stable ST changes on EKG. (2) Tibial plateau fracture, left Current Visit: Yes Status: Acute Code(s): S82.142A - DISPLACED BICONDYLAR FRACTURE OF LEFT TIBIA, INIT SNOMED Code(s): 427348298 Comment: Mechanical fall with tibial plateau fracture. Leg in immobilizer. Syncope workup negative for cardiac causes. Cardiac consult appreciated, no further cardiac testing indicated, patient is optimized for surgery. Appreciate Ortho Consult. Surgery tentatively scheduled for 05/24. Will hold heparin tonight and be NPO past midnight. (3) Sick sinus syndrome Current Visit: Yes Status: Acute Code(s): I49.5 - SICK SINUS SYNDROME SNOMED Code(s): 32763867 Comment: S/P Pacemaker, interrogation report on chart. (4) Atrial fibrillation Current Visit: No Status: Acute Priority: Medium Code(s): I48.91 - UNSPECIFIED ATRIAL FIBRILLATION SNOMED Code(s): 26842528 Comment: In NSR on telemetry. Continue Atenolol. Hold Apixiban in anticipation of surgery. (5) Diastolic CHF Current Visit: No Status: Acute Code(s): I50.30 - UNSPECIFIED DIASTOLIC ( CONGESTIVE) HEART FAILURE SNOMED Code(s): 925061732 Comment: Swollen legs, NGUYỄN stable, no rales on exam, no pulmonary edema on CXR. Strict I+O, daily weights, heart healthy diet. Resume home lasix MWF. (6) Type II diabetes mellitus Current Visit: No Status: Acute Comment: BGs 87-200s. Continue Lispro SS and carb counting. Decrease PM lantus due to symptomatic hypoglycemia around 90. Hold lantus tonight for NPO after midnight. (7) Full code status Current Visit: No Status: Acute Code(s): Z78.9 - OTHER SPECIFIED HEALTH STATUS SNOMED Code(s): 754085689 Comment: (8) DVT prophylaxis Current Visit: No Status: Acute Priority: Medium Code(s): GKI5651 - SNOMED Code(s): 818875714 Comment: Heparin held tonight for surgery. Status and Disposition: Admitted inpatient pending possible orthopedic surgery.
[2017-05-23] MEDS: Collagenase 250 MG/GM OINT* 30 GM TOPICAL SCH (12:40)
[2017-05-23] MEDS ORDERED: Insulin GLARGINE(*) 1 UNITS UNIT SUBCUT ONE (18:00)
[2017-05-23] MEDS ORDERED: Heparin VIAL(*) 5000 UNITS/ML VIAL (FIVE THOUSAND) SUBCUT SCH (18:27)
[2017-05-24 05:34] LABS: ABS Basophils 0 10^3/ul (0-0.2); ABS Eosinophils 0.4 10^3/ul (0-0.6); ABS Monocytes 0.8 10^3/ul (0-0.8); ABS Neutrophils 3.9 10^3/ul (1.5-7.7); ABS Nucleated RBC 0 10^3/ul; Eosinophil % 7.1 % (0-6); Hematocrit 25 % (42-52); Hemoglobin 8.4 g/dl (14.0-18.0); Mean Corpuscular HGB Conc 34 g/dl (31-36); Mean Corpuscular Hemoglobin 31 pg (27-31); Mean Corpuscular Volume 92 fL (80-94); Mean Platelet Volume 8.6 um3 (7.4-10.4); Nucleated Red Blood Cells % 0; Platelet Count 216 10^3/ul (150-450); Red Blood Count 2.66 10^6/ul (4.0-5.4); Red Cell Distribution Width 15 % (10.5-15); White Blood Count 6.1 10^3/ul (3.5-10.8)
[2017-05-24 05:47] LABS: INR 0.98 (0.77-1.02)
[2017-05-24] MEDS: oxyCODONE/Acetamin 5/325 MG* TAB PO PRN ×2 (05:53→09:25)
[2017-05-24] MEDS: Omeprazole CAP* 20 MG PO SCH (05:53)
--- NOTE | 2017-05-24 08:19 | PN ---
Progress Note - Progress Note Date of Service: 05/24/17 SOAP: Subjective: Pain left knee. Objective: Left knee - Soft tissue swelling knee, but small wrinkling skin medial - Straight anterior abrasion with some surrounding rim of erythema - NVID Selected Entries 05/24/17 05:51 Temperature 98.9 F Pulse Rate 70 Respiratory 20 Rate Blood Pressure 107/37 (mmHg) O2 Sat by Pulse 93 Oximetry Laboratory Tests 05/18/17 05/24/17 21:14 05:02 Hct 25 L INR (Anticoag Therapy) 1.06 H Assessment: L knee medial tibia plateau fracture Plan: - Healing anterior abrasion, with some possible minimal cellulitis. Out of surgical incision and we will use Ioban to segregate that area. - Ancef 1gm IV now for any possible cellulitis. - NPO - Hold AM anticoagulation - To OR today for ORIF left medial tibial plateau fracture - Consented and marked - Cleared by medicine - Pillow elevation and ice at all times
[2017-05-24] MEDS: Insulin LISPRO* 1 UNITS UNIT SUBCUT SCH ×7 (08:27→21:12)
[2017-05-24] MEDS: Gabapentin CAP(*) 300 MG PO SCH ×3 (08:36→21:08)
[2017-05-24] MEDS: Atenolol TAB* 25 MG PO SCH (08:36)
[2017-05-24] MEDS: Aspirin EC TAB* 81 MG TAB.EC PO SCH (08:45)
[2017-05-24] MEDS: Atorvastatin* 40 MG TAB PO SCH (08:45)
[2017-05-24] MEDS: Senna TAB PO SCH ×2 (08:45→21:08)
[2017-05-24] MEDS ORDERED: ceFAZolin 1 GM in Dextrose (*) 1 GM/50 ML BAG IVPB ONE (09:00)
[2017-05-24] MEDS: Collagenase 250 MG/GM OINT* 30 GM TOPICAL SCH (10:47)
--- NOTE | 2017-05-24 11:40 | PN ---
Subjective Date of Service: 05/24/17 - CC: from medical staff: NSVT Interval History: consult 05/20/2017 PMD: Dr. Ramsey [employer] Gel[employer] Maker: Dr. Mccullough Service: Hospitalist CC: Fall followed by syncope on admission, wide complex tachycardia on telemetry yesterday. The patient was planned to undergo surgery today for tibial plateau fracture ( mechanical fall). He had LOC several hours after the fracture, sitting, witnessed. The patient has been monitored several days and yesterday had 8 beats VT, per nursing was getting lifted out of bed, pt unaware and not in apparent distress. The patient denies CP/SOB/diaphoresis since admission or at all yesterday and feels well now. Pacemaker interogation at admission showed PAfib and SVT, no dysrhythmias. Set to detect ventricular dysrhythmias 180 bpm or faster. Medications Active Medications: Acetaminophen (Tylenol Tab*) 650 mg PO Q4H PRN PRN Reason: FEVER/PAIN Last Admin: 05/21/17 18:29 Dose: 650 mg Al Hydrox/Mg Hydrox/Simethicone (Maalox Plus*) 30 ml PO Q6H PRN PRN Reason: INDIGESTION Albuterol (Ventolin Hfa Inhaler*) 1 puff INH Q6H PRN PRN Reason: SHORTNESS OF BREATH Aspirin (Aspirin Ec Low Dose*) 81 mg PO DAILY [facility] Last Admin: 05/24/17 08:45 Dose: Not Given Atenolol (Tenormin Tab*) 25 mg PO DAILY [facility] Last Admin: 05/24/17 08:36 Dose: 25 mg Atorvastatin Calcium (Lipitor*) 40 mg PO DAILY [facility] Last Admin: 05/24/17 08:45 Dose: Not Given Collagenase (Santyl 250 Mg/Gm Oint*) 1 applic TOPICAL DAILY [facility] Last Admin: 05/24/17 10:47 Dose: 1 applic Dextrose (D50w Syringe 50 Ml*) 12.5 gm IV PUSH .FOR FS < 60 - SS PRN PRN Reason: FS < 60 Docusate Sodium (Colace Cap*) 100 mg PO BID PRN PRN Reason: CONSTIPATION Furosemide (Lasix Tab*) 20 mg PO MoWeFr@0900 [facility] Gabapentin (Neurontin Cap(*)) 600 mg PO TID [facility] Last Admin: 03/30/18 08:36 Dose: 600 mg Lactated Ringer's (Lactated Ringers 1000 Ml Bag*) 1,000 mls @ 100 mls/hr IV PER RATE [facility] Last Admin: 05/24/17 09:16 Dose: 100 mls/hr Insulin Glargine (Lantus(*)) 40 units SUBCUT QAM [facility] Insulin Human Lispro (Humalog*) 0 units SUBCUT AC [facility] PRN Reason: Protocol Last Admin: 05/24/17 08:27 Dose: Not Given Insulin Human Lispro (Humalog*) 0 units SUBCUT ACHS [facility] PRN Reason: Protocol Last Admin: 05/24/17 08:36 Dose: 2 units Omeprazole (Prilosec Cap*) 20 mg PO 0600 [facility] Last Admin: 05/24/17 05:53 Dose: 20 mg Ondansetron HCl (Zofran Inj*) 4 mg IV Q4H PRN PRN Reason: NAUSEA/VOMITING Oxycodone/Acetaminophen (Percocet 5/325 Tab*) 1 tab PO Q4H PRN PRN Reason: Pain Last Admin: 05/24/17 09:25 Dose: 1 tab Polyethylene Glycol/Electrolytes (Miralax*) 17 gm PO DAILY PRN PRN Reason: CONSTIPATION Last Admin: 05/21/17 18:29 Dose: 17 gm Senna (Senokot Tab*) 1 tab PO BID [facility] Last Admin: 05/24/17 08:45 Dose: Not Given Objective Vital Signs: Temp Pulse Resp BP Pulse Ox 99.1 F 68 18 116/47 92 05/24/17 07:41 05/24/17 07:41 05/24/17 09:25 05/24/17 07:41 05/24/17 07:41 Oxygen Devices in Use Now: None Appearance: Stocky, overweight, elderly, lying at 20 degrees, appears comfortable. Family present. Eyes: No Scleral Icterus, PERRLA Ears/Nose/Mouth/Throat: Clear Oropharnyx, Mucous Membranes Moist Neck: NL Appearance and Movements; NL JVP, Trachea Midline Respiratory: Symmetrical Chest Expansion and Respiratory Effort, Clear to Auscultation Cardiovascular: RRR - 2/6 systolic murmur base, pm site intact, scar intact Abdominal: NL Sounds; No Tenderness; No Distention Extremities: No Clubbing, Cyanosis, - - 1+ b/l edema Skin: No Rash or Ulcers Neurological: Alert and Oriented x 3 Lines/Tubes/Other Access: Clean, Dry and Intact Peripheral IV Laboratory Results: 05/24/17 05:02 05/24/17 05:02 INR (Anticoag Therapy) 0.98 (0.77-1.02) 05/24/17 05:02 Total Bilirubin 0.40 mg/dL (0.2-1.0) 05/18/17 21:14 AST 25 U/L (13-39) 05/18/17 21:14 ALT 15 U/L (7-52) 05/18/17 21:14 Alkaline Phosphatase 98 U/L (34-104) 05/18/17 21:14 Total Protein 7.0 g/dL (6.4-8.9) 05/18/17 21:14 Albumin 3.6 g/dL (3.2-5.2) 05/18/17 21:14 Globulin 3.4 g/dL (2-4) 05/18/17 21:14 Albumin/Globulin Ratio 1.1 (1-3) 05/18/17 21:14 Laboratory Tests 05/18/17 05/18/17 05/18/17 21:14 21:14 21:14 WBC 10.9 H RBC 3.34 L Hgb 10.0 L Hct 30 L MCV 91 MCH 30 MCHC 33 RDW 14 Plt Count 203 MPV 8.4 Neut % (Auto) 81.5 Lymph % (Auto) 7.2 L [place] % (Auto) 8.7 H Eos % (Auto) 2.2 Baso % (Auto) 0.4 Absolute Neuts (auto) 8.9 H Absolute Lymphs (auto) 0.8 L Absolute Monos (auto) 0.9 H Absolute Eos (auto) 0.2 Absolute Basos (auto) 0 Absolute Nucleated RBC 0 Nucleated RBC % 0 INR (Anticoag Therapy) 1.06 H Sodium 135 Potassium 4.9 Chloride 99 L Carbon Dioxide 29 Anion Gap 7 BUN 36 H Creatinine 1.86 H Est GFR ( Amer) 44.3 Est GFR (Non-Af Amer) 34.5 BUN/Creatinine Ratio 19.4 Glucose 264 H POC Glucose (mg/dL) Calcium 9.4 Magnesium Total Bilirubin 0.40 AST 25 ALT 15 Alkaline Phosphatase 98 Troponin I 0.04 H* Total Protein 7.0 Albumin 3.6 Globulin 3.4 Albumin/Globulin Ratio 1.1 Urine Color Urine Appearance Urine pH Ur Specific [place] Urine Protein Urine Ketones Urine Blood Urine Nitrate Urine Bilirubin Urine Urobilinogen Ur Leukocyte Esterase Urine WBC (Auto) Urine RBC (Auto) Ur Squamous Epith Cells Urine Bacteria Hyaline Casts Urine Glucose Salicylates < 2.50 Urine Opiates Screen Acetaminophen < 15 Ur Barbiturates Screen Ur Phencyclidine Scrn Ur Amphetamines Screen U Benzodiazepines Scrn Urine Cocaine Screen U Cannabinoids Screen Serum Alcohol < 10 Blood Type Antibody Screen 05/19/17 05/19/17 05/19/17 00:12 05:34 05:34 WBC 7.5 RBC 3.04 L Hgb 9.3 L Hct 28 L MCV 91 MCH 31 MCHC 34 RDW 15 Plt Count 178 MPV 8.6 Neut % (Auto) 65.3 Lymph % (Auto) 15.8 L [place] % (Auto) 13.1 H Eos % (Auto) 5.4 Baso % (Auto) 0.4 Absolute Neuts (auto) 4.9 Absolute Lymphs (auto) 1.2 Absolute Monos (auto) 1.0 H Absolute Eos (auto) 0.4 Absolute Basos (auto) 0 Absolute Nucleated RBC 0 Nucleated RBC % 0 INR (Anticoag Therapy) Sodium 137 Potassium 4.3 Chloride 101 Carbon Dioxide 27 Anion Gap 9 BUN 37 H Creatinine 1.83 H Est GFR ( Amer) 45.2 Est GFR (Non-Af Amer) 35.1 BUN/Creatinine Ratio 20.2 H Glucose 155 H POC Glucose (mg/dL) Calcium 9.4 Magnesium Total Bilirubin AST ALT Alkaline Phosphatase Troponin I 0.03 Total Protein Albumin Globulin Albumin/Globulin Ratio Urine Color Urine Appearance Urine pH Ur Specific [place] Urine Protein Urine Ketones Urine Blood Urine Nitrate Urine Bilirubin Urine Urobilinogen Ur Leukocyte Esterase Urine WBC (Auto) Urine RBC (Auto) Ur Squamous Epith Cells Urine Bacteria Hyaline Casts Urine Glucose Salicylates Urine Opiates Screen Acetaminophen Ur Barbiturates Screen Ur Phencyclidine Scrn Ur Amphetamines Screen U Benzodiazepines Scrn Urine Cocaine Screen U Cannabinoids Screen Serum Alcohol Blood Type Antibody Screen 05/24/17 05/24/17 05/24/17 05:02 05:02 05:02 WBC 6.1 RBC 2.66 L Hgb 8.4 L Hct 25 L MCV 92 MCH 31 MCHC 34 RDW 15 Plt Count 216 MPV 8.6 Neut % (Auto) 63.9 Lymph % (Auto) 16.0 L [place] % (Auto) 12.5 H Eos % (Auto) 7.1 H Baso % (Auto) 0.5 Absolute Neuts (auto) 3.9 Absolute Lymphs (auto) 1.0 Absolute Monos (auto) 0.8 Absolute Eos (auto) 0.4 Absolute Basos (auto) 0 Absolute Nucleated RBC 0 Nucleated RBC % 0 INR (Anticoag Therapy) 0.98 Sodium 137 L Potassium 4.3 Chloride 102 Carbon Dioxide 28 Anion Gap 7 BUN 42 H Creatinine 1.75 H Est GFR ( Amer) 47.5 Est GFR (Non-Af Amer) 37.0 BUN/Creatinine Ratio 24.0 H Glucose 145 H POC Glucose (mg/dL) Calcium 8.5 L Magnesium Total Bilirubin AST ALT Alkaline Phosphatase Troponin I Total Protein Albumin Globulin Albumin/Globulin Ratio Urine Color Urine Appearance Urine pH Ur Specific [place] Urine Protein Urine Ketones Urine Blood Urine Nitrate Urine Bilirubin Urine Urobilinogen Ur Leukocyte Esterase Urine WBC (Auto) Urine RBC (Auto) Ur Squamous Epith Cells Urine Bacteria Hyaline Casts Urine Glucose Salicylates Urine Opiates Screen Acetaminophen Ur Barbiturates Screen Ur Phencyclidine Scrn Ur Amphetamines Screen U Benzodiazepines Scrn Urine Cocaine Screen U Cannabinoids Screen Serum Alcohol Blood Type Antibody Screen Diagnostic Imaging: Echocardiogram - (01/31/2017) [facility]: Mild to moderate concentric LVH. LV systolic function is at lower limits of normal. The estimated ejection fraction is 50-55%. LA is mildly dilated. A pacemaker wire is visualized in the right ventricle. A pacemaker wire is visualized in the right atrium. There is mitral annular calcification. There is mild mitral regurgitation. A bovine-prosthetic aortic valve is present. The reported mean gradient for a # 25 [employer] Mosaic bovine aortic valve is 10.08 =/- 5.1 suggesting there may be mild stenosis. Trace to mild tricuspid regurgitation. Evidence of mild pulmonary hypertension. Stress Test - (04/20/2016) "fixed defect with marginal reversibility of the lateral wall suggestive of previous infarct with marginal ischemia" Cardiac Catheterization - (05/17/2010) Moderate disease in LAD and ostium of first diagonal branch and 60% lesion in the ostium of a bifurcating fist diagonal branch's medial branch (very small caliber, not interventional), 50% in -stent restenosis in the proximal stent of RCA, significant 80-85% lesion seen in distal portion of the RCA. Intervention 3.0x16 mm long VeriFLEX nondrug eluting stent to the distal RCA EKG Data: Monitor strip 05/23/17: nsr 70 bpm to 8 beats slow VT appox 120 bpm. Compared with V paced rhythm and QRS morphology is different. Interogated pacer again, no dysrhythmias, but set to detect faster VT. Reprogrammed to detect VT at 120 bpm or faster. Assessment/Plan Mr. De La Torre is an 87 year old man scheduled for surgery today for tibial plateau fracture, with GET. NSVT yesterday and history of CAD/CABG, AVR, PAF, SVT. Troponins unremarable at admission. Preserved ventricular function and stress test a year ago showed a fixed lateral wall defect with olesya infarct reversable area, small. The patient had a mechanical fall and after fall in pain lost consiousness. LOC on presentation could have been vagal but could have been VT, and with an old scar/ND he is at risk for VT. Device now programmed to detect slow VT. Medical options to prevent further LOC include beta isra, EP evaluation. Regarding surgical candidacy, I recommend he proceed with the planned surgery today. Option of adding beta isra now or prn intra op (PO or IV ok). Pacemaker recommendations: Bovie grounding pad placement away from device, short bursts on Bovie. By history there is no evidence to suggest angina or CHF and he was prior to fracture very active. See Dr Cadet's note documenting the patient's statement: he would rather " on the table" than have a prolonged medical illness. Perioperative comorbidities of DM, anemia, RI noted. I discussed the above with Dr. Salomon, anaesthesia. I will be available post op PRN.
[2017-05-24] MEDS ORDERED: Midazolam* 1 MG/ML 2 ML VIAL (2 MG) ONE (12:13)
[2017-05-24] MEDS ORDERED: fentaNYL* 50 MCG/ML 2 ML VIAL (100 MCG VIAL) ONE (12:13)
[2017-05-24] MEDS ORDERED: KETAMINE HCL* 50 MG/ML 10 ML VIAL ONE (12:25)
--- NOTE | 2017-05-24 13:20 | PN ---
Subjective Date of Service: 05/24/17 Interval History: Patient has no complaints this AM. Still having issues with urinating in bed, often incontinent. Had several beats of Vtach yesterday at 10pm with manipulation in bed. Asymptomatic then and now. Denies F/C, N/V, abdominal pain , diarrhea, constipation, CP, SOB, dysuria or other pain. Excited for surgery today. Family History: Unchanged from Admission Social History: Unchanged from Admission Past Medical History: Unchanged from Admission Objective Active Medications: Acetaminophen (Tylenol Tab*) 650 mg PO Q4H PRN PRN Reason: FEVER/PAIN Last Admin: 05/21/17 18:29 Dose: 650 mg Al Hydrox/Mg Hydrox/Simethicone (Maalox Plus*) 30 ml PO Q6H PRN PRN Reason: INDIGESTION Albuterol (Ventolin Hfa Inhaler*) 1 puff INH Q6H PRN PRN Reason: SHORTNESS OF BREATH Aspirin (Aspirin Ec Low Dose*) 81 mg PO DAILY [facility] Last Admin: 05/24/17 08:45 Dose: Not Given Atenolol (Tenormin Tab*) 25 mg PO DAILY [facility] Last Admin: 05/24/17 08:36 Dose: 25 mg Atorvastatin Calcium (Lipitor*) 40 mg PO DAILY [facility] Last Admin: 05/24/17 08:45 Dose: Not Given Collagenase (Santyl 250 Mg/Gm Oint*) 1 applic TOPICAL DAILY [facility] Last Admin: 05/24/17 10:47 Dose: 1 applic Dextrose (D50w Syringe 50 Ml*) 12.5 gm IV PUSH .FOR FS < 60 - SS PRN PRN Reason: FS < 60 Docusate Sodium (Colace Cap*) 100 mg PO BID PRN PRN Reason: CONSTIPATION Furosemide (Lasix Tab*) 20 mg PO MoWeFr@0900 [facility] Gabapentin (Neurontin Cap(*)) 600 mg PO TID [facility] Last Admin: 05/24/17 08:36 Dose: 600 mg Lactated Ringer's (Lactated Ringers 1000 Ml Bag*) 1,000 mls @ 100 mls/hr IV PER RATE [facility] Last Admin: 05/24/17 09:16 Dose: 100 mls/hr Insulin Glargine (Lantus(*)) 40 units SUBCUT QAM [facility] Insulin Human Lispro (Humalog*) 0 units SUBCUT AC [facility] PRN Reason: Protocol Last Admin: 05/24/17 12:26 Dose: Not Given Insulin Human Lispro (Humalog*) 0 units SUBCUT ACHS [facility] PRN Reason: Protocol Last Admin: 05/24/17 12:26 Dose: Not Given Omeprazole (Prilosec Cap*) 20 mg PO 0600 [facility] Last Admin: 05/24/17 05:53 Dose: 20 mg Ondansetron HCl (Zofran Inj*) 4 mg IV Q4H PRN PRN Reason: NAUSEA/VOMITING Oxycodone/Acetaminophen (Percocet 5/325 Tab*) 1 tab PO Q4H PRN PRN Reason: Pain Last Admin: 05/24/17 09:25 Dose: 1 tab Polyethylene Glycol/Electrolytes (Miralax*) 17 gm PO DAILY PRN PRN Reason: CONSTIPATION Last Admin: 05/21/17 18:29 Dose: 17 gm Senna (Senokot Tab*) 1 tab PO BID [facility] Last Admin: 05/24/17 08:45 Dose: Not Given Vital Signs - 8 hr 05/24/17 05/24/17 05/24/17 05:51 05:53 07:41 Temperature 98.9 F 99.1 F Pulse Rate 70 68 Respiratory 20 20 18 Rate Blood Pressure 107/37 116/47 (mmHg) O2 Sat by Pulse 93 92 Oximetry 05/24/17 05/24/17 05/24/17 08:32 08:36 09:25 Temperature Pulse Rate Respiratory 18 16 18 Rate Blood Pressure (mmHg) O2 Sat by Pulse Oximetry 05/24/17 05/24/17 05/24/17 11:57 12:24 12:25 Temperature 98.2 F Pulse Rate 66 Respiratory 18 18 20 Rate Blood Pressure 119/57 (mmHg) O2 Sat by Pulse 97 Oximetry Oxygen Devices in Use Now: None Appearance: Patient is an 87yo male who appears stated age and is sitting in the bed in [facility]. Eyes: No Scleral Icterus, PERRLA, - - Dried discharge around eyes. Ears/Nose/Mouth/Throat: NL Teeth, Lips, Gums, Clear Oropharnyx, Mucous Membranes Moist Neck: NL Appearance and Movements; NL JVP, Trachea Midline Respiratory: Symmetrical Chest Expansion and Respiratory Effort, Clear to Auscultation Cardiovascular: NL Sounds; No Murmurs; No JVD, RRR, - - 1+ edema in B/L LE. Stable from previous exam. Abdominal: NL Sounds; No Tenderness; No Distention, No Hepatosplenomegaly Lymphatic: No Cervical Adenopathy Extremities: No Edema, No Clubbing, Cyanosis Skin: No Rash or Ulcers, No Nodules or Sclerosis Neurological: Alert and Oriented x 3, NL Sensation, NL Muscle Strength and Tone , - - CN II-XII intact. Good distal perfusion and sensation. Result Diagrams: 05/24/17 05:02 05/24/17 05:02 Microbiology and Other Data: . Assess/Plan/Problems-Billing Assessment: Mr. De La Torre is an 87yo male with a PMH for HFpEF, aortic stenosis S/P valve replacement with valve deterioration, CKD, DM II, TX S/P stents who had a mechanical fall and then an episode of syncope in the setting of pain who has a tibial plateau fracture needing surgical repair scheduled for 05/24. - Patient Problems (1) Syncope Current Visit: No Status: Acute Code(s): R55 - SYNCOPE AND COLLAPSE SNOMED Code(s): 164102530 Comment: No prodromal symptoms, nausea afterward. Likely vasovagal in setting of pain and possible dehydration. Pacemaker interrogation shows no ventricular or atrial tachyarrhythmias. Non- specific stable ST changes on EKG. 8 beats ov Vtach overnight with no symptoms. No previous Vtach sensed by pacemaker on interrogation. Appreciate Cardiology input, continue with surgery. (2) Tibial plateau fracture, left Current Visit: Yes Status: Acute Code(s): S82.142A - DISPLACED BICONDYLAR FRACTURE OF LEFT TIBIA, INIT SNOMED Code(s): 842094869 Comment: Mechanical fall with tibial plateau fracture. Leg in immobilizer. Syncope workup negative for cardiac causes. Cardiac consult appreciated, no further cardiac testing indicated, patient is optimized for surgery despite Vtach. Appreciate Ortho Consult. Surgery this afternoon. (3) Sick sinus syndrome Current Visit: Yes Status: Acute Code(s): I49.5 - SICK SINUS SYNDROME SNOMED Code(s): 60580776 Comment: S/P Pacemaker, interrogation report on chart. Sensing parameters changed to detect slower ventricular arrythmias. (4) Atrial fibrillation Current Visit: No Status: Acute Priority: Medium Code(s): I48.91 - UNSPECIFIED ATRIAL FIBRILLATION SNOMED Code(s): 39530475 Comment: In NSR on telemetry with occasional pacing. Continue Atenolol. Hold Apixiban in anticipation of surgery. (5) Diastolic CHF Current Visit: No Status: Acute Code(s): I50.30 - UNSPECIFIED DIASTOLIC ( CONGESTIVE) HEART FAILURE SNOMED Code(s): 373437049 Comment: Swollen legs, NGUYỄN stable, no rales on exam, no pulmonary edema on CXR. Strict I+O, daily weights, heart healthy diet. Resume home lasix MWF. (6) Type II diabetes mellitus Current Visit: No Status: Acute Comment: BGs 87-200s. Continue Lispro SS and carb counting. Decrease PM lantus due to symptomatic hypoglycemia around 90. Hold lantus tonight for NPO after midnight. (7) Full code status Current Visit: No Status: Acute Code(s): Z78.9 - OTHER SPECIFIED HEALTH STATUS SNOMED Code(s): 646801766 Comment: (8) DVT prophylaxis Current Visit: No Status: Acute Priority: Medium Code(s): EXU8021 - SNOMED Code(s): 129162860 Comment: Heparin for surgery. Resume eliquis postop when cleared by orthopedics. Status and Disposition: Admitted inpatient pending possible orthopedic surgery.
[2017-05-24] MEDS ORDERED: ceFAZolin 2 GM PREMIX (*) 2 GM/50 ML BAG IVPB ONE (13:24)
[2017-05-24] MEDS ORDERED: Propofol* 10 MG/ML 20 ML BTL IV PUSH ONE (14:46)
[2017-05-24] MEDS ORDERED: Phenylephrine INJ* 10 MG/ML 1 ML VIAL (10 MG) ONE (14:46)
[2017-05-24] MEDS ORDERED: Dexamethasone IV* 4 MG/ML 1 ML (4 MG) ONE (14:46)
[2017-05-24] MEDS ORDERED: Ondansetron INJ* 2 MG/ML VIAL ONE (14:46)
[2017-05-24] MEDS ORDERED: Phenylephrine IV* 40 MCG/ML 10 ML SYRINGE ONE (14:46)
[2017-05-24] MEDS ORDERED: Ketorolac INJ* 30 MG/ML 1 ML VIAL ONE (14:46)
[2017-05-24] MEDS ORDERED: HYDROmorphone INJ* 1 MG/ML CARPUJECT SYRINGE ONE (15:14)
[2017-05-24] MEDS ORDERED: Naloxone* 0.4 MG/ML 1 ML VIAL IV PRN (16:08)
[2017-05-24] MEDS ORDERED: DiMENhydriNATE IV* 50 MG/ML VIAL IV PUSH PRN (16:08)
[2017-05-24] MEDS ORDERED: Acetaminophen IV 1GM/100ML * 1,000 MG/100 ML VIAL IVPB ONE (16:08)
[2017-05-24] MEDS ORDERED: HYDROmorphone INJ* 1 MG/ML CARPUJECT SYRINGE IV PRN (16:08)
[2017-05-24] MEDS ORDERED: oxyCODONE TAB* 5 MG TAB PO PRN (16:08)
[2017-05-24] MEDS ORDERED: Ondansetron INJ* 2 MG/ML VIAL IV PRN (16:28)
[2017-05-24] MEDS ORDERED: Magnesium Hydroxide LIQ* 30 ML UDC PO PRN (16:28)
[2017-05-24] MEDS ORDERED: Acetaminophen IV 1GM/100ML * 100 ML ONE (16:35)
[2017-05-24] MEDS ORDERED: D5W 1/2 NS 1000 ML BAG* 1,000 ML IV SCH (17:00)
[2017-05-24] MEDS ORDERED: Insulin GLARGINE(*) 1 UNITS UNIT SUBCUT SCH (18:00)
[2017-05-24] MEDS: Magnesium Hydroxide LIQ* 30 ML UDC PO SCH (21:11)
[2017-05-25 05:27] LABS: ABS Basophils 0 10^3/ul (0-0.2); ABS Eosinophils 0 10^3/ul (0-0.6); ABS Lymphocytes 0.3 10^3/ul (1.0-4.8); ABS Monocytes 0.3 10^3/ul (0-0.8); ABS Neutrophils 5.8 10^3/ul (1.5-7.7); ABS Nucleated RBC 0 10^3/ul; Eosinophil % 0 % (0-6); Hematocrit 25 % (42-52); Hemoglobin 8.3 g/dl (14.0-18.0); Lymphocyte % 4.8 % (25-47); Mean Corpuscular HGB Conc 34 g/dl (31-36); Mean Corpuscular Hemoglobin 31 pg (27-31); Mean Corpuscular Volume 91 fL (80-94); Mean Platelet Volume 8.4 um3 (7.4-10.4); Nucleated Red Blood Cells % 0; Platelet Count 220 10^3/ul (150-450); Red Cell Distribution Width 15 % (10.5-15); White Blood Count 6.5 10^3/ul (3.5-10.8)
[2017-05-25 05:38] LABS: EGFR Non-African American 40.1 (>60)
[2017-05-25] MEDS: Omeprazole CAP* 20 MG PO SCH (05:50)
[2017-05-25] MEDS: Acetaminophen TAB* 325 MG PO PRN (07:29)
[2017-05-25] MEDS: Furosemide IV* 10 MG/ML 2 ML VIAL (20 MG) IV SLOW PU ONE ×2 (07:30→07:50)
--- NOTE | 2017-05-25 09:28 | PN ---
Progress Note - Progress Note Date of Service: 05/25/17 SOAP: Subjective: patient resting comfortably in bed with no complaints Objective: Vital Signs Temp Pulse Resp BP Pulse Ox 98.1 F 79 18 117/59 92 05/25/17 07:31 05/25/17 07:31 05/25/17 07:31 05/25/17 07:31 05/25/17 07:31 Laboratory Last Values WBC 6.5 10^3/ul (3.5-10.8) 05/25/17 04:56 RBC 2.70 10^6/ul (4.0-5.4) L 05/25/17 04:56 Hgb 8.3 g/dl (14.0-18.0) L 05/25/17 04:56 Hct 25 % (42-52) L 05/25/17 04:56 MCV 91 fL (80-94) 05/25/17 04:56 MCH 31 pg (27-31) 05/25/17 04:56 MCHC 34 g/dl (31-36) 05/25/17 04:56 RDW 15 % (10.5-15) 05/25/17 04:56 Plt Count 220 10^3/ul (150-450) 05/25/17 04:56 MPV 8.4 um3 (7.4-10.4) 05/25/17 04:56 Neut % (Auto) 89.9 % (38-83) H 05/25/17 04:56 Lymph % (Auto) 4.8 % (25-47) L 05/25/17 04:56 [place] % (Auto) 5.3 % (0-7) 05/25/17 04:56 Eos % (Auto) 0 % (0-6) 05/25/17 04:56 Baso % (Auto) 0 % (0-2) 05/25/17 04:56 Absolute Neuts (auto) 5.8 10^3/ul (1.5-7.7) 05/25/17 04:56 Absolute Lymphs (auto) 0.3 10^3/ul (1.0-4.8) L 05/25/17 04:56 Absolute Monos (auto) 0.3 10^3/ul (0-0.8) 05/25/17 04:56 Absolute Eos (auto) 0 10^3/ul (0-0.6) 05/25/17 04:56 Absolute Basos (auto) 0 10^3/ul (0-0.2) 05/25/17 04:56 Absolute Nucleated RBC 0 10^3/ul 05/25/17 04:56 Nucleated RBC % 0 05/25/17 04:56 INR (Anticoag Therapy) 0.98 (0.77-1.02) 05/24/17 05:02 Sodium 132 mmol/L (139-145) L 05/25/17 04:56 Potassium 5.1 mmol/L (3.5-5.0) H 05/25/17 04:56 Chloride 98 mmol/L (101-111) L 05/25/17 04:56 Carbon Dioxide 27 mmol/L (22-32) 05/25/17 04:56 Anion Gap 7 mmol/L (2-11) 05/25/17 04:56 BUN 46 mg/dL (6-24) H 05/25/17 04:56 Creatinine 1.63 mg/dL (0.67-1.17) H 05/25/17 04:56 Est GFR ( Amer) 51.6 (>60) 05/25/17 04:56 Est GFR (Non-Af Amer) 40.1 (>60) 05/25/17 04:56 BUN/Creatinine Ratio 28.2 (8-20) H 05/25/17 04:56 Glucose 290 mg/dL (70-100) H 05/25/17 04:56 POC Glucose (mg/dL) 335 mg/dL (70-100) H 05/25/17 07:16 Calcium 8.3 mg/dL (8.6-10.3) L 05/25/17 04:56 Magnesium 2.4 mg/dL (1.9-2.7) 05/25/17 04:56 Total Bilirubin 0.40 mg/dL (0.2-1.0) 05/18/17 21:14 AST 25 U/L (13-39) 05/18/17 21:14 ALT 15 U/L (7-52) 05/18/17 21:14 Alkaline Phosphatase 98 U/L (34-104) 05/18/17 21:14 Troponin I 0.03 ng/mL (<0.04) 05/19/17 00:12 Total Protein 7.0 g/dL (6.4-8.9) 05/18/17 21:14 Albumin 3.6 g/dL (3.2-5.2) 05/18/17 21:14 Globulin 3.4 g/dL (2-4) 05/18/17 21:14 Albumin/Globulin Ratio 1.1 (1-3) 05/18/17 21:14 Urine Color Yellow 05/19/17 13:40 Urine Appearance Cloudy 05/19/17 13:40 Urine pH 5.0 (5-9) 05/19/17 13:40 Ur Specific [place] 1.026 (1.010-1.030) 05/19/17 13:40 Urine Protein 2+(100 mg/dl) (Negative) A 05/19/17 13:40 Urine Ketones Negative (Negative) 05/19/17 13:40 Urine Blood Negative (Negative) 05/19/17 13:40 Urine Nitrate Negative (Negative) 05/19/17 13:40 Urine Bilirubin Negative (Negative) 05/19/17 13:40 Urine Urobilinogen Negative (Negative) 05/19/17 13:40 Ur Leukocyte Esterase Negative (Negative) 05/19/17 13:40 Urine WBC (Auto) Trace(0-5/hpf) (Absent) 05/19/17 13:40 Urine RBC (Auto) Trace(0-2/hpf) (Absent) 05/19/17 13:40 Ur Squamous Epith Cells Present (Absent) A 05/19/17 13:40 Urine Bacteria Absent (Absent) 05/19/17 13:40 Hyaline Casts Present (Absent) A 05/19/17 13:40 Urine Glucose 1+(50 mg/dl) (Negative) A 05/19/17 13:40 Salicylates < 2.50 mg/dL (<30) 05/18/17 21:14 Urine Opiates Screen None detected (None Detect) 05/19/17 13:40 Acetaminophen < 15 mcg/mL 05/18/17 21:14 Ur Barbiturates Screen None detected (None Detect) 05/19/17 13:40 Ur Phencyclidine Scrn None detected (None Detect) 05/19/17 13:40 Ur Amphetamines Screen None detected (None Detect) 05/19/17 13:40 U Benzodiazepines Scrn None detected (None Detect) 05/19/17 13:40 Urine Cocaine Screen None detected (None Detect) 05/19/17 13:40 U Cannabinoids Screen None detected (None Detect) 05/19/17 13:40 Serum Alcohol < 10 mg/dL (<10) 05/18/17 21:14 Blood Type O Negative 05/24/17 05:02 Antibody Screen Negative 05/24/17 05:02 incision: c/d/i PE: NVI Assessment: [s/p ORIF left tibial plateu fracture Plan: 1) PT/OT- NWB LLE 2) Eliquis for DVT prophyalxis 3) Abx for 24 hours post-op 4) hospitalist co-managing 5) will follow progress with PT; either Home vs rehab
[2017-05-25] MEDS: Magnesium Hydroxide LIQ* 30 ML UDC PO SCH ×2 (09:48→22:05)
[2017-05-25] MEDS: Gabapentin CAP(*) 300 MG PO SCH ×3 (09:48→22:03)
[2017-05-25] MEDS: Atorvastatin* 40 MG TAB PO SCH (09:48)
[2017-05-25] MEDS: Atenolol TAB* 25 MG PO SCH (09:49)
[2017-05-25] MEDS: Apixaban* 2.5 MG TAB PO SCH ×2 (09:50→22:02)
[2017-05-25] MEDS: Insulin LISPRO* 1 UNITS UNIT SUBCUT SCH ×7 (09:50→22:06)
[2017-05-25] MEDS: Senna TAB PO SCH ×2 (09:50→22:03)
[2017-05-25] MEDS: Aspirin EC TAB* 81 MG TAB.EC PO SCH (09:50)
[2017-05-25] MEDS: Insulin GLARGINE(*) 1 UNITS UNIT SUBCUT SCH ×2 (09:51→18:09)
[2017-05-25] MEDS: Collagenase 250 MG/GM OINT* 30 GM TOPICAL SCH (09:59)
[2017-05-25] MEDS: oxyCODONE/Acetamin 5/325 MG* TAB PO PRN (11:51)
--- NOTE | 2017-05-25 13:54 | PN ---
Subjective Date of Service: 05/25/17 Interval History: Patient has no complaints today except for moderately increased pain in leg at 7 /10. Patient denies F/C, N/V, abdominal pain, chest pain, SOB, F/C, palpitations , dizziness, dysuria, or other pain. Family History: Unchanged from Admission Social History: Unchanged from Admission Past Medical History: Unchanged from Admission Objective Active Medications: Acetaminophen (Tylenol Tab*) 650 mg PO Q4H PRN PRN Reason: FEVER/PAIN Last Admin: 05/25/17 07:29 Dose: 650 mg Al Hydrox/Mg Hydrox/Simethicone (Maalox Plus*) 30 ml PO Q6H PRN PRN Reason: INDIGESTION Albuterol (Ventolin Hfa Inhaler*) 1 puff INH Q6H PRN PRN Reason: SHORTNESS OF BREATH Apixaban (Eliquis) 2.5 mg PO BID [facility] Last Admin: 05/25/17 09:50 Dose: 2.5 mg Aspirin (Aspirin Ec Low Dose*) 81 mg PO DAILY [facility] Last Admin: 05/25/17 09:50 Dose: 81 mg Atenolol (Tenormin Tab*) 25 mg PO DAILY [facility] Last Admin: 05/25/17 09:49 Dose: 25 mg Atorvastatin Calcium (Lipitor*) 40 mg PO DAILY [facility] Last Admin: 05/25/17 09:48 Dose: 40 mg Collagenase (Santyl 250 Mg/Gm Oint*) 1 applic TOPICAL DAILY [facility] Last Admin: 05/25/17 09:59 Dose: 1 applic Dextrose (D50w Syringe 50 Ml*) 12.5 gm IV PUSH .FOR FS < 60 - SS PRN PRN Reason: FS < 60 Docusate Sodium (Colace Cap*) 100 mg PO BID PRN PRN Reason: CONSTIPATION Last Admin: 05/25/17 09:49 Dose: 100 mg Gabapentin (Neurontin Cap(*)) 600 mg PO TID [facility] Last Admin: 05/25/17 09:48 Dose: 600 mg Insulin Glargine (Lantus(*)) 40 units SUBCUT QAM [facility] Last Admin: 05/25/17 09:51 Dose: 40 units Insulin Glargine (Lantus(*)) 45 units SUBCUT QPM [facility] Insulin Human Lispro (Humalog*) 0 units SUBCUT AC [facility] PRN Reason: Protocol Last Admin: 05/25/17 09:50 Dose: 4 units Insulin Human Lispro (Humalog*) 0 units SUBCUT ACHS [facility] PRN Reason: Protocol Last Admin: 05/25/17 09:50 Dose: 12 units Magnesium Hydroxide (Milk Of Magnesia Liq*) 30 ml PO BID [facility] Last Admin: 05/25/17 09:48 Dose: 30 ml Magnesium Hydroxide (Milk Of Magnesia Liq*) 30 ml PO Q6H PRN PRN Reason: constipation Omeprazole (Prilosec Cap*) 20 mg PO 0600 [facility] Last Admin: 05/25/17 05:50 Dose: 20 mg Ondansetron HCl (Zofran Inj*) 4 mg IV Q4H PRN PRN Reason: NAUSEA/VOMITING Ondansetron HCl (Zofran Inj*) 4 mg IV Q6H PRN PRN Reason: nausea Oxycodone/Acetaminophen (Percocet 5/325 Tab*) 1 tab PO Q4H PRN PRN Reason: Pain Last Admin: 05/24/17 09:25 Dose: 1 tab Oxycodone/Acetaminophen (Percocet 5/325 Tab*) 2 tab PO Q4H PRN PRN Reason: PAIN Last Admin: 05/25/17 11:51 Dose: 2 tab Polyethylene Glycol/Electrolytes (Miralax*) 17 gm PO DAILY PRN PRN Reason: CONSTIPATION Last Admin: 05/21/17 18:29 Dose: 17 gm Senna (Senokot Tab*) 1 tab PO BID [facility] Last Admin: 05/25/17 09:50 Dose: 1 tab Vital Signs - 8 hr 05/25/17 05/25/17 05/25/17 07:31 08:00 09:48 Temperature 98.1 F Pulse Rate 79 Respiratory 18 18 18 Rate Blood Pressure 117/59 (mmHg) O2 Sat by Pulse 92 Oximetry 05/25/17 05/25/17 11:14 11:51 Temperature 98.5 F Pulse Rate 77 Respiratory 17 18 Rate Blood Pressure 110/51 (mmHg) O2 Sat by Pulse 93 Oximetry Oxygen Devices in Use Now: None Appearance: Patient is an 87yo male who appears stated age and is sitting in the bed in [facility]. Eyes: No Scleral Icterus, PERRLA Ears/Nose/Mouth/Throat: NL Teeth, Lips, Gums, Clear Oropharnyx, Mucous Membranes Moist Neck: NL Appearance and Movements; NL JVP, Trachea Midline Respiratory: Symmetrical Chest Expansion and Respiratory Effort, Clear to Auscultation Cardiovascular: RRR, - - 2+ edema in B/L LE. Pulses 2+. Grade 3/6 murmur heard best at RUSB. Abdominal: No Hepatosplenomegaly, - - Distended, non-tender. Lymphatic: No Cervical Adenopathy Extremities: No Clubbing, Cyanosis Skin: No Nodules or Sclerosis, - - Left knee covered in bulky dressing. Left knee abrasion without signs of infection. Neurological: Alert and Oriented x 3, NL Sensation, NL Muscle Strength and Tone , - - CN II-XII intact. Result Diagrams: 05/25/17 04:56 05/25/17 04:56 Microbiology and Other Data: . Assess/Plan/Problems-Billing Assessment: Mr. De La Torre is an 87yo male with a PMH for HFpEF, aortic stenosis S/P valve replacement with valve deterioration, CKD, DM II, IA S/P stents who had a mechanical fall and then an episode of syncope in the setting of pain who has a tibial plateau fracture needing surgical repair on 05/24, now recovering well. - Patient Problems (1) Syncope Current Visit: No Status: Acute Code(s): R55 - SYNCOPE AND COLLAPSE SNOMED Code(s): 129231271 Comment: No prodromal symptoms, nausea afterward. Likely vasovagal in setting of pain and possible dehydration. Pacemaker interrogation shows no ventricular or atrial tachyarrhythmias. Non- specific stable ST changes on EKG. 8 beats ov Vtach overnight with no symptoms. No previous Vtach sensed by pacemaker on interrogation. Appreciate Cardiology input. (2) Tibial plateau fracture, left Current Visit: Yes Status: Acute Code(s): S82.142A - DISPLACED BICONDYLAR FRACTURE OF LEFT TIBIA, INIT SNOMED Code(s): 564703568 Comment: Mechanical fall with tibial plateau fracture. Leg in immobilizer. Syncope workup negative for cardiac causes. Cardiac consult appreciated, no further cardiac testing indicated, patient is optimized for surgery despite Vtach. Appreciate Ortho Consult. S/P surgery on 05/24. Recovering well with increased pain. No BM in several days. No void after fontaine removal. (3) Sick sinus syndrome Current Visit: Yes Status: Acute Code(s): I49.5 - SICK SINUS SYNDROME SNOMED Code(s): 34844105 Comment: S/P Pacemaker, interrogation report on chart. Sensing parameters changed to detect slower ventricular arrythmias. (4) Atrial fibrillation Current Visit: No Status: Acute Priority: Medium Code(s): I48.91 - UNSPECIFIED ATRIAL FIBRILLATION SNOMED Code(s): 86976383 Comment: In NSR on telemetry with occasional pacing. Continue Atenolol. Resume Eliquis. (5) Diastolic CHF Current Visit: No Status: Acute Code(s): I50.30 - UNSPECIFIED DIASTOLIC ( CONGESTIVE) HEART FAILURE SNOMED Code(s): 397964958 Comment: Swollen legs, NGUYỄN stable, no rales on exam, no pulmonary edema on CXR. Given large amount of fluids for surgery. Strict I+O, daily weights, heart healthy diet. Resume home lasix MWF. Lasix 20mg IV today when BP increased. Decreased Sodium and increased potassium likely from fluids. Monitor closely and increased lasix PRN. (6) Type II diabetes mellitus Current Visit: No Status: Acute Comment: BGs up to 300s today due to IV glucose. Continue Lispro SS and carb counting. Resume home lantus. (7) Full code status Current Visit: No Status: Acute Code(s): Z78.9 - OTHER SPECIFIED HEALTH STATUS SNOMED Code(s): 763681903 Comment: (8) DVT prophylaxis Current Visit: No Status: Acute Priority: Medium Code(s): KUC4776 - SNOMED Code(s): 130994311 Comment: Eliquis. Status and Disposition: Admitted inpatient S/P orthopedic surgery. Recovery dictates disposition.
--- NOTE | 2017-05-25 17:01 | OP ---
OPERATIVE REPORT: DATE OF OPERATION: 05/24/17 DATE OF : 28 SURGEON: Evgeny Sánchez MD CONTROL VALVE MECHANIC: NEYDA Marte A physician stores assistant was required for the length of the procedure for help with positioning, retraction, and closure. ANESTHESIOLOGIST: Brandy Salomon MD ANESTHESIA: General anesthesia. PRE-OP DIAGNOSIS: Left medial tibial plateau fracture. POST-OP DIAGNOSIS: Left medial tibial plateau fracture. OPERATIVE PROCEDURE: Open reduction and internal fixation left tibial plateau fracture, medial. ANTIBIOTICS: Ancef 2 g IV. IV FLUIDS: 1100 cc. SPECIMEN: None. IMPLANT: Synthes medial tibial plateau fracture, 3.5 mm plate, 4 hole. 1 non- locking 3.5 mm screw and the remainder all locking 3.5 mm screws. COMPLICATIONS: None. ESTIMATED BLOOD LOSS: Minimal. TOURNIQUET TIME: 94 minutes at 250 mmHg. DZIN-XR-IFLV TIME: 97 minutes. RADIATION USE: C-arm for 49.2 seconds with radiation use 0.64436 milligray. 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 The patient was in his garage using a pot washer when the patient fell and the pot washer landed on his knees. The patient was able to stand and drove himself to his girlfriend's house. There he had a syncopal episode and was brought to [facility] by ambulance. A consult was done by my collogue, Dr. Fields. X-rays and CT scan showed a medial tibial plateau fracture. A Schatzker type 4, [place] type 2 fracture of the left tibial plateau. Only minimal displacement. The patient was nonweightbearing and she began the conversation regarding nonoperative and operative management. The patient was interested in operative management. The patient was noted to have an abrasion about the anterior aspect of knee and the patient's Eliquis was stopped. I met the patient. Soft tissue swelling precluded wrinkling at first. We, therefore awaited surgery until 05/24/17, when some wrinkling of the skin had developed. The patient was optimized and cleared for surgery by the hospitalist and cardiology services. I discussed with the patient the rationale for this surgery. Despite minimal displacement, Schatzker 4 fractures are notoriously unstable and additional displacement would be likely with any weightbearing. I discussed risks and benefits of nonoperative and operative management and risks and potential complications of surgery including bleeding, infection, nerve or blood vessel injury, knee pain, stiffness, osteoarthritis, wound problems. We discussed the long postoperative course of limited weightbearing with 6 weeks of nonweightbearing postoperatively followed by progression weightbearing and full weightbearing not until 3 months postoperative. A small rim of redness about the abrasion about the anterior knee was noted the morning of surgery. Therefore, I provided the patient with a dose of Ancef 1 g IV first thing in the morning, separate from the dose he was given perioperatively. Ultimately, I decided to proceed forward with surgery despite that abrasion with possible cellulitis about the anterior aspect of the knee because of this being fracture surgery and timing mattering. As well, I decided to give the separate dose of IV antibiotics. This abrasion was not adjacent to the incision. I had also decided to place Ioban around the entire exposed lower extremity during surgery, as such that the entire abrasion will be covered by Ioban during my procedure, which is what I later did. DESCRIPTION OF PROCEDURE: The patient preoperatively signed a written consent. Operative extremity had been marked at bedside. The patient was taken to the operating room and placed supine on the operating room table. The patient was sedated and intubated. A left proximal thigh tourniquet was applied, but not yet inflated. A bone foam device was placed under the left lower extremity. One blanket bump was placed under the left hemipelvis. C-arm was brought in from the left side of the body and confirmed good images could be obtained. The left lower extremity was prepped with a Betadine scrub and then paint. Particular attention was paid towards the wound about the patient's left heel and the abrasion about the anterior left knee. Draping was performed. Surgical time- out was performed. I applied an Esmarch and inflated the tourniquet to 250 mmHg. A medial approach skin incision was made. I changed blades and cut through the superficial subcutaneous tissue. I then dissected with a spreading dissection with scissors. The saphenous neurovascular bundle was looked for carefully, but was not encountered. I dissected down to the sartorius fascia. Hoping to close this later, I performed a vertical incision in the sartorius fascia. Underneath it, I identified the gracilis and semitendinosus tendons. These were cut off their insertions. Superficial MCL was visualized nicely as was the medial aspect of the proximal tibia. I made a lateral skin incision, longitudinal, short, for placement of my bone clamp. This was roughly made sagittal, clearly anterior to the tubular head and neck about the proximal lateral tibia. A large bone clamp was placed and reduction of fracture fragments was performed and confirmed with C-arm imaging. I next placed multiple K-wires, 1.6 mm in size, across the fracture sites to hold this reduction. I pulled these K-wires , so they were not prominent along the medial aspect of the tibia. I then removed the bone clamp and sized plates. I determined that a 4-hole plate was required. I put the 4-hole plate in place and then pinned it in place. The plate position was excellent, with the trajectory of the screws going to be aiming directly lateral rather than slightly anterior or slightly posterior. I placed a nonlocking screw, 3.5 mm in one of the distal holes. It sucked the plate to bone. I then placed a nonlocking screw in the proximal row. X-ray imaging confirmed excellent reduction of fracture and placement of plate. I then filled the plate with locking screws, 3.5 mm. I ultimately replaced the nonlocking screw in the proximal row with a locking screw. This meant that I had placed 3 locking screws in the proximal row, 2 kick-stand locking screws and 3 screws, locking, distal. I kept 1 nonlocking screw, in one of the distal holes that was my first screw to be placed. This was intentional. Final C-arm images were obtained and demonstrated excellent screw length, plate and bone position. I then repaired the gracilis and semitendinosus tendons. Using a Mitek Gryphon anchor, I repaired the gracilis and semitendinosus tendons to bone. I placed that anchor just anterior to the plate. I next closed the sartorius fascia partially with multiple [id number] stitches using Vicryl 0 suture. Irrigation. We next placed a JASON drain. We next closed the subcutaneous tissue of both the medial and the lateral incision with buried simple stitches using Vicryl 2- 0 suture. Closure of the skin of either incision with obi. We let the tourniquet down. JASON drain was not putting out much fluid and given that the drain was placed so close to the skin, I worried about the possible introduction of external robbi into the wound with the suction effect of the drain. Therefore, I removed the drain. A dressing was applied. I applied Xeroform over the surgical incisions. I applied some Adaptic over the anterior knee abrasion. 4x4's were placed followed by sterile Webril, followed by an ABD, followed by more sterile Webril. Chauncey bandage from foot to proximal thigh. Cooling unit. Knee brace locked in extension. The patient was awakened and extubated and transferred to the PACU. DISPOSITION: The patient was to be returned to the hospitalist medical service. The patient will restart his Eliquis the morning following the surgery. He will be nonweightbearing to left lower extremity and will work with physical therapy on both mobility as well as on range of motion, left knee , to start when discomfort can tolerate range of motion. The patient will follow up with me in clinic in approximately 14 days postoperative. Given his diabetes and his anterior knee abrasion, we had decided to place him on 48 hours of Ancef 1 g IV q.8 hours. The patient's pain will be controlled postoperatively with oral and IV pain medication. [id number]/[facility] #: [id number] ROBIN
[2017-05-25] MEDS: Polyethylene Glycol 3350* 17 GM PACKET PO PRN (18:10)
[2017-05-26] MEDS: Insulin LISPRO* 1 UNITS UNIT SUBCUT SCH ×9 (04:18→21:42)
[2017-05-26 05:33] LABS: ABS Basophils 0 10^3/ul (0-0.2); ABS Eosinophils 0.1 10^3/ul (0-0.6); ABS Lymphocytes 0.8 10^3/ul (1.0-4.8); ABS Monocytes 0.9 10^3/ul (0-0.8); ABS Neutrophils 6.4 10^3/ul (1.5-7.7); ABS Nucleated RBC 0 10^3/ul; Eosinophil % 1.3 % (0-6); Hematocrit 24 % (42-52); Hemoglobin 7.9 g/dl (14.0-18.0); Lymphocyte % 10.1 % (25-47); Mean Corpuscular HGB Conc 33 g/dl (31-36); Mean Corpuscular Hemoglobin 31 pg (27-31); Mean Corpuscular Volume 92 fL (80-94); Mean Platelet Volume 8.3 um3 (7.4-10.4); Nucleated Red Blood Cells % 0; Platelet Count 251 10^3/ul (150-450); Red Blood Count 2.58 10^6/ul (4.0-5.4); Red Cell Distribution Width 15 % (10.5-15); White Blood Count 8.2 10^3/ul (3.5-10.8)
[2017-05-26 05:54] LABS: EGFR Non-African American 39.3 (>60)
[2017-05-26] MEDS: Omeprazole CAP* 20 MG PO SCH (06:05)
[2017-05-26] MEDS: Aspirin EC TAB* 81 MG TAB.EC PO SCH (09:29)
[2017-05-26] MEDS: Apixaban* 2.5 MG TAB PO SCH ×2 (09:29→20:30)
[2017-05-26] MEDS: Gabapentin CAP(*) 300 MG PO SCH ×3 (09:29→20:28)
[2017-05-26] MEDS: Atorvastatin* 40 MG TAB PO SCH (09:29)
[2017-05-26] MEDS: Atenolol TAB* 25 MG PO SCH (09:29)
[2017-05-26] MEDS: Magnesium Hydroxide LIQ* 30 ML UDC PO SCH (09:30)
[2017-05-26] MEDS: Collagenase 250 MG/GM OINT* 30 GM TOPICAL SCH (09:30)
[2017-05-26] MEDS: Senna TAB PO SCH ×2 (09:30→20:30)
[2017-05-26] MEDS: Insulin GLARGINE(*) 1 UNITS UNIT SUBCUT SCH ×2 (09:49→18:28)
--- NOTE | 2017-05-26 10:54 | PN ---
Progress Note - Progress Note Date of Service: 05/26/17 SOAP: Subjective: OOB in chair, continued complaints of left knee pain controlled with current pain regimen Objective: Vital Signs Temp Pulse Resp BP Pulse Ox 99.2 F 81 18 139/57 98 05/26/17 07:26 05/26/17 07:26 05/26/17 09:29 05/26/17 07:26 05/26/17 07:26 Laboratory Last Values WBC 8.2 10^3/ul (3.5-10.8) 05/26/17 05:02 RBC 2.58 10^6/ul (4.0-5.4) L 05/26/17 05:02 Hgb 7.9 g/dl (14.0-18.0) L 05/26/17 05:02 Hct 24 % (42-52) L 05/26/17 05:02 MCV 92 fL (80-94) 05/26/17 05:02 MCH 31 pg (27-31) 05/26/17 05:02 MCHC 33 g/dl (31-36) 05/26/17 05:02 RDW 15 % (10.5-15) 05/26/17 05:02 Plt Count 251 10^3/ul (150-450) 05/26/17 05:02 MPV 8.3 um3 (7.4-10.4) 05/26/17 05:02 Neut % (Auto) 77.7 % (38-83) 05/26/17 05:02 Lymph % (Auto) 10.1 % (25-47) L 05/26/17 05:02 Hickman % (Auto) 10.6 % (0-7) H 05/26/17 05:02 Eos % (Auto) 1.3 % (0-6) 05/26/17 05:02 Baso % (Auto) 0.3 % (0-2) 05/26/17 05:02 Absolute Neuts (auto) 6.4 10^3/ul (1.5-7.7) 05/26/17 05:02 Absolute Lymphs (auto) 0.8 10^3/ul (1.0-4.8) L 05/26/17 05:02 Absolute Monos (auto) 0.9 10^3/ul (0-0.8) H 05/26/17 05:02 Absolute Eos (auto) 0.1 10^3/ul (0-0.6) 05/26/17 05:02 Absolute Basos (auto) 0 10^3/ul (0-0.2) 05/26/17 05:02 Absolute Nucleated RBC 0 10^3/ul 05/26/17 05:02 Nucleated RBC % 0 05/26/17 05:02 INR (Anticoag Therapy) 0.98 (0.77-1.02) 05/24/17 05:02 Sodium 136 mmol/L (139-145) L 05/26/17 05:02 Potassium 4.7 mmol/L (3.5-5.0) 05/26/17 05:02 Chloride 100 mmol/L (101-111) L 05/26/17 05:02 Carbon Dioxide 28 mmol/L (22-32) 05/26/17 05:02 Anion Gap 8 mmol/L (2-11) 05/26/17 05:02 BUN 58 mg/dL (6-24) H 05/26/17 05:02 Creatinine 1.66 mg/dL (0.67-1.17) H 05/26/17 05:02 Est GFR ( Amer) 50.5 (>60) 05/26/17 05:02 Est GFR (Non-Af Amer) 39.3 (>60) 05/26/17 05:02 BUN/Creatinine Ratio 34.9 (8-20) H 05/26/17 05:02 Glucose 230 mg/dL (70-100) H 05/26/17 05:02 POC Glucose (mg/dL) 206 mg/dL (70-100) H 05/26/17 08:00 Calcium 8.5 mg/dL (8.6-10.3) L 05/26/17 05:02 Magnesium 2.8 mg/dL (1.9-2.7) H 05/26/17 05:02 Total Bilirubin 0.40 mg/dL (0.2-1.0) 05/18/17 21:14 AST 25 U/L (13-39) 05/18/17 21:14 ALT 15 U/L (7-52) 05/18/17 21:14 Alkaline Phosphatase 98 U/L (34-104) 05/18/17 21:14 Troponin I 0.03 ng/mL (<0.04) 05/19/17 00:12 Total Protein 7.0 g/dL (6.4-8.9) 05/18/17 21:14 Albumin 3.6 g/dL (3.2-5.2) 05/18/17 21:14 Globulin 3.4 g/dL (2-4) 05/18/17 21:14 Albumin/Globulin Ratio 1.1 (1-3) 05/18/17 21:14 Urine Color Yellow 05/19/17 13:40 Urine Appearance Cloudy 05/19/17 13:40 Urine pH 5.0 (5-9) 05/19/17 13:40 Ur Specific [place] 1.026 (1.010-1.030) 05/19/17 13:40 Urine Protein 2+(100 mg/dl) (Negative) A 05/19/17 13:40 Urine Ketones Negative (Negative) 05/19/17 13:40 Urine Blood Negative (Negative) 05/19/17 13:40 Urine Nitrate Negative (Negative) 05/19/17 13:40 Urine Bilirubin Negative (Negative) 05/19/17 13:40 Urine Urobilinogen Negative (Negative) 05/19/17 13:40 Ur Leukocyte Esterase Negative (Negative) 05/19/17 13:40 Urine WBC (Auto) Trace(0-5/hpf) (Absent) 05/19/17 13:40 Urine RBC (Auto) Trace(0-2/hpf) (Absent) 05/19/17 13:40 Ur Squamous Epith Cells Present (Absent) A 05/19/17 13:40 Urine Bacteria Absent (Absent) 05/19/17 13:40 Hyaline Casts Present (Absent) A 05/19/17 13:40 Urine Glucose 1+(50 mg/dl) (Negative) A 05/19/17 13:40 Salicylates < 2.50 mg/dL (<30) 05/18/17 21:14 Urine Opiates Screen None detected (None Detect) 05/19/17 13:40 Acetaminophen < 15 mcg/mL 05/18/17 21:14 Ur Barbiturates Screen None detected (None Detect) 05/19/17 13:40 Ur Phencyclidine Scrn None detected (None Detect) 05/19/17 13:40 Ur Amphetamines Screen None detected (None Detect) 05/19/17 13:40 U Benzodiazepines Scrn None detected (None Detect) 05/19/17 13:40 Urine Cocaine Screen None detected (None Detect) 05/19/17 13:40 U Cannabinoids Screen None detected (None Detect) 05/19/17 13:40 Serum Alcohol < 10 mg/dL (<10) 05/18/17 21:14 Blood Type O Negative 05/24/17 05:02 Antibody Screen Negative 05/24/17 05:02 incisions: c/d; dressing changed PE: able to dorsi flex/ plantar flex with intact sensation, 2+ DP pulse Assessment: s/p left ORIF tibial plateu fracture Plan: 1) PT/OT- [facility] LLE 2) hospitalist co-managing 3) Continue Eliquis for DVT prophylaxis 4) will need rehab placement; spoke with nurse case advocate today to have process started first thing in am.
--- NOTE | 2017-05-26 12:59 | PN ---
Subjective Date of Service: 05/26/17 Interval History: States that he feels tired today. Denies chest pain or shortness of breath. Denies n/v/d. Denies abd pain. c/o mild pain to left knee with movement. Family History: Unchanged from Admission Social History: Unchanged from Admission Past Medical History: Unchanged from Admission Objective Active Medications: Acetaminophen (Tylenol Tab*) 650 mg PO Q4H PRN PRN Reason: FEVER/PAIN Last Admin: 05/25/17 07:29 Dose: 650 mg Al Hydrox/Mg Hydrox/Simethicone (Maalox Plus*) 30 ml PO Q6H PRN PRN Reason: INDIGESTION Albuterol (Ventolin Hfa Inhaler*) 1 puff INH Q6H PRN PRN Reason: SHORTNESS OF BREATH Apixaban (Eliquis) 2.5 mg PO BID [facility] Last Admin: 05/26/17 09:29 Dose: 2.5 mg Aspirin (Aspirin Ec Low Dose*) 81 mg PO DAILY [facility] Last Admin: 05/26/17 09:29 Dose: 81 mg Atenolol (Tenormin Tab*) 25 mg PO DAILY [facility] Last Admin: 05/26/17 09:29 Dose: 25 mg Atorvastatin Calcium (Lipitor*) 40 mg PO DAILY [facility] Last Admin: 05/26/17 09:29 Dose: 40 mg Collagenase (Santyl 250 Mg/Gm Oint*) 1 applic TOPICAL DAILY [facility] Last Admin: 05/26/17 09:30 Dose: 1 applic Dextrose (D50w Syringe 50 Ml*) 12.5 gm IV PUSH .FOR FS < 60 - SS PRN PRN Reason: FS < 60 Docusate Sodium (Colace Cap*) 100 mg PO BID PRN PRN Reason: CONSTIPATION Last Admin: 05/25/17 09:49 Dose: 100 mg Gabapentin (Neurontin Cap(*)) 600 mg PO TID [facility] Last Admin: 05/26/17 09:29 Dose: 600 mg Insulin Glargine (Lantus(*)) 40 units SUBCUT QAM [facility] Last Admin: 05/26/17 09:49 Dose: 40 units Insulin Glargine (Lantus(*)) 45 units SUBCUT QPM [facility] Last Admin: 05/25/17 18:09 Dose: 45 units Insulin Human Lispro (Humalog*) 0 units SUBCUT AC [facility] PRN Reason: Protocol Last Admin: 05/26/17 09:48 Dose: 4 units Insulin Human Lispro (Humalog*) 0 units SUBCUT 0730,1130,1630,2100 [facility] PRN Reason: Protocol Last Admin: 05/26/17 09:49 Dose: 6 units Magnesium Hydroxide (Milk Of Magnesia Liq*) 30 ml PO BID [facility] Last Admin: 05/26/17 09:30 Dose: 30 ml Magnesium Hydroxide (Milk Of Magnesia Liq*) 30 ml PO Q6H PRN PRN Reason: constipation Omeprazole (Prilosec Cap*) 20 mg PO 0600 [facility] Last Admin: 05/26/17 06:05 Dose: 20 mg Ondansetron HCl (Zofran Inj*) 4 mg IV Q4H PRN PRN Reason: NAUSEA/VOMITING Ondansetron HCl (Zofran Inj*) 4 mg IV Q6H PRN PRN Reason: nausea Oxycodone/Acetaminophen (Percocet 5/325 Tab*) 2 tab PO Q4H PRN PRN Reason: PAIN Last Admin: 05/25/17 11:51 Dose: 2 tab Polyethylene Glycol/Electrolytes (Miralax*) 17 gm PO DAILY PRN PRN Reason: CONSTIPATION Last Admin: 05/25/17 18:10 Dose: 17 gm Senna (Senokot Tab*) 1 tab PO BID [facility] Last Admin: 05/26/17 09:30 Dose: 1 tab Vital Signs - 8 hr 05/26/17 05/26/17 05/26/17 07:24 07:26 09:29 Temperature 99.2 F Pulse Rate 81 Respiratory 18 12 18 Rate Blood Pressure 139/57 (mmHg) O2 Sat by Pulse 95 98 Oximetry 05/26/17 05/26/17 11:11 12:29 Temperature 98.1 F Pulse Rate 58 Respiratory 18 16 Rate Blood Pressure 120/41 (mmHg) O2 Sat by Pulse 98 Oximetry Oxygen Devices in Use Now: Nasal Cannula Appearance: appears comfortable sitting in the chair Eyes: No Scleral Icterus Ears/Nose/Mouth/Throat: Clear Oropharnyx, Mucous Membranes Moist Neck: NL Appearance and Movements; NL JVP, Trachea Midline Respiratory: Symmetrical Chest Expansion and Respiratory Effort, Clear to Auscultation, - - diminished t/o bilat Cardiovascular: RRR - murmur, s1 s2, No Edema Abdominal: NL Sounds; No Tenderness; No Distention Extremities: No Clubbing, Cyanosis, - - edema to left knee, knee brace and stanislaw wrap intact, stanislaw dry and intact Skin: - - dressing intact to right lower leg, healing scabbed area noted to right glez Neurological: NL Sensation, - - alert adn oriented to person, and time, confused to place Nutrition: Taking PO's Result Diagrams: 05/26/17 05:02 05/26/17 05:02 Microbiology and Other Data: . Assess/Plan/Problems-Billing Assessment: Mr. De La Torre is an 87yo male with a PMH for HFpEF, aortic stenosis S/P valve replacement with valve deterioration, CKD, DM II, [place] S/P stents who had a mechanical fall and then an episode of syncope in the setting of pain who has a tibial plateau fracture needing surgical repair on 05/24, now recovering well. - Patient Problems (1) Tibial plateau fracture, left Current Visit: Yes Status: Acute Code(s): S82.142A - DISPLACED BICONDYLAR FRACTURE OF LEFT TIBIA, INIT SNOMED Code(s): 932289210 Comment: Mechanical fall with tibial plateau fracture. Leg in immobilizer. Syncope workup negative for cardiac causes. Cardiac consult appreciated, no further cardiac testing indicated Appreciate Ortho Consult. S/P surgery on 05/24. Recovering well with mild pain to left leg today. PT/OT per Ortho~ knee immobilizer intact to left leg, with stanislaw wrap to left knee. NWB to left leg No BM in several days - will continue mirlax and senna (2) Anemia Current Visit: No Status: Acute Priority: Medium Code(s): D64.9 - ANEMIA, UNSPECIFIED SNOMED Code(s): 991607832 Comment: H/H remains low. 7.11/18 today ~will transfuse 1 unit PRBC d/t cardiac history. Likely anemia of chronic disease though his ferritin is on the low side. Continue ferrous sulfate. Stool guaiac negative. repeat CBC tomorrow. (3) Sick sinus syndrome Current Visit: Yes Status: Acute Code(s): I49.5 - SICK SINUS SYNDROME SNOMED Code(s): 83431488 Comment: S/P Pacemaker, interrogation report on chart. Sensing parameters changed to detect slower ventricular arrythmias. Monitor with occassional paced beats~ did have short run of SVT during the night a symptomatic (4) Diastolic CHF Current Visit: No Status: Acute Code(s): I50.30 - UNSPECIFIED DIASTOLIC ( CONGESTIVE) HEART FAILURE SNOMED Code(s): 232798554 Comment: Swollen legs, Lungs sounds are diminished t/o bilat, no rales on exam Will get chest xray today~ required o2 over night for oxygen saturations 85%~ cxr showed pulmonary edema ~ will give lasix 20mg iv Strict I+O, daily weights, heart healthy diet. Resume home lasix MWF. Monitor closely (5) Atrial fibrillation Current Visit: No Status: Acute Priority: Medium Code(s): I48.91 - UNSPECIFIED ATRIAL FIBRILLATION SNOMED Code(s): 57920143 Comment: In NSR on telemetry with occasional paced beat and frequent PVC's Had a run of SVT during the night, asymptomatic, increased PVC's on the monitor ~ d/t the increased arrthymias will check troponin in the AM. Continue Atenolol. Resume Eliquis. (6) Confusion Current Visit: Yes Status: Acute Code(s): R41.0 - DISORIENTATION, UNSPECIFIED SNOMED Code(s): 196334036 Comment: ~ suspect this is related to hospitalization and narcotic use for pain ~ patient with increased lethergy with narcotic use ~ will decrease percocet to 1 tablet every 4 hours (7) Hypermagnesemia Current Visit: Yes Status: Acute Code(s): E83.41 - HYPERMAGNESEMIA SNOMED Code(s): 33498778 Comment: ~ suspect this could be related to MOM scheduled dosing ~ will stop ~ will repeat magnesium level in the AM. (8) DVT prophylaxis Current Visit: No Status: Acute Priority: Medium Code(s): KNA7023 - SNOMED Code(s): 799732171 Comment: Марина. Status and Disposition: Admitted inpatient S/P orthopedic surgery. disposition~ pending
[2017-05-26] MEDS: oxyCODONE/Acetamin 5/325 MG* TAB PO PRN (13:41)
--- NOTE | 2017-05-26 15:13 | RAD ---
HISTORY: Shortness of breath COMPARISONS: May 18, 2017 VIEWS: 1: frontal portable view of the chest at 2:42 PM FINDINGS: LINES AND TUBES: A left-sided pacemaker is noted. CARDIOMEDIASTINAL SILHOUETTE: The cardiomediastinal silhouette is stable. PLEURA: There is stable right pleural thickening versus a small right pleural effusion LUNG PARENCHYMA: There is a diffuse reticular pattern with indistinct pulmonary vessels. ABDOMEN: The upper abdomen is clear. There is no subphrenic gas. BONES AND SOFT TISSUES: The patient is status post median sternotomy. Degenerative changes are noted. IMPRESSION: PULMONARY INTERSTITIAL EDEMA
[2017-05-26] MEDS: Polyethylene Glycol 3350* 17 GM PACKET PO PRN (18:04)
[2017-05-26] MEDS ORDERED: Furosemide IV* 10 MG/ML 2 ML VIAL (20 MG) IV SLOW PU ONE (18:37)
[2017-05-26] MEDS: Cephalexin CAP* 500 MG PO SCH (20:28)
--- NOTE | 2017-05-26 20:51 | PN ---
Progress Note - Progress Note Date of Service: 05/26/17 Note: Paged for an elevated trop of 0.15. He has a cardiac hx. POD #1 from tibial fx repair. Confused but per nurse denies CP. Will check ECG, add on trop from this am labs, trend trop. Patient on Eliquis and ASA 81 mg currently.
[2017-05-26] MEDS ORDERED: oxyCODONE/Acetamin 5/325 MG* TAB PO PRN (22:20)
[2017-05-27] MEDS: Acetaminophen TAB* 325 MG PO PRN ×3 (05:40→20:16)
[2017-05-27] MEDS: Omeprazole CAP* 20 MG PO SCH (05:40)
[2017-05-27 06:18] LABS: ABS Basophils 0 10^3/ul (0-0.2); ABS Eosinophils 0.4 10^3/ul (0-0.6); ABS Lymphocytes 0.8 10^3/ul (1.0-4.8); ABS Neutrophils 6.6 10^3/ul (1.5-7.7); ABS Nucleated RBC 0 10^3/ul; Eosinophil % 4.6 % (0-6); Hematocrit 26 % (42-52); Hemoglobin 8.7 g/dl (14.0-18.0); Lymphocyte % 9.2 % (25-47); Mean Corpuscular HGB Conc 33 g/dl (31-36); Mean Corpuscular Hemoglobin 31 pg (27-31); Mean Corpuscular Volume 92 fL (80-94); Mean Platelet Volume 8.2 um3 (7.4-10.4); Nucleated Red Blood Cells % 0; Platelet Count 266 10^3/ul (150-450); Red Blood Count 2.84 10^6/ul (4.0-5.4); Red Cell Distribution Width 15 % (10.5-15); White Blood Count 8.9 10^3/ul (3.5-10.8)
[2017-05-27 06:33] LABS: EGFR Non-African American 41.3 (>60)
[2017-05-27] MEDS ORDERED: Furosemide IV* 10 MG/ML 2 ML VIAL (20 MG) IV SLOW PU ONE (07:03)
[2017-05-27] MEDS: Gabapentin CAP(*) 300 MG PO SCH ×3 (08:57→20:17)
[2017-05-27] MEDS: Cephalexin CAP* 500 MG PO SCH ×3 (08:57→20:16)
[2017-05-27] MEDS: Atenolol TAB* 25 MG PO SCH (08:57)
[2017-05-27] MEDS: Apixaban* 2.5 MG TAB PO SCH ×2 (08:57→20:16)
[2017-05-27] MEDS: Atorvastatin* 40 MG TAB PO SCH (08:57)
[2017-05-27] MEDS: Aspirin EC TAB* 81 MG TAB.EC PO SCH (08:57)
[2017-05-27] MEDS: Senna TAB PO SCH ×2 (08:58→20:16)
[2017-05-27] MEDS ORDERED: Furosemide TAB* 40 MG PO SCH (09:00)
[2017-05-27] MEDS: Insulin GLARGINE(*) 1 UNITS UNIT SUBCUT SCH ×2 (09:07→18:10)
[2017-05-27] MEDS: Insulin LISPRO* 1 UNITS UNIT SUBCUT SCH ×7 (09:07→21:18)
--- NOTE | 2017-05-27 09:37 | PN ---
Progress Note - Progress Note Date of Service: 05/27/17 SOAP: Subjective: 87 y/o male sp L Tib plat fx 05/[address] Sánchez. patient with no complaints , questions. VSS, afebrile overnight. Objective: General- Well appearing, NAD, AO Sitting in chair comfortably. MSK- LLE- incisions c/d/i, obi in place. + superficial abrasions with mild erythema surrounding, no drainage, odor. SITLT. knee immoblizer in place with cyro unit. Vital Signs Temp 97.6 F 05/27/17 07:34 Pulse 59 05/27/17 07:34 Resp 16 05/27/17 08:57 BP 107/50 05/27/17 07:34 Pulse Ox 97 05/27/17 07:34 Intake & Output 05/26/17 05/27/17 05/27/17 18:59 06:59 18:59 Intake Total 260 650 250 Output Total 450 1275 Balance -190 -625 250 Weight 112.309 kg Intake: Oral 260 650 250 Output: Urine 0 [place] 450 1275 Other: Date of Last Bowel 05/27/17 Movement # Bowel Movements 2 Estimated Stool Amount Medium Assessment: Stable 87 y/o male sp L Tib plat fx 05/[address] Sánchez. Plan: - DVT prophylaxis- Eliquis - Continue PT/ OT - Follow up with Dr. Sánchez within 10-14 days post-op - H&H - stable s/p 1 Unit yesterday, continue to monitor - post-op IV ABX- Keflex 500mg TID - D/C to rehab/ SNF when cleared by hospitalists. Acetaminophen (Tylenol Tab*) 650 mg PO Q4H PRN PRN Reason: FEVER/PAIN Last Admin: 05/27/17 05:40 Dose: 650 mg Al Hydrox/Mg Hydrox/Simethicone (Maalox Plus*) 30 ml PO Q6H PRN PRN Reason: INDIGESTION Albuterol (Ventolin Hfa Inhaler*) 1 puff INH Q6H PRN PRN Reason: SHORTNESS OF BREATH Apixaban (Eliquis) 2.5 mg PO BID [facility] Last Admin: 05/27/17 08:57 Dose: 2.5 mg Aspirin (Aspirin Ec Low Dose*) 81 mg PO DAILY [facility] Last Admin: 05/27/17 08:57 Dose: 81 mg Atenolol (Tenormin Tab*) 25 mg PO DAILY [facility] Last Admin: 05/27/17 08:57 Dose: 25 mg Atorvastatin Calcium (Lipitor*) 40 mg PO DAILY [facility] Last Admin: 05/27/17 08:57 Dose: 40 mg Cephalexin HCl (Keflex Cap*) 500 mg PO TID [facility] Stop: 05/29/17 14:01 Last Admin: 05/27/17 08:57 Dose: 500 mg Collagenase (Santyl 250 Mg/Gm Oint*) 1 applic TOPICAL DAILY [facility] Last Admin: 05/26/17 09:30 Dose: 1 applic Dextrose (D50w Syringe 50 Ml*) 12.5 gm IV PUSH .FOR FS < 60 - SS PRN PRN Reason: FS < 60 Docusate Sodium (Colace Cap*) 100 mg PO BID PRN PRN Reason: CONSTIPATION Last Admin: 05/25/17 09:49 Dose: 100 mg Gabapentin (Neurontin Cap(*)) 600 mg PO TID [facility] Last Admin: 05/27/17 08:57 Dose: 600 mg Insulin Glargine (Lantus(*)) 40 units SUBCUT QAM [facility] Last Admin: 05/27/17 09:07 Dose: 40 units Insulin Glargine (Lantus(*)) 45 units SUBCUT QPM [facility] Last Admin: 05/26/17 18:28 Dose: 45 units Insulin Human Lispro (Humalog*) 0 units SUBCUT AC [facility] PRN Reason: Protocol Last Admin: 05/27/17 09:07 Dose: 2 units Insulin Human Lispro (Humalog*) 0 units SUBCUT 0730,1130,1630,2130 [facility] PRN Reason: Protocol Last Admin: 05/27/17 09:08 Dose: 3 units Omeprazole (Prilosec Cap*) 20 mg PO 0600 [facility] Last Admin: 05/27/17 05:40 Dose: 20 mg Ondansetron HCl (Zofran Inj*) 4 mg IV Q4H PRN PRN Reason: NAUSEA/VOMITING Ondansetron HCl (Zofran Inj*) 4 mg IV Q6H PRN PRN Reason: nausea Oxycodone/Acetaminophen (Percocet 5/325 Tab*) 1 tab PO Q4H PRN PRN Reason: PAIN Polyethylene Glycol/Electrolytes (Miralax*) 17 gm PO DAILY PRN PRN Reason: CONSTIPATION Last Admin: 05/26/17 18:04 Dose: 17 gm Senna (Senokot Tab*) 1 tab PO BID [facility] Last Admin: 05/27/17 08:58 Dose: 1 tab
[2017-05-27] MEDS: Collagenase 250 MG/GM OINT* 30 GM TOPICAL SCH (11:56)
--- NOTE | 2017-05-27 13:43 | PN ---
Subjective Date of Service: 05/27/17 Interval History: Patient has no complaints today. Up in the chair shaving. No CP, SOB, N/V, Feels somewhat constipated but has had improvement in this recently due to 2 BMs. Patient has no F/C. Pain in leg controlled at rest. Unable to stand with PT , up with Francis. No palpitations. Interested in rehab in [place]. Family History: Unchanged from Admission Social History: Unchanged from Admission Past Medical History: Unchanged from Admission Objective Active Medications: Acetaminophen (Tylenol Tab*) 650 mg PO Q4H PRN PRN Reason: FEVER/PAIN Last Admin: 05/27/17 11:59 Dose: 650 mg Al Hydrox/Mg Hydrox/Simethicone (Maalox Plus*) 30 ml PO Q6H PRN PRN Reason: INDIGESTION Albuterol (Ventolin Hfa Inhaler*) 1 puff INH Q6H PRN PRN Reason: SHORTNESS OF BREATH Apixaban (Eliquis) 2.5 mg PO BID [facility] Last Admin: 05/27/17 08:57 Dose: 2.5 mg Aspirin (Aspirin Ec Low Dose*) 81 mg PO DAILY [facility] Last Admin: 05/27/17 08:57 Dose: 81 mg Atenolol (Tenormin Tab*) 25 mg PO DAILY [facility] Last Admin: 05/27/17 08:57 Dose: 25 mg Atorvastatin Calcium (Lipitor*) 40 mg PO DAILY [facility] Last Admin: 05/27/17 08:57 Dose: 40 mg Cephalexin HCl (Keflex Cap*) 500 mg PO TID [facility] Stop: 06/02/17 20:59 Last Admin: 05/27/17 08:57 Dose: 500 mg Collagenase (Santyl 250 Mg/Gm Oint*) 1 applic TOPICAL DAILY [facility] Last Admin: 05/27/17 11:56 Dose: 1 applic Dextrose (D50w Syringe 50 Ml*) 12.5 gm IV PUSH .FOR FS < 60 - SS PRN PRN Reason: FS < 60 Docusate Sodium (Colace Cap*) 100 mg PO BID PRN PRN Reason: CONSTIPATION Last Admin: 05/25/17 09:49 Dose: 100 mg Gabapentin (Neurontin Cap(*)) 600 mg PO TID [facility] Last Admin: 05/27/17 08:57 Dose: 600 mg Insulin Glargine (Lantus(*)) 40 units SUBCUT QAM [facility] Last Admin: 05/27/17 09:07 Dose: 40 units Insulin Glargine (Lantus(*)) 50 units SUBCUT QPM [facility] Insulin Human Lispro (Humalog*) 0 units SUBCUT AC [facility] PRN Reason: Protocol Last Admin: 05/27/17 09:07 Dose: 2 units Insulin Human Lispro (Humalog*) 0 units SUBCUT 0730,1130,1630,2130 [facility] PRN Reason: Protocol Last Admin: 05/27/17 09:08 Dose: 3 units Omeprazole (Prilosec Cap*) 20 mg PO 0600 [facility] Last Admin: 05/27/17 05:40 Dose: 20 mg Ondansetron HCl (Zofran Inj*) 4 mg IV Q4H PRN PRN Reason: NAUSEA/VOMITING Ondansetron HCl (Zofran Inj*) 4 mg IV Q6H PRN PRN Reason: nausea Oxycodone/Acetaminophen (Percocet 5/325 Tab*) 1 tab PO Q4H PRN PRN Reason: PAIN Polyethylene Glycol/Electrolytes (Miralax*) 17 gm PO DAILY PRN PRN Reason: CONSTIPATION Last Admin: 05/26/17 18:04 Dose: 17 gm Senna (Senokot Tab*) 1 tab PO BID [facility] Last Admin: 05/27/17 08:58 Dose: 1 tab Vital Signs - 8 hr 05/27/17 05/27/17 05/27/17 07:31 07:34 08:57 Temperature 97.6 F Pulse Rate 59 Respiratory 18 18 16 Rate Blood Pressure 107/50 (mmHg) O2 Sat by Pulse 95 97 Oximetry 05/27/17 05/27/17 05/27/17 11:21 11:36 11:57 Temperature 97.9 F Pulse Rate 60 Respiratory 18 16 Rate Blood Pressure 114/48 (mmHg) O2 Sat by Pulse 97 99 Oximetry Oxygen Devices in Use Now: None Appearance: Patient is an 87yo male who appears stated age and is sitting in the bed in NAD. Eyes: No Scleral Icterus, PERRLA Ears/Nose/Mouth/Throat: NL Teeth, Lips, Gums, Clear Oropharnyx, Mucous Membranes Moist Neck: NL Appearance and Movements; NL JVP, Trachea Midline Respiratory: Symmetrical Chest Expansion and Respiratory Effort, - - Diminished in Bases with slight crackles. Cardiovascular: NL Sounds; No Murmurs; No JVD, RRR, - - 1+ edema in B/L LE. Improved from previous exam. Abdominal: No Hepatosplenomegaly, - - Distended, slightly tender throughout without guarding. Lymphatic: No Cervical Adenopathy Extremities: No Clubbing, Cyanosis Skin: No Nodules or Sclerosis, - - Abrasions on right leg without surrounding erythema. Slight amount of discharge. Left leg surgical incision covered by bulky dressing. Neurological: Alert and Oriented x 3, NL Sensation, NL Muscle Strength and Tone , - - CN II-XII intact. Result Diagrams: 05/27/17 06:04 05/27/17 06:04 Microbiology and Other Data: . Assess/Plan/Problems-Billing Assessment: Mr. De La Torre is an 87yo male with a PMH for HFpEF, aortic stenosis S/P valve replacement with valve deterioration, CKD, DM II, [place] S/P stents who had a mechanical fall and then an episode of syncope in the setting of pain who has a tibial plateau fracture needing surgical repair on 05/24, now recovering well. - Patient Problems (1) Syncope Current Visit: No Status: Acute Code(s): R55 - SYNCOPE AND COLLAPSE SNOMED Code(s): 578423263 Comment: No prodromal symptoms, nausea afterward. Likely vasovagal in setting of pain and possible dehydration. Pacemaker interrogation shows no ventricular or atrial tachyarrhythmias. Non- specific stable ST changes on EKG. 8 beats ov Vtach overnight with no symptoms. No previous Vtach sensed by pacemaker on interrogation. Appreciate Cardiology input. Frequent PVCs. Recent Echo. Trop elevated at .15, patient has chronically elevated trop. Keep Potassium and Magnesium WNL. Continue BB. (2) Tibial plateau fracture, left Current Visit: Yes Status: Acute Code(s): S82.142A - DISPLACED BICONDYLAR FRACTURE OF LEFT TIBIA, INIT SNOMED Code(s): 474972121 Comment: Mechanical fall with tibial plateau fracture. Leg in immobilizer. Syncope workup negative for cardiac causes. Cardiac consult appreciated, no further cardiac testing indicated Appreciate Ortho Consult. S/P surgery on 05/24. Recovering well with mild pain to left leg today. PT/OT per Ortho knee immobilizer intact to left leg, with stanislaw wrap to left knee. NWB to left leg at least until follow up outpatient. BM today but still feels constipated. Continue bowel regimen. Avoid MOM while hypermagnesemic. (3) Sick sinus syndrome Current Visit: Yes Status: Acute Code(s): I49.5 - SICK SINUS SYNDROME SNOMED Code(s): 38969880 Comment: S/P Pacemaker, interrogation report on chart. Sensing parameters changed to detect slower ventricular arrythmias. Monitor with frequent paced beats. Did have short run of SVT during the night asymptomatic (4) Atrial fibrillation Current Visit: No Status: Acute Priority: Medium Code(s): I48.91 - UNSPECIFIED ATRIAL FIBRILLATION SNOMED Code(s): 54925079 Comment: In NSR on telemetry with occasional paced beat and frequent PVC's Had a run of SVT during the night, asymptomatic, increased PVC's on the monitor Elevated troponin, stable and slightly up from baseline. No CP or EKG changes. Likely demand ischemia from surgery combined with CKD. Continue Atenolol. Resume Eliquis. (5) Diastolic CHF Current Visit: No Status: Acute Code(s): I50.30 - UNSPECIFIED DIASTOLIC ( CONGESTIVE) HEART FAILURE SNOMED Code(s): 242488270 Comment: Swollen legs, Lungs sounds are diminished bilaterally in [place] with slight crackles. On RA, will give lasix IV again today. Strict I+O, daily weights, heart healthy diet. Resume home lasix MWF. Monitor closely (6) Type II diabetes mellitus Current Visit: No Status: Acute Comment: Continue Lispro SS and carb counting. Resume home lantus. Check A1c. (7) Full code status Current Visit: No Status: Acute Code(s): Z78.9 - OTHER SPECIFIED HEALTH STATUS SNOMED Code(s): 042484372 Comment: (8) DVT prophylaxis Current Visit: No Status: Acute Priority: Medium Code(s): NQT1004 - SNOMED Code(s): 359058670 Comment: Eliquis. Status and Disposition: Admitted inpatient S/P orthopedic surgery. To [facility] when bed available.
[2017-05-28] MEDS: Acetaminophen TAB* 325 MG PO PRN (05:29)
[2017-05-28] MEDS: Omeprazole CAP* 20 MG PO SCH (05:29)
[2017-05-28 05:37] LABS: ABS Basophils 0 10^3/ul (0-0.2); ABS Eosinophils 0.5 10^3/ul (0-0.6); ABS Lymphocytes 0.9 10^3/ul (1.0-4.8); ABS Monocytes 0.8 10^3/ul (0-0.8); ABS Neutrophils 5.6 10^3/ul (1.5-7.7); ABS Nucleated RBC 0 10^3/ul; Eosinophil % 6.4 % (0-6); Hematocrit 28 % (42-52); Hemoglobin 9.1 g/dl (14.0-18.0); Lymphocyte % 11.4 % (25-47); Mean Corpuscular HGB Conc 33 g/dl (31-36); Mean Corpuscular Hemoglobin 30 pg (27-31); Mean Corpuscular Volume 92 fL (80-94); Mean Platelet Volume 8.5 um3 (7.4-10.4); Nucleated Red Blood Cells % 0; Platelet Count 328 10^3/ul (150-450); Red Blood Count 3.06 10^6/ul (4.0-5.4); Red Cell Distribution Width 15 % (10.5-15); White Blood Count 7.8 10^3/ul (3.5-10.8)
[2017-05-28 05:56] LABS: EGFR Non-African American 42.8 (>60)
[2017-05-28] MEDS: Senna TAB PO SCH ×2 (09:04→22:13)
[2017-05-28] MEDS: Insulin GLARGINE(*) 1 UNITS UNIT SUBCUT SCH ×2 (09:04→18:15)
[2017-05-28] MEDS: Atenolol TAB* 25 MG PO SCH (09:04)
[2017-05-28] MEDS: Atorvastatin* 40 MG TAB PO SCH (09:04)
[2017-05-28] MEDS: Aspirin EC TAB* 81 MG TAB.EC PO SCH (09:04)
[2017-05-28] MEDS: Apixaban* 2.5 MG TAB PO SCH ×2 (09:04→22:13)
[2017-05-28] MEDS: Gabapentin CAP(*) 300 MG PO SCH ×3 (09:04→22:13)
[2017-05-28] MEDS: Cephalexin CAP* 500 MG PO SCH ×3 (09:04→22:13)
[2017-05-28] MEDS: Insulin LISPRO* 1 UNITS UNIT SUBCUT SCH ×7 (09:05→22:13)
[2017-05-28] MEDS: Collagenase 250 MG/GM OINT* 30 GM TOPICAL SCH (11:14)
--- NOTE | 2017-05-28 14:19 | PN ---
Subjective Date of Service: 05/28/17 Interval History: Patient has no complaints today, able to work with PT to get up to the chair using the roberto lift. No CP, SOB, palpitations, F/C, N/V, abdominal pain, diarrhea, constipation, or other pain. No pain in leg, no numbness or tingling in feet. Family History: Unchanged from Admission Social History: Unchanged from Admission Past Medical History: Unchanged from Admission Objective Active Medications: Acetaminophen (Tylenol Tab*) 650 mg PO Q4H PRN PRN Reason: FEVER/PAIN Last Admin: 05/28/17 05:29 Dose: 650 mg Al Hydrox/Mg Hydrox/Simethicone (Maalox Plus*) 30 ml PO Q6H PRN PRN Reason: INDIGESTION Albuterol (Ventolin Hfa Inhaler*) 1 puff INH Q6H PRN PRN Reason: SHORTNESS OF BREATH Apixaban (Eliquis) 2.5 mg PO BID [facility] Last Admin: 05/28/17 09:04 Dose: 2.5 mg Aspirin (Aspirin Ec Low Dose*) 81 mg PO DAILY [facility] Last Admin: 05/28/17 09:04 Dose: 81 mg Atenolol (Tenormin Tab*) 25 mg PO DAILY [facility] Last Admin: 05/28/17 09:04 Dose: 25 mg Atorvastatin Calcium (Lipitor*) 40 mg PO DAILY [facility] Last Admin: 05/28/17 09:04 Dose: 40 mg Cephalexin HCl (Keflex Cap*) 500 mg PO TID [facility] Stop: 06/02/17 20:59 Last Admin: 05/28/17 13:45 Dose: 500 mg Collagenase (Santyl 250 Mg/Gm Oint*) 1 applic TOPICAL DAILY [facility] Last Admin: 05/28/17 11:14 Dose: 1 applic Dextrose (D50w Syringe 50 Ml*) 12.5 gm IV PUSH .FOR FS < 60 - SS PRN PRN Reason: FS < 60 Docusate Sodium (Colace Cap*) 100 mg PO BID PRN PRN Reason: CONSTIPATION Last Admin: 05/25/17 09:49 Dose: 100 mg Gabapentin (Neurontin Cap(*)) 600 mg PO TID [facility] Last Admin: 05/28/17 13:45 Dose: 600 mg Insulin Glargine (Lantus(*)) 40 units SUBCUT QAM [facility] Last Admin: 05/28/17 09:04 Dose: 40 units Insulin Glargine (Lantus(*)) 50 units SUBCUT QPM [facility] Last Admin: 05/27/17 18:10 Dose: 50 units Insulin Human Lispro (Humalog*) 0 units SUBCUT AC [facility] PRN Reason: Protocol Last Admin: 05/28/17 13:21 Dose: 4 units Insulin Human Lispro (Humalog*) 0 units SUBCUT 0730,1130,1630,2130 [facility] PRN Reason: Protocol Last Admin: 05/28/17 13:21 Dose: 6 units Omeprazole (Prilosec Cap*) 20 mg PO 0600 [facility] Last Admin: 05/28/17 05:29 Dose: 20 mg Ondansetron HCl (Zofran Inj*) 4 mg IV Q4H PRN PRN Reason: NAUSEA/VOMITING Ondansetron HCl (Zofran Inj*) 4 mg IV Q6H PRN PRN Reason: nausea Oxycodone/Acetaminophen (Percocet 5/325 Tab*) 1 tab PO Q4H PRN PRN Reason: PAIN Polyethylene Glycol/Electrolytes (Miralax*) 17 gm PO DAILY PRN PRN Reason: CONSTIPATION Last Admin: 05/26/17 18:04 Dose: 17 gm Senna (Senokot Tab*) 1 tab PO BID [facility] Last Admin: 05/28/17 09:04 Dose: 1 tab Vital Signs - 8 hr 05/28/17 05/28/17 05/28/17 07:37 08:00 09:04 Temperature 98.4 F Pulse Rate 64 Respiratory 18 16 18 Rate Blood Pressure 132/63 (mmHg) O2 Sat by Pulse 96 92 Oximetry 05/28/17 05/28/17 05/28/17 09:14 11:29 13:21 Temperature 97.8 F Pulse Rate 60 Respiratory 16 18 Rate Blood Pressure 108/41 (mmHg) O2 Sat by Pulse 93 97 Oximetry 05/28/17 13:45 Temperature Pulse Rate Respiratory 18 Rate Blood Pressure (mmHg) O2 Sat by Pulse Oximetry Oxygen Devices in Use Now: None Appearance: Patient is an 87yo male who appears stated age and is sitting in the bed in [facility]. Eyes: No Scleral Icterus, PERRLA Ears/Nose/Mouth/Throat: NL Teeth, Lips, Gums, Clear Oropharnyx, Mucous Membranes Moist Neck: NL Appearance and Movements; NL JVP, Trachea Midline Respiratory: Symmetrical Chest Expansion and Respiratory Effort, Clear to Auscultation Cardiovascular: RRR, - - 1+ edema in B/L LE. Decreased from previous exam. Abdominal: NL Sounds; No Tenderness; No Distention, No Hepatosplenomegaly Lymphatic: No Cervical Adenopathy Extremities: No Clubbing, Cyanosis, - - 1+ edema. Left knee covered in bulky dressing. Skin: No Nodules or Sclerosis Neurological: Alert and Oriented x 3, NL Sensation, NL Muscle Strength and Tone , - - CN II-XII intact. Result Diagrams: 05/28/17 05:01 05/28/17 05:01 Microbiology and Other Data: . Assess/Plan/Problems-Billing Assessment: Mr. De La Torre is an 87yo male with a PMH for HFpEF, aortic stenosis S/P valve replacement with valve deterioration, CKD, DM II, TN S/P stents who had a mechanical fall and then an episode of syncope in the setting of pain who has a tibial plateau fracture needing surgical repair on 05/24, now recovering well. Plan for discharge tomorrow for rehab. - Patient Problems (1) Syncope Current Visit: No Status: Acute Code(s): R55 - SYNCOPE AND COLLAPSE SNOMED Code(s): 947845140 Comment: No prodromal symptoms, nausea afterward. Likely vasovagal in setting of pain and possible dehydration. Pacemaker interrogation shows no ventricular or atrial tachyarrhythmias. Non- specific stable ST changes on EKG. Small runs of Vtach and PVCs with no symptoms. No previous Vtach sensed by pacemaker on interrogation. Appreciate Cardiology input. Frequent PVCs. Recent Echo. Trop elevated at .15, patient has chronically elevated trop. Keep Potassium and Magnesium WNL. Continue BB. (2) Tibial plateau fracture, left Current Visit: Yes Status: Acute Code(s): S82.142A - DISPLACED BICONDYLAR FRACTURE OF LEFT TIBIA, INIT SNOMED Code(s): 863595942 Comment: Mechanical fall with tibial plateau fracture. Leg in immobilizer. Appreciate Ortho Consult. S/P surgery on 05/24. Recovering well with mild pain to left leg today. PT/OT per Ortho knee immobilizer intact to left leg, with stanislaw wrap to left knee. NWB to left leg at least until follow up outpatient. Continue bowel regimen. Avoid MOM while hypermagnesemic. (3) Sick sinus syndrome Current Visit: Yes Status: Acute Code(s): I49.5 - SICK SINUS SYNDROME SNOMED Code(s): 78192888 Comment: S/P Pacemaker, interrogation report on chart. Sensing parameters changed to detect slower ventricular arrythmias. Monitor with frequent paced beats and PVCs (4) Atrial fibrillation Current Visit: No Status: Acute Priority: Medium Code(s): I48.91 - UNSPECIFIED ATRIAL FIBRILLATION SNOMED Code(s): 93039824 Comment: In NSR on telemetry with occasional paced beat and frequent PVC's Elevated troponin, stable and slightly up from baseline. No CP or EKG changes. Likely demand ischemia from surgery combined with CKD. Continue Atenolol. Resume Eliquis. (5) Diastolic CHF Current Visit: No Status: Acute Code(s): I50.30 - UNSPECIFIED DIASTOLIC ( CONGESTIVE) HEART FAILURE SNOMED Code(s): 701477795 Comment: Decreased swelling in legs. Strict I+O, daily weights, heart healthy diet. Resume home lasix MWF. Monitor closely (6) Type II diabetes mellitus Current Visit: No Status: Acute Comment: Continue Lispro SS and carb counting. Poor control during the day. Increased lantus. A1c 8.7 (7) Full code status Current Visit: No Status: Acute Code(s): Z78.9 - OTHER SPECIFIED HEALTH STATUS SNOMED Code(s): 205704217 Comment: (8) DVT prophylaxis Current Visit: No Status: Acute Priority: Medium Code(s): DDK3956 - SNOMED Code(s): 013825150 Comment: Eliquis. Status and Disposition: Admitted inpatient S/P orthopedic surgery. Plan for discharge to [place] tomorrow.
[2017-05-29] MEDS: Omeprazole CAP* 20 MG PO SCH (05:25)
[2017-05-29 05:38] LABS: Hematocrit 27 % (42-52); Hemoglobin 9.2 g/dl (14.0-18.0)
[2017-05-29 05:54] LABS: EGFR Non-African American 48.6 (>60)
--- NOTE | 2017-05-29 08:39 | PN ---
Progress Note - Progress Note Date of Service: 05/29/17 SOAP: Subjective: []Patient seen at bedside. He feels well with no pain of his LLE. He is ready for discharge today with no concerns or complaints. Objective: [] Vital Signs Temp 98.5 F 05/29/17 07:32 Pulse 73 05/29/17 07:32 Resp 18 05/29/17 07:32 BP 108/42 05/29/17 07:32 Pulse Ox 100 05/29/17 07:32 Intake & Output 05/28/17 05/29/17 05/29/17 18:59 06:59 18:59 Intake Total 480 240 Output Total 850 1105 Balance -370 -865 Intake: Oral 480 240 Output: Urine 0 [place] 850 425 Straight Cath 680 Other: # Bowel Movements 1 Estimated Stool Amount Large Temp Pulse Resp BP Pulse Ox 98.5 F 73 18 108/42 100 05/29/17 07:32 05/29/17 07:32 05/29/17 07:32 05/29/17 07:32 05/29/17 07:32 General: Well appearing, NAD. Laying comfortably in bed LLE: Dressing changed. Incision CDI with well approximated wound edges. Abrasion over anterior knee is healing well. Knee is not hot or erythematous. PROM 0-90 degrees with ease. DF/PF intact. Sensation intact and capillary refill less than two seconds distally. DP pulse 2+. Assessment: []87 y/o male sp L Tib plat fx 05/[address] Sánchez. Plan: []- DVT prophylaxis- Eliquis - Continue PT/ OT - Follow up with Dr. Sánchez within 10-14 days post-op - Daily dry sterile dressing change
[2017-05-29] MEDS: Atorvastatin* 40 MG TAB PO SCH (09:00)
[2017-05-29] MEDS ORDERED: Tamsulosin CAP* 0.4 MG PO SCH (09:00)
[2017-05-29] MEDS ORDERED: Furosemide TAB* 20 MG PO SCH (09:00)
[2017-05-29] MEDS: Senna TAB PO SCH (09:00)
[2017-05-29] MEDS: Atenolol TAB* 25 MG PO SCH (09:00)
[2017-05-29] MEDS: Apixaban* 2.5 MG TAB PO SCH (09:00)
[2017-05-29] MEDS ORDERED: Finasteride TAB* 5 MG PO SCH (09:00)
[2017-05-29] MEDS: Aspirin EC TAB* 81 MG TAB.EC PO SCH (09:00)
[2017-05-29] MEDS: Cephalexin CAP* 500 MG PO SCH (09:00)
[2017-05-29] MEDS: Collagenase 250 MG/GM OINT* 30 GM TOPICAL SCH (09:01)
[2017-05-29] MEDS: Gabapentin CAP(*) 300 MG PO SCH (09:01)
[2017-05-29] MEDS: Insulin GLARGINE(*) 1 UNITS UNIT SUBCUT SCH (09:24)
[2017-05-29] MEDS: Insulin LISPRO* 1 UNITS UNIT SUBCUT SCH ×4 (09:25→12:24)
--- NOTE | 2017-05-29 09:53 | DS ---
DISCHARGE SUMMARY DATE OF ADMISSION: 05/19/2017 DATE OF DISCHARGE: 05/29/2017 PRIMARY CARE PROVIDER: Dr. Ramsey MY ATTENDING WHILE IN THE HOSPITAL: Dr. Kevan Sadler * (DICTATED BY NEYDA THOMAS) CONSULTING PROVIDERS: 1. Dr. Evgeny Sánchez 2. Dr. Oneida Fields of Orthopedics 3. Dr. Kaveh Cadet 4. Dr. Nishi Mccullough of Cardiology PRIMARY DISCHARGE DIAGNOSES: 1. Tibial plateau fracture status post open reduction internal fixation. 2. Syncope likely noncardiogenic. 3. Nonsustained ventricular tachycardia. 4. Acute urinary retention. SECONDARY DISCHARGE DIAGNOSES: 1. Diastolic heart failure. 2. Coronary artery disease. 3. CABG. 4. Diabetes type 2 with half-way use of insulin. 5. Chronic kidney disease stage 3. 6. Hypertension. 7. Obstructive sleep apnea. 8. Prosthetic aortic valve. 9. Atrial fibrillation. 10. Hyperlipidemia. 11. Neuropathy. 12. Gastroesophageal reflux disease. STUDIES DONE WHILE IN THE HOSPITAL: 1. Electrocardiogram from 05/18/17 read as normal sinus rhythm, right bundle branch block, left axis deviation. Prolonged QR. Left atrial enlargement. Poor R wave progression across the precordium. Nonspecific ST segment changes. No other abnormalities. Consistent with previous record. 2. EKG from 05/26/17 shows poor quality study. T wave inversions laterally to more pronounced. No other significant changes. 3. Repeat EKG from 05/26/17 shows atrial paced complexes, no other significant changes. Continued artifact in the lateral leads. 4. Lower extremity x-ray from 05/18/17. Tibial plateau fracture as well as left knee joint effusion/hemarthrosis. 5. Lower extremity x-ray from 05/18/17 shows soft tissue swelling without evidence for right lower leg fracture. 6. Brain CT from 05/18/17 read as moderate involutional change, no acute intracranial process evident. 7. Chest x-ray from 05/18/17 read as no traumatic injury evident, unchanged findings of right moderate hemithorax volume loss, atelectasis and possible small right komal pleural effusion. Unchanged cardiomegaly without evidence for pulmonary edema. 8. Lower extremity CT from 05/18/17 read as acute grossly nondisplaced comminuted tibial plateau fracture. Kellgren and Keegan grade 4 osteoarthritis. 9. Transthoracic echocardiogram from 05/19/17 read as left ventricular chamber size normal, mild to moderate concentric left ventricular hypertrophy, normal left ventricular systolic function. Estimated ejection fraction 55% to 60%. Right ventricular cavity size normal. Right ventricular global systolic function low normal. Pacemaker wire visualized in the right ventricle. Poorly visualized aortic valve prosthesis with no significant regurgitation and stable velocity/gradient, no significant changes from 02/13/17. 10. Chest x-ray from 05/26/17 read as pulmonary interstitial edema. MEDICATIONS AT DISCHARGE: 1. Furosemide 20 mg p.o. Saturday, Saturday, Saturday. 2. Aspirin 81 mg p.o. daily. 3. Eliquis 2.5 mg p.o. b.i.d. 4. Lipitor 40 mg p.o. daily. 5. Atenolol 25 mg p.o. daily. 6. Insulin glargine 40 units subcutaneous q.a.m. 7. Albuterol 1 puff inhalation every 6 hours as needed. 8. Lansoprazole 30 mg p.o. q.a.m. 9. Multivitamin 1 tab p.o. daily. 10. Bactroban 1 application topically daily as needed. 11. Gabapentin 600 mg p.o. t.i.d. 12. Collagenase ointment 1 application, see order, daily. 13. Zofran 4 mg p.o. every 6 hours as needed. 14. Glucosamine chondroitin 1 cap p.o. b.i.d. 15. Tylenol 650 mg p.o. every 4 hours as needed. 16. Keflex 500 mg p.o. t.i.d. x12. 17. Docusate 100 mg p.o. b.i.d. as needed. 18. Finasteride 5 mg p.o. daily. 19. Insulin sliding scale a.c. h.s. 20. Insulin carb counting a.c. 21. Percocet 5/325 one tab p.o. every 4 hours as needed. 22. Polyethylene glycol 17 g p.o. daily as needed. 23. Flomax 0.4 mg p.o. daily. 24. Senna 1 tab p.o. b.i.d. as needed. 25. Glargine insulin 50 units subcutaneous q.p.m. 26. Glipizide 5 mg p.o. t.i.d. New medications at discharge: 1. Tylenol. 2. Keflex. 3. Docusate. 4. Finasteride. 5. Lispro carb counting. 6. Percocet. 7. MiraLax. 8. Flomax. 9. Senna. Medications discontinued at discharge: 1. Levofloxacin. HOSPITAL COURSE: This is a brief summary of the patient's presentation. For more details, please see history and physical from Dr. Ling Barnhart on . In brief, the patient is an 87-year-old male with past medical history as above, who was working in his garage when he had a mechanical fall and fell backwards into the pit of his garage injuring his left knee. He got up, drove himself to his friend's house. The patient was in significant pain and while he was there passed out without any prodromal symptoms. He was unresponsive for approximately 20 minutes. Patient had no recent illnesses or other has not been feeling well. Patient has increased swelling in his legs, but had no significant increase in dyspnea on exertion or changes in exercise tolerance at time leading up to his hospitalization. Patient came into the Emergency Department and was found to have a tibial plateau fracture as above. Patient was seen in consultation by Dr. Oneida Fields of Orthopedics who recommended ORIF and bedrest. Patient opted for surgery. Patient was seen in consultation by Dr. Kaveh Cadet of Cardiology and was deemed to be medially optimized for surgery. Patient had his pacemaker interrogated which showed no accelerated ventricular arrhythmias or other cardiac explanation for his syncope. Patient had an echocardiogram read as above. Patient was otherwise stable. Patient had negative troponin measurements. Patient had an uncomplicated hospital stay. Patient was found to have excoriations on his right leg which showed increased swelling and erythema during his hospitalization and was started on Keflex. Patient had run of nonsustained ventricular tachycardia at 8 beats on 05/24/17. His pacemaker settings were adjusted to read ventricular dysrhythmias at a lower rate than 180. Patient was deemed to still be medically optimized for surgery. Patient underwent ORIF on 05/25/17 which was uncomplicated. After surgery patient was hyponatremic, hypercalcemic and hyperglycemic higher than previous to surgery. Before the surgery his blood sugars had been relatively well controlled, even had a couple of episodes of hypoglycemia necessitating a decrease in his basal insulin coverage. Patient also had increased shortness of breath and chest x-ray showed pulmonary interstitial edema as above and was treated with IV Lasix with good resolution. Patient was also hypermagnesemic likely due to use of Milk of Magnesia. Patient had a troponin drawn on 05/26/17 for increased PVCs. Patient has a chronically elevated troponin; however, this was at 0.15 which is elevated from what previous readings have shown, but is not nearly the highest. Patient had no chest pain or EKG changes to show that this represented acute IA. This was deemed to represent demand ischemia related to his surgery. Remained stable at 0.15. Patient's glucoses were relatively difficult to control after his surgery. Patient had hemoglobin A1c drawn which was at 8.7 which was significantly decreased from 11.9 at last measurement in 2018. Patient's basal insulin coverage was changed back to his home dose. Patient was continued on basal and sliding scale insulin coverage. Patient had a slight drop in his hemoglobin after surgery likely representing blood loss during surgery, as well as hemodilution, at low of 7.9. Patient was transfused 1 unit of blood due to coronary artery disease, increased to 8.7 and then continued to increase to 9.1 and 9.2 on the day of discharge. Patient has chronic kidney disease which remained stable throughout this hospitalization. Patient's hyponatremia resolved. Patient's a.m. glucoses have been relatively well controlled. Patient's magnesium returned to within normal limits. Patient is stable for discharge on 05/29/17 to go to rehab at [facility]. Patient has worked with PT and OT in the hospital and is unable to transfer without putting weight on his leg, hence recommended to be [facility] transfer. Patient had acute urinary retention after the removal of his [place] catheter in the postoperative period. The [place] catheter was replaced on the day after his surgery and kept in place for 2 days subsequently, and then another void trial was attempted on 05/28/17 during which the patient was unable to urinate and showed urinary retention with large volumes in his bladder. [place] catheter was reintroduced. Patient was started on Flomax and finasteride, and should have another void trial in 10 days to 2 weeks which would be setup with Urology. PHYSICAL EXAMINATION ON THE DAY OF DISCHARGE: The patient is an 87-year-old male, who appears stated age and sitting comfortably in bed, in no acute distress. Vital signs at the time of discharge: Temperature 98.5, pulse rate 73 , respiratory rate 18, oxygen saturation 100% on room air, blood pressure 108/ 42. HEENT: Head normocephalic, atraumatic. Sclerae anicteric. No conjunctival injection. Nasal mucosa moist, oral mucosa moist. No pharyngeal erythema, discharge, or exudate. Neck: Supple and nontender. No lymphadenopathy. No carotid bruit auscultated. No JVD. Cardiac: Regular rate and rhythm. Grade 2/6 systolic ejection murmur heard best at the left upper sternal border. No adventitious heart sounds. 1+ pitting edema in bilateral lower extremities; significant improvement from admission. No calf tenderness. Respiratory: Clear to auscultation bilaterally. No wheezes, rales, or rhonchi. Good air exchange bilaterally. Abdomen: Distended, nontender. No hepatosplenomegaly. No abdominal bruits auscultated. Bowel sounds present, normoactive all 4 quadrants. Urinary: No suprapubic or CVA tenderness. [place] catheter in place draining dark yellow clear urine. Skin: Patient has abrasions on his right lower extremity with surrounding erythema, stable from previous examination. Healing well. Left knee surgical incision covered with bulky dressing. Neuro: Cranial nerves II through XII intact. No focal deficits. Psychiatric: Very pleasant, cooperative. LABORATORY DATA ON THE DAY OF DISCHARGE: Hemoglobin 9.2, hematocrit 2.7, sodium 138, creatinine 1.3, BUN 47, glucose 153, calcium 8.7, Magnesium 2.7. DISCHARGE PLAN: Patient will be discharged to [facility] for rehab while he is nonweightbearing on his leg with the goal of returning home with the help of his good friend. Patient should followup with Orthopedics in 2 weeks after his surgery. Patient should be nonweightbearing at least until then. Patient should followup with Urology for removal of his [place] catheter in 10 days to 2 weeks after discharge; this appointment will be set up with the Urology office. The patient should have a heart healthy diet with consistent carbohydrates. Patient should be maintained on sliding scale insulin and carb counting with a ratio of 1 unit of insulin for every 12 carbs consumed. Patient should have repeat CBC and BMP in 1 week after discharge. Patient to followup with facility physician and his primary care provider for general medical management. Patient to return to hospital for alarming symptoms such as chest pain or significant increased shortness of breath. TIME SPENT: Approximately 1 hour was spent on this discharge, 30 of which was spent [id number] with the patient, obtaining history and physical, and discussing treatment plan. NEYDA THOMAS [id number]/ELDER #: [id number] ROBIN
[2017-05-29 12:25] VITALS: BP 97/57
--- NOTE | 2017-05-29 12:45 | RAD ---
INDICATION: Medial LEFT tibial plateau fracture ORIF. COMPARISON: May 18, 2017 CT. TECHNIQUE: 49.2 seconds fluoroscopy. FINDINGS: Spot images document placement of a medial cortical plate and multiple fixation screws across the tibial plateau fracture with resulting anatomic alignment. IMPRESSION: Procedural fluoroscopy. CPT II Codes: 6045F
--- NOTE | 2017-05-29 22:28 | ED ---
Ovidio Harrison Tecjoon, scribed for Chi Roland MD on 05/18/17 at 2056 . Syncope/Near Syncope - HPI Summary HPI Summary: This patient is a 87 year old male BIBA to [facility] with a chief complaint of syncope since approx. 1900. 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 Patient denies head trauma. At around 1900, patient states his pain became so bad he passed out and became unresponsive. The pain is rated 9/10 in severity. Symptoms aggravated by nothing. Symptoms alleviated by nothing. Patient additionally reports back pain, bilateral leg pain, multiple abrasion to legs, vomiting - History Of Current Complaint Chief Complaint: EDAltMentalStatus Time Seen by Provider: 05/18/17 20:36 Hx Obtained From: Patient Onset/Duration: Still Present Timing: Constant Associated Head Trauma: No Aggravating Factor(s): Nothing Alleviating Factor(s): Nothing Associated Signs And Symptoms: Other - back pain, bilateral leg pain, abrasion to legs, vomiting - Allergies/Home Medications Allergies/Adverse Reactions: Allergies Allergy/AdvReac Type Severity Reaction Status Date / Time metoclopramide Allergy Unknown Verified 05/18/17 20:39 Reaction Details troglitazone Allergy Unknown Verified 05/18/17 20:39 Reaction Details metoprolol AdvReac Intermediate Diarrhea Verified 05/18/17 20:39 lactose AdvReac Unknown Verified 05/18/17 20:39 Reaction Details morphine AdvReac Hallucinati Verified 05/18/17 20:39 ons PMH/Surg Hx/FS Hx/Imm Hx Previously Healthy: No Endocrine/Hematology History: Reports: Hx Diabetes Denies: Hx Anticoagulant Therapy, Hx Thyroid Disease Cardiovascular History: Reports: Hx Angina, 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, Hx Congestive Heart Failure, Hx Coronary Artery Disease, Hx Hypercholesterolemia, Hx Hypertension, Hx Pacemaker/ICD, Hx Syncope, Hx Valvular Heart Disease - Aoritc Valve replacement, Other Cardiovascular Problems /Disorders Respiratory History: Reports: Hx Pleural Effusion - Right Lobe, Hx Sleep Apnea Denies: Hx Asthma, Hx Chronic Obstructive Pulmonary Disease (COPD) GI History: Reports: Hx Gastroesophageal Reflux Disease, Hx Hiatal Hernia, Hx Ulcer History: Denies: Hx Renal Disease Musculoskeletal History: Reports: Hx Arthritis, Hx Back Problems - spinal stenosis, Other Musculoskeletal History - discitis Sensory History: Reports: Hx Cataracts, Hx Contacts or Glasses, Hx Vision Problem - cataract, Hx Hearing Problem Denies: Hx Hearing Aid Opthamlomology History: Reports: Hx Cataracts, Hx Contacts or Glasses, Hx Vision Problem - cataract Neurological History: Reports: Other Neuro Impairments/Disorders - numb/ tingling bilat feet(chronic), Denies: Hx Dementia, Hx Seizures Psychiatric History: Denies: Hx Substance Abuse - Cancer History Cancer Type, Location and Year: colon CA 1996, Prostate 2001 Hx Chemotherapy: No Hx Radiation Therapy: No - Surgical History Surgery Procedure, Year, and Place: L shoulder. gallbladder removed. L wrist. Aortic valve replacement. pacemaker. 3 stents. cataracts Hx Anesthesia Reactions: No - Immunization History Date of Tetanus Vaccine: Unk Date of Influenza Vaccine: Fall 2014 Infectious Disease History: No Infectious Disease History: Denies: Hx Hepatitis, Hx Human Immunodeficiency Virus (HIV), Traveled Outside the [place] in Last 30 Days - Family History Known Family History: Negative: Cardiac Disease - Social History Alcohol Use: None Hx Substance Use: No Substance Use Type: Reports: None Hx Tobacco Use: Yes Smoking Status (MU): Former Smoker Have You Smoked in the Last Year: No Review of Systems Positive: Vomiting Positive: Other - back pain, leg pain Positive: Other - multiple abrasions to legs Positive: Syncope All Other Systems Reviewed And Are Negative: Yes Physical Exam - Summary Physical Exam Summary: Appearance: Well-appearing, no distress, Well-nourished Skin: abrasion to anterior left and right tibia, nontender. Head: Normal Head/Face inspection, atraumatic Eyes: Conjunctiva clear ENT: Normal inspection Neck: Supple, no nodes, no JVD. Respiratory: Lungs clear, Normal breath sounds, no respiratory distress Cardio: RRR, No murmur, pulses normal, brisk capillary refill Abdomen: soft, nontender, no guarding, no rebound Bowel sounds: present Musculoskeletal: Strength Intact/ ROM intact. Left knee has 5cm abrasion with mild swelling. Neuro: Alert, muscle tone normal, facial symmetry, speech normal, sensory/motor intact, cranial nerve exam normal Psychological: Normal Triage Information Reviewed: Yes Vital Signs On Initial Exam: Initial Vitals Temp Pulse Resp BP Pulse Ox 98.0 F 75 11 140/51 95 05/18/17 20:35 03/24/18 20:35 05/18/17 20:35 05/18/17 20:35 05/18/17 20:35 Vital Signs Reviewed: Yes Diagnostics - Vital Signs Vital Signs Temp Pulse Resp BP Pulse Ox 05/18/17 20:35 98.0 F 75 11 140/51 95 - Laboratory Lab Results: Lab Results 05/18/17 05/18/17 05/18/17 Range/Units 21:14 21:14 21:14 WBC 10.9 H (3.5-10.8) 10^3/ul RBC 3.34 L (4.0-5.4) 10^6/ul Hgb 10.0 L (14.0-18.0) g/dl Hct 30 L (42-52) % MCV 91 (80-94) fL MCH 30 (27-31) pg MCHC 33 (31-36) g/dl RDW 14 (10.5-15) % Plt Count 203 (150-450) 10^3/ul MPV 8.4 (7.4-10.4) um3 Neut % (Auto) 81.5 (38-83) % Lymph % (Auto) 7.2 L (25-47) % Carolina % (Auto) 8.7 H (0-7) % Eos % (Auto) 2.2 (0-6) % Baso % (Auto) 0.4 (0-2) % Absolute Neuts (auto) 8.9 H (1.5-7.7) 10^3/ul Absolute Lymphs (auto) 0.8 L (1.0-4.8) 10^3/ul Absolute Monos (auto) 0.9 H (0-0.8) 10^3/ul Absolute Eos (auto) 0.2 (0-0.6) 10^3/ul Absolute Basos (auto) 0 (0-0.2) 10^3/ul Absolute Nucleated RBC 0 10^3/ul Nucleated RBC % 0 INR (Anticoag Therapy) 1.06 H (0.77-1.02) Sodium 135 (133-145) mmol/L Potassium 4.9 (3.5-5.0) mmol/L Chloride 99 L (101-111) mmol/L Carbon Dioxide 29 (22-32) mmol/L Anion Gap 7 (2-11) mmol/L BUN 36 H (6-24) mg/dL Creatinine 1.86 H (0.67-1.17) mg/dL Est GFR ( Amer) 44.3 (>60) Est GFR (Non-Af Amer) 34.5 (>60) BUN/Creatinine Ratio 19.4 (8-20) Glucose 264 H (70-100) mg/dL Calcium 9.4 (8.6-10.3) mg/dL Total Bilirubin 0.40 (0.2-1.0) mg/dL AST 25 (13-39) U/L ALT 15 (7-52) U/L Alkaline Phosphatase 98 (34-104) U/L Troponin I 0.04 H* (<0.04) ng/mL Total Protein 7.0 (6.4-8.9) g/dL Albumin 3.6 (3.2-5.2) g/dL Globulin 3.4 (2-4) g/dL Albumin/Globulin Ratio 1.1 (1-3) Salicylates < 2.50 (<30) mg/dL Acetaminophen < 15 mcg/mL Serum Alcohol < 10 (<10) mg/dL 05/19/17 Range/Units 00:12 WBC (3.5-10.8) 10^3/ul RBC (4.0-5.4) 10^6/ul Hgb (14.0-18.0) g/dl Hct (42-52) % MCV (80-94) fL MCH (27-31) pg MCHC (31-36) g/dl RDW (10.5-15) % Plt Count (150-450) 10^3/ul MPV (7.4-10.4) um3 Neut % (Auto) (38-83) % Lymph % (Auto) (25-47) % Carolina % (Auto) (0-7) % Eos % (Auto) (0-6) % Baso % (Auto) (0-2) % Absolute Neuts (auto) (1.5-7.7) 10^3/ul Absolute Lymphs (auto) (1.0-4.8) 10^3/ul Absolute Monos (auto) (0-0.8) 10^3/ul Absolute Eos (auto) (0-0.6) 10^3/ul Absolute Basos (auto) (0-0.2) 10^3/ul Absolute Nucleated RBC 10^3/ul Nucleated RBC % INR (Anticoag Therapy) (0.77-1.02) Sodium (133-145) mmol/L Potassium (3.5-5.0) mmol/L Chloride (101-111) mmol/L Carbon Dioxide (22-32) mmol/L Anion Gap (2-11) mmol/L BUN (6-24) mg/dL Creatinine (0.67-1.17) mg/dL Est GFR ( Amer) (>60) Est GFR (Non-Af Amer) (>60) BUN/Creatinine Ratio (8-20) Glucose (70-100) mg/dL Calcium (8.6-10.3) mg/dL Total Bilirubin (0.2-1.0) mg/dL AST (13-39) U/L ALT (7-52) U/L Alkaline Phosphatase (34-104) U/L Troponin I 0.03 (<0.04) ng/mL Total Protein (6.4-8.9) g/dL Albumin (3.2-5.2) g/dL Globulin (2-4) g/dL Albumin/Globulin Ratio (1-3) Salicylates (<30) mg/dL Acetaminophen mcg/mL Serum Alcohol (<10) mg/dL Result Diagrams: 05/29/17 05:20 05/29/17 05:20 Lab Statement: Any lab studies that have been ordered have been reviewed, and results considered in the medical decision making process. - Radiology CXR Xray Interpretation: Positive (See Comments) - CXR reveals, per radiologist, IMPRESSION: Mild effusion at right base. Otherwise normal. ED physician has reviewed this radiology report. Radiology Interpretation Completed By: Radiologist RLE XR Xray Interpretation: No Acute Changes - RLE XR reveals, per radiologist, IMPRESSION: No acute process. ED physician has reviewed this radiology report. Radiology Interpretation Completed By: Radiologist LLE XR Xray Interpretation: Positive (See Comments) - LLE XR reveals, per radiologist, IMPRESSION: Left tibia plateau fracture. ED physician has reviewed this radiology report. Radiology Interpretation Completed By: Radiologist - CT CT Head CT Interpretation: Positive (See Comments) - CT Head reveals, per radiologist, IMPRESSION: Involutional changes with mild to moderate ventriculomegaly, no hemorrhage. No mass. No obvious infarct. ED physician has reviewed this radiology report. CT Interpretation Completed By: Radiologist CT LE CT Interpretation: Positive (See Comments) - CT LE reveals, per radiologist, IMPRESSION: Positive for acute fractures of the proximal tibia. Fracture of the diametaphyseal region of the medial tibia extending superiorly into the medial tibial plateau then crossing midline to involve the lateral tibial plateau. ED physician has reviewed this radiology report. CT Interpretation Completed By: Radiologist - EKG 2105 Cardiac Rate: NL EKG Rhythm: Sinus Rhythm - 79 BPM EKG Interpretation: NSR (79 BPM), RBBB, normal axis, no ST or T-wave changes. Course/Dx - Diagnoses Differential Diagnosis/HQI/PQRI: Positive: Cerebral Vascular Accident, Coronary Artery Disease, GI Bleed, Hypoglycemia, Seizure, Transient Ischemic Attack, Vasovagal Episode Provider Diagnoses: Syncope, Tibial plateau fracture, Multiple contusions - Physician Notifications Discussed Care of Patient With: Oneida Fields - Orthopedist Time Discussed With Above Provider: 01:00 - We discussed patient care with Dr. Fields (Orthopedic Surgeon) and they agreed to see the patient in the hospital and determine if surgery is necessary. Instructed by Provider To: Admit As Inpatient - We discussed patient care with Dr. Barnhart (Hospitalist) at 0121 and they agreed to see the patient with regards to admittance. Discharge - Sign-Out/Discharge Documenting (check all that apply): Discharge - Discharge Plan Condition: Stable Disposition: ADMITTED TO [facility] - Billing Disposition and Condition Condition: STABLE Disposition: [facility] [place] The documentation as recorded by the Ovidio gutierres Tecjoon accurately reflects the service I personally performed and the decisions made by , Chi Roland MD.
== END 2017-05-29 13:13 | DRG 493 ==
LOC: ED 20:16 → MEDTELE 05-19 01:23 → SSU 05-22 20:02
PROVIDERS: ADMIT Pediatrics; ATTEND Internal Medicine
PROC: 4B02XSZ Measurement of Cardiac Pacemaker, External Approach (ICD-10-PCS; 2017-05-20)
PROC: 0QSH04Z Reposition Left Tibia with Internal Fixation Device, Open Approach (ICD-10-PCS; principal; 2017-05-24 13:15)
PROC: 30233N1 Transfusion of Nonautologous Red Blood Cells into Peripheral Vein, Percutaneous Approach (ICD-10-PCS; 2017-05-26)
PROC: 0T9B70Z Drainage of Bladder with Drainage Device, Via Natural or Artificial Opening (ICD-10-PCS; 2017-05-28)
DX: S82.142A Displaced bicondylar fracture of left tibia, initial encounter for closed fracture (principal); I13.0 Hypertensive heart and chronic kidney disease with heart failure and stage 1 through stage 4 chronic kidney disease, or unspecified chronic kidney disease; I50.32 Chronic diastolic (congestive) heart failure; I47.2 Ventricular tachycardia; E87.1 Hypo-osmolality and hyponatremia; I24.8 Other forms of acute ischemic heart disease; S80.212A Abrasion, left knee, initial encounter; W17.89XA Other fall from one level to another, initial encounter; I25.10 Atherosclerotic heart disease of native coronary artery without angina pectoris; E78.00 Pure hypercholesterolemia, unspecified; K21.9 Gastro-esophageal reflux disease without esophagitis; M19.90 Unspecified osteoarthritis, unspecified site; M48.00 Spinal stenosis, site unspecified; H91.90 Unspecified hearing loss, unspecified ear; I45.10 Unspecified right bundle-branch block; E11.22 Type 2 diabetes mellitus with diabetic chronic kidney disease; G47.33 Obstructive sleep apnea (adult) (pediatric); E11.40 Type 2 diabetes mellitus with diabetic neuropathy, unspecified; E66.9 Obesity, unspecified; I27.20 Pulmonary hypertension, unspecified; I08.1 Rheumatic disorders of both mitral and tricuspid valves; I48.0 Paroxysmal atrial fibrillation; N18.3 Chronic kidney disease, stage 3 (moderate); R20.2 Paresthesia of skin; R55 Syncope and collapse; D63.1 Anemia in chronic kidney disease; E83.52 Hypercalcemia; E11.65 Type 2 diabetes mellitus with hyperglycemia; R33.9 Retention of urine, unspecified; E83.41 Hypermagnesemia; Z85.038 Personal history of other malignant neoplasm of large intestine; Y92.59 Other trade areas as the place of occurrence of the external cause; Z85.46 Personal history of malignant neoplasm of prostate; Z88.5 Allergy status to narcotic agent; Z88.8 Allergy status to other drugs, medicaments and biological substances; Z95.0 Presence of cardiac pacemaker; Z95.2 Presence of prosthetic heart valve; Z90.49 Acquired absence of other specified parts of digestive tract; Z95.5 Presence of coronary angioplasty implant and graft; Z98.42 Cataract extraction status, left eye; Z98.41 Cataract extraction status, right eye; Z95.1 Presence of aortocoronary bypass graft; Z87.01 Personal history of pneumonia (recurrent); Z87.891 Personal history of nicotine dependence; Z80.3 Family history of malignant neoplasm of breast; Z82.69 Family history of other diseases of the musculoskeletal system and connective tissue; Z83.3 Family history of diabetes mellitus; Z90.79 Acquired absence of other genital organ(s); Z68.32 Body mass index [BMI] 32.0-32.9, adult; Z79.82 Long term (current) use of aspirin; Z79.4 Long term (current) use of insulin; Z79.01 Long term (current) use of anticoagulants; E11.649 Type 2 diabetes mellitus with hypoglycemia without coma; T47.1X5A Adverse effect of other antacids and anti-gastric-secretion drugs, initial encounter; Y92.239 Unspecified place in hospital as the place of occurrence of the external cause
CPT/HCPCS: 36415; 70450; 71045; 76001; 80048; 80053; 80307; 80320; 80329; 81003; 81015; 83036; 83735; 84484; 85014; 85018; 85025; 85610; 86850; 86900; 86901; 86922; 87086; 93005; 93306; 94760; 99284; A9270-GY; C8929; G0480; G8978-GP-CL; G8978-GP-CM; G8979-GP-CI; G8987-GO-CL; G8988-GO-CI; G8989-GO-CI; J0690; J1100; J1170; J1644; J1885; J1940; J2250; J2405; J2704; J3010; P9040

== ENCOUNTER 2017-08-03 19:57 | Emergency (ER) | payer MEDICARE, OTHER ==
[2017-08-03] MEDS ORDERED: Ondansetron ODT TAB* 4 MG PO ONE (21:06)
[2017-08-03] MEDS ORDERED: NS 0.9% 1000 ML* 1,000 ML IV ONE ×2 (21:06→21:42)
[2017-08-03 21:38] LABS: EGFR Non-African American 45.2 (>60)
[2017-08-03 21:39] LABS: ABS Basophils 0 10^3/ul (0-0.2); ABS Eosinophils 0.2 10^3/ul (0-0.6); ABS Lymphocytes 0.9 10^3/ul (1.0-4.8); ABS Monocytes 0.8 10^3/ul (0-0.8); ABS Neutrophils 4.1 10^3/ul (1.5-7.7); ABS Nucleated RBC 0 10^3/ul; Eosinophil % 3.1 % (0-6); Hematocrit 33 % (42-52); Hemoglobin 11.1 g/dl (14.0-18.0); Lymphocyte % 15.3 % (25-47); Mean Corpuscular HGB Conc 34 g/dl (31-36); Mean Corpuscular Hemoglobin 30 pg (27-31); Mean Corpuscular Volume 90 fL (80-94); Mean Platelet Volume 8.5 um3 (7.4-10.4); Nucleated Red Blood Cells % 0.1; Platelet Count 241 10^3/ul (150-450); Red Blood Count 3.66 10^6/ul (4.0-5.4); Red Cell Distribution Width 16 % (10.5-15); White Blood Count 6.1 10^3/ul (3.5-10.8)
[2017-08-03] MEDS ORDERED: Iodixanol* (CONTRAST) 320 MG/ML 100 ML SDV IV ONE (21:50)
[2017-08-04 00:04] VITALS: BP 136/72
--- NOTE | 2017-08-04 00:07 | ED ---
Kendall Harrison Rebecca, scribed for Moris Beltre MD on 08/03/17 at 2057 . Complex/Multi-Sys Presentation - HPI Summary HPI Summary: Pt is an 87 y/o M who presents to ED c/o N/V/D since this morning. States that he has vomited "all day long." Sx aggravated and alleviated by nothing. Additionally c/o chills. Denies abdominal pain. Lives alone and states that he did not eat breakfast today. Reports having a glass of orange juice last night and that he stayed in bed all day long today. - History Of Current Complaint Chief Complaint: EDNauseaVomitDiarrh Time Seen by Provider: 08/03/17 20:46 Hx Obtained From: Patient Onset/Duration: Still Present Severity Currently: None Location: Negative Aggravating Factor(s): Nothing Alleviating Factor(s): Nothing Associated Signs And Symptoms: Positive: Nausea, Vomiting, Diarrhea - Allergies/Home Medications Allergies/Adverse Reactions: Allergies Allergy/AdvReac Type Severity Reaction Status Date / Time metoclopramide Allergy Unknown Verified 08/03/17 20:46 Reaction Details troglitazone Allergy Unknown Verified 08/03/17 20:46 Reaction Details metoprolol AdvReac Intermediate Diarrhea Verified 08/03/17 20:46 lactose AdvReac Unknown Verified 08/03/17 20:46 Reaction Details morphine AdvReac Hallucinati Verified 08/03/17 20:46 ons PMH/Surg Hx/FS Hx/Imm Hx Endocrine/Hematology History: Reports: Hx Diabetes Denies: Hx Anticoagulant Therapy, Hx Thyroid Disease Cardiovascular History: Reports: Hx Angina, 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, Hx Congestive Heart Failure, Hx Coronary Artery Disease, Hx Hypercholesterolemia, Hx Hypertension, Hx Pacemaker/ICD, Hx Syncope, Hx Valvular Heart Disease - Aoritc Valve replacement, Other Cardiovascular Problems /Disorders Respiratory History: Reports: Hx Pleural Effusion - Right Lobe, Hx Sleep Apnea, Other Respiratory Problems/Disorders - Community-acquired pneumonia in March 2017 Denies: Hx Asthma, Hx Chronic Obstructive Pulmonary Disease (COPD) GI History: Reports: Hx Gastroesophageal Reflux Disease, Hx Hiatal Hernia, Hx Ulcer History: Denies: Hx Renal Disease Musculoskeletal History: Reports: Hx Arthritis, Hx Back Problems - spinal stenosis, Other Musculoskeletal History - discitis Sensory History: Reports: Hx Cataracts, Hx Contacts or Glasses, Hx Vision Problem - cataract, Hx Hearing Problem Denies: Hx Hearing Aid Opthamlomology History: Reports: Hx Cataracts, Hx Contacts or Glasses, Hx Vision Problem - cataract Neurological History: Reports: Other Neuro Impairments/Disorders - numb/ tingling bilat feet(chronic), Denies: Hx Dementia, Hx Seizures Psychiatric History: Denies: Hx Substance Abuse - Cancer History Cancer Type, Location and Year: colon CA 1996, Prostate 2001 Hx Chemotherapy: No Hx Radiation Therapy: No - Surgical History Surgery Procedure, Year, and Place: L shoulder. gallbladder removed. L wrist. Aortic valve replacement. pacemaker. 3 stents. cataracts Hx Anesthesia Reactions: No - Immunization History Date of Tetanus Vaccine: Unk Date of Influenza Vaccine: Fall 2014 Infectious Disease History: No Infectious Disease History: Denies: Hx Hepatitis, Hx Human Immunodeficiency Virus (HIV), Traveled Outside the [place] in Last 30 Days - Family History Known Family History: Negative: Cardiac Disease - Social History Alcohol Use: None Hx Substance Use: No Substance Use Type: Reports: None Hx Tobacco Use: Yes Smoking Status (MU): Former Smoker Have You Smoked in the Last Year: No Review of Systems Positive: Chills Positive: Vomiting, Diarrhea, Nausea. Negative: Abdominal Pain All Other Systems Reviewed And Are Negative: Yes Physical Exam - Summary Physical Exam Summary: VITAL SIGNS: Reviewed. GENERAL: ~Patient is a well-developed and nourished male who is lying comfortable in the stretcher. Patient is not in any acute respiratory distress. HEAD AND FACE: No signs of trauma. No ecchymosis, hematomas or skull depressions. No sinus tenderness. EYES: PERRLA, EOMI x 2, No injected conjunctiva, no nystagmus. EARS: Hearing grossly intact. Ear canals and tympanic membranes are within normal limits. MOUTH: Oropharynx within normal limits. NECK: Supple, trachea is midline, no adenopathy, no JVD, no carotid bruit, no c- spine tenderness, neck with full ROM. CHEST: Symmetric, no tenderness at palpation LUNGS: Clear to auscultation bilaterally. No wheezing or crackles. CVS: Regular rate and rhythm, S1 and S2 present, no murmurs or gallops appreciated. ABDOMEN: Soft, non-tender. No signs of distention. No rebound no guarding, and no masses palpated. Hyperactive bowel sounds. EXTREMITIES: FROM in all major joints, no edema, no cyanosis or clubbing. NEURO: Alert and oriented x 3. No acute neurological deficits. Speech is normal and follows commands. SKIN: Dry and warm Triage Information Reviewed: Yes Vital Signs On Initial Exam: Initial Vitals Temp Pulse Resp BP Pulse Ox 97.1 F 104 20 102/48 97 08/03/17 20:00 08/03/17 20:00 08/03/17 20:00 08/03/17 20:00 08/03/17 20:00 Vital Signs Reviewed: Yes Diagnostics - Vital Signs Vital Signs Temp Pulse Resp BP Pulse Ox 08/03/17 20:00 97.1 F 104 20 102/48 97 - Laboratory Result Diagrams: 08/03/17 21:12 08/03/17 21:12 Lab Statement: Any lab studies that have been ordered have been reviewed, and results considered in the medical decision making process. - CT CT Abd/Pel CT Interpretation Completed By: Radiologist - There is a new or persistent small right pleural effusion with overlying atelectasis and surrounding pleural thickening and enhancement concerning for empyema. Calcified nodule in the right middle lobe compatible with a granuloma. The heart is upper limits of normal size to mildly enlarged and contains pacemaker leads. There are coronary artery and mitral annular calcifications. Median sternotomy wires. Gynecomastia. The gallbladder is surgically absent. There is intra- and extrahepatic pneumobilia likely from remote sphincterotomy. The pancreas appears atrophic. Small left renal cyst. The upper abdominal visceral organs are otherwise unremarkable. There is no bowel distention. Colonic diverticulosis predominantly sigmoid colon without evidence of acute diverticulitis. There is asymmetric mild thickening of the anterior bladder wall. Correlate clinically to exclude cystitis. No intra-abdominal free air, free fluid or loculated collections. ED physician reviewed this report. Pending official report. Re-Evaluation - Re-Evaluation First Eval Re-Evaluation Time: 23:34 Comment: The pt feels better and tolerated PO well with no further V/D in the ED. Complex Multi-Symp Course/Dx Assessment/Plan: Pt is an 87 y/o M who presents to ED c/o N/V/D since this morning with chills. Denies abdominal pain. Lives alone and states that he did not eat breakfast today. Reports having a glass of orange juice last night and that he stayed in bed all day long today. CT Abd/Pel impression above. Blood work was done with results including a lactic acid of 3.1. In the ED course, pt was given fluids and Zofran which improved symptoms. Pt tolerated PO well, with no further V/D. He will be D/C to home with Dx of acute gastroenteritis. He understands and agrees. Allergies noted. - Diagnoses Provider Diagnoses: Acute gastroenteritis Discharge - Sign-Out/Discharge Documenting (check all that apply): Discharge/Admit/Transfer - Discharge - Discharge Plan Condition: Stable Disposition: HOME Patient Education Materials: Gastroenteritis (ED) Referrals: Triston Ramsey MD [Primary Care Provider] - 3 Days Additional Instructions: RETURN TO ED FOR ANY NEW OR WORSENING SYMPTOMS. The documentation as recorded by the Kendall gutierres Rebecca accurately reflects the service I personally performed and the decisions made by , Moris Beltre MD.
--- NOTE | 2017-08-04 09:58 | RAD ---
CLINICAL HISTORY: Intermittent abdominal pain, vomiting and chills COMPARISON: Most recent comparison CT is dated May 22, 2005. TECHNIQUE: Contrast enhanced CT examination of the abdomen and pelvis from the lung bases through the initial tuberosities. The patient received 131 mL of Visipaque 320 intravenously prior to imaging. FINDINGS: Unless otherwise specified comparisons below reference the May 23, 2015 CT examination. VISUALIZED LUNG BASES: There is a stable calcified granuloma in the right middle lobe. There is a small right-sided pleural effusion with dependent right lower lobe consolidation adjacent. ABDOMEN AND PELVIS: Similar to the prior CT examination, there is air anomaly in the left lobe biliary ducts. The liver is otherwise homogenous in attenuation without suspicious mass or surface irregularity. The spleen, pancreas and adrenal glands are grossly normal in appearance. The gallbladder is surgically absent. The kidneys are normal in appearance without focal mass, calcification or signs of hydronephrosis. The anterior wall of the urinary bladder is asymmetrically thickened up to 8 mm. Evaluation of the gastrointestinal tract is limited without oral contrast. The small and large bowel are not distended. The patient's normal appendix is identified in the right lower quadrant (coronal image 51). There are numerable rectosigmoid diverticula but no definite focal inflammatory change. There is no gross retroperitoneal or mesenteric lymphadenopathy. The pelvic viscera is normal in appearance. The moderately calcified abdominal aorta and iliac arteries are normal in course and diameter. Degenerative changes include multilevel loss of intervertebral disc height involving the lower thoracic and lumbar spine.There are no sinister bone lesions. IMPRESSION: 1. There is asymmetric thickening of the urinary bladder wall up to 8 mm. Please correlate to clinical signs or symptoms of cystitis. 2. Diverticulosis without definite focal inflammatory change characteristic of diverticulitis. 3. Persistent small right pleural effusion similar in appearance to the May 23, 2015 CT examination. 4. Additional chronic, degenerative and iatrogenic findings described in the body of the report.
== END 2017-08-04 00:06 | disposition home or self-care (01) ==
LOC: ED 19:57
DX: K52.9 Noninfective gastroenteritis and colitis, unspecified (principal); J90 Pleural effusion, not elsewhere classified; J98.11 Atelectasis; R91.1 Solitary pulmonary nodule; I25.10 Atherosclerotic heart disease of native coronary artery without angina pectoris; N28.1 Cyst of kidney, acquired; K57.30 Diverticulosis of large intestine without perforation or abscess without bleeding; N62 Hypertrophy of breast; N32.9 Bladder disorder, unspecified; Z95.0 Presence of cardiac pacemaker; Z87.891 Personal history of nicotine dependence; Z90.49 Acquired absence of other specified parts of digestive tract; Z88.5 Allergy status to narcotic agent; Z88.8 Allergy status to other drugs, medicaments and biological substances
CPT/HCPCS: 36415; 74177; 80053; 83605; 83690; 83735; 85025; 86140; 96360; 96361; 99284; A9270-GY; Q9967

== ENCOUNTER 2017-09-15 13:22 | Emergency (ER) | payer MEDICARE, OTHER ==
--- NOTE | 2017-09-15 14:20 | RAD ---
Indication: Dizziness, headache. Cardiac disease. Comparison: May 18, 2017 Technique: Noncontrast CT vertex of skull through foramen magnum. Report: Moderate prominence of the cerebral sulci and cerebellar fissures reflecting atrophy. Unremarkable ventricles and basal cisterns. Calcification at the RIGHT basal ganglia as on the prior exam. Decreased density in the periventricular and subcortical white matter while non-specific is most likely due to chronic microangiopathy. Negative for blackwell matter white matter obscuration, intra or extra-axial hemorrhage, or mass effect. No suspicious finding at the partially visualized orbits. No fracture or suspicious calvarial or skull base lesions evident. Unremarkable scalp. IMPRESSION: #. Involutional change and stigmata of chronic small vessel ischemic disease. #. No acute intracranial process evident.
--- NOTE | 2017-09-15 14:26 | ED ---
Dizziness - HPI Summary HPI Summary: This is bhavik Nicole documenting for Dr. Toñito Vasquez MD. Pt is an 87 y/o M who presents to ED c/o dizziness. He has had stomach pain and a head ache for a couple of days. At noon today he started to feel dizzy as if the room was spinning. Notes nausea. Denies vomiting, diarrhea, constipation, chest pain, palpitations, or blurred vision. Also denies sore throat, nasal congestion , or ear problems. - History Of Current Complaint Chief Complaint: EDDizziness Stated Complaint: HEADACHES/SICKNESS Time Seen by Provider: 09/15/17 13:49 Hx Obtained From: Patient, Family/Clinical Science Consultant Onset/Duration: Still Present Timing: Constant Severity Initially: Mild Severity Currently: Mild Character: Room Spinning Associated Signs And Symptoms: Positive: Nausea. Negative: Vomiting, Diarrhea - Allergies/Home Medications Allergies/Adverse Reactions: Allergies Allergy/AdvReac Type Severity Reaction Status Date / Time metoclopramide Allergy Unknown Verified 09/15/17 13:29 Reaction Details troglitazone Allergy Unknown Verified 09/15/17 13:29 Reaction Details metoprolol AdvReac Intermediate Diarrhea Verified 09/15/17 13:29 lactose AdvReac Unknown Verified 09/15/17 13:29 Reaction Details morphine AdvReac Hallucinati Verified 09/15/17 13:29 ons PMH/Surg Hx/FS Hx/Imm Hx Endocrine/Hematology History: Reports: Hx Diabetes Denies: Hx Anticoagulant Therapy, Hx Thyroid Disease Cardiovascular History: Reports: Hx Angina, 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, Hx Congestive Heart Failure, Hx Coronary Artery Disease, Hx Hypercholesterolemia, Hx Hypertension, Hx Pacemaker/ICD, Hx Syncope, Hx Valvular Heart Disease - Aoritc Valve replacement, Other Cardiovascular Problems /Disorders Respiratory History: Reports: Hx Pleural Effusion - Right Lobe, Hx Sleep Apnea, Other Respiratory Problems/Disorders - Community-acquired pneumonia in March 2017 Denies: Hx Asthma, Hx Chronic Obstructive Pulmonary Disease (COPD) GI History: Reports: Hx Gastroesophageal Reflux Disease, Hx Hiatal Hernia, Hx Ulcer History: Denies: Hx Renal Disease Musculoskeletal History: Reports: Hx Arthritis, Hx Back Problems - spinal stenosis, Other Musculoskeletal History - discitis Sensory History: Reports: Hx Cataracts, Hx Contacts or Glasses, Hx Vision Problem - cataract, Hx Hearing Problem Denies: Hx Hearing Aid Opthamlomology History: Reports: Hx Cataracts, Hx Contacts or Glasses, Hx Vision Problem - cataract Neurological History: Reports: Other Neuro Impairments/Disorders - numb/ tingling bilat feet(chronic), Denies: Hx Dementia, Hx Seizures Psychiatric History: Denies: Hx Substance Abuse - Cancer History Cancer Type, Location and Year: colon CA 1996, Prostate 2001 Hx Chemotherapy: No Hx Radiation Therapy: No - Surgical History Surgery Procedure, Year, and Place: L shoulder. gallbladder removed. L wrist. Aortic valve replacement. pacemaker. 3 stents. cataracts Hx Anesthesia Reactions: No - Immunization History Date of Tetanus Vaccine: Unk Date of Influenza Vaccine: Fall 2014 Infectious Disease History: No Infectious Disease History: Denies: Hx Hepatitis, Hx Human Immunodeficiency Virus (HIV), Traveled Outside the [place] in Last 30 Days - Family History Known Family History: Positive: Other - Negative: CAD Negative: Cardiac Disease - Social History Alcohol Use: None Hx Substance Use: No Substance Use Type: Reports: None Hx Tobacco Use: Yes Smoking Status (MU): Former Smoker Have You Smoked in the Last Year: No Review of Systems Negative: Blurred Vision Positive: Other - DENIES: nasal congestion. Negative: Sore Throat, Ear Ache Negative: Palpitations, Chest Pain Positive: Abdominal Pain, Nausea, Other - DENIES: constipation. Negative: Vomiting, Diarrhea Neurological: Other - Dizziness Positive: Headache All Other Systems Reviewed And Are Negative: Yes Physical Exam - Summary Physical Exam Summary: VITAL SIGNS: Reviewed. GENERAL: Patient is a well-developed and nourished male who is lying comfortable in the stretcher. Patient is not in any acute respiratory distress. HEAD AND FACE: No signs of trauma. No ecchymosis, hematomas or skull depressions. No sinus tenderness. EYES: PERRLA, EOMI x 2, No injected conjunctiva, no nystagmus. EARS: Hearing grossly intact. Ear canals and tympanic membranes are within normal limits. MOUTH: Oropharynx within normal limits. NECK: Supple, trachea is midline, no adenopathy, no JVD, no carotid bruit, no c- spine tenderness, neck with full ROM. CHEST: Symmetric, no tenderness at palpation LUNGS: Clear to auscultation bilaterally. No wheezing or crackles. CVS: Regular rate and rhythm, S1 and S2 present, no murmurs or gallops appreciated. ABDOMEN: Soft, non-tender. No signs of distention. No rebound no guarding, and no masses palpated. Bowel sounds are normal. EXTREMITIES: FROM in all major joints, no edema, no cyanosis or clubbing. NEURO: Alert and oriented x 3. No acute neurological deficits. Speech is normal and follows commands. SKIN: Dry and warm Triage Information Reviewed: Yes Vital Signs On Initial Exam: Initial Vitals Temp Pulse Resp BP Pulse Ox 96.5 F 60 18 92/40 97 09/15/17 13:29 09/15/17 13:29 09/15/17 13:29 09/15/17 13:29 09/15/17 13:29 Vital Signs Reviewed: Yes - [place] Coma Scale Best Eye Response: 4 - Spontaneous Best Motor Response: 6 - Obeys Commands Best Verbal Response: 5 - Oriented Coma Scale Total: 15 Diagnostics - Vital Signs Vital Signs Temp Pulse Resp BP Pulse Ox 09/15/17 14:00 60 12 96 09/15/17 13:37 60 13 113/56 96 09/15/17 13:35 93 09/15/17 13:29 96.5 F 60 18 92/40 97 - Laboratory Result Diagrams: 09/15/17 14:18 09/15/17 14:18 Lab Statement: Any lab studies that have been ordered have been reviewed, and results considered in the medical decision making process. - Radiology CXR Radiology Interpretation Completed By: Radiologist - 13:50. IMPRESSION: Stable exam without evidence for new inflammatory infiltrate. No compelling evidence for pulmonary edema. Nonspecific small RIGHT pleural effusion, volume loss, and potential pleural thickening. ED Physician reviewed this report without change. - CT Brain CT CT Interpretation Completed By: Radiologist - 13:50. IMPRESSION: Involutional change and stigmata of chronic small vessel ischemic disease. No acute intracranial process evident. ED Physician reviewed this report. - EKG 14:14 Cardiac Rate: NL - 60 bpm EKG Interpretation: Atrial paced rhythm EKG Comparison: No Significant Change - Unchanged from 05/27/17 Re-Evaluation - Re-Evaluation First Eval Re-Evaluation Time: 16:07 Change: Improved - Pt is doing very well. Dizziness has dissipated and he is now hungry. Second Eval Re-Evaluation Time: 17:18 - Pt refused second troponin draw. Dizzy Course/Dx - Course Assessment/Plan: Patient is a 87-year-old male who presents to the emergency department with a chief complaint of dizziness. Patient reports that the dizziness is like room spinning worse when he gets up Better when he lays down and closes his eyes. He denies any chest pain or palpitations. Positive headache number vision. Denies any neck pain no fevers or chills. He has past medical history significant for CHF, sinus syndrome, confusion, syncope, vertigo , negative fibrillation, acute kidney failure, nonsustained ventricular tachycardia, diabetes type 2, ankles patient. This results without any significant abnormality except for an normocytic normochromic anemia, creatinine 1.51, troponin was 0.04 which actually is improved from previous visits and the BNP is 364. Head CT impression: Involutional changes in his stigmata of chronic small vessel ischemic disease. No acute intracranial process evident. Chest x-ray impression: In the ED course the patient was given IV fluids as well as meclizine for the dizziness. Reexamination at approximately 3 PM the patient seems to be asymptomatic, continues to be chest pain free and has no other complaints. Second troponin: 0.04. The patient continues to be asymptomatic. The patient is currently he was given fluid and he tolerated well he does not have any nausea and vomiting. Since the patient s symptoms are resolved the patient will be discharged home with follow-up with primary care physician. He ambulated well with no difficulty ambulation he has a good normal steady gait. I discussed the findings and test results with the patient and the need to follow with primary care physician. Patient instructed to return to the emergency department if he develops any headache, dizziness, chest pain or palpitations. Or all his concerns were addressed and he has no further question. - Diagnoses Provider Diagnoses: Vertigo Discharge - Sign-Out/Discharge Documenting (check all that apply): Patient Departure - Discharge - Discharge Plan Condition: Stable Disposition: HOME Prescriptions: Meclizine TAB* [Antivert 12.5 TAB*] 25 mg PO TID PRN #30 tab PRN Reason: Vertigo Patient Education Materials: Dizziness (ED) Referrals: Triston Ramsey MD [Primary Care Provider] - 3 Days Additional Instructions: RETURN TO ED IF ANY NEW OR WORSENING SYMPTOMS.
[2017-09-15 14:28] LABS: ABS Basophils 0 10^3/ul (0-0.2); ABS Eosinophils 0.3 10^3/ul (0-0.6); ABS Monocytes 0.6 10^3/ul (0-0.8); ABS Neutrophils 4.2 10^3/ul (1.5-7.7); ABS Nucleated RBC 0 10^3/ul; Eosinophil % 4.6 % (0-6); Hematocrit 34 % (42-52); Hemoglobin 11.5 g/dl (14.0-18.0); Lymphocyte % 16.2 % (25-47); Mean Corpuscular HGB Conc 34 g/dl (31-36); Mean Corpuscular Hemoglobin 30 pg (27-31); Mean Corpuscular Volume 91 fL (80-94); Mean Platelet Volume 8.5 um3 (7.4-10.4); Nucleated Red Blood Cells % 0.1; Platelet Count 209 10^3/ul (150-450); Red Blood Count 3.79 10^6/ul (4.00-5.40); Red Cell Distribution Width 16 % (10.5-15); White Blood Count 6.1 10^3/ul (3.5-10.8)
[2017-09-15 14:47] LABS: EGFR Non-African American 43.8 (>60)
[2017-09-15] MEDS ORDERED: Meclizine TAB* 12.5 MG PO ONE (14:56)
[2017-09-15] MEDS ORDERED: NS 0.9% 1000 ML* 1,000 ML IV ONE (14:56)
--- NOTE | 2017-09-15 16:08 | RAD ---
INDICATION: Dizziness. History of pneumonia. Cardiac disease. COMPARISON: August 03, [address] and May 26, 2017 chest radiograph. TECHNIQUE: Dual energy PA and routine lateral views of the chest were obtained. REPORT: Small RIGHT pleural effusion without significant change. Pleural fluid extending up to the peripheral RIGHT hemithorax versus pleural thickening without significant interval change compared with the May 26, 2017 exam. Proportional partial atelectasis of the RIGHT lung. Clear LEFT lung and pleural space. Negative for pneumothorax. Median sternotomy wires, RIGHT atrial and RIGHT ventricular level pacemaker leads. Mild cardiomegaly. Unremarkable central pulmonary vasculature. IMPRESSION: #. Stable exam without evidence for new inflammatory infiltrate. #. No compelling evidence for pulmonary edema. #. Nonspecific small RIGHT pleural effusion, volume loss, and potential pleural thickening without change.
[2017-09-15 17:55] VITALS: BP 137/69
== END 2017-09-15 17:35 | disposition home or self-care (01) ==
LOC: ED 13:22
DX: R42 Dizziness and giddiness (principal); R11.0 Nausea; I45.2 Bifascicular block; I25.119 Atherosclerotic heart disease of native coronary artery with unspecified angina pectoris; I11.0 Hypertensive heart disease with heart failure; Z95.810 Presence of automatic (implantable) cardiac defibrillator; Z95.5 Presence of coronary angioplasty implant and graft; Z85.038 Personal history of other malignant neoplasm of large intestine; Z85.46 Personal history of malignant neoplasm of prostate; Z88.5 Allergy status to narcotic agent; Z88.8 Allergy status to other drugs, medicaments and biological substances; Z91.011 Allergy to milk products; Z87.891 Personal history of nicotine dependence
CPT/HCPCS: 36415; 70450; 71046; 80053; 82550; 83605; 83735; 83880; 84443; 84484; 85025; 85730; 86140; 93005; 96360; 99284; A9270-GY

== ENCOUNTER 2017-10-20 02:48 | Emergency (ER) | payer MEDICARE, OTHER ==
[2017-10-20] MEDS ORDERED: NS 0.9% 1000 ML* 1,000 ML IV ONE (03:04)
[2017-10-20] MEDS ORDERED: Ondansetron INJ* 2 MG/ML VIAL IV ONE (03:04)
--- NOTE | 2017-10-20 03:09 | ED ---
GI/ HPI - HPI Summary HPI Summary: This patient is an 87 year old M BIBA to [facility] with a chief complaint of nausea and vomiting since 0:00 this morning. Patient also reports that he has not been feeling well for the last few days but is unable to describe what made him feel this way. The patient rates the pain 0/10 in severity. Symptoms aggravated by nothing. Symptoms alleviated by nothing. Patient reports weakness, fatigue, diarrhea, dizziness, and lightheadedness. Patient denies abdominal pain or fever. Patient has had a cholecystectomy. - History of Current Complaint Chief Complaint: EDNauseaVomitDiarrh Time Seen by Provider: 10/20/17 02:59 Stated Complaint: GENERAL ILLNESS Hx Obtained From: Patient Onset/Duration: Started Hours Ago - 3 hours ago, Atraumatic, Still Present Timing: Constant, Lasting Hours Severity: Mild Current Severity: Mild Pain Intensity: 0 Associated Signs and Symptoms: Positive: Dizziness, Weakness, Nausea, Vomiting, Diarrhea - Additional Pertinent History Primary Care Physician: [id number] - Allergy/Home Medications Allergies/Adverse Reactions: Allergies Allergy/AdvReac Type Severity Reaction Status Date / Time metoclopramide Allergy Unknown Verified 09/15/17 13:29 Reaction Details troglitazone Allergy Unknown Verified 09/15/17 13:29 Reaction Details metoprolol AdvReac Intermediate Diarrhea Verified 09/15/17 13:29 lactose AdvReac Unknown Verified 09/15/17 13:29 Reaction Details morphine AdvReac Hallucinati Verified 09/15/17 13:29 ons PMH/Surg Hx/FS Hx/Imm Hx Endocrine/Hematology History: Reports: Hx Diabetes Denies: Hx Anticoagulant Therapy, Hx Thyroid Disease Cardiovascular History: Reports: Hx Angina, 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, Hx Congestive Heart Failure, Hx Coronary Artery Disease, Hx Hypercholesterolemia, Hx Hypertension, Hx Pacemaker/ICD, Hx Syncope, Hx Valvular Heart Disease - Aoritc Valve replacement, Other Cardiovascular Problems /Disorders Respiratory History: Reports: Hx Pleural Effusion - Right Lobe, Hx Sleep Apnea, Other Respiratory Problems/Disorders - Community-acquired pneumonia in March 2017 Denies: Hx Asthma, Hx Chronic Obstructive Pulmonary Disease (COPD) GI History: Reports: Hx Gastroesophageal Reflux Disease, Hx Hiatal Hernia, Hx Ulcer History: Denies: Hx Renal Disease Musculoskeletal History: Reports: Hx Arthritis, Hx Back Problems - spinal stenosis, Other Musculoskeletal History - discitis Sensory History: Reports: Hx Cataracts, Hx Contacts or Glasses, Hx Vision Problem - cataract, Hx Hearing Problem Denies: Hx Hearing Aid Opthamlomology History: Reports: Hx Cataracts, Hx Contacts or Glasses, Hx Vision Problem - cataract Neurological History: Reports: Other Neuro Impairments/Disorders - numb/ tingling bilat feet(chronic), Denies: Hx Dementia, Hx Seizures Psychiatric History: Denies: Hx Substance Abuse - Cancer History Cancer Type, Location and Year: colon CA 1996, Prostate 2001 Hx Chemotherapy: No Hx Radiation Therapy: No - Surgical History Surgery Procedure, Year, and Place: L shoulder. gallbladder removed. L wrist. Aortic valve replacement. pacemaker. 3 stents. cataracts Hx Anesthesia Reactions: No - Immunization History Date of Tetanus Vaccine: Unk Date of Influenza Vaccine: Fall 2014 Infectious Disease History: No Infectious Disease History: Denies: Hx Hepatitis, Hx Human Immunodeficiency Virus (HIV), Traveled Outside the [place] in Last 30 Days - Family History Known Family History: Positive: Other - Negative: CAD Negative: Cardiac Disease - Social History Alcohol Use: None Hx Substance Use: No Substance Use Type: Reports: None Hx Tobacco Use: Yes Smoking Status (MU): Former Smoker Have You Smoked in the Last Year: No Review of Systems Negative: Fever Negative: Epistaxis Positive: Vomiting, Diarrhea, Nausea. Negative: Abdominal Pain Neurological: Other - lightheadedness, dizziness Positive: Weakness All Other Systems Reviewed And Are Negative: Yes Physical Exam - Summary Physical Exam Summary: Appearance: Well-appearing, mildly obese, lying in bed comfortably Skin: Warm, dry, no obvious rash Eyes: sclera anicteric, no conjunctival pallor ENT: mucous membranes moist, pharynx appears normal Neck: Supple, nontender Respiratory: Clear to auscultation, no signs of respiratory distress Cardiovascular: Normal S1, S2. No murmurs. Normal distal pulses in tibial and radial bilaterally. Abdomen: Soft, nontender, normal active bowel sounds present Musculoskeletal: Normal, Strength/ROM Intact Neurological: A&Ox3, awake and alert, mentation is normal, speech is fluent and appropriate Psychiatric: affect is normal, does not appear anxious or depressed Triage Information Reviewed: Yes Vital Signs On Initial Exam: Initial Vitals Pulse Resp BP Pulse Ox 80 16 164/84 100 10/20/17 02:56 10/20/17 02:56 10/20/17 02:56 10/20/17 02:56 Vital Signs Reviewed: Yes Diagnostics - Vital Signs Vital Signs Temp Pulse Resp BP Pulse Ox 10/20/17 03:00 83 7 100 10/20/17 02:59 97 F 87 20 164/84 84 10/20/17 02:56 80 16 164/84 100 - Laboratory Result Diagrams: 10/20/17 03:09 10/20/17 03:09 Lab Statement: Any lab studies that have been ordered have been reviewed, and results considered in the medical decision making process. 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 GIGU Course/Dx - Diagnoses Differential Diagnoses - Male: Esophagitis/Gastritis, Gastroenteritis (Viral), Gerd Provider Diagnoses: Gastroenteritis Discharge - Sign-Out/Discharge Documenting (check all that apply): Patient Departure - Discharge Plan Condition: Good Disposition: HOME Prescriptions: Ondansetron [Zofran Odt] 8 mg PO Q6HR PRN #12 tab.rapdis PRN Reason: Nausea Patient Education Materials: Gastroenteritis in Children (ED) Referrals: Triston Ramsey MD [Primary Care Provider] - - Billing Disposition and Condition Condition: GOOD Disposition: Home - Attestation Statements Document Initiated by Scribe: Yes Documenting Scribe: Felicity Davila Provider For Whom Scribe is Documenting (Include Credential): Jair Dudley MD Scribe Attestation: Felicity Harrison, scribed for Jair Dudley MD on 10/21/17 at 0138. Scribe Documentation Reviewed: Yes Provider Attestation: The documentation as recorded by the scribe, Felicity Davila accurately reflects the service I personally performed and the decisions made by me, Jair Dudley MD
[2017-10-20 03:23] LABS: ABS Basophils 0 10^3/ul (0-0.2); ABS Eosinophils 0.1 10^3/ul (0-0.6); ABS Lymphocytes 0.8 10^3/ul (1.0-4.8); ABS Monocytes 0.7 10^3/ul (0-0.8); ABS Neutrophils 5.1 10^3/ul (1.5-7.7); ABS Nucleated RBC 0 10^3/ul; Eosinophil % 2.1 % (0-6); Hematocrit 35 % (42-52); Hemoglobin 11.5 g/dl (14.0-18.0); Lymphocyte % 11.5 % (25-47); Mean Corpuscular HGB Conc 33 g/dl (31-36); Mean Corpuscular Hemoglobin 31 pg (27-31); Mean Corpuscular Volume 92 fL (80-94); Mean Platelet Volume 8.8 um3 (7.4-10.4); Nucleated Red Blood Cells % 0.1; Platelet Count 217 10^3/ul (150-450); Red Blood Count 3.75 10^6/ul (4.00-5.40); Red Cell Distribution Width 16 % (10.5-15); White Blood Count 6.8 10^3/ul (3.5-10.8)
[2017-10-20 03:39] LABS: EGFR Non-African American 48.2 (>60)
[2017-10-20 06:23] VITALS: BP 149/75
== END 2017-10-20 06:24 | disposition home or self-care (01) ==
LOC: ED 02:48
DX: K52.9 Noninfective gastroenteritis and colitis, unspecified (principal); I45.2 Bifascicular block; Z95.0 Presence of cardiac pacemaker; Z87.891 Personal history of nicotine dependence; Z90.49 Acquired absence of other specified parts of digestive tract; Z88.8 Allergy status to other drugs, medicaments and biological substances; Z88.5 Allergy status to narcotic agent
CPT/HCPCS: 36415; 80053; 85025; 93005; 96360; 99284

== ENCOUNTER 2017-11-17 18:49 | Emergency (ER) | payer MEDICARE, OTHER ==
[2017-11-17] MEDS ORDERED: NS 0.9% 1000 ML* 2,000 ML IV ONE (19:58)
--- NOTE | 2017-11-17 20:04 | ED ---
GI/ HPI - HPI Summary HPI Summary: An 87 y/o M presents to ED with c/o n/v/d onset last night. Pt went out to dinner yesterday and was feeling fine. He had n/v/d during the night. He felt poorly today and mostly slept. He took Immodium today and has not had diarrhea today. 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 Associated sx: mid-sternal CP, fatigue, productive cough, chills, weakness, decreased oral intake. Denies fever , syncope, dysuria. PMHx: DMII. He did take his DM medication today. He has two sores to his LLE that [facility]. - History of Current Complaint Chief Complaint: EDNauseaVomitDiarrh Time Seen by Provider: 11/17/17 19:58 Stated Complaint: NAUSEA Hx Obtained From: Patient, Other: - friend present Onset/Duration: Started Days Ago - last night, Atraumatic, Still Present Timing: Constant Severity: Moderate Current Severity: Mild Pain Intensity: 0 Associated Signs and Symptoms: Positive: Weakness, Nausea, Vomiting, Diarrhea, Chills, Cough - productive, Chest Pain - mid-sternal, Other: - pos: fatigue, decreased oral intake. neg: syncope. Negative: Fever, Dysuria - Additional Pertinent History Primary Care Physician: [id number] - Allergy/Home Medications Allergies/Adverse Reactions: Allergies Allergy/AdvReac Type Severity Reaction Status Date / Time metoclopramide Allergy Unknown Verified 09/15/17 13:29 Reaction Details troglitazone Allergy Unknown Verified 09/15/17 13:29 Reaction Details metoprolol AdvReac Intermediate Diarrhea Verified 09/15/17 13:29 lactose AdvReac Unknown Verified 09/15/17 13:29 Reaction Details morphine AdvReac Hallucinati Verified 09/15/17 13:29 ons Home Medications: Home Medications Insulin GLARGINE(*) 52 units SUBCUT QPM 11/17/17 [History Confirmed 11/17/17] PMH/Surg Hx/FS Hx/Imm Hx Previously Healthy: No Endocrine/Hematology History: Reports: Hx Diabetes Denies: Hx Anticoagulant Therapy, Hx Thyroid Disease Cardiovascular History: Reports: Hx Angina, 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, Hx Congestive Heart Failure, Hx Coronary Artery Disease, Hx Hypercholesterolemia, Hx Hypertension, Hx Pacemaker/ICD, Hx Syncope, Hx Valvular Heart Disease - Aoritc Valve replacement, Other Cardiovascular Problems /Disorders Respiratory History: Reports: Hx Pleural Effusion - Right Lobe, Hx Sleep Apnea, Other Respiratory Problems/Disorders - Community-acquired pneumonia in March 2017 Denies: Hx Asthma, Hx Chronic Obstructive Pulmonary Disease (COPD) GI History: Reports: Hx Gastroesophageal Reflux Disease, Hx Hiatal Hernia, Hx Ulcer History: Denies: Hx Renal Disease Musculoskeletal History: Reports: Hx Arthritis, Hx Back Problems - spinal stenosis, Other Musculoskeletal History - discitis Sensory History: Reports: Hx Cataracts, Hx Contacts or Glasses, Hx Vision Problem - cataract, Hx Hearing Problem Denies: Hx Hearing Aid Opthamlomology History: Reports: Hx Cataracts, Hx Contacts or Glasses, Hx Vision Problem - cataract Neurological History: Reports: Other Neuro Impairments/Disorders - numb/ tingling bilat feet(chronic), Denies: Hx Dementia, Hx Seizures Psychiatric History: Denies: Hx Substance Abuse - Cancer History Cancer Type, Location and Year: colon CA 1996, Prostate 2001 Hx Chemotherapy: No Hx Radiation Therapy: No - Surgical History Surgery Procedure, Year, and Place: L shoulder. gallbladder removed. L wrist. Aortic valve replacement. pacemaker. 3 stents. cataracts Hx Anesthesia Reactions: No - Immunization History Date of Tetanus Vaccine: Unk Date of Influenza Vaccine: Fall 2014 Infectious Disease History: No Infectious Disease History: Denies: Hx Hepatitis, Hx Human Immunodeficiency Virus (HIV), Traveled Outside the [place] in Last 30 Days - Family History Known Family History: Positive: Other - Negative: CAD Negative: Cardiac Disease - Social History Occupation: Retired Lives: With Family Alcohol Use: None Hx Substance Use: No Substance Use Type: Reports: None Hx Tobacco Use: Yes Smoking Status (MU): Former Smoker Have You Smoked in the Last Year: No Review of Systems Positive: Chills, Fatigue, Other - pos: decreased oral intake. Negative: Fever Positive: Chest Pain Positive: Cough - productive Positive: Vomiting, Diarrhea, Nausea Negative: dysuria Positive: Weakness. Negative: Syncope All Other Systems Reviewed And Are Negative: Yes Physical Exam - Summary Physical Exam Summary: Appearance: Well-appearing, Well-nourished, lying in bed comfortably Skin: Warm, dry, no obvious rash Eyes: sclera anicteric, no conjunctival pallor ENT: mucous membranes moist, pharynx appears normal Neck: Supple, nontender Respiratory: Clear to auscultation, no signs of respiratory distress Cardiovascular: Normal S1, S2. No murmurs. Normal distal pulses in tibial and radial bilaterally. Abdomen: Soft, nontender, normal active bowel sounds present Musculoskeletal: Normal, Strength/ROM Intact. Peripheral edema with mild pitting. Neurological: A&Ox3, awake and alert, mentation is normal, speech is fluent and appropriate Psychiatric: affect is normal, does not appear anxious or depressed Triage Information Reviewed: Yes Vital Signs On Initial Exam: Initial Vitals Temp Pulse Resp BP Pulse Ox 97.3 F 83 18 158/80 96 11/17/17 18:51 11/17/17 18:51 11/17/17 18:51 11/17/17 18:51 11/17/17 18:51 Vital Signs Reviewed: Yes Diagnostics - Vital Signs Vital Signs Temp Pulse Resp BP Pulse Ox 11/17/17 18:51 97.3 F 83 18 158/80 96 - Laboratory Result Diagrams: 11/17/17 20:16 11/17/17 20:17 Lab Statement: Any lab studies that have been ordered have been reviewed, and results considered in the medical decision making process. - Radiology CXR Xray Interpretation: No Acute Changes - No acute disease. Radiology Interpretation Completed By: ED Physician - Additional Comments Diagnostic Additional Comments: EKG at 20:06: SR 65 bpm; RBBB; LVH with IVCD and abnormal secondary repolarization; Borderline prolonged QT interval. Re-Evaluation - Re-Evaluation 1 Re-Evaluation Time: 22:32 Change: Improved GIGU Course/Dx - Course Course Of Treatment: An 87 y/o M presents with c/o n/v/d onset last night after going out to dinner. Pt felt at baseline yesterday. Associated sx: mid-sternal CP, fatigue, productive cough, chills, weakness, decreased oral intake. Denies fever, syncope, dysuria. PMHx: DMII. CXR was unremarkable. EKG showed SR 65 bpm ; RBBB; LVH with IVCD and abnormal secondary repolarization; Borderline prolonged QT interval. Glucose: 220. UA showed 2+ protein, 1+ blood, squamous epithelial cells. Pt is hemodynamically stable and A&Ox3. Will discharge pt. - Diagnoses Provider Diagnoses: Gastroenteritis Discharge - Sign-Out/Discharge Documenting (check all that apply): Patient Departure - Discharge Plan Condition: Good Disposition: HOME Prescriptions: Ondansetron [Zofran Odt] 8 mg PO TID PRN #12 tab PRN Reason: Nausea Patient Education Materials: Gastroenteritis (ED) Referrals: Triston Ramsey MD [Primary Care Provider] - 2 Days (If not better) - Billing Disposition and Condition Condition: GOOD Disposition: Home - Attestation Statements Document Initiated by Scribe: Yes Documenting Scribe: Chavo Herrera Provider For Whom Sheri is Documenting (Include Credential): Dr. Jair Dudley MD Scribe Attestation: Chavo Harrison, scribed for Dr. Jair Dudley MD on 11/18/17 at 0630. Scribe Documentation Reviewed: Yes Provider Attestation: The documentation as recorded by the Chavo gutierres accurately reflects the service I personally performed and the decisions made by me, Dr. Jair Dudley MD
[2017-11-17 20:23] LABS: ABS Basophils 0 10^3/ul (0-0.2); ABS Eosinophils 0.2 10^3/ul (0-0.6); ABS Lymphocytes 0.9 10^3/ul (1.0-4.8); ABS Monocytes 0.7 10^3/ul (0-0.8); ABS Nucleated RBC 0 10^3/ul; Eosinophil % 2.9 % (0-6); Hematocrit 34 % (42-52); Hemoglobin 11.2 g/dl (14.0-18.0); Lymphocyte % 13.7 % (25-47); Mean Corpuscular HGB Conc 34 g/dl (31-36); Mean Corpuscular Hemoglobin 31 pg (27-31); Mean Corpuscular Volume 93 fL (80-94); Mean Platelet Volume 8.4 um3 (7.4-10.4); Nucleated Red Blood Cells % 0.1; Platelet Count 205 10^3/ul (150-450); Red Blood Count 3.61 10^6/ul (4.00-5.40); Red Cell Distribution Width 15 % (10.5-15); White Blood Count 6.8 10^3/ul (3.5-10.8)
[2017-11-17 20:39] LABS: EGFR Non-African American 46.7 (>60)
[2017-11-17 22:01] LABS: Urine Appearance Clear; Urine Blood 1+ (Negative); Urine Color Yellow; Urine Ketones Negative (Negative); Urine Protein 2+(100 mg/dL) (Negative); Urine Red Blood Cell Trace(0-2/hpf) (Absent); Urine Specific Gravity 1.015 (1.010-1.030); Urine Urobilinogen Negative (Negative); Urine White Blood Cell Trace(0-5/hpf) (Absent)
[2017-11-17] MEDS ORDERED: Ondansetron ODT TAB* 4 MG SL ONE (22:32)
[2017-11-17 23:04] VITALS: BP 161/86
--- NOTE | 2017-11-18 08:05 | RAD ---
Indication: Right-sided chest pain 2 views of the chest are reviewed. Comparison is made with previous exam dated September 15, 2017. No mediastinal shift is noted. There is blunting of the right costophrenic angle which may represent chronic pleural changes as this was present on September 15, 2017. Pacemaker leads are in place. Left lung field is clear. Patient is status post tracer thoracotomy. IMPRESSION: Chronic pleural changes in the right lung field. No changes noted since previous exam. R0
== END 2017-11-17 23:03 | disposition home or self-care (01) ==
LOC: ED 18:49
DX: K52.9 Noninfective gastroenteritis and colitis, unspecified (principal); R53.1 Weakness; R11.2 Nausea with vomiting, unspecified; R19.7 Diarrhea, unspecified; R05 Cough; R07.9 Chest pain, unspecified; E11.9 Type 2 diabetes mellitus without complications; R53.83 Other fatigue; Z87.891 Personal history of nicotine dependence
CPT/HCPCS: 36415; 71046; 80048; 81003; 81015; 83605; 85025; 87086; 93005; 96360; 99283; A9270-GY

== ENCOUNTER 2018-01-24 15:43 | Observation (INO) | payer MEDICARE, OTHER ==
[2018-01-24] MEDS ORDERED: NS 0.9% 1000 ML* 1,000 ML IV ONE (18:52)
[2018-01-24] MEDS ORDERED: Vancomycin(*) 1,000 MG VIAL IVPB SCH (19:00)
[2018-01-24] MEDS ORDERED: Vancomycin 1500 MG IV - x ONCE IVPB ONE ×2 (19:30)
--- NOTE | 2018-01-24 19:30 | ED ---
Lower Extremity - HPI Summary HPI Summary: 87-year-old male presents from the wound clinic for left heel infection. They have been treating the infection for 6 weeks but is worse. He denies any fevers. He denies any chills. He is currently on Augmentin has been on a couple weeks. He states that he was having increased pain for the past week. He States Has a Follow-Up with dr mancia on Saturday as has hx of osteomyelitis. Per record from early this month xrays shows probably osteomyelitis. He Is Diabetic. He Is on eliquis for his Pacemaker. The Wound Was Cleaned Today by the Wound Clinic. - History of Current Complaint Chief Complaint: EDExtremityLower Stated Complaint: LT HEEL PAIN Time Seen by Provider: 01/24/18 18:37 Pain Intensity: 5 - Allergies/Home Medications Allergies/Adverse Reactions: Allergies Allergy/AdvReac Type Severity Reaction Status Date / Time aspirin Allergy GI Upset Verified 01/24/18 16:05 Iodinated Contrast- Oral and Allergy Unknown Verified 01/24/18 16:05 IV Dye Reaction Details morphine AdvReac Hallucinati Verified 09/15/17 13:29 ons Home Medications: Home Medications Amoxicillin/Clavulanate TAB* [Augmentin TAB 875*] 1 tab PO BID 01/24/18 [ History Confirmed 01/24/18] Insulin GLARGINE(*) [Lantus(*)] 52 units SUBCUT QPM 01/24/18 [History Confirmed 01/24/18] Insulin LISPRO* [HumaLOG*] 0 units SUBCUT BID 01/24/18 [History Confirmed ] glipiZIDE [Glipizide] 5 mg PO TID 01/24/18 [History Confirmed 01/24/18] PMH/Surg Hx/FS Hx/Imm Hx Endocrine/Hematology History: Reports: Hx Diabetes Denies: Hx Anticoagulant Therapy, Hx Thyroid Disease Cardiovascular History: Reports: Hx Angina, 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, Hx Congestive Heart Failure, Hx Coronary Artery Disease, Hx Hypercholesterolemia, Hx Hypertension, Hx Pacemaker/ICD, Hx Syncope, Hx Valvular Heart Disease - Aoritc Valve replacement, Other Cardiovascular Problems /Disorders Respiratory History: Reports: Hx Pleural Effusion - Right Lobe, Hx Sleep Apnea, Other Respiratory Problems/Disorders - Community-acquired pneumonia in March 2017 Denies: Hx Asthma, Hx Chronic Obstructive Pulmonary Disease (COPD) GI History: Reports: Hx Gastroesophageal Reflux Disease, Hx Hiatal Hernia, Hx Ulcer History: Denies: Hx Renal Disease Musculoskeletal History: Reports: Hx Arthritis, Hx Back Problems - spinal stenosis, Other Musculoskeletal History - discitis Sensory History: Reports: Hx Cataracts, Hx Contacts or Glasses, Hx Vision Problem - cataract, Hx Hearing Problem Denies: Hx Hearing Aid Opthamlomology History: Reports: Hx Cataracts, Hx Contacts or Glasses, Hx Vision Problem - cataract Neurological History: Reports: Other Neuro Impairments/Disorders - numb/ tingling bilat feet(chronic), Denies: Hx Dementia, Hx Seizures Psychiatric History: Denies: Hx Substance Abuse - Cancer History Cancer Type, Location and Year: colon CA 1996, Prostate 2001 Hx Chemotherapy: No Hx Radiation Therapy: No - Surgical History Surgery Procedure, Year, and Place: L shoulder. gallbladder removed. L wrist. Aortic valve replacement. pacemaker. 3 stents. cataracts Hx Anesthesia Reactions: No - Immunization History Date of Tetanus Vaccine: Unk Date of Influenza Vaccine: Fall 2014 Infectious Disease History: No Infectious Disease History: Denies: Hx Hepatitis, Hx Human Immunodeficiency Virus (HIV), Traveled Outside the [place] in Last 30 Days - Family History Known Family History: Positive: Other - Negative: CAD Negative: Cardiac Disease - Social History Alcohol Use: None Hx Substance Use: No Substance Use Type: Reports: None Hx Tobacco Use: Yes Smoking Status (MU): Former Smoker Have You Smoked in the Last Year: No Review of Systems Negative: Fever Negative: Chest Pain Negative: Shortness Of Breath Positive: Other - wound on left heal All Other Systems Reviewed And Are Negative: Yes Physical Exam Triage Information Reviewed: Yes Vital Signs On Initial Exam: Initial Vitals Temp Pulse Resp BP Pulse Ox 98.3 F 81 18 142/69 94 01/24/18 15:59 01/24/18 15:59 01/24/18 15:59 01/24/18 15:59 01/24/18 15:59 Vital Signs Reviewed: Yes Appearance: Positive: Well-Appearing Skin: Positive: Other - 5 by 4cm open wound left heel with surrounding erythema Head/Face: Positive: Normal Head/Face Inspection Eyes: Positive: Normal, Conjunctiva Clear ENT: Positive: Pharynx normal Respiratory/Lung Sounds: Positive: Clear to Auscultation, Breath Sounds Present Cardiovascular: Positive: Normal, RRR Musculoskeletal: Positive: Normal Neurological: Positive: Normal Psychiatric: Positive: Normal Diagnostics - Vital Signs Vital Signs Temp Pulse Resp BP Pulse Ox 01/24/18 15:59 98.3 F 81 18 142/69 94 - Laboratory Result Diagrams: 01/24/18 19:15 01/24/18 19:14 Lab Statement: Any lab studies that have been ordered have been reviewed, and results considered in the medical decision making process. Lower Extremity Course/Dx - Course Course Of Treatment: 87-year-old male presents from the wound clinic for left heel infection. They have been treating the infection for 6 weeks but is worse. He denies any fevers. He denies any chills. He is currently on Augmentin has been on a couple weeks. He states that he was having increased pain for the past week. He States Has a Follow-Up with dr mancia on Saturday as has hx of osteomyelitis. Per record from early this month xrays shows probably osteomyelitis. He Is Diabetic. He Is on eliquis for his Pacemaker. The Wound Was Cleaned Today by the Wound Clinic. on exam has 5cm by 4cm open wound on left heel with surrounding erythema. labs wbc normal but lactic elevated. has been on augmentin and is going worst. gave dose of vancomycin as per previous wound culture is sensitive to such. discussed with dr pacheco who agrees to admit. - Diagnoses Differential Diagnosis/HQI/PQRI: Positive: Osteomyelitis, Other - cellulitis, abscess Provider Diagnoses: Diabetic ulcer of left foot, Cellulitis Discharge - Sign-Out/Discharge Documenting (check all that apply): Patient Departure - Discharge Plan Condition: Stable Disposition: ADMITTED TO [facility] - Billing Disposition and Condition Condition: STABLE Disposition: Admitted to [facility]
[2018-01-24] MEDS ORDERED: NS 0.9% 250 ML* 250 ML ONE (19:36)
[2018-01-24 19:44] LABS: ABS Basophils 0 10^3/ul (0-0.2); ABS Eosinophils 0.3 10^3/ul (0-0.6); ABS Lymphocytes 1.3 10^3/ul (1.0-4.8); ABS Monocytes 0.8 10^3/ul (0-0.8); ABS Neutrophils 6.3 10^3/ul (1.5-7.7); ABS Nucleated RBC 0 10^3/ul; Eosinophil % 2.9 %; Hematocrit 35 % (42-52); Hemoglobin 11.7 g/dl (14.0-18.0); Lymphocyte % 14.9 %; Mean Corpuscular HGB Conc 34 g/dl (31-36); Mean Corpuscular Hemoglobin 32 pg (27-31); Mean Corpuscular Volume 96 fL (80-94); Mean Platelet Volume 8.6 fL (7.4-10.4); Nucleated Red Blood Cells % 0; Platelet Count 217 10^3/ul (150-450); Red Blood Count 3.64 10^6/ul (4.00-5.40); Red Cell Distribution Width 14 % (10.5-15); White Blood Count 8.6 10^3/ul (3.5-10.8)
[2018-01-24 19:58] LABS: INR 0.98 (0.77-1.02)
[2018-01-24 20:04] LABS: EGFR Non-African American 36.3 (>60)
[2018-01-24] MEDS ORDERED: Furosemide TAB* 20 MG PO PRN (23:52)
[2018-01-24] MEDS ORDERED: Acetaminophen TAB* 325 MG PO PRN (23:52)
[2018-01-24] MEDS ORDERED: Albuterol HFA INHALER* 8 gm MDI INH PRN (23:52)
[2018-01-24 23:59] LABS: Urine Appearance Clear; Urine Blood 1+ (Negative); Urine Color Yellow; Urine Ketones Negative (Negative); Urine Protein 2+(100 mg/dL) (Negative); Urine Red Blood Cell Trace(0-2/hpf) (Absent); Urine Specific Gravity 1.017 (1.010-1.030); Urine Urobilinogen Negative (Negative); Urine White Blood Cell Trace(0-5/hpf) (Absent)
[2018-01-24] MEDS: Cefepime 2 GM in Dextrose(*) 2 GM/50 ML BAG IV SCH (23:59)
[2018-01-25] MEDS ORDERED: Dextrose 50% Syringe 50 ML* 25 GM/50 ML SYRINGE IV PUSH PRN (00:12)
[2018-01-25] MEDS ORDERED: Insulin GLARGINE(*) 1 UNITS UNIT SUBCUT ONE (00:19)
[2018-01-25] MEDS ORDERED: Vancomycin per Pharmacy* NOTE FOLLOW UP PRN (03:41)
[2018-01-25 07:36] LABS: ABS Basophils 0 10^3/ul (0-0.2); ABS Eosinophils 0.2 10^3/ul (0-0.6); ABS Lymphocytes 0.9 10^3/ul (1.0-4.8); ABS Monocytes 0.7 10^3/ul (0-0.8); ABS Neutrophils 4.2 10^3/ul (1.5-7.7); ABS Nucleated RBC 0 10^3/ul; Hematocrit 31 % (42-52); Hemoglobin 10.6 g/dl (14.0-18.0); Lymphocyte % 14.9 %; Mean Corpuscular HGB Conc 34 g/dl (31-36); Mean Corpuscular Hemoglobin 32 pg (27-31); Mean Corpuscular Volume 95 fL (80-94); Mean Platelet Volume 8.3 fL (7.4-10.4); Nucleated Red Blood Cells % 0.1; Platelet Count 179 10^3/ul (150-450); Red Blood Count 3.31 10^6/ul (4.00-5.40); Red Cell Distribution Width 14 % (10.5-15); White Blood Count 6.1 10^3/ul (3.5-10.8)
[2018-01-25 07:55] LABS: EGFR Non-African American 45.6 (>60)
[2018-01-25] MEDS: Insulin LISPRO* 1 UNITS UNIT SUBCUT SCH ×5 (08:14→21:26)
[2018-01-25] MEDS: Atorvastatin* 40 MG TAB PO SCH (08:15)
[2018-01-25] MEDS: Multivitamins/Minerals TAB PO SCH (08:15)
[2018-01-25] MEDS: Insulin GLARGINE(*) 1 UNITS UNIT SUBCUT SCH (08:15)
[2018-01-25] MEDS: Aspirin EC TAB* 81 MG TAB.EC PO SCH (08:15)
[2018-01-25] MEDS: Apixaban* 2.5 MG TAB PO SCH ×2 (08:16→21:24)
[2018-01-25] MEDS: Lansoprazole susp Kit 3 MG/ML (30 MG = 10 ML) PO SCH (08:16)
[2018-01-25] MEDS: Atenolol TAB* 25 MG PO SCH (08:20)
[2018-01-25] MEDS: Gabapentin CAP(*) 300 MG PO SCH ×3 (08:21→21:24)
[2018-01-25] MEDS: metroNIDAZOLE IV 500 MG/100ML* 500 MG/100 ML BAG IVPB SCH ×3 (08:27→23:44)
--- NOTE | 2018-01-25 08:40 | HP ---
CC: Dr. Ramsey; Dr. Bello HISTORY AND PHYSICAL: DATE OF ADMISSION: 01/24/18 PRIMARY CARE PROVIDER: Dr. Ramsey. CHIEF COMPLAINT: Cellulitis. HISTORY OF PRESENT ILLNESS: Mr. De La Torre is an 87-year-old male who was seen at the wound clinic [facility] for his weekly evaluation of a left medial heel ulceration and was referred to the emergency room for concern of cellulitis. The patient states that he had been using Unna Boot up until a couple of weeks ago; however, this was discontinued. He thinks that the wound essentially had been healing up until this week's check when he noticed the wound itself looked worse. There was some concern for as sociated cellulitis and therefore the patient was sent to the emergency room. He denies any fevers o r chills. He does state that he has pain in the left foot. He states that it is no worse than usual . He also notes that his legs are swollen. The patient states that he ambulates and puts pressure o n the left heel while doing so. He states that he generally he feels about like he normally does and would not have come to the emergency room if he was not sent by the wound center. PAST MEDICAL HISTORY: 1. Diastolic CHF. 2. Coronary artery disease. 3. Stage 3 chronic kidney disease. 4. History of diskitis 2016. 5. GERD. 6. Neuropathy. 7. Hypertension. 8. PACO. 9. Atrial fibrillation. 10. Hyperlipidemia. PAST SURGICAL HISTORY: 1. CABG. 2. Porcine aortic valve replacement. 3. Pacemaker insertion. MEDICATIONS: Being updated at this time. ALLERGIES: ASPIRIN, IODINATED CONTRAST, MORPHINE. FAMILY HISTORY: Mom at age of 78 of breast cancer. Dad at age of 75 of a gangrenous foot. SOCIAL HISTORY: The patient has a remote history of smoking, quitting over 70 years ago. He does no t drink alcohol. 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 He lives alone. He is . He has 4 chi ldren. His son William who lives just down the road from his is his healthcare proxy. REVIEW OF SYSTEMS: Complete 11-system review of systems is obtained. Pertinent positives and negati ves are as per HPI and otherwise negative. PHYSICAL EXAMINATION GENERAL: The patient is a well-developed elderly obese male seen lying in stretcher in no acute dist ress. VITAL SIGNS: Blood pressure 177/76, pulse 73, respirations 16, temp 98.1, O2 sat 97% on room air. HEENT: Pupils are approximately 1 to 2 mm, they are round. Extraocular muscles are intact. Orophar ynx is clear. Oral mucosa is moist. The patient wears upper and lower dentures. There is no subman dibular cervical or supraclavicular adenopathy. NECK: Thyroid is not enlarged. No thyroid nodules are noted. PULMONARY: Lungs are clear to auscultation bilaterally. CARDIAC: Normal S1, S2. Regular rate and rhythm. There is 2+ bilateral lower extremity pitting lex ma. ABDOMEN: Bowel sounds present. Abdomen is soft, nontender, nondistended. MUSCULOSKELETAL: There is no cyanosis or clubbing in the digits. There is full active range of oma on of all 4 extremities. SKIN: Warm and dry. There are no rashes. There is an approximate 2 cm in diameter round shallow ul ceration noted on the medial left heel. There is slight warmth surrounding this. There is no signif icant erythema surrounding this. There is an outline of where somebody thought erythema went to at o ne point today. The patient does have few excoriations on the anterior shins. NEUROLOGIC: Cranial nerves II through XII are grossly intact. Sensation is intact to light touch th roughout. Strength is 5/5 and symmetric in both upper and lower extremities bilaterally. PSYCH: The patient is alert. She is oriented x3. Affect appears appropriate. LABORATORY DATA: WBC 8.6, hemoglobin 11.7, hematocrit 35, platelets 217. INR 0.98. Sodium 139, po tassium 4.9, chloride 101, CO2 of 30, BUN 37, creatinine 1.78. Glucose 253, lactic acid 2.3 x2. Calc ium 9.6, bilirubin 0.3, AST 17, ALT 12, alk phos 89, troponin 0.04, CRP 5.47, BNP 260, albumin 4.0. EKG reveals normal sinus rhythm with a widened QRS complex consistent with a right bundle branch bloc k. There are no acute ST T-wave abnormalities. ASSESSMENT AND PLAN: Mr. De La Torre is an 87-year-old male who has been seeing the wound clinic weekly for the last 6 weeks for a left medial heel ulceration who is referred to the emergency room for con cerns of associated cellulitis. 1. Left heel cellulitis with associated diabetic foot ulcer with questionable underlying osteomyelit is. The patient states that he has been told that there is underlying osteomyelitis. He is diabetic . He has been on Augmentin as an outpatient. The patient is not febrile. He does not have an eleva shane white blood cell count nor does he have an elevated CRP. At some point today, there was thought that there was cellulitis as there was an outline of where someone thought erythema was. At this poi nt, I do not see evidence of this. However, he has received IV antibiotics in the emergency room. T he patient will continue on vancomycin and I will add cefepime. The patient is due to see Dr. Izaiah travis as an outpatient this coming Saturday. It is possible that the patient may receive 24 hours worth o f IV antibiotics followed by oral antibiotics and outpatient evaluation. 2. Diastolic congestive heart failure: At this point, the patient does have lower extremity swellin g. His medication list is being updated currently. I will likely continue him on his usual home med ication regimen. 3. Coronary artery disease: I will continue the patient on aspirin and his statin. I will monitor for any symptoms. He does have an elevated troponin; however, this is baseline for him without any c omplaints of chest pain at this point; I am not going to follow this up any further. 4. Stage 3 chronic kidney disease: The patient's creatinine is essentially at baseline. We will re kelly dose his medications. 5. Hypertension: The patient's most recent blood pressure is quite elevated. I am going to follow his blood pressures for now and not make any adjustments in his home regimen. 6. Obstructive sleep apnea: The patient does not utilize a CPAP. We will watch this. 7. Atrial fibrillation: The patient is currently in sinus rhythm. He is able to tell me he is on E liquis at home. This will be continued. 8. Hyperlipidemia: The patient will continue on his usual statin. 9. DVT prophylaxis: According to the Adult Thrombosis Prophylaxis Risk Factor Assessment Guide, the patient has a total risk factor score of 5 making him the highest risk. He is already on Eliquis an d this will act as his DVT prophylaxis. 10. Code status: Full. TIME SPENT: Sixty five minutes was spent admitting this patient. [id number]/[facility] #: [id number]
[2018-01-25] MEDS: Furosemide TAB* 20 MG PO SCH (09:19)
[2018-01-25] MEDS: Vancomycin(*) 1,000 MG in NS 0.9% 250 ML* 250 ML IVPB SCH ×2 (10:18→21:24)
--- NOTE | 2018-01-25 15:40 | PN ---
Subjective Date of Service: 01/25/18 Interval History: Patient is feeling well today. Patient denies F/C, N/V, abdominal pain, diarrhea , CP, SOB, dizziness on standing, or or pain at ulcer site. Patient has painful neuropathy but usually does have pain from ulcer which has subsided. Patient walks on his ulcer frequently and feels as if this is interfering with wound healing. Family History: Unchanged from Admission Social History: Unchanged from Admission Past Medical History: Unchanged from Admission Objective Active Medications: Acetaminophen (Tylenol Tab*) 650 mg PO Q4H PRN PRN Reason: FEVER/PAIN Albuterol (Ventolin Hfa Inhaler*) 2 puff INH Q6H PRN PRN Reason: SHORTNESS OF BREATH Apixaban (Eliquis*) 2.5 mg PO BID [facility] Last Admin: 01/25/18 08:16 Dose: 2.5 mg Aspirin (Aspirin Ec Tab*) 81 mg PO DAILY [facility] Last Admin: 01/25/18 08:15 Dose: 81 mg Atenolol (Tenormin Tab*) 25 mg PO DAILY [facility] Last Admin: 01/25/18 08:20 Dose: 25 mg Atorvastatin Calcium (Lipitor*) 40 mg PO DAILY [facility] Last Admin: 01/25/18 08:15 Dose: 40 mg Dextrose (D50w Syringe 50 Ml*) 12.5 gm IV PUSH .FOR FS < 60 - SS PRN PRN Reason: FS < 60 Furosemide (Lasix Tab*) 20 mg PO DAILY [facility] Last Admin: 01/25/18 09:19 Dose: 20 mg Gabapentin (Neurontin Cap(*)) 600 mg PO TID [facility] Last Admin: 01/25/18 12:34 Dose: 600 mg Cefepime HCl (Maxipime 2 Gm In Dextrose Duplex (*)) 2 gm in 50 mls @ 100 mls/ hr IV Q24H [facility] Last Admin: 01/24/18 23:59 Dose: 100 mls/hr Vancomycin HCl 1,000 mg/ (Sodium Chloride) 250 mls @ 166.667 mls/hr IVPB Q12H [facility]; Protocol Last Admin: 01/25/18 10:18 Dose: 166.667 mls/hr Metronidazole/Sodium Chloride (Flagyl 500 Mg Ivpb*) 500 mg in 100 mls @ 100 mls /hr IVPB Q8H [facility] Last Admin: 01/25/18 08:27 Dose: 100 mls/hr Insulin Glargine (Lantus(*)) 46 units SUBCUT QAM [facility] Last Admin: 01/25/18 08:15 Dose: 46 unit Insulin Glargine (Lantus(*)) 52 units SUBCUT QPM [facility] Insulin Human Lispro (Humalog*) 0 units SUBCUT ACHS [facility]; Protocol Last Admin: 01/25/18 12:34 Dose: 6 units Lansoprazole (Lansoprazole Susp Kit) 30 mg PO QAM [facility]; Protocol Last Admin: 01/25/18 08:16 Dose: 30 mg Multivitamins/Minerals (Theragran/Minerals Tab*) 1 tab PO DAILY [facility] Last Admin: 01/25/18 08:15 Dose: 1 tab Pharmacy Consult (Vancomycin Per Pharmacy*) 1 note FOLLOW UP . PRN PRN Reason: PER PROTOCOL Pharmacy Profile Note (Vancomycin Trough Check) 1 note FOLLOW UP 0900 ONE Stop: 01/26/18 09:01 Vital Signs - 8 hr 01/25/18 01/25/18 01/25/18 08:21 11:12 11:49 Temperature 97.9 F Pulse Rate 59 Respiratory 16 18 18 Rate Blood Pressure 141/60 (mmHg) O2 Sat by Pulse 98 Oximetry 01/25/18 12:34 Temperature Pulse Rate Respiratory 16 Rate Blood Pressure (mmHg) O2 Sat by Pulse Oximetry Oxygen Devices in Use Now: None Appearance: Patient is an 87yo male who appears stated age and is sitting in the bed in [facility]. Eyes: No Scleral Icterus, PERRLA Ears/Nose/Mouth/Throat: NL Teeth, Lips, Gums, Clear Oropharnyx, Mucous Membranes Moist Neck: NL Appearance and Movements; NL JVP, Trachea Midline Respiratory: Symmetrical Chest Expansion and Respiratory Effort, Clear to Auscultation Cardiovascular: NL Sounds; No Murmurs; No JVD, RRR, - - 2+ edema in B/L LE. Abdominal: NL Sounds; No Tenderness; No Distention, No Hepatosplenomegaly Lymphatic: No Cervical Adenopathy Extremities: No Clubbing, Cyanosis Skin: No Nodules or Sclerosis, - - Circular healing ulcer on medial calcaneous of left foot with small area of necrosis and redness significantly receded from line drawn yesterday. Neurological: Alert and Oriented x 3, NL Sensation, NL Muscle Strength and Tone , - - CN II-XII intact. Result Diagrams: 01/25/18 07:24 01/25/18 07:24 Assess/Plan/Problems-Billing Assessment: Patient is an 87yo male with a PMH for CAD, PVD, DM II, CHF, CAD, Afib, HFpEF, and neuropathy who is admitted for a diabetic foot ulcer with possible cellulitis, and xray evidence of underlying osteomyelitis. Patient is admitted with IV antibiotics and his foot is improving. - Patient Problems (1) Diabetic foot ulcer Current Visit: Yes Status: Acute Code(s): E11.621 - TYPE 2 DIABETES MELLITUS WITH FOOT ULCER; L97.509 - NON-PRESSURE CHRONIC ULCER OTH PRT UNSP FOOT W UNSP SEVERITY SNOMED Code(s): 614714501 Comment: - Wound of medial calcaneous of left foot - X-Ray evidence of Osteomyelitis - Possible associated cellulitis improving - Orthopedic consult pending for consideration of debridement - Continue Cefepime, Vanco, and Flagyl, narrow based on culture data. - Previous IR consult with adequate blood flow to foot. (2) PVD (peripheral vascular disease) Current Visit: Yes Status: Acute Code(s): I73.9 - PERIPHERAL VASCULAR DISEASE, UNSPECIFIED SNOMED Code(s): 456876080 Comment: - STEVE shows elevated STEVE and Decreased Toe-Brachial Index - Outpatient IR consult determined no need for intervention - Good Pulses - Continue aspirin and Statin. (3) Type II diabetes mellitus Current Visit: No Status: Acute Comment: - Continue Lantus, Lispro SS and scheduled insulin with increases in dose PRN - A1c 8.7 (4) Atrial fibrillation Current Visit: No Status: Acute Priority: Medium Code(s): I48.91 - UNSPECIFIED ATRIAL FIBRILLATION SNOMED Code(s): 94594918 Comment: - In NSR on telemetry with occasional paced beat and frequent PVC's - Continue Atenolol and Eliquis. (5) Diastolic CHF Current Visit: No Status: Acute Code(s): I50.30 - UNSPECIFIED DIASTOLIC ( CONGESTIVE) HEART FAILURE SNOMED Code(s): 466957634 Comment: - Moderate edema in feet, increase lasix to daily due to LE edema possibly impairing wound healing - Strict I+O, daily weights, heart healthy diet. - Monitor renal function closely (6) Elevated troponin Current Visit: No Status: Acute Code(s): R74.8 - ABNORMAL LEVELS OF OTHER SERUM ENZYMES SNOMED Code(s): 708505831 Comment: - Chronically elevated - No CP or EKG changes (7) Hypertension Current Visit: No Status: Acute Priority: Medium Code(s): I10 - ESSENTIAL (PRIMARY) HYPERTENSION SNOMED Code(s): 50104766 Comment: - Continue atenolol (8) Full code status Current Visit: No Status: Acute Code(s): Z78.9 - OTHER SPECIFIED HEALTH STATUS SNOMED Code(s): 725656006 Comment: Status and Disposition: Inpatient for IV antibiotics and Orthopedic Consult.
[2018-01-25] MEDS ORDERED: Insulin GLARGINE(*) 1 UNITS UNIT SUBCUT SCH (18:00)
[2018-01-25] MEDS: Cefepime 2 GM in Dextrose(*) 2 GM/50 ML BAG IV SCH (23:03)
[2018-01-26 07:15] LABS: ABS Basophils 0 10^3/ul (0-0.2); ABS Eosinophils 0.3 10^3/ul (0-0.6); ABS Monocytes 0.7 10^3/ul (0-0.8); ABS Neutrophils 4.3 10^3/ul (1.5-7.7); ABS Nucleated RBC 0 10^3/ul; Eosinophil % 4.7 %; Hematocrit 32 % (42-52); Hemoglobin 10.6 g/dl (14.0-18.0); Lymphocyte % 15.7 %; Mean Corpuscular HGB Conc 34 g/dl (31-36); Mean Corpuscular Hemoglobin 32 pg (27-31); Mean Corpuscular Volume 95 fL (80-94); Mean Platelet Volume 8.7 fL (7.4-10.4); Nucleated Red Blood Cells % 0; Platelet Count 169 10^3/ul (150-450); Red Blood Count 3.31 10^6/ul (4.00-5.40); Red Cell Distribution Width 14 % (10.5-15); White Blood Count 6.4 10^3/ul (3.5-10.8)
[2018-01-26] MEDS: metroNIDAZOLE IV 500 MG/100ML* 500 MG/100 ML BAG IVPB SCH (08:27)
[2018-01-26] MEDS: Insulin LISPRO* 1 UNITS UNIT SUBCUT SCH ×4 (08:30→13:10)
[2018-01-26] MEDS: Gabapentin CAP(*) 300 MG PO SCH ×2 (08:30→13:08)
[2018-01-26] MEDS: Aspirin EC TAB* 81 MG TAB.EC PO SCH (08:30)
[2018-01-26] MEDS: Atenolol TAB* 25 MG PO SCH (08:30)
[2018-01-26] MEDS: Furosemide TAB* 20 MG PO SCH (08:30)
[2018-01-26] MEDS: Apixaban* 2.5 MG TAB PO SCH (08:30)
[2018-01-26] MEDS: Multivitamins/Minerals TAB PO SCH (08:30)
[2018-01-26] MEDS: Atorvastatin* 40 MG TAB PO SCH (08:30)
[2018-01-26] MEDS: Insulin GLARGINE(*) 1 UNITS UNIT SUBCUT SCH (08:31)
[2018-01-26] MEDS: Lansoprazole susp Kit 3 MG/ML (30 MG = 10 ML) PO SCH (08:31)
[2018-01-26] MEDS ORDERED: Vancomycin Trough Check NOTE FOLLOW UP ONE (09:00)
--- NOTE | 2018-01-26 09:08 | PN ---
Progress Note - Progress Note Date of Service: 01/26/18 Note: Pt seen and examined. Will dictate full note in system. Recommend continue abx. Will set up appointment to see Dr Storey tomorrow at [facility] ortho.
[2018-01-26] MEDS: Vancomycin(*) 1,000 MG in NS 0.9% 250 ML* 250 ML IVPB SCH (09:58)
[2018-01-26 13:45] VITALS: BP 135/63
--- NOTE | 2018-01-26 16:23 | CONS ---
CONSULTATION NOTE: DATE OF CONSULT: 01/26/18 ATTENDING PHYSICIAN: Henry Christensen MD CHIEF COMPLAINT: Left heel ulceration. HISTORY OF PRESENT ILLNESS: Briefly, Gabe De La Torre is an 87-year-old male who has a several-month history of a left medial heel ulcer that has been treated in the wound clinic. He is using the Unna boot. He started having persistent pain, some increasing cellulitis and was admitted for IV antibio tics for cellulitis. Imaging was done including an x-ray and a CT scan. The patient is unable to get an MRI, demonstrates there is no obvious osteomyelitis, although he has been treated by Dr. Indra Morales as though he has osteoarthritis. He does state it is painful when he walks on and he states he is sensate distally and notes that it bothers him. PAST MEDICAL HISTORY: CHF, CAD, stage 3 chronic kidney disease, discitis in 2016, GERD, neuropathy, hypertension, PACO, atrial fibrillation, hyperlipidemia. PAST SURGICAL HISTORY: CABG, aortic valve replacement, pacemaker insertion. CURRENT MEDICATIONS: 1. Tylenol. 2. Ventolin. 3. Eliquis. 4. Aspirin. 5. Tenormin. 6. Lipitor. 7. Maxipime. 8. Lasix. 9. Neurontin. 10. Lantus. 11. Humalog. 12. Lansoprazole. 13. Flagyl. 14. Multivitamins. 15. Vancomycin. ALLERGIES: 1. ASPIRIN. 2. IODINE. 3. CONTRAST. 4. MORPHINE. FAMILY HISTORY: Mother at 78 of breast cancer, dad at 75 for gangrenous foot. SOCIAL HISTORY: The patient quit smoking 70 years ago. He does not drink alcohol. He works as a for [employer]. He lives alone. He is . He has 4 children. His son William lives down the road who is me s healthcare proxy. REVIEW OF SYSTEMS: A 14-point review of systems reviewed with the patient, significant for the above complaint, negative for fever and chills. He does have diabetes, chronic medial wound heel ulcer. He also had an ulceration in the posterior aspect to the middle of the calf that is healed. He also had previous ORIF of his medial plateau in April of this year, which he did well with. Otherwise, rem ainder of the systems is negative. PHYSICAL EXAM: General: He is in no acute distress. He is well developed, well nourished. He is a lert and oriented x3. He has pleasant mood and normal affect. Good balance and coordination of his u pper extremities. Temperature 98.1, pulse is 65, respiratory rate 16, O2 saturation is 97% on room a ir, blood pressure 132/76. EOMI. Chest: Clear to auscultation. Heart: Regular rate and rhythm. A bdomen: Soft, nontender. Extremities: Examination of the left leg demonstrates he has evidence of he aling wound on the posterior aspect of the calf with a small eschar, well-healed medially based knee incision. Range of motion of the knee is about 2 to 120 degrees, nontender about the knee. He has a medial ulcer that is about a size of silver dollar, which appears to be superficial. There is no ev idence of deep track . There is no drainage. He does have some surrounding cellulitis which se ems to have withdrawn from the marked edges. He has a 2+ PT pulse. DP pulse 2+. He is sensate to l ight about the first dorsal webspace, medial, lateral, dorsum, and plantar foot. Able to flex and ex tend his toes, dorsiflex and plantarflex his ankle. DIAGNOSTIC STUDIES/LAB DATA: White blood cell count is 6.4. ESR obtained yesterday is 45. No CRP i s visible. Hematocrit 32 and platelet is 169. Sodium is 142, potassium 4.2, chloride 106, carbon di oxide 29, BUN is 30, creatinine 1.36. X-rays of the foot and ankle demonstrate no obvious bony erosion. He has superficial heel ulceration . CT scan reveals the same. ASSESSMENT AND PLAN: He has a superficial heel ulceration that has been going on for several months. It has been treated in the wound clinic. He is developing cellulitis surrounding this. I think he needs to be seen by foot and ankle surgeon. He is going to be discharge today on oral antibiotics. He is going to follow up with Dr. Indra Bello tomorrow. I will also have him see my partner Dr. Paola Storey for evaluation. He is to nonweightbearing, dressing changes as tolerated, and I will se e the patient back as needed. This has been confirmed with Medicine and Hospitalist consulting. [id number]/[facility] #: [id number]
--- NOTE | 2018-01-27 10:24 | DS ---
CC: Dr. Ramsey * DISCHARGE SUMMARY: DATE OF ADMISSION: 01/24/18 DATE OF DISCHARGE: 01/26/18 PRIMARY CARE PROVIDER: Dr. Ramsey. MY ATTENDING WHILE IN THE HOSPITAL: Timmy García MD * (DICTATED BY NEYDA THOMAS) PRIMARY DISCHARGE DIAGNOSES: 1. Cellulitis of the left lower extremity. 2. 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 3. Concern for osteomyelitis, left lower extremity. SECONDARY DISCHARGE DIAGNOSES: 1. Diastolic congestive heart failure. 2. Coronary artery disease. 3. Stage 3 chronic kidney disease. 4. Gastroesophageal reflux disease. 5. Neuropathy. 6. Hypertension. 7. Obstructive sleep apnea. 8. Atrial fibrillation. 9. Hyperlipidemia. 10. History of diskitis. 11. History of CABG. 12. History of aortic valve replacement, pacemaker present. 13. Recent history of left-sided tibial plateau fracture. STUDIES DONE WHILE IN THE HOSPITAL: 1. Foot x-ray from 01/25/18 read as soft tissue swelling, no specific evidence for osteomyelitis. There is a high clinical index of suspicion for osteomyelitis. Consider MRI study without contrast or a 3-phase bone scan. 2. Lower extremity CT from 01/25/18 read as left lower extremity cellulitis with posterior left heel ulceration and no associated osteomyelitis. MEDICATIONS AT DISCHARGE: 1. Furosemide 20 mg p.o. daily as needed. 2. Aspirin 81 mg p.o. daily. 3. Apixaban 2.5 mg p.o. b.i.d. 4. Atorvastatin 40 mg p.o. daily. 5. Atenolol 25 mg p.o. daily. 6. Insulin glargine 46 units subcutaneous q.a.m., 52 units q.p.m. 7. Albuterol 1 puff inhalation every 6 hours as needed. 8. Lansoprazole 30 mg p.o. q.a.m. 9. Multivitamin 1 tab p.o. daily. 10. Gabapentin 600 mg p.o. t.i.d. 11. Glucosamine and chondroitin 1 cap p.o. b.i.d. 12. Tylenol 650 mg p.o. q.4 hours as needed. 13. Zofran 8 mg p.o. t.i.d. as needed. 14. Glipizide 5 mg p.o. t.i.d. 15. Insulin lispro sliding scale b.i.d. 16. Amoxicillin 500 mg p.o. b.i.d. x14 days. 17. Doxycycline 100 mg p.o. b.i.d. x14 days. HOSPITAL COURSE: This is a brief summary of the patient's presentation. For more details, please see history and physical from Audra Swenson DO on . In brief, the patient is an 87-year-old male with past medical history significant for the above, who presented to the emergency department after referral from the wound clinic for concern for worsening redness around his chronic lower extremity ulcer which had been treated with moderate success for the last several months through the wound clinic. The patient had no other associated symptoms, no sepsis. The patient's left heel cellulitis improved greatly with IV antibiotics. The patient had lower extremity edema which improved with increasing Lasix to schedule daily. The patient had improved pain in his foot. The patient had no white blood cell count. The patient's creatinine returned to near the patient's baseline with diuresis. The patient had a hemoglobin A1c which was 8.8 consistent with the patient's history but above goal. The patient had good glucose control, particularly in the morning while in the hospital. The patient had elevated troponin which he has chronically. The patient had only slightly elevated CRP and ESR. The patient had had a previous x-ray which showed evidence of osteomyelitis in his foot and was treated with Augmentin before coming to the emergency department for approximately a month. The patient at that time had a foot culture which grew Enterococcus faecalis which was resistant to ciprofloxacin. In the hospital, the patient's ulcer was treated with gauze wrap and non-adhesive dressing. The patient was seen in consultation by Dr. Henry Christensen of Orthopedics who recommended outpatient evaluation by a foot and ankle specialist and would arrange for outpatient evaluation by Dr. Khalif Storey soon after discharge. The patient was stable and amenable for discharge on 01/26/18. PHYSICAL EXAMINATION ON THE DAY OF DISCHARGE: General: The patient is an 87- year- old male who appears stated age, sitting comfortably in bed in no acute distress. Vital Signs: At the time of discharge, temperature 97.8, pulse rate 66, respiratory rate 18, oxygen saturation 98% on room air, blood pressure 135/ 63. HEENT: Head normocephalic, atraumatic. Sclerae anicteric. No conjunctival injection. Nasal mucosa is moist. Oral mucosa is moist. No pharyngeal erythema, discharge or exudate. Neck: Supple, nontender. No lymphadenopathy. No carotid bruits auscultated. No JVD. Cardiac: Regular rate and rhythm. No clicks, murmurs, gallops or rubs. Pulses 1+ in the bilateral dorsalis pedis and posterior tibial areas, pulses 2+ in the bilateral radial areas. Respiratory: Clear to auscultation bilaterally. No wheezes, rales or rhonchi. Good air exchange bilaterally. Abdomen: Soft, nontender, nondistended. Bowel sounds present in all 4 quadrants. No hepatosplenomegaly. No abdominal bruits auscultated. No hepatojugular reflux. Skin: An open area on the medial prominence of the calcaneus with receding area of erythema and a small area of necrosis consistent with wound clinic reports and similar to previous day's exam. Neuro: Cranial nerves II through XII intact. No focal deficits. Alert and oriented x3. Psychiatric: Pleasant and cooperative. DISCHARGE PLAN: The patient will be discharged to home. The patient has his to support him. The patient will be continued on Augmentin to cover resistant Enterococcus bacterium from previous exam as well as Streptococci. The patient will be started on doxycycline to cover MRSA as his wound swab showed gram-positive cocci; however, the patient's MRSA PCR was negative. The patient has a tissue culture from 01/24/18 as well as a wound culture from 01/25 pending. The patient should follow up with Dr. Mario Bello of Infectious Disease as scheduled on 01/27/18. The patient's antibiotics may be adjusted at that time based on culture data which may become available by that time as well as clinical progress. The patient should follow up with Dr. Khalif Storey of Orthopedics as well on 01/27/18 or as soon as possible. The patient does not have signs of osteomyelitis on his exam at this time and is unable to undergo an MRI to further elucidate this to his pacemaker. The patient did not have changes to his diabetic regimen while in the hospital; however, his control is suboptimal and should follow up with his primary care provider within 1 week and discuss this. The patient should return to the hospital for alarming symptoms such as high fevers, severe pain, chest pain or shortness of breath. The patient should continue activity as tolerated and have a heart healthy, consistent carbohydrate diet. TIME SPENT: Approximately 60 minutes were spent on the discharge of this patient, 30 of which was spent [id number] with the patient obtaining history and physical and discussing treatment plan. NEYDA THOMAS [id number]/[facility] #: [id number] ROBIN
[2018-01-28] MEDS ORDERED: Vancomycin Trough Check NOTE FOLLOW UP ONE (08:30)
== END 2018-01-26 14:45 | disposition home or self-care (01) ==
LOC: ED 15:43 → MED 23:12
PROVIDERS: ADMIT Hospitalist; ATTEND Internal Medicine
DX: L03.116 Cellulitis of left lower limb (principal); E11.621 Type 2 diabetes mellitus with foot ulcer; I13.0 Hypertensive heart and chronic kidney disease with heart failure and stage 1 through stage 4 chronic kidney disease, or unspecified chronic kidney disease; I50.30 Unspecified diastolic (congestive) heart failure; N18.3 Chronic kidney disease, stage 3 (moderate); E11.22 Type 2 diabetes mellitus with diabetic chronic kidney disease; Z87.891 Personal history of nicotine dependence; Z95.0 Presence of cardiac pacemaker; K21.9 Gastro-esophageal reflux disease without esophagitis; G62.9 Polyneuropathy, unspecified; G47.33 Obstructive sleep apnea (adult) (pediatric); I48.91 Unspecified atrial fibrillation; E78.5 Hyperlipidemia, unspecified; Z95.4 Presence of other heart-valve replacement; Z95.5 Presence of coronary angioplasty implant and graft; Z87.81 Personal history of (healed) traumatic fracture; I73.9 Peripheral vascular disease, unspecified; Z79.4 Long term (current) use of insulin; R74.8 Abnormal levels of other serum enzymes; Z88.6 Allergy status to analgesic agent; Z85.038 Personal history of other malignant neoplasm of large intestine; Z85.46 Personal history of malignant neoplasm of prostate; Z79.84 Long term (current) use of oral hypoglycemic drugs; Z79.01 Long term (current) use of anticoagulants; L89.622 Pressure ulcer of left heel, stage 2
CPT/HCPCS: 36415; 80048; 80053; 80202; 81003; 81015; 83036; 83605; 83735; 83880; 84484; 85025; 85610; 85652; 85730; 86140; 87040; 87070; 87077; 87086; 87205; 87640; 87641; 93005; 96361; 96365; 96366; 96372; 96375; 96376; 99284; A9270-GY; G0378; J0692; J3370; J3490

== ENCOUNTER → 2018-02-28 06:45 | Day surgery (SDC) | payer MEDICARE, OTHER ==
[~2018-02-28 06:45] MED LIST: Heparin 2 UNITS/ML IVPREMIX* 1,000 ML IV ONE; Heparin 2 UNITS/ML IVPREMIX* 2,000 ML IV ONE; Iodixanol 320 (CONTRAST) 100 ML SDV ONE; Lidocaine 1% INJ* 10 MG/ML 30 ML SDV ONE; Midazolam* 1 MG/ML 5 ML VIAL (5 MG) ONE; diPHENhydraMINE IV* 50 MG/ML 1 ml VIAL (BENADRYL) ONE; fentaNYL* 50 MCG/ML 2 ML VIAL (100 MCG VIAL) ONE
[2018-02-28 08:03] LABS: ABS Basophils 0 10^3/ul (0-0.2); ABS Eosinophils 0.4 10^3/ul (0-0.6); ABS Monocytes 0.7 10^3/ul (0-0.8); ABS Nucleated RBC 0 10^3/ul; Eosinophil % 6.6 %; Hematocrit 32 % (42-52); Hemoglobin 10.7 g/dl (14.0-18.0); Lymphocyte % 16.5 %; Mean Corpuscular HGB Conc 33 g/dl (31-36); Mean Corpuscular Hemoglobin 32 pg (27-31); Mean Corpuscular Volume 95 fL (80-94); Mean Platelet Volume 8.8 fL (7.4-10.4); Nucleated Red Blood Cells % 0.1; Platelet Count 192 10^3/ul (150-450); Red Blood Count 3.39 10^6/ul (4.00-5.40); Red Cell Distribution Width 14 % (10.5-15); White Blood Count 6.1 10^3/ul (3.5-10.8)
[2018-02-28 08:06] LABS: Activated Partial Thrombo Time 35.1 seconds (26.0-36.3); INR 1.1 (0.77-1.02)
[2018-02-28 08:17] LABS: BUN/Creatinine Ratio 20.3 (8-20); Calcium 9.2 mg/dL (8.6-10.3); EGFR Non-African American 35.3 (>60); Potassium 4.7 mmol/L (3.5-5.0)
--- NOTE | 2018-02-28 11:14 | PN ---
Progress Note - Progress Note Date of Service: 02/28/18 SOAP: Subjective: No pain complaints. Objective: 170/80, HR 60, RR 15, 100% (RA) NAD, AAO x 3 Right groin is soft and nontender Pulse exam is unchanged from pre-arteriography Assessment: 87 year old man status post pelvic and bilateral lower extremity diagnostic arteriography followed by percutaneous arteriotomy closure. Plan: 1. Will plan for interventional angiography to revascularize left infrapopliteal arteries. 2. D/C to home. 3. No change to pharmacotherapy.
[2018-02-28 14:39] VITALS: BP 127/56
== END | disposition home or self-care (01) ==
LOC: CHICATH 06:45
PROVIDERS: ATTEND Radiology Diagnostic Radiology
DX: I70.244 Atherosclerosis of native arteries of left leg with ulceration of heel and midfoot (principal); E11.9 Type 2 diabetes mellitus without complications; Z79.4 Long term (current) use of insulin; Z79.84 Long term (current) use of oral hypoglycemic drugs; Z95.0 Presence of cardiac pacemaker; I25.10 Atherosclerotic heart disease of native coronary artery without angina pectoris; I45.10 Unspecified right bundle-branch block; Z79.01 Long term (current) use of anticoagulants; I48.0 Paroxysmal atrial fibrillation; I35.8 Other nonrheumatic aortic valve disorders
CPT/HCPCS: 36415; 75716; 75736; 76937; 80048; 85025; 85610; 85730; C1769; C1887; J1200; J1644; J2250; J3010

== ENCOUNTER 2018-08-17 11:09 | Emergency (ER) | payer MEDICARE, OTHER ==
[2018-08-17 12:39] VITALS: BP 168/79
--- NOTE | 2018-08-17 13:00 | UC ---
Respiratory Complaint HPI - HPI Summary HPI Summary: 88 yo male with 3 day hx of cough productive cough (yellow phelgm) Worse past 24 hours with shortness of breath no CP or fever - History of Current Complaint Chief Complaint: UCGeneralIllness Stated Complaint: COUGH Time Seen by Provider: 08/17/18 12:40 Hx Obtained From: Patient Onset/Duration: Gradual Onset, Lasting Days, Worse Since - x 1 day Timing: Constant Severity Initially: Mild Severity Currently: Moderate Pain Intensity: 0 Pain Scale Used: 0-10 Numeric Character: Cough: Productive Aggravating Factors: Nothing Alleviating Factors: Nothing Associated Signs And Symptoms: Positive: Dyspnea - Allergies/Home Medications Allergies/Adverse Reactions: Allergies Allergy/AdvReac Type Severity Reaction Status Date / Time lactose Allergy Mild Unknown Verified 08/17/18 12:40 Reaction Details aspirin Allergy GI Upset Verified 08/17/18 12:40 metoclopramide [From Reglan] Allergy Unknown Verified 08/17/18 12:40 Reaction Details metoprolol Allergy Unknown Verified 08/17/18 12:40 Reaction Details morphine AdvReac Hallucinati Verified 08/17/18 12:40 ons PMH/Surg Hx/FS Hx/Imm Hx Previously Healthy: Yes Endocrine History: Diabetes, Dyslipidemia Cardiovascular History: Cardiac Disease, Hypertension, Pacemaker/ICD, Other Other Cardiovascular History: aortiv valve replacement Respiratory History: Pneumonia Other History Of: Negative For: Anticoagulant Therapy - Surgical History Surgical History: Yes Surgery Procedure, Year, and Place: L shoulder. gallbladder removed. L wrist. Aortic valve replacement. pacemaker. 3 stents. cataracts - Family History Known Family History: Positive: Hypertension, Other - Negative: CAD Negative: Cardiac Disease - Social History Alcohol Use: None Substance Use Type: None Smoking Status (MU): Former Smoker Have You Smoked in the Last Year: No When Did the Patient Quit Smoking/Using Tobacco: 50 years ago - Immunization History Most Recent Influenza Vaccination: 2017 Most Recent Tetanus Shot: unknown has had in past Most Recent Pneumonia Vaccination: 2015 Review of Systems All Other Systems Reviewed And Are Negative: Yes Constitutional: Positive: Negative Skin: Positive: Negative Eyes: Positive: Drainage - L, Eye Redness - L ENT: Positive: Negative Respiratory: Positive: Shortness Of Breath, Cough Cardiovascular: Positive: Negative Gastrointestinal: Positive: Negative Genitourinary: Positive: Negative Motor: Positive: Negative Neurovascular: Positive: Negative Musculoskeletal: Positive: Negative Neurological: Positive: Negative Psychological: Positive: Negative Physical Exam Triage Information Reviewed: Yes Appearance: Well-Appearing, No Pain Distress, Well-Nourished Vital Signs: Initial Vital Signs Temp 97.0 F 08/17/18 12:32 Pulse 80 08/17/18 12:32 Resp 20 08/17/18 12:32 BP 168/79 08/17/18 12:32 Pulse Ox 100 08/17/18 12:32 Eyes: Positive: Conjunctiva Inflamed - L, Discharge - L ENT: Positive: Pharynx normal, Uvula midline. Negative: Hearing grossly normal , Nasal congestion, Nasal drainage, Tonsillar swelling, Tonsillar exudate, Trismus, Muffled voice, Hoarse voice, Dental tenderness, Sinus tenderness Neck: Positive: Supple Respiratory: Positive: No respiratory distress, No accessory muscle use, Crackles - righ base Cardiovascular: Positive: RRR, No Murmur Diagnostics - Radiology No standard instances Radiology Interpretation Completed By: Radiologist Summary of Radiographic Findings: #. Increased alveolar consolidation at the RIGHT lung compared with the prior exam. concerning for pneumonia. Additional chronic findings as described. Respiratory Course/Dx - Differential Dx/Diagnosis Provider Diagnosis: Pneumonia Discharge - Sign-Out/Discharge Documenting (check all that apply): Patient Departure All imaging exams completed and their final reports reviewed: Yes - Discharge Plan Condition: Stable Disposition: TRANS HIGHER LVL OF CARE FAC Referrals: Triston Ramsey MD [Primary Care Provider] - Additional Instructions: I suggest you go straight to the [facility] for further evaluation and treatment of your pneumonia I spoke to Candy Jones NP and they are expecting you - Billing Disposition and Condition Condition: STABLE Disposition: Trans Higher Lvl of Care Fac
== END 2018-08-17 13:58 | disposition short-term general hospital (02) ==
LOC: UCCORT 11:09
DX: J18.9 Pneumonia, unspecified organism (principal); E11.9 Type 2 diabetes mellitus without complications; I11.9 Hypertensive heart disease without heart failure; Z95.0 Presence of cardiac pacemaker; Z95.2 Presence of prosthetic heart valve; Z87.891 Personal history of nicotine dependence
CPT/HCPCS: 71046; 99212; G0463